=== PATIENT | female | born 1935 | race Caucasian/White ===

== ENCOUNTER 2020-05-07 11:01 | Inpatient (IN) | payer MEDICARE, OTHER ==
[~2020-05-07] VITALS: Ht 170.2 cm; Wt 112.4 kg
[~2020-05-07 11:01] MED LIST: ACET500C OR; ACET65TA OR; Amlodipine Besylate PO; BUDE0.5S6 INH; CATA0.2D3 TD; CEPACOL LOZENGES PO; CEPALOZ8 PO; FURO20TA2 PO; IBUP-1114 PO; IPRA0.00 NEB; MAALSUS OR; METO10TA2 OR; NYST-15 TOP; PERC5TAB8 OR; PRED-351 PO; PROT1TAB2 OR; SENN1TAB84 PO; SUCR1TAB56 OR; TRAZ1TAB6 PO
[2020-05-07 11:56] LABS: BASO # 0.1 10^3/uL (0.0-0.2); BASO % 0.7 % (0.0-1.0); EOS # 0.2 10^3/uL (0.0-0.5); EOS % 1.3 % (0.0-3.0); HEMATOCRIT 45.2 % (36.0-47.0); HEMOGLOBIN 14.2 g/dl (12.0-15.5); LYMPH # 1.3 10^3/uL (1.5-5.0); LYMPH % 7.1 % (24.0-44.0); MEAN CORPUSCULAR HEMOGLOBIN 29.2 pg (27.0-33.0); MEAN CORPUSCULAR HGB CONC 31.4 g/dl (32.0-36.5); MEAN CORPUSCULAR VOLUME 92.8 fl (80.0-96.0); MONO # 1.2 10^3/uL (0.0-0.8); MONO % 6.5 % (0.0-5.0); NEUTROPHILS # 15.1 10^3/uL (1.5-8.5); NEUTROPHILS % 83.6 % (36.0-66.0); PLATELET COUNT, AUTOMATED 468 10^3/uL (150-450); RED BLOOD COUNT 4.87 10^6/uL (4.00-5.40); WHITE BLOOD COUNT 18.1 10^3/uL (4.0-10.0)
--- NOTE | 2020-05-07 12:06 | REP ---
INDICATION: DYSPNEA/COUGH. COMPARISON: 09/22/2015 FINDINGS: The technique utilized in obtaining the radiograph has magnified the cardiac silhouette and accentuated the interstitial markings. There is cardiomegaly accentuated by technique. Bibasilar opacities have developed since the last exam. There is bilateral CP angle blunting. There is no change in the osseous structures. IMPRESSION: 1. Bibasilar opacities. Pneumonia/atelectasis/effusions. 2. Cardiomegaly <Electronically signed by Jose Antonio Vasquez > 05/07/20 1209
[2020-05-07 12:27] LABS: ALBUMIN 2.5 GM/DL (3.2-5.2); BILIRUBIN,DIRECT 0.1 MG/DL (0.0-0.2); BILIRUBIN,TOTAL 0.3 MG/DL (0.2-1.0); TOTAL PROTEIN 6.8 GM/DL (6.4-8.2)
[2020-05-07] MEDS ORDERED: cefTRIAXone SOD 1 GM in D5W MINI-BAG PLUS 50 ML IV ONE (12:30)
[2020-05-07] MEDS ORDERED: AZITHROMYCIN INJ 500 MG, VIAL MATE ADAPTER 1 EACH in D5W 250 ML IV ONE (12:30)
[2020-05-07] MEDS ORDERED: IBUP-1720 PO (13:54)
[2020-05-07] MEDS ORDERED: AMLO1TAB25 PO (13:54)
[2020-05-07] MEDS ORDERED: TRAZ-257 PO (13:54)
[2020-05-07] MEDS ORDERED: IPRA0.00 NEB (13:54)
[2020-05-07] MEDS: AZITHROMYCIN INJ 500 MG, VIAL MATE ADAPTER 1 EACH in D5W 250 ML IV SCH (13:58)
[2020-05-07 15:15] VITALS: BP 120/85
[2020-05-07] MEDS ORDERED: SLF 3 ML SYR IV PRN (15:45)
[2020-05-07 16:25] LABS: CK-MB VALUE MASS 1.1 NG/ML (<3.6); CPK CREATINE PHOSPHOKINASE 32 U/L (26-192); MB/CK RELATIVE INDEX 3.44 (< OR =4); TROPONIN I < 0.02 NG/ML (< 0.10)
[2020-05-07] MEDS ORDERED: IPRATROPIUM 0.5MG/ALBUTEROL 2.5MG INH SOL UD 3ML (DUONEB) NEB PRN (17:45)
--- NOTE | 2020-05-07 17:46 | HPEPDOC ---
[facility] Medical History & Physical Date of Admission May 07, 2020 Date of Service: May 07, 2020 History and Physical CHIEF COMPLAINT: SOB HISTORY OF PRESENT ILLNESS: 84F for one week history of gradually worsening shortness of breath, with cough occasionally productive of white sputum. Denies any sick contacts. No other medical complaints. Denies headaches, N/V/D, abdominal pain. PAST MEDICAL HISTORY: #HTN #GERD #COPD #obesity ALLERGIES: Please see below. REVIEW OF SYSTEMS: Negative except as per HPI. HOME MEDICATIONS: Please see below. PHYSICAL EXAMINATION: VITAL SIGNS: See below General: NAD, lying comfortably in bed HEENT: NC/AT, EOMI, hard of hearing, poor dentition Lungs: coarse breath sounds Heart: +S1S2, RRR Abd: soft, NT, +BS LABORATORY DATA: See below. MICROBIOLOGY: Please see below. A/P: 84F for one week history of gradually worsening SOB/cough, admitted for acute hypoxic respiratory failure secondary to possible pneumonia, possibly complicated with decompensated heart failure. #acute hypoxic respiratory failure - possibly multi-factorial as below - supplemental O2 - IS/acapella #PNA - ceftriaxone/azithromycin - sputum culture/gram stain - respiratory panel negative - COVID-19 negative #CHF? - xray not clear regarding evidence of fluid - echocardiogram ordered - I/O's, daily weight #HTN - continue home meds #obesity - complicates care #GERD #COPD - continue home respiratory regimen - DuoNeb #DVT prophylaxis - mechanical Vital Signs Vital Signs Date Time Temp Pulse Resp B/P (MAP) Pulse Ox O2 Delivery O2 Flow Rate FiO2 05/07/20 15:15 97.3 96 22 120/85 (97) 94 Nasal Cannula 2.0 Laboratory Data Labs 24H Laboratory Tests 2 05/07/20 11:36: POC Glucose (Misc Panel) 117H, POC Sodium (Misc Panel) 137, POC Potassium (Misc Panel) 4.3, POC Chloride (Misc Panel) 103, POC Total CO2 (Misc Panel) 25.0, POC Blood Urea Nitrogen (Misc Panel 11, POC Ionized Calcium (Misc Panel) 4.4L, POC Creatinine (Misc Panel) 0.8, POC Hematocrit (Misc Panel) 47.0, Lactic Acid Level 1.3 05/07/20 11:38: POC Troponin I (Misc) 0.02 05/07/20 11:41: Immature Granulocyte % (Auto) 0.8, Neutrophils (%) (Auto) 83.6H, Lymphocytes (%) (Auto) 7.1L, Monocytes (%) (Auto) 6.5H, Eosinophils (%) (Auto) 1.3, Basophils (%) (Auto) 0.7, Neutrophils # (Auto) 15.1H, Lymphocytes # (Auto) 1.3L, Monocytes # (Auto) 1.2H, Eosinophils # (Auto) 0.2, Basophils # (Auto) 0.1, Nucleated Red Blood Cells % (auto) 0.0, Total Bilirubin 0.3, Direct Bilirubin 0.1, Aspartate A kylie Transf (AST/SGOT) 14, Alanine Aminotransferase (ALT/SGPT) 14, Alkaline Phosphatase 107, UB-Tlq-T-Type Natriuretic Peptide 340, Total Protein 6.8, Albumin 2.5L, Albumin/Globulin Ratio 0.6L 05/07/20 15:44: Total Creatine Kinase 32, Creatine Kinase MB 1.1, Creatine Kinase MB Relative Index 3.44, Troponin I < 0.02 CBC/BMP Laboratory Tests 05/07/20 11:41 Microbiology Microbiology 05/07/20 Blood Culture, Received Pending 05/07/20 Blood Culture, Received Pending 05/07/20 Respiratory Virus Panel (PCR) ([facility]) - Final, Complete Home Medications Scheduled Amlodipine Besylate (Amlodipine Besylate) 10 Mg Tablet, 10 MG PO DAILY Trazodone HCl (Trazodone HCl) 100 Mg Tablet, 100 MG PO QHS Scheduled PRN Ibuprofen (Ibuprofen) 200 Mg Tablet, 800 MG PO Q8H PRN for PAIN Ipratropium/Albuterol Sulfate (Iprat-Albut 0.5-3(2.5) mg/3 ml) 3 Ml Ampul.neb, 1 VIAL NEB Q6H PRN for SOB/WHEEZING Allergies Coded Allergies: Sulfa (Sulfonamide Antibiotics) (Verified Adverse Reaction, Mild, STOMACH UPSET, 05/07/20) A-FIB/CHADSVASC A-FIB History Current/History of A-Fib/PAF?: No SUDEEP ZAPATA MD May 07, 2020 17:46
[2020-05-07] MEDS ORDERED: guaiFENesin SYRUP 200 MG/10 ML UDC PO PRN (18:00)
[2020-05-07] MEDS ORDERED: IBUPROFEN 200MG TAB PO PRN (19:00)
[2020-05-07 20:00] VITALS: BP 140/90
[2020-05-07] MEDS: SLF 3 ML SYR IV SCH (20:20)
[2020-05-07] MEDS: traZODone 100 MG TAB PO SCH (20:20)
[2020-05-07 22:32] LABS: CK-MB VALUE MASS 1.3 NG/ML (<3.6); CPK CREATINE PHOSPHOKINASE 34 U/L (26-192); MB/CK RELATIVE INDEX 3.82 (< OR =4); TROPONIN I < 0.02 NG/ML (< 0.10)
[2020-05-08] VITALS: BP 129/63
[2020-05-08] MEDS: SLF 3 ML SYR IV SCH ×3 (01:18→21:06)
[2020-05-08 04:00] VITALS: BP 134/78
[2020-05-08 05:56] LABS: BASO # 0.1 10^3/uL (0.0-0.2); BASO % 0.6 % (0.0-1.0); EOS # 0.2 10^3/uL (0.0-0.5); HEMATOCRIT 45.4 % (36.0-47.0); HEMOGLOBIN 13.9 g/dl (12.0-15.5); LYMPH # 1.2 10^3/uL (1.5-5.0); LYMPH % 8.2 % (24.0-44.0); MEAN CORPUSCULAR HEMOGLOBIN 28.8 pg (27.0-33.0); MEAN CORPUSCULAR HGB CONC 30.6 g/dl (32.0-36.5); MEAN CORPUSCULAR VOLUME 94.2 fl (80.0-96.0); MONO # 1.1 10^3/uL (0.0-0.8); MONO % 7.6 % (0.0-5.0); NEUTROPHILS % 81.8 % (36.0-66.0); PLATELET COUNT, AUTOMATED 437 10^3/uL (150-450); RED BLOOD COUNT 4.82 10^6/uL (4.00-5.40); WHITE BLOOD COUNT 14.7 10^3/uL (4.0-10.0)
[2020-05-08 06:16] LABS: BLOOD UREA NITROGEN 12 MG/DL (7-18); CALCIUM LEVEL 8.9 MG/DL (8.8-10.2); CARBON DIOXIDE LEVEL 27 MEQ/L (21-32); CHLORIDE LEVEL 102 MEQ/L (98-107); CREATININE FOR GFR 0.85 MG/DL (0.55-1.30); GLOMERULAR FILTRATION RATE > 60.0 (>32); GLUCOSE, FASTING 127 MG/DL (70-100); SODIUM LEVEL 136 MEQ/L (136-145)
[2020-05-08 07:42] LABS: BILIRUBIN, URINE MANUAL NEGATIVE (NEGATIVE); GLUCOSE, URINE (UA) MANUAL NEGATIVE (NEGATIVE); KETONE, URINE MANUAL NEGATIVE (NEGATIVE); UROBILINOGEN, URINE MANUAL NORMAL (NORMAL)
[2020-05-08 08:00] VITALS: BP 128/65
[2020-05-08 08:02] LABS: HYALINE CAST, URINE NONE SEEN /lpf (0-1); MUCUS, URINE LARGE AMOUNT (NEGATIVE); SQUAMOUS EPITHELIAL CELL URINE SMALL AMOUNT /hpf (SMALL AMT); TRIPLE PHOSPHATE CRYSTAL,URINE SMALL AMOUNT /hpf
[2020-05-08 08:03] LABS: AMORPHOUS SEDIMENT, URINE MOD AMOUNT (NEGATIVE); BACTERIA, URINE LARGE AMOUNT
--- NOTE | 2020-05-08 08:27 | IPNPDOC ---
Text Note Date of Service The patient was seen on 05/08/20. NOTE Subjective: Patient seen and examined at bedside. No acute overnight events reported. Patient states her breathing is feeling better this morning. Objective: PHYSICAL EXAMINATION: VITAL SIGNS: See below General: NAD, lying comfortably in bed HEENT: NC/AT, EOMI, hard of hearing, poor dentition Lungs: coarse breath sounds Heart: +S1S2, RRR Abd: soft, NT, +BS A/P: 84F for one week history of gradually worsening SOB/cough, admitted for acute hypoxic respiratory failure secondary to possible pneumonia, possibly complicated with decompensated heart failure. #acute hypoxic respiratory failure - possibly multi-factorial as below - supplemental O2 - IS/acapella #PNA - ceftriaxone/azithromycin - sputum culture/gram stain - respiratory panel negative - COVID-19 negative #CHF? - xray not clear regarding evidence of fluid - echocardiogram ordered - I/O's, daily weight #HTN - continue home meds #obesity - complicates care #GERD #COPD - continue home respiratory regimen - DuoNeb #DVT prophylaxis - mechanical Dispo: pending echocardiogram, continue IV Abx pending cultures, PT/OT VS,Fishbone, I+O VS, Fishbone, I+O Laboratory Tests 05/07/20 11:41 05/08/20 05:24 Vital Signs Date Time Temp Pulse Resp B/P (MAP) Pulse Ox O2 Delivery O2 Flow Rate FiO2 05/08/20 04:00 96.8 99 20 134/78 (96) 94 Nasal Cannula 2.0 I&O- Last 24 Hours up to 6 AM 05/08/20 06:00 Intake Total 425 ml Output Total 0 ml Balance 425 ml SUDEEP ZAPATA MD May 08, 2020 08:27
--- NOTE | 2020-05-08 10:14 | ECGEPIP ---
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
[2020-05-08] MEDS: amLODIPine 10 MG TAB PO SCH (10:27)
[2020-05-08 12:00] VITALS: BP 110/65
[2020-05-08] MEDS: cefTRIAXone SOD 1 GM in D5W MINI-BAG PLUS 50 ML IV SCH (12:53)
[2020-05-08] MEDS: AZITHROMYCIN INJ 500 MG, VIAL MATE ADAPTER 1 EACH in D5W 250 ML IV SCH (14:21)
[2020-05-08 16:00] VITALS: BP 125/72
[2020-05-08] MEDS ORDERED: CALCIUM CARBONATE 500 MG CHEW U/D PO PRN (17:30)
[2020-05-08 20:00] VITALS: BP 125/60
[2020-05-08] MEDS: traZODone 100 MG TAB PO SCH (21:05)
[2020-05-09] VITALS: BP 112/58
[2020-05-09 04:00] VITALS: BP 134/82
[2020-05-09 05:17] LABS: BASO # 0.1 10^3/uL (0.0-0.2); BASO % 0.6 % (0.0-1.0); EOS # 0.3 10^3/uL (0.0-0.5); HEMATOCRIT 48.2 % (36.0-47.0); HEMOGLOBIN 15.1 g/dl (12.0-15.5); LYMPH # 1.6 10^3/uL (1.5-5.0); LYMPH % 11.3 % (24.0-44.0); MEAN CORPUSCULAR HGB CONC 31.3 g/dl (32.0-36.5); MEAN CORPUSCULAR VOLUME 95.6 fl (80.0-96.0); MONO # 1.2 10^3/uL (0.0-0.8); MONO % 8.7 % (0.0-5.0); NEUTROPHILS # 10.5 10^3/uL (1.5-8.5); NEUTROPHILS % 76.4 % (36.0-66.0); PLATELET COUNT, AUTOMATED 463 10^3/uL (150-450); RED BLOOD COUNT 5.04 10^6/uL (4.00-5.40); WHITE BLOOD COUNT 13.8 10^3/uL (4.0-10.0)
[2020-05-09 05:38] LABS: BLOOD UREA NITROGEN 15 MG/DL (7-18); CALCIUM LEVEL 9.2 MG/DL (8.8-10.2); CARBON DIOXIDE LEVEL 31 MEQ/L (21-32); CHLORIDE LEVEL 103 MEQ/L (98-107); CREATININE FOR GFR 0.91 MG/DL (0.55-1.30); GLOMERULAR FILTRATION RATE > 60.0 (>32); GLUCOSE, FASTING 117 MG/DL (70-100); POTASSIUM SERUM 4.1 MEQ/L (3.5-5.1); SODIUM LEVEL 138 MEQ/L (136-145)
[2020-05-09] MEDS: SLF 3 ML SYR IV SCH ×2 (06:14→12:55)
[2020-05-09 08:00] VITALS: BP 122/67
[2020-05-09] MEDS: amLODIPine 10 MG TAB PO SCH (09:25)
[2020-05-09 11:39] VITALS: BP 131/63
[2020-05-09] MEDS: cefTRIAXone SOD 1 GM in D5W MINI-BAG PLUS 50 ML IV SCH (12:54)
[2020-05-09] MEDS: AZITHROMYCIN INJ 500 MG, VIAL MATE ADAPTER 1 EACH in D5W 250 ML IV SCH (12:55)
[2020-05-09] MEDS ORDERED: ACETAMINOPHEN TAB 650MG DOSE (2X325MG) PO PRN (13:15)
--- NOTE | 2020-05-09 13:21 | IPNPDOC ---
Text Note Date of Service The patient was seen on 05/09/20. NOTE Subjective: Patient seen and examined at bedside. No acute overnight events reported. Patient states her breathing is feeling better this morning, however states she feels weak. No other medical complaints. Objective: PHYSICAL EXAMINATION: VITAL SIGNS: See below General: NAD, lying comfortably in bed HEENT: NC/AT, EOMI, hard of hearing, poor dentition Lungs: scattered crackles Heart: +S1S2, RRR Abd: soft, NT, +BS A/P: 84F for one week history of gradually worsening SOB/cough, admitted for acute hypoxic respiratory failure secondary to possible pneumonia, possibly comp licated with decompensated heart failure. #acute hypoxic respiratory failure - possibly multi-factorial as below - supplemental O2 has been weaned off - IS/acapella #PNA - ceftriaxone/azithromycin - check ECG for qt interval - pt also takes trazodone - sputum culture/gram stain pending - respiratory panel negative - COVID-19 negative #CHF? - xray not clear regarding evidence of fluid - echocardiogram ordered - pending report - I/O's, daily weight #HTN - continue home meds - amlodipine #obesity - complicates care #GERD #COPD - continue home respiratory regimen - DuoNeb #DVT prophylaxis - mechanical Dispo: pending echocardiogram, continue IV Abx pending cultures, PT/OT; Extensive discussion with family - Tashi and Dayna - planning for transportation for tomorrow 05/10/20 VS,Fishbone, I+O VS, Fishbone, I+O Laboratory Tests 05/09/20 04:28 Vital Signs Date Time Temp Pulse Resp B/P (MAP) Pulse Ox O2 Delivery O2 Flow Rate FiO2 05/09/20 11:39 97.5 83 18 131/63 (85) 92 Room Air 05/08/20 08:00 2.0 I&O- Last 24 Hours up to 6 AM 05/09/20 06:00 Intake Total 1385 ml Output Total 0 ml Balance 1385 ml SUDEEP ZAPATA MD May 09, 2020 13:21
[2020-05-09] MEDS ORDERED: AZIT500T5 PO (14:16)
[2020-05-09] MEDS ORDERED: CEFD1CAP8 PO (14:16)
--- NOTE | 2020-05-09 14:22 | DS.PDOC ---
Discharge Summary General Date of Admission May 07, 2020 at 13:10 Date of Discharge anticipated for 05/10/20 Discharge Summary PROCEDURES PERFORMED DURING STAY: [None]. DISCHARGE DIAGNOSES: #CAP #HTN #GERD #COPD #obesity COMPLICATIONS/CHIEF COMPLAINT: Pneumonia. HPI/Hospital Course: 84F for one week history of gradually worsening shortness of breath, with cough occasionally productive of white sputum. Denies any sick contacts. No other medical complaints. Denies headaches, N/V/D, abdominal pain. Patient admitted for further evaluation and treatment. Treated with IV antibiotics for pneumonia, and supplemental oxygen. Patient responded well to therapy, weaned to room air. Was noted to be weak, which was addressed with physical therapy, with recs for home with services. DISCHARGE MEDICATIONS: Please see below. ALLERGIES: Please see below. PHYSICAL EXAMINATION ON DISCHARGE: VITAL SIGNS: See below General: NAD, lying comfortably in bed HEENT: NC/AT, EOMI, hard of hearing, poor dentition Lungs: coarse breath sounds Heart: +S1S2, RRR Abd: soft, NT, +BS LABORATORY DATA: Please see below. ACTIVITY: [As tolerated]. DISPOSITION: Home with services DISCHARGE INSTRUCTIONS: 1. Follow up PCP in 3-5 days DISCHARGE CONDITION: [Stable]. TIME SPENT ON DISCHARGE: 35 minutes. Vital Signs/I&Os Vital Signs Date Time Temp Pulse Resp B/P (MAP) Pulse Ox O2 Delivery O2 Flow Rate FiO2 05/09/20 11:39 97.5 83 18 131/63 (85) 92 Room Air 05/08/20 08:00 2.0 I&O- Last 24 Hours up to 6 AM 05/09/20 06:00 Intake Total 1385 ml Output Total 0 ml Balance 1385 ml Laboratory Data Labs 24H Laboratory Tests 2 05/09/20 04:28: Immature Granulocyte % (Auto) 1.0, Neutrophils (%) (Auto) 76.4H, Lymphocytes (%) (Auto) 11.3L, Monocytes (%) (Auto) 8.7H, Eosinophils (%) (Auto) 2.0, Basophils (%) (Auto) 0.6, Neutrophils # (Auto) 10.5H, Lymphocytes # (Auto) 1.6, Monocytes # (Auto) 1.2H, Eosinophils # (Auto) 0.3, Basophils # (Auto) 0.1, Nucleated Red Blood Cells % (auto) 0.0, Anion Gap 4L, Glomerular Filtration Rate > 60.0, Calcium Level 9.2 CBC/BMP Laboratory Tests 05/09/20 04:28 Microbiology Microbiology 05/08/20 Gram Stain - Final, Resulted 05/08/20 Sputum Culture, Resulted Pending 05/08/20 Urine Culture - Final, Complete 05/07/20 Blood Culture - Preliminary, Resulted No growth after 24 hours . All specim... 05/07/20 Blood Culture - Preliminary, Resulted No Growth after 48 hours. All Specime... 05/07/20 Respiratory Virus Panel (PCR) ([facility]) - Final, Complete Discharge Medications Scheduled Amlodipine Besylate (Amlodipine Besylate) 10 Mg Tablet, 10 MG PO DAILY, (Reported) Azithromycin (Azithromycin) 500 Mg Tablet, 1 TAB PO DAILY Cefdinir (Cefdinir) 300 Mg Capsule, 1 CAP PO BID Trazodone HCl (Trazodone HCl) 100 Mg Tablet, 100 MG PO QHS, (Reported) Scheduled PRN Ipratropium/Albuterol Sulfate (Iprat-Albut 0.5-3(2.5) mg/3 ml) 3 Ml Ampul.neb, 1 VIAL NEB Q6H PRN for SOB/WHEEZING, (Reported) Allergies Coded Allergies: Sulfa (Sulfonamide Antibiotics) (Verified Adverse Reaction, Mild, STOMACH UPSET, 05/07/20) SUDEEP ZAPATA MD May 09, 2020 14:22
[2020-05-09 16:00] VITALS: BP 119/59
[2020-05-09] MEDS: traZODone 100 MG TAB PO SCH (21:45)
[2020-05-09 22:00] VITALS: BP 123/60
[2020-05-10 06:00] VITALS: BP 121/63
[2020-05-10 07:26] LABS: BASO # 0.1 10^3/uL (0.0-0.2); BASO % 0.6 % (0.0-1.0); EOS # 0.4 10^3/uL (0.0-0.5); EOS % 2.9 % (0.0-3.0); HEMATOCRIT 48.3 % (36.0-47.0); HEMOGLOBIN 14.6 g/dl (12.0-15.5); LYMPH # 1.7 10^3/uL (1.5-5.0); LYMPH % 14.1 % (24.0-44.0); MEAN CORPUSCULAR HEMOGLOBIN 28.7 pg (27.0-33.0); MEAN CORPUSCULAR HGB CONC 30.2 g/dl (32.0-36.5); MEAN CORPUSCULAR VOLUME 95.1 fl (80.0-96.0); MONO # 0.9 10^3/uL (0.0-0.8); MONO % 7.6 % (0.0-5.0); NEUTROPHILS # 8.9 10^3/uL (1.5-8.5); NEUTROPHILS % 73.9 % (36.0-66.0); PLATELET COUNT, AUTOMATED 507 10^3/uL (150-450); RED BLOOD COUNT 5.08 10^6/uL (4.00-5.40)
[2020-05-10 07:45] LABS: CALCIUM LEVEL 9.2 MG/DL (8.8-10.2); CREATININE FOR GFR 1.04 MG/DL (0.55-1.30); GLOMERULAR FILTRATION RATE 53.7 (>32)
[2020-05-10 09:14] VITALS: BP 119/73
[2020-05-10] MEDS: amLODIPine 10 MG TAB PO SCH (09:14)
--- NOTE | 2020-05-11 11:47 | ECHO ---
DATE OF PROCEDURE: 05/09/2020 Age: 84 Gender: Female Height: 67 inches Weight: 242 pounds Body surface area: 2.19 m2 PATIENT LOCATION: Inpatient progressive care unit (PCU), Room 3212. REFERRING PHYSICIAN: Zaid Lopez M.D. INDICATION: Dyspnea. MEASUREMENTS: 2D Measurements: RV 3.4 cm LV 4.4 cm Septum 1.0 cm Posterior wall 1.0 cm Aortic Root 3.0 cm LA 3.6 cm LVEF 65% Doppler Measurements: AV 1.38 msec LVOT 1.18 msec MV-E 86, A 108, E/A ratio 0.8 Early mitral deceleration time 151 msec E prime medial 5, A prime medial 7, E prime lateral 4.7 Average E/E prime ratio 17.7 PCWP 23.9 mmHg PV 0.8 msec Pulmonary artery acceleration time 116 msec PASP 30 mmHg IVC Could not be visualized COMMENTS: Normal sinus rhythm without intraventricular conduction disturbance. Premature atrial contractions (PACs) and premature ventricular contractions (PVCs). Technically very challenging study, but some diagnostically useful information was still obtained. M-mode and two-dimensional echocardiography was performed with pulse, continuous wave, color flow, and tissue Doppler studies. Normal left ventricular size, wall thickness, and wall motion. Left atrial size upper limits of normal with grade 1 left ventricular (LV) diastolic dysfunction and elevated estimated mean left atrial pressure. Normal right heart chamber sizes and motion with Doppler evidence of borderline pulmonary hypertension. Inferior vena cava (IVC) size could not be determined for technical difficulties related to patients body habitus. Normal aortic dimensions. Normal appearing and functioning aortic valve. Difficult to visualize the mitral valve, but Doppler flow patterns were normal against mitral stenosis or significant insufficiency. Tricuspid valve could not be visualized well. No apparent pericardial effusion. Could not rule out an intracardiac mass because of the technical difficulties as mentioned. MTDD
--- NOTE | 2020-05-13 13:20 | ECGEPIP ---
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
== END 2020-05-10 10:08 | disposition home health service (06) | DRG 194 ==
LOC: M ED 11:01 → EDBD 11:01 → M ED INP 13:10 → ENRESERV 13:59 → M PCU 15:12 → M MSPAV 05-09 17:42
PROVIDERS: ADMIT Internal Medicine; ATTEND Internal Medicine
DX: J18.9 Pneumonia, unspecified organism (principal); J44.0 Chronic obstructive pulmonary disease with (acute) lower respiratory infection; I11.0 Hypertensive heart disease with heart failure; I50.9 Heart failure, unspecified; K21.9 Gastro-esophageal reflux disease without esophagitis; H91.93 Unspecified hearing loss, bilateral; E66.9 Obesity, unspecified; Z79.899 Other long term (current) drug therapy; Z88.2 Allergy status to sulfonamides; Z68.38 Body mass index [BMI] 38.0-38.9, adult; Z20.828 Contact with and (suspected) exposure to other viral communicable diseases

== ENCOUNTER 2020-08-01 10:11 | Inpatient (IN) | payer MEDICARE, MEDICAID ==
[~2020-08-01] VITALS: Ht 170.2 cm; Wt 114.5 kg
[~2020-08-01 10:11] MED LIST changes: +AMLO1TAB25 PO; +AZIT500T5 PO; +CEFD1CAP8 PO; +IBUP-1720 PO; +TRAZ-257 PO
[2020-08-01] MEDS ORDERED: TRAZ-189 PO (10:29)
[2020-08-01 11:12] LABS: BASO # 0.1 10^3/uL (0.0-0.2); BASO % 0.3 % (0.0-1.0); EOS % 0.1 % (0.0-3.0); LYMPH # 1.1 10^3/uL (1.5-5.0); LYMPH % 6.7 % (24.0-44.0); MEAN CORPUSCULAR HEMOGLOBIN 29.6 pg (27.0-33.0); MEAN CORPUSCULAR HGB CONC 32.1 g/dl (32.0-36.5); MEAN CORPUSCULAR VOLUME 92.2 fl (80.0-96.0); MONO # 1.1 10^3/uL (0.0-0.8); MONO % 6.7 % (0.0-5.0); NEUTROPHILS # 13.4 10^3/uL (1.5-8.5); NEUTROPHILS % 85.9 % (36.0-66.0); PLATELET COUNT, AUTOMATED 203 10^3/uL (150-450); RED BLOOD COUNT 5.75 10^6/uL (4.00-5.40)
[2020-08-01 11:29] LABS: BLOOD UREA NITROGEN 16 MG/DL (7-18); CALCIUM LEVEL 9.3 MG/DL (8.8-10.2); CARBON DIOXIDE LEVEL 23 MEQ/L (21-32); CHLORIDE LEVEL 102 MEQ/L (98-107); CK-MB VALUE MASS 15.7 NG/ML (<3.6); CPK CREATINE PHOSPHOKINASE 479 U/L (26-192); CREATININE FOR GFR 0.82 MG/DL (0.55-1.30); GLOMERULAR FILTRATION RATE > 60.0 (>32); GLUCOSE, FASTING 139 MG/DL (70-100); MB/CK RELATIVE INDEX 3.28 (< OR =4); POTASSIUM SERUM 4.2 MEQ/L (3.5-5.1); SODIUM LEVEL 137 MEQ/L (136-145); TROPONIN I < 0.02 NG/ML (< 0.10)
--- NOTE | 2020-08-01 11:31 | REP ---
INDICATION: AMS COMPARISON: 05/07/2020 TECHNIQUE: Portable AP view of the chest FINDINGS: The mediastinum and cardiac silhouette are stable and cardiomegaly is again appreciated. Lung lopes demonstrate chronic stable changes. Opacities in the left mid to lower lung zone are again identified and likely chronic although superimposed atelectasis cannot be excluded. Skeletal structures are intact. IMPRESSION: Stable cardiomegaly and chronic changes Acute on chronic left lower lobe opacities cannot be differentiated and correlation is recommended. <Electronically signed by Sammy Reynolds > 08/01/20 [id number]
[2020-08-01 11:44] LABS: WHITE BLOOD COUNT 15.6 10^3/uL (4.0-10.0)
[2020-08-01 12:54] LABS: ETHYL ALCOHOL (ETHANOL) 0.003 % (0.000-0.010)
--- NOTE | 2020-08-01 14:12 | REP ---
INDICATION: AMS. COMPARISON: Comparison CT study of the brain is from 23 Oct 2010.. TECHNIQUE: Helical scanning is acquired. 5 mm axial images were reformatted. Coronal MPR images were generated. 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 Bone window settings demonstrate intact bony calvarium. Vascular calcification is observed in the distal vertebral and distal internal carotid arteries bilaterally. No intraorbital abnormality is seen. The visualized paranasal sinuses are clear. On soft tissue window settings, there is mild generalized volume loss. 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 These are unchanged from the 2011 study. However, there is a small subcentimeter focus of low density in the anterior limb of the internal capsule on the left 5 mm in greatest diameter which is not visible previously. This is a little less well circumscribed and could be a more recent lacunar infarct. There are small vessel changes. No evidence of acute cortical infarction is seen on this noncontrast study. There is no evidence of intracranial hemorrhage. No mass, midline shift, or extra-axial fluid collection. 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 There is a 5 mm low-density area in the anterior limb of the internal capsule on the left which was not clearly evident previously. This may be a more recent lacunar infarct. No acute cortical infarction is seen. There is no evidence of hemorrhage or mass. Generalized volume loss and vascular calcification are seen.. <Electronically signed by Terell Malhotra > 08/01/20 [id number]
--- NOTE | 2020-08-01 14:21 | REP ---
INDICATION: AMS COMPARISON: None. TECHNIQUE: CT Scan of the abdomen and pelvis was performed without intravenous contrast. Sagittal and coronal reconstruction images performed. FINDINGS: Liver: A calcified granuloma is seen in the liver. Gallbladder: Unremarkable. Spleen: Grossly unremarkable.. Adrenals: Normal. Pancreas: Grossly unremarkable.. Kidneys: No hydronephrosis or nephrolithiasis. Ureters demonstrate no dilatation or calculus. There is a probable 1.2 cm cyst of the medial lower right kidney and a 1.2 cm cyst in the posterior mid left kidney. Small and large bowel: There is diffuse colonic diverticulosis. There is no evidence of acute diverticulitis. A left upper quadrant anterior abdominal hernia contains noninflamed fat but no bowel. Free fluid: None. Abdominal aorta: No aneurysm. Adenopathy: None. Appendix: Prior appendectomy. Osseous structures: There are degenerative changes of the spine without compression deformity. Pelvis: No mass. No bladder calculus seen. A Doll catheter seen in a collapsed urinary bladder. A pessary device is noted. IMPRESSION: Chronic changes as discussed in detail above. Probable cyst in each kidney. Colonic diverticulosis. No free air or free fluid. Small left anterior abdominal wall hernia contains noninflamed fat. No acute abnormalities. <Electronically signed by Antonio José > 08/01/20 [id number]
--- NOTE | 2020-08-01 14:31 | REP ---
INDICATION: AMS. COMPARISON: 02/20/2010. TECHNIQUE: CT chest performed without the use of intravenous contrast. Sagittal and coronal reconstruction images are performed. FINDINGS: Lungs: There are scattered bilateral fibro atelectatic changes. These are most significant in the right middle lobe region and lingula. There is some patchy parenchymal opacity in the inferior aspect of the left lower lobe which may represent atelectasis or infiltrate. Mediastinum: No gross adenopathy. Siobhan: No gross adenopathy. Axilla: No gross adenopathy. Pleura: No effusion. There is elevation left hemidiaphragm. Heart: Cardiomegaly is again noted. Thoracic aorta: No aneurysm. There is ectasia of the ascending thoracic aorta, AP diameter is approximately 4.2 cm. There are mild atherosclerotic calcifications of the aortic arch. Visualized osseous structures: There are degenerative changes of the spine without compression deformity. IMPRESSION: Diffuse fibro atelectatic changes bilaterally. Focal patchy atelectasis or infiltrate left lower lobe inferiorly. Cardiomegaly with elevation of left hemidiaphragm. <Electronically signed by Antonio José > 08/01/20 [id number]
[2020-08-01] MEDS ORDERED: MED REC COMMENT (15:15)
[2020-08-01] MEDS: NS 1,000 ML IV SCH (16:04)
[2020-08-01] MEDS ORDERED: hydrALAZINE 20MG/ML 1ML VIAL (J0360 PER 20MG) IV ONE (16:45)
[2020-08-01] MEDS: **hydrALAZINE HCL** 25 MG TAB PO SCH (18:47)
--- NOTE | 2020-08-01 19:11 | HPEPDOC ---
General Date of Admission Aug 01, 2020 at 15:07 Date of Service: Aug 01, 2020 Chief Complaint The patient is a 84-year-old female admitted with a reason for visit of Metabolic Encephalopathy. Source: RN/, EMS notes reviewed, Old records History of Present Illness 84 year old morbidly obese female lives alone was found down on the floor by EMS and brought to the hospital. Patient's family had been trying to reach her from yesterday and could not so called EMS. Patient reported to EMS that she fell sometime yesterday or last night and then could not get up. On arrival to the ED she was noted to be dirty and dishevelled smelling strongly of urine. SHe was confused and somnolent and poorly responsive. Only said she was tired. On my interview she was very somnolent told me she was in [place] but could not tell me where. She was able to follow simple commands. Could not give me any history. To any question she would answer "oh huh". All history was taken from ED pr ovider and chart review. Patient was admitted for metabolic encephalopathy. CT chest shows: Diffuse fibro atelectatic changes bilaterally. Focal patchy atelectasis or infiltrate left lower lobe inferiorly. Cardiomegaly with elevation of left hemidiaphragm CT head: There are old lacunar infarcts in the basal ganglia bilaterally, 1 on each side. There is a 5 mm low-density area in the anterior limb of the internal capsule on the left which was not clearly evident previously. This may be a m ore recent lacunar infarct. No acute cortical infarction is seen. There is no evidence of hemorrhage or mass. Generalized volume loss and vascular calcification are seen.. Home Medications Scheduled Amlodipine Besylate (Amlodipine Besylate) 10 Mg Tablet, 10 MG PO DAILY, (Reported) Trazodone HCl (Trazodone HCl) 100 Mg Tablet, 100 MG PO QHS, (Reported) Miscellaneous Medications [Med Rec Comment] , (Reported) MED LIST OBTAINED FROM PHARMACY Allergies Coded Allergies: Sulfa (Sulfonamide Antibiotics) (Verified Adverse Reaction, Mild, STOMACH UPSET, 05/07/20) Past Medical History Medical History HTN GERD/ Gastric ulcer/ erosive esophagitis COPD Morbid obesity H/O alcohol abuse Possible TERESE Hiatal Hernia Urinary incontinence Surgical History Hysterectomy. Appendectomy. Tubal ligation. Hiatal hernia repair. Cystourethroscopy with macroplastiq urethral injection. Family History could not get as patient confused and somnolent. Nothing found in chart review. Social History * Smoker: Denies Alcohol: other (h/o abuse) Drugs: denies A-FIB/CHADSVASC A-FIB History Current/History of A-Fib/PAF?: No Review of Systems Constitutional: Denies: Chills, Fever Pulmonary: Denies: Dyspnea, Cough Gastrointestinal: Denies: Nausea, Vomiting, Abdominal Pain Genitourinary: Reports: Incontinence Neurological: Reports: Confusion Physical Examination General Exam: Positive: No Acute Distress, Other (somnolent) Eye Exam: Positive: PERRLA, Conjunctiva & lids normal Neck Exam: Positive: Supple; Negative: JVD, thyromegaly Chest Exam: Positive: Clear to auscultation, Normal air movement Heart Exam: Positive: Rate Normal, Regular Rhythm, Normal S1, Normal S2; Negative: Murmurs, Rubs Telemetry: Positive: No significant arrhythmia Abdomen Exam: Positive: Normal bowel sounds, Soft; Negative: Tenderness Extremity Exam: Negative: Clubbing, Cyanosis, Edema Skin Exam: Positive: Other skin issue (bruising and abrasions on the left kelley. , Feet dirty with thick skin and corns.) Neuro Exam: Positive: Normal Tone, Other (able to move all 4 limbs equally. ) Vital Signs Vital Signs Date Time Temp Pulse Resp B/P (MAP) Pulse Ox O2 Delivery O2 Flow Rate FiO2 08/01/20 18:47 177/82 08/01/20 18:29 85 98 Room Air 08/01/20 16:14 97.3 18 Laboratory Data Labs 24H Laboratory Tests 2 08/01/20 10:52: Immature Granulocyte % (Auto) 0.3, Neutrophils (%) (Auto) 85.9H, Lymphocytes (%) (Auto) 6.7L, Monocytes (%) (Auto) 6.7H, Eosinophils (%) (Auto) 0.1, Basophils (%) (Auto) 0.3, Neutrophils # (Auto) 13.4H, Lymphocytes # (Auto) 1.1L, Monocytes # (Auto) 1.1H, Eosinophils # (Auto) 0.0, Basophils # (Auto) 0.1, Nucleated Red Blood Cells % (auto) 0.0, Lactic Acid Level 2.0 08/01/20 10:53: Anion Gap 12, Glomerular Filtration Rate > 60.0, Calcium Level 9.3, Total Creatine Kinase 479H, Creatine Kinase MB 15.7H, Creatine Kinase MB Relative Ind ex 3.28, Troponin I < 0.02, Ethyl Alcohol Level 0.003 08/01/20 10:59: SARS Antigen (LFIA) NEGATIVE 08/01/20 11:09: POC pH (Misc Panel) 7.448, POC Base Excess (Misc Panel) 5.0H, POC Saturated Percent O2 (Misc) 95, POC pO2 (Misc Panel) 75.0L, POC pCO2 (Misc Panel) 41.8, POC HCO3 (Misc Panel) 28.9H, POC Total CO2 (Misc Panel) 30.0H 08/01/20 11:50: Urine Color YELLOW, Urine Appearance CLEAR, Urine pH 6.0, Urine Specific [place] 1.016, Urine Protein 3+H, Urine Glucose (UA) NEGATIVE, Urine Ketones TRACEH, Urine Blood NEGATIVE, Urine Nitrite NEGATIVE, Urine Bilirubin NEGATIVE, Urine Urobilinogen 0.2, Urine Leukocyte Esterase NEGATIVE, Urine WBC (Auto) 0, Urine RBC (Auto) 4H, Urine Hyaline Casts (Auto) 0, Urine Bacteria (Auto) NEGATIVE, Ur ine Squamous Epithelial Cells 0, Urine Mucus (Auto) SMALL, Urine Sperm (Auto) CBC/BMP Laboratory Tests 08/01/20 10:52 08/01/20 10:53 Microbiology Microbiology 08/01/20 Respiratory Virus Panel (PCR) (HUGO) - Final, Complete 08/01/20 Blood Culture, Received Pending 08/01/20 Blood Culture, Received Pending Assessment/Plan 84 year old morbidly obese female lives alone was found down on the floor by EMS and brought to the hospital. Patient's family had been trying to reach her from yesterday and could not so called EMS. Patient reported to EMS that she fell sometime yesterday or last night and then could not get up. On arrival to the ED she was noted to be dirty and dishevelled smelling strongly of urine. SHe was confused and somnolent and poorly responsive. Only said she was tired. On my interview she was very somnolent told me she was in [place] but could not tell me where. She was able to follow simple commands. Could not give me any history. To any question she would answer "oh huh". All history was taken from ED provider and chart review. Patient was admitted for metabolic encephalopathy. Acute metabolic encephalopathy CT head with ? small lacunar infarct in the ant limb of left internal capsule which is newer. No acute infarction or hemorrhage. However this would not explain her confusion. will get MRI to see if there is any acute stroke, ? related to medication and alcohol. She is on trazodone UA clean Some infiltrates in the left base? pneumonia ceftriaxone. Hypertensive urgency amlodipine and hydralazine. Mild dehydration continue IVF. Plan / VTE VTE Prophylaxis Ordered?: Yes ZINA GUZMAN MD Aug 01, 2020 19:11
[2020-08-01] MEDS: cefTRIAXone SOD 1 GM in D5W MINI-BAG PLUS 50 ML IV SCH (19:45)
--- NOTE | 2020-08-01 20:12 | ECGEPIP ---
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
[2020-08-01 21:05] VITALS: BP 145/71
--- NOTE | 2020-08-01 22:08 | REPVR ---
PROCEDURE INFORMATION: Exam: MR Head Without Contrast Exam date and time: 08/01/2020 9:02 PM Age: 84 years old Clinical indication: Abnormal findings; Abnormal radiologic findings of head/skull; Ischemia; Additional info: Stroke TECHNIQUE: Imaging protocol: MR of the head without contrast. COMPARISON: CT Head without contrast 08/01/2020 1:48 PM FINDINGS: Brain: Acute infarct of the left basal ganglia measuring 1.6 cm. Moderate chronic microvascular ischemic changes. Chronic lacunar infarcts of bilateral basal ganglia. Cerebral ventricles: Normal. No ventriculomegaly. Bones/joints: Unremarkable. Paranasal sinuses: Normal as visualized. No acute sinusitis. Mastoid air cells: Mild effusion in bilateral mastoid air cells. Orbital cavity: Unremarkable. Soft tissues: Unremarkable. Other findings: No hemorrhage. IMPRESSION: Acute infarct of the left basal ganglia measuring 1.6 cm. No hemorrhage. Electronically signed by: Neal Ji On 08/01/2020 22:08:07 PM
[2020-08-01] MEDS: ATORVASTATIN 20 MG TAB PO SCH (22:38)
[2020-08-01] MEDS ORDERED: OLANZapine ORAL DISINTEGRATING TAB 5MG PO STA (23:45)
[2020-08-02] VITALS: BP 142/85
[2020-08-02] MEDS ORDERED: ISOVUE-370 76% 100ML VIAL As Ordered ONE (00:13)
[2020-08-02] MEDS: ASPIRIN 81 MG ENTERIC TAB PO SCH ×2 (00:34→08:28)
--- NOTE | 2020-08-02 00:35 | REPVR ---
PROCEDURE INFORMATION: Exam: CT Angiography Head With Contrast Exam date and time: 08/01/2020 10:20 PM Age: 84 years old Clinical indication: Other: Encephalopathy; Additional info: CVA TECHNIQUE: Imaging protocol: Computed tomography angiography of the head with intravenous contrast. 3D rendering (Not supervised by radiologist): MIP and/or 3D reconstructed images were created by the technologist. Radiation optimization: All CT scans at this facility use at least one of these dose optimization techniques: automated exposure control; mA and/or kV adjustment per patient size (includes targeted exams where dose is matched to clinical indication); or iterative reconstruction. Contrast material: ISO; Contrast volume: 75 ml; Contrast route: INTRAVENOUS (IV); COMPARISON: CT Head without contrast 08/01/2020 1:48 PM FINDINGS: ANTERIOR CIRCULATION: Right internal carotid artery: Unremarkable. Intracranial segment is patent with no significant stenosis. No aneurysm. Right middle cerebral artery: Unremarkable. No occlusion or significant stenosis. No aneurysm. Right anterior cerebral artery: Unremarkable. No occlusion or significant stenosis. No aneurysm. Left internal carotid artery: Unremarkable. Intracranial segment is patent with no significant stenosis. No aneurysm. Left middle cerebral artery: Unremarkable. No occlusion or significant stenosis. No aneurysm. Left anterior cerebral artery: Unremarkable. No occlusion or significant stenosis. No aneurysm. POSTERIOR CIRCULATION: Right vertebral artery: Right vertebral artery ends in PICA. Left vertebral artery: Unremarkable. No occlusion or significant stenosis. No aneurysm. Basilar artery: Unremarkable. No occlusion or significant stenosis. No aneurysm. Right posterior cerebral artery: origin of the right posterior cerebral artery. Left posterior cerebral artery: Unremarkable. No occlusion or significant stenosis. No aneurysm. IMPRESSION: No acute abnormality. Electronically signed by: Neal Ji On 08/02/2020 00:35:40 AM
--- NOTE | 2020-08-02 00:51 | REPVR ---
PROCEDURE INFORMATION: Exam: US Duplex Bilateral Extracranial Arteries Exam date and time: 08/01/2020 12:00 AM Age: 84 years old Clinical indication: Abnormal findings; Abnormal radiologic findings of head/skull; Ischemia; Additional info: CVA TECHNIQUE: Imaging protocol: Real-time Duplex ultrasound scan of the bilateral carotid and vertebral arteries combining beatty scale, color Doppler and spectral waveform analysis. Bilateral exam. COMPARISON: CT Head without contrast 08/01/2020 1:48 PM FINDINGS: Right common carotid artery: Unremarkable. No occlusion or significant stenosis. Waveforms are normal. Peak systolic velocity of 122.6 cm/s. Right internal carotid artery: Unremarkable. No occlusion or significant stenosis. Waveforms are normal. Peak systolic velocity of 62.7 cm/s. Right ICA/CCA ratio: 0.51. Within normal limits (<2). Right external carotid artery: No significant stenosis in the origin. Peak systolic velocity of 43.2 cm/s. Right vertebral artery: Not visualized. Left common carotid artery: Unremarkable. No occlusion or significant stenosis. Waveforms are normal. Peak systolic velocity of 48.9 cm/s. Left internal carotid artery: Unremarkable. No occlusion or significant stenosis. Waveforms are normal. Peak systolic velocity of 30.4 cm/s. Left ICA/CCA ratio: 0 0.62. Within normal limits (<2). Left external carotid artery: No significant stenosis in the origin. Peak systolic velocity of 39.7 cm/s. Left vertebral artery: Unremarkable. Antegrade flow. Peak systolic velocity of 52.2 cm/s. IMPRESSION: No definite carotid arterial stenosis identified. However, the patient has a short neck and the carotid arteries are tortuous, making it difficult for the polysomnography technologist to follow the vessels. REFERENCES: SRU CRITERIA. The degree of internal carotid artery stenosis is based on criteria defined by the Society of Radiologists in Ultrasound (SRU). Normal is no stenosis. Mild is less than 50% stenosis. Moderate is 50-69% stenosis. Severe is greater than 69% stenosis to near occlusion. Near occlusion is a markedly narrowed lumen. Total occlusion is no detectable patent lumen. Electronically signed by: Johny Hackett On 08/02/2020 00:51:37 AM
--- NOTE | 2020-08-02 01:19 | IPNPDOC ---
Subjective Date Seen The patient was seen on 08/02/20. Subjective Chief Complaint/HPI I was notified by radiologist on 08/01/2020 at 22:11 that patient has acute infarct of the left basal ganglia measuring 1.6. Unknown when last seen normal, but per H&P, patient had fallen on Jul 31 and was not able to get back up. Outside the window for TPA. Ordered for CT angio of head, US of carotids, and echocardiogram with bubble study. Spoke with Neurology, who recommended keeping BP between 140 to 180, aspirin, and statin. Patient went down for CT angio of head, but was initially agitated. Given 5mg of olanzapine, and they were able to get the CT. Patient was seen afterwards. She was pleasant, but had difficulty following some commands. Heel Builder strength was weak. She lifted her right arm, but did not want to lift left arm. She was able to lift legs against gravity. Face is asymmetrical, right facial droop noted. She knows she's in the hospital, but did not know year. Objective Physical Examination General Exam: Positive: No Acute Distress (pleasant) Eye Exam: Positive: EOMI ENT Exam: Positive: Tongue Midline Neck Exam: Positive: Supple Extremity Exam: Negative: Edema Skin Exam: Positive: Other skin issue (bruising and abrasions on the left kelley. , Feet dirty with thick skin and corns.) Neuro Exam: Positive: Other (Face asymetrical, right sided droop. Did not want to move left arm up) Assessment /Plan Plan/VTE VTE Prophylaxis Ordered?: Yes Plan Acute infarct of the left basal ganglia -Outside window for TPA -Spoke with neurology, recommended maintaining blood pressure between 140 to 180. Continue hydralazine with holding parameters. Moved amlodipine start date from 08/02 to 08/03 -Ordered CT angio of head, US carotids, and echocardiogram with bubble study. Continue with telemetry -Ordered Lipid panel and HbA1c for AM -Continue PT order. Added on OT order -NPO except for meds. ST order added VS, I&O, 24H, Fishbone Vital Signs/I&O Vital Signs Date Time Temp Pulse Resp B/P (MAP) Pulse Ox O2 Delivery O2 Flow Rate FiO2 08/01/20 21:05 98.1 82 18 145/71 (95) 96 Room Air I&O- Last 24 Hours up to 6 AM 08/02/20 06:00 Intake Total 550 ml Output Total 800 ml Balance -250 ml Laboratory Data 24H LABS Laboratory Tests 2 08/01/20 10:52: Immature Granulocyte % (Auto) 0.3, Neutrophils (%) (Auto) 85.9H, Lymphocytes (%) (Auto) 6.7L, Monocytes (%) (Auto) 6.7H, Eosinophils (%) (Auto) 0.1, Basophils (%) (Auto) 0.3, Neutrophils # (Auto) 13.4H, Lymphocytes # (Auto) 1.1L, Monocytes # (Auto) 1.1H, Eosinophils # (Auto) 0.0, Basophils # (Auto) 0.1, Nucleated Red Blood Cells % (auto) 0.0, Lactic Acid Level 2.0 08/01/20 10:53: Anion Gap 12, Glomerular Filtration Rate > 60.0, Calcium Level 9.3, Total Crea noy Kinase 479H, Creatine Kinase MB 15.7H, Creatine Kinase MB Relative Index 3.28, Troponin I < 0.02, Ethyl Alcohol Level 0.003 08/01/20 10:59: SARS Antigen (LFIA) NEGATIVE 08/01/20 11:09: POC pH (Misc Panel) 7.448, POC Base Excess (Misc Panel) 5.0H, POC Saturated Percent O2 (Misc) 95, POC pO2 (Misc Panel) 75.0L, POC pCO2 (Misc Panel) 41.8, POC HCO3 (Misc Panel) 28.9H, POC Total CO2 (Misc Panel) 30.0H 08/01/20 11:50: Urine Color YELLOW, Urine Appearance CLEAR, Urine pH 6.0, Urine Specific [place] 1.016, Urine Protein 3+H, Urine Glucose (UA) NEGATIVE, Urine Ketones TRACEH, Urine Blood NEGATIVE, Urine Nitrite NEGATIVE, Urine Bilirubin NEGATIVE, Urine Urobilinogen 0.2, Urine Leukocyte Esterase NEGATIVE, Urine WBC (Auto) 0, Urine RBC (Auto) 4H, Urine Hyaline Casts (Auto) 0, Urine Bacteria (Auto) NEGATIVE, Urine Squamous Epithelial Cells 0, Urine Mucus (Auto) SMALL, Urine Sperm (Auto) CBC/BMP Laboratory Tests 08/01/20 10:52 08/01/20 10:53 Microbiology Microbiology 08/01/20 Respiratory Virus Panel (PCR) (HUGO) - Final, Complete 08/01/20 Blood Culture, Received Pending 08/01/20 Blood Culture, Received Pending CLARIBEL MANZO DO Aug 02, 2020 01:19
[2020-08-02 04:00] VITALS: BP 145/88
[2020-08-02] MEDS: **hydrALAZINE HCL** 25 MG TAB PO SCH ×4 (05:09→17:10)
[2020-08-02] MEDS: NS 1,000 ML IV SCH (05:09)
[2020-08-02 05:28] LABS: BASO # 0.1 10^3/uL (0.0-0.2); BASO % 0.5 % (0.0-1.0); EOS # 0.1 10^3/uL (0.0-0.5); HEMATOCRIT 49.1 % (36.0-47.0); HEMOGLOBIN 15.7 g/dl (12.0-15.5); LYMPH # 1.4 10^3/uL (1.5-5.0); LYMPH % 12.9 % (24.0-44.0); MEAN CORPUSCULAR HEMOGLOBIN 29.8 pg (27.0-33.0); MEAN CORPUSCULAR VOLUME 93.2 fl (80.0-96.0); MONO # 1.2 10^3/uL (0.0-0.8); MONO % 11.3 % (0.0-5.0); NEUTROPHILS # 7.7 10^3/uL (1.5-8.5); NEUTROPHILS % 73.7 % (36.0-66.0); PLATELET COUNT, AUTOMATED 225 10^3/uL (150-450); RED BLOOD COUNT 5.27 10^6/uL (4.00-5.40)
[2020-08-02 05:30] LABS: WHITE BLOOD COUNT 10.5 10^3/uL (4.0-10.0)
[2020-08-02 05:46] LABS: HEMOGLOBIN A1c 5.7 %
[2020-08-02 05:51] LABS: BLOOD UREA NITROGEN 15 MG/DL (7-18); CALCIUM LEVEL 8.2 MG/DL (8.8-10.2); CARBON DIOXIDE LEVEL 24 MEQ/L (21-32); CHLORIDE LEVEL 106 MEQ/L (98-107); CREATININE FOR GFR 0.92 MG/DL (0.55-1.30); GLOMERULAR FILTRATION RATE > 60.0 (>32); GLUCOSE, FASTING 129 MG/DL (70-100); POTASSIUM SERUM 3.9 MEQ/L (3.5-5.1); SODIUM LEVEL 140 MEQ/L (136-145)
[2020-08-02 05:56] LABS: CHOLESTEROL RISK RATIO 5.416 (<5)
[2020-08-02 08:00] VITALS: BP 138/81
[2020-08-02] MEDS: ENOXAPARIN 40MG/0.4ML SYRINGE (J1650 PER 10MG) SC SCH (08:28)
[2020-08-02] MEDS ORDERED: VANCOMYCIN HCL 1,000 MG, VIAL MATE ADAPTER 1 EACH in D5W 250 ML IV ONE (09:00)
[2020-08-02] MEDS ORDERED: VANCOMYCIN HCL 750 MG, VIAL MATE ADAPTER 1 EACH in D5W 250 ML IV ONE (10:00)
--- NOTE | 2020-08-02 10:21 | IPNPDOC ---
Subjective Date Seen The patient was seen on 08/02/20. Subjective Chief Complaint/HPI Today patient more awake sitting up by the side of bed working with PT. However she remains confused, oriented only to name knows she is in hospital but not where. Initially she thought she was in a store in [place]. Objective Physical Examination General Exam: Positive: Alert, Cooperative, No Acute Distress, Other (oriented x 1) Eye Exam: Positive: PERRLA, Conjunctiva & lids normal, EOMI ENT Exam: Positive: Tongue Midline Neck Exam: Positive: Supple; Negative: JVD, thyromegaly Chest Exam: Positive: Clear to auscultation, Normal air movement Heart Exam: Positive: Rate Normal, Regular Rhythm, Normal S1, Normal S2; Negative: Murmurs, Rubs Abdomen Exam: Positive: Normal bowel sounds, Soft; Negative: Tenderness, Hepatospenomegaly Extremity Exam: Negative: Edema Skin Exam: Positive: Other skin issue (bruising and abrasions on the left kelley. , Feet dirty with thick skin and corns. Thick dry skin at the back of the upper thighs) Neuro Exam: Positive: Other (Face asymetrical, right sided droop. Did not want to move left arm up) Assessment /Plan Assessment 84 year old morbidly obese female lives alone was found down on the floor by EMS and brought to the hospital. Patient's family had been trying to reach her from yesterday and could not so called EMS. Patient reported to EMS that she fell sometime yesterday or last night and then could not get up. On arrival to the ED she was noted to be dirty and dishevelled smelling strongly of urine. SHe was confused and somnolent and poorly responsive. Only said she was tired. On my interview she was very somnolent told me she was in [place] but could not tell me where. She was able to follow simple commands. Could not give me any history. To any question she would answer "oh huh". All history was taken from ED provider and chart review. Patient was admitted for metabolic encephalopathy. Acute ischemic stroke MRI: Acute infarct of the left basal ganglia measuring 1.6 cm. No hemorrhage. ASA, statin. CTA head neg, Carotid US negative. ST eval, PT/OT Acute metabolic encephalopathy possibly due to acute stroke and dehydration +/-pneumonia+/- medication She is on trazodone UA clean MRSA positive , blood cultures 1/2 positive for gram positive cocci in clusters. ceftriaxone and vancomycin. Hypertensive urgency resolved amlodipine and hydralazine. Mild dehydration resolved. Plan/VTE VTE Prophylaxis Ordered?: Yes VS, I&O, 24H, Fishbone Vital Signs/I&O Vital Signs Date Time Temp Pulse Resp B/P (MAP) Pulse Ox O2 Delivery O2 Flow Rate FiO2 08/02/20 08:00 97.2 78 18 138/81 (100) 94 Room Air I&O- Last 24 Hours up to 6 AM 08/02/20 06:00 Intake Total 1350 ml Output Total 1200 ml Balance 150 ml Laboratory Data 24H LABS Laboratory Tests 2 08/01/20 10:52: Immature Granulocyte % (Auto) 0.3, Neutrophils (%) (Auto) 85.9H, Lymphocytes (%) (Auto) 6.7L, Monocytes (%) (Auto) 6.7H, Eosinophils (%) (Auto) 0.1, Basophils (%) (Auto) 0.3, Neutrophils # (Auto) 13.4H, Lymphocytes # (Auto) 1.1L, Monocytes # (Auto) 1.1H, Eosinophils # (Auto) 0.0, Basophils # (Auto) 0.1, Nucleated Red Blood Cells % (auto) 0.0, Lactic Acid Level 2.0 08/01/20 10:53: Anion Gap 12, Glomerular Filtration Rate > 60.0, Calcium Level 9.3, Total Creatine Kinase 479H, Creatine Kinase MB 15.7H, Creatine Kinase MB Relative Index 3.28, Troponin I < 0.02, Ethyl Alcohol Level 0.003 08/01/20 10:59: SARS Antigen (LFIA) NEGATIVE 08/01/20 11:09: POC pH (Misc Panel) 7.448, POC Base Excess (Misc Panel) 5.0H, POC Saturated Percent O2 (Misc) 95, POC pO2 (Misc Panel) 75.0L, POC pCO2 (Misc Panel) 41.8, POC HCO3 (Misc Panel) 28.9H, POC Total CO2 (Misc Panel) 30.0H 08/01/20 11:50: Urine Color YELLOW, Urine Appearance CLEAR, Urine pH 6.0, Urine Specific [place] 1.016, Urine Protein 3+H, Urine Glucose (UA) NEGATIVE, Urine Ketones TRACEH, Urine Blood NEGATIVE, Urine Nitrite NEGATIVE, Urine Bilirubin NEGATIVE, Urine Urobilinogen 0.2, Urine Leukocyte Esterase NEGATIVE, Urine WBC (Auto) 0, Urine RBC (Auto) 4H, Urine Hyaline Casts (Auto) 0, Urine Bacteria (Auto) NEGATIVE, Urine Squamous Epithelial Cells 0, Urine Mucus (Auto) SMALL, Urine Sperm (Auto) 08/02/20 05:14: Immature Granulocyte % (Auto) 0.6, Neutrophils (%) (Auto) 73.7H, Lymphocytes (%) (Auto) 12.9L, Monocytes (%) (Auto) 11.3H, Eosinophils (%) (Auto) 1.0, Basophils (%) (Auto) 0.5, Neutrophils # (Auto) 7.7, Lymphocytes # (Auto) 1.4L, Monocytes # (Auto) 1.2H, Eosinophils # (Auto) 0.1, Basophils # (Auto) 0.1, Nucleated Red Blood Cells % (auto) 0.0, Anion Gap 10, Glomerular Filtration Rate > 60.0, Estimated Mean Plasma Glucose 117H, Hemoglobin A1c 5.7, Calcium Level 8.2L, Triglycerides Level 180H, Total Cholesterol 195, LDL Cholesterol 123H, Non-HDL Cholesterol (LDL + VLDL) 159, Total HDL Cholesterol 36L, Cholesterol/HDL Ratio 5.416H 08/02/20 08:33: Methicillin-Resist S.aureus DNA PCR DETECTEDA CBC/BMP Laboratory Tests 08/01/20 10:52 08/01/20 10:53 08/02/20 05:14 Microbiology Microbiology 08/01/20 Respiratory Virus Panel (PCR) (HUGO) - Final, Complete 08/01/20 Blood Culture, Received Pending 08/01/20 Blood Culture - Preliminary, Resulted ZINA GUZMAN MD Aug 02, 2020 10:21
[2020-08-02] MEDS ORDERED: SLF 3 ML SYR IV PRN (10:30)
[2020-08-02 12:00] VITALS: BP 124/76
[2020-08-02] MEDS: SLF 3 ML SYR IV SCH ×2 (13:23→21:32)
[2020-08-02 17:00] VITALS: BP 143/83
[2020-08-02 20:00] VITALS: BP 140/78
[2020-08-02] MEDS: cefTRIAXone SOD 1 GM in D5W MINI-BAG PLUS 50 ML IV SCH (21:31)
[2020-08-02] MEDS: ATORVASTATIN 20 MG TAB PO SCH (21:32)
[2020-08-02] MEDS ORDERED: VANCOMYCIN HCL 750 MG, VIAL MATE ADAPTER 1 EACH in D5W 250 ML IV SCH (22:00)
[2020-08-03] VITALS: BP 135/86
[2020-08-03 04:00] VITALS: BP 146/80
[2020-08-03] MEDS: **hydrALAZINE HCL** 25 MG TAB PO SCH ×2 (06:00)
[2020-08-03] MEDS: SLF 3 ML SYR IV SCH ×3 (06:00→22:08)
[2020-08-03 07:08] LABS: BASO # 0.1 10^3/uL (0.0-0.2); BASO % 0.9 % (0.0-1.0); EOS # 0.2 10^3/uL (0.0-0.5); EOS % 2.2 % (0.0-3.0); HEMATOCRIT 49.9 % (36.0-47.0); HEMOGLOBIN 15.4 g/dl (12.0-15.5); LYMPH # 1.6 10^3/uL (1.5-5.0); LYMPH % 15.3 % (24.0-44.0); MEAN CORPUSCULAR HEMOGLOBIN 29.6 pg (27.0-33.0); MEAN CORPUSCULAR HGB CONC 30.9 g/dl (32.0-36.5); MEAN CORPUSCULAR VOLUME 95.8 fl (80.0-96.0); MONO # 1.1 10^3/uL (0.0-0.8); MONO % 10.9 % (0.0-5.0); NEUTROPHILS # 7.2 10^3/uL (1.5-8.5); NEUTROPHILS % 70.1 % (36.0-66.0); PLATELET COUNT, AUTOMATED 206 10^3/uL (150-450); RED BLOOD COUNT 5.21 10^6/uL (4.00-5.40)
[2020-08-03 07:13] LABS: WHITE BLOOD COUNT 10.3 10^3/uL (4.0-10.0)
[2020-08-03 07:27] VITALS: BP 136/79
[2020-08-03 07:58] LABS: CALCIUM LEVEL 8.3 MG/DL (8.8-10.2); CREATININE FOR GFR 1.01 MG/DL (0.55-1.30); GLOMERULAR FILTRATION RATE 55.6 (>32); POTASSIUM SERUM 5.5 MEQ/L (3.5-5.1)
[2020-08-03] MEDS: ASPIRIN 81 MG ENTERIC TAB PO SCH (08:04)
[2020-08-03] MEDS: ENOXAPARIN 40MG/0.4ML SYRINGE (J1650 PER 10MG) SC SCH (08:05)
[2020-08-03] MEDS: VANCOMYCIN HCL 750 MG, VIAL MATE ADAPTER 1 EACH in D5W 250 ML IV SCH (10:35)
[2020-08-03] MEDS ORDERED: VANCOMYCIN HCL 750 MG, VIAL MATE ADAPTER 1 EACH in D5W 250 ML IV SCH (11:00)
--- NOTE | 2020-08-03 11:15 | IPNPDOC ---
Subjective Date Seen The patient was seen on 08/03/20. Subjective Chief Complaint/HPI More oriented today, knows the name of the hospital, swallowing OK. 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 It does seem sometimes she cant understand the questions and answers something unrelated. Objective Physical Examination General Exam: Positive: Alert, Cooperative, No Acute Distress, Other (oriented x 1) Eye Exam: Positive: PERRLA, Conjunctiva & lids normal, EOMI ENT Exam: Positive: Tongue Midline Neck Exam: Positive: Supple; Negative: JVD, thyromegaly Chest Exam: Positive: Clear to auscultation, Normal air movement Heart Exam: Positive: Rate Normal, Regular Rhythm, Normal S1, Normal S2; Negative: Murmurs, Rubs Abdomen Exam: Positive: Normal bowel sounds, Soft; Negative: Tenderness, Hepatospenomegaly Extremity Exam: Negative: Edema Skin Exam: Positive: Other skin issue (bruising and abrasions on the left kelley. , Feet dirty with thick skin and corns. Thick dry skin at the back of the upper thighs) Neuro Exam: Positive: Other (Face asymetrical, right sided droop. Did not want to move left arm up) Assessment /Plan Assessment 84 year old morbidly obese female lives alone was found down on the floor by EMS and brought to the hospital. Patient's family had been trying to reach her from yesterday and could not so called EMS. Patient reported to EMS that she fell sometime yesterday or last night and then could not get up. On arrival to the ED she was noted to be dirty and dishevelled smelling strongly of urine. SHe was confused and somnolent and poorly responsive. Only said she was tired. On my interview she was very somnolent told me she was in [place] but could not tell me where. She was able to follow simple commands. Could not give me any history. To any question she would answer "oh huh". All history was taken from ED provid er and chart review. Patient was admitted for metabolic encephalopathy. Acute ischemic stroke MRI: Acute infarct of the left basal ganglia measuring 1.6 cm. No hemorrhage. ASA, statin. CTA head neg, Carotid US negative. ST eval, PT/OT Acute metabolic encephalopathy possibly due to acute stroke and dehydration +/-pneumonia +/- medication She is on trazodone UA clean MRSA positive , blood cultures 1/2 positive for gram positive cocci in clusters. Most likely contaminant but will cover with antibiotics. ceftriaxone and vancomycin. Hypertensive urgency resolved amlodipine Mild dehydration resolved. Very short episodes of Paroxysmal Afib seen in telemetry ,few seconds rate controlled on ASA. I am concerned about starting AC on this elderly pat with gait instability and her history of fall. Will discuss with patient and daughter Plan/VTE VTE Prophylaxis Ordered?: Yes VS, I&O, 24H, Fishbone Vital Signs/I&O Vital Signs Date Time Temp Pulse Resp B/P (MAP) Pulse Ox O2 Delivery O2 Flow Rate FiO2 08/03/20 08:05 87 136/79 08/03/20 07:27 97.4 18 93 Room Air I&O- Last 24 Hours up to 6 AM 08/03/20 06:00 Intake Total 1425 ml Output Total 1925 ml Balance -500 ml Laboratory Data 24H LABS Laboratory Tests 2 08/03/20 05:57: Immature Granulocyte % (Auto) 0.6, Neutrophils (%) (Auto) 70.1H, Lymphocytes (%) (Auto) 15.3L, Monocytes (%) (Auto) 10.9H, Eosinophils (%) (Auto) 2.2, Basophils (%) (Auto) 0.9, Neutrophils # (Auto) 7.2, Lymphocytes # (Auto) 1.6, Monocytes # (Auto) 1.1H, Eosinophils # (Auto) 0.2, Basophils # (Auto) 0.1, Nucleated Red Blood Cells % (auto) 0.0, Anion Gap 12, Glomerular Filtration Rate 55.6, Calcium Level 8.3L 08/03/20 08:46: Vancomycin Level Trough 16.3 CBC/BMP Laboratory Tests 08/03/20 05:57 Microbiology Microbiology 08/01/20 Respiratory Virus Panel (PCR) ([facility]) - Final, Complete 08/01/20 Blood Culture - Preliminary, Resulted No growth after 24 hours . All specim... 08/01/20 Blood Culture - Preliminary, Resulted ZINA GUZMAN MD Aug 03, 2020 11:15
[2020-08-03 11:39] VITALS: BP 140/80
[2020-08-03 14:37] VITALS: BP 131/82
[2020-08-03] MEDS: cefTRIAXone SOD 1 GM in D5W MINI-BAG PLUS 50 ML IV SCH (18:48)
[2020-08-03] MEDS: ATORVASTATIN 20 MG TAB PO SCH (20:35)
[2020-08-03 22:00] VITALS: BP 144/81
[2020-08-04 06:00] VITALS: BP 132/82
[2020-08-04] MEDS: SLF 3 ML SYR IV SCH ×3 (06:00→20:30)
--- NOTE | 2020-08-04 08:29 | ECGEPIP ---
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
[2020-08-04 09:04] LABS: BASO # 0.1 10^3/uL (0.0-0.2); BASO % 0.6 % (0.0-1.0); EOS # 0.3 10^3/uL (0.0-0.5); EOS % 2.2 % (0.0-3.0); HEMATOCRIT 48.9 % (36.0-47.0); HEMOGLOBIN 15.6 g/dl (12.0-15.5); LYMPH # 1.3 10^3/uL (1.5-5.0); LYMPH % 9.3 % (24.0-44.0); MEAN CORPUSCULAR HEMOGLOBIN 29.7 pg (27.0-33.0); MEAN CORPUSCULAR HGB CONC 31.9 g/dl (32.0-36.5); MONO % 7.1 % (0.0-5.0); NEUTROPHILS # 10.9 10^3/uL (1.5-8.5); NEUTROPHILS % 80.4 % (36.0-66.0); PLATELET COUNT, AUTOMATED 234 10^3/uL (150-450); RED BLOOD COUNT 5.26 10^6/uL (4.00-5.40); WHITE BLOOD COUNT 13.6 10^3/uL (4.0-10.0)
[2020-08-04] MEDS: ASPIRIN 81 MG ENTERIC TAB PO SCH (09:29)
[2020-08-04] MEDS: VANCOMYCIN HCL 750 MG, VIAL MATE ADAPTER 1 EACH in D5W 250 ML IV SCH (09:30)
[2020-08-04] MEDS: ENOXAPARIN 40MG/0.4ML SYRINGE (J1650 PER 10MG) SC SCH (09:30)
[2020-08-04 09:36] LABS: CALCIUM LEVEL 8.7 MG/DL (8.8-10.2); CREATININE FOR GFR 1.15 MG/DL (0.55-1.30); GLOMERULAR FILTRATION RATE 47.9 (>32); POTASSIUM SERUM 4.4 MEQ/L (3.5-5.1); VANCOMYCIN LEVEL TROUGH 12.2 UG/ML (10.0-20.0)
[2020-08-04] MEDS ORDERED: VANCOMYCIN HCL 1,000 MG, VIAL MATE ADAPTER 1 EACH in D5W 250 ML IV SCH (10:00)
[2020-08-04] MEDS ORDERED: VANCOMYCIN HCL 750 MG, VIAL MATE ADAPTER 1 EACH in D5W 250 ML IV SCH (11:00)
--- NOTE | 2020-08-04 11:23 | ECHO ---
DATE OF PROCEDURE: 08/02/2020 Age: 84 Gender: Female Height: 67 inches Weight: 244 pounds Body Surface Area: 2.2 m2 PATIENT LOCATION: Inpatient PCU Room 3230. REFERRING PHYSICIAN: Krzysztof Villalpando DO. INDICATION: CVA. MEASUREMENTS: 2D Measurements: RV - 3.1 cm. LV 4.8 cm Septum 0.8 cm Posterior wall 0.8 cm Aortic Root 3.0 cm LA 3.4 cm LVEF 75% Doppler Measurements: AV 1.69 m/s LVOT 1.13 m/s MV-E 82, A 97, EA ratio 0.8 Early mitral deceleration time 206 msec E prime medial 6, A prime medial 5, E prime lateral 6 Average E/E prime ratio 13.7/PCWP 18.8 mmHg PV - 0.8 m/s Pulmonary artery acceleration time 98 msec PASP 38 mmHg COMMENTS: Underlying sinus rhythm with occasional frequent isolated PVCs, some sinus arrhythmia. No intraventricular conduction disturbance. Technically challenging study in light of the patient's body habitus, but diagnostically useful information was still obtained. M-mode and 2-dimensional echocardiography was performed with pulse, continuous wave, color flow, and tissue Doppler studies. Normal left ventricular size, wall thickness, and hyperkinetic wall motion. Normal left atrial size with grade 1 LV diastolic dysfunction and current estimated mean left atrial pressure slightly increased. Normal right heart chamber sizes and motion with Doppler evidence of mild pulmonary hypertension. We could not visualize her inferior vena cava to further define her central venous pressure. Normal aortic dimensions. A subtle aortic valvular sclerosis without functional abnormality. Mild mitral annular calcification without inflow tract obstruction and only trace (physiologic) insufficiency. Normal appearing tricuspid valve with only trace insufficiency (physiologic). No intracardiac mass could be visualized, but as mentioned, the study was challenging. No pericardial effusion. Saline contrast study was performed using boluses of 10 mL of agitated saline injected into a large forearm vein. Adequate opacification of right heart chambers was obtained with no evidence of right to left intracardiac shunting with Valsalva to suggest intracardiac shunt. MTDD
--- NOTE | 2020-08-04 11:53 | IPNPDOC ---
Subjective Date Seen The patient was seen on 08/04/20. Subjective Chief Complaint/HPI Remains confused, ripping out IVs, pulling off telemetry. Does nto know where she is, Talking about irrelevant things. Does answer simple questions but answer is unreliable. Objective Physical Examination General Exam: Positive: Alert, Cooperative, No Acute Distress, Other (oriented x 1) Eye Exam: Positive: PERRLA, Conjunctiva & lids normal, EOMI ENT Exam: Positive: Tongue Midline Neck Exam: Positive: Supple; Negative: JVD, thyromegaly Chest Exam: Positive: Clear to auscultation, Normal air movement Heart Exam: Positive: Rate Normal, Regular Rhythm, Normal S1, Normal S2; Negative: Murmurs, Rubs Abdomen Exam: Positive: Normal bowel sounds, Soft; Negative: Tenderness, Hepatospenomegaly Extremity Exam: Negative: Edema Skin Exam: Positive: Other skin issue (bruising and abrasions on the left kelley. , Feet dirty with thick skin and corns. Thick dry skin at the back of the upper thighs) Neuro Exam: Positive: Other (Face asymetrical, right sided droop. Did not want to move left arm up) Assessment /Plan Assessment 84 year old morbidly obese female lives alone was found down on the floor by EMS and brought to the hospital. Patient's family had been trying to reach her from yesterday and could not so called EMS. Patient reported to EMS that she fell sometime yesterday or last night and then could not get up. On arrival to the ED she was noted to be dirty and dishevelled smelling strongly of urine. SHe was confused and somnolent and poorly responsive. Only said she was tired. On my interview she was very somnolent told me she was in [place] but could not tell me where. She was able to follow simple commands. Could not give me any history. To any question she would answer "oh huh". All history was taken from ED provider and chart review. Patient was admitted for metabolic encephalopathy. Acute ischemic stroke MRI: Acute infarct of the left basal ganglia measuring 1.6 cm. No hemorrhage. Moderate chronic microvascular ischemic changes. Chronic lacunar infarcts of bilateral basal ganglia. ASA, statin. CTA head neg, Carotid US negative. ST eval, PT/OT Continues to have cognitive issues will need continued rehab. Has dysphagia on level 2 mechanical soft. Acute metabolic encephalopathy Continues to be confused. possibly due to acute stroke and +/-pneumonia UA clean blood culture 1/2 staph hominis. Most likely contaminant Pneumonia ? aspiration when encephalopathic at home. CT chest on admission Diffuse fibro atelectatic changes bilaterally. Focal patchy atelectasis or infiltrate left lower lobe inferiorly. Ceftriaxone to Augmentin. Hypertensive urgency resolved amlodipine Mild dehydration resolved. Very short episodes of Paroxysmal Afib seen in telemetry ,few seconds Generally in sinus rhythm. I am concerned about starting AC on this elderly pat with gait instability and her history of fall. Plan/VTE VTE Prophylaxis Ordered?: Yes VS, I&O, 24H, Fishbone Vital Signs/I&O Vital Signs Date Time Temp Pulse Resp B/P (MAP) Pulse Ox O2 Delivery O2 Flow Rate FiO2 08/04/20 09:30 102 122/89 08/04/20 06:00 98.8 25 97 Room Air I&O- Last 24 Hours up to 6 AM 08/04/20 06:00 Intake Total 1850 ml Output Total 350 ml Balance 1500 ml Laboratory Data 24H LABS Laboratory Tests 2 08/04/20 08:53: Immature Granulocyte % (Auto) 0.4, Neutrophils (%) (Auto) 80.4H, Lymphocytes (%) (Auto) 9.3L, Monocytes (%) (Auto) 7.1H, Eosinophils (%) (Auto) 2.2, Basophils (%) (Auto) 0.6, Neutrophils # (Auto) 10.9H, Lymphocytes # (Auto) 1.3L, Monocytes # (Auto) 1.0H, Eosinophils # (Auto) 0.3, Basophils # (Auto) 0.1, Nucleated Red Blood Cells % (auto) 0.0, Anion Gap 11, Glomerular Filtration Rate 47.9, Calcium Level 8.7L, Vancomycin Level Trough 12.2 CBC/BMP Laboratory Tests 08/04/20 08:53 Microbiology Microbiology 08/01/20 Respiratory Virus Panel (PCR) ([facility]) - Final, Complete 08/01/20 Blood Culture - Preliminary, Resulted No Growth after 72 hours. All specime... 08/01/20 Blood Culture - Preliminary, Resulted Staphylococcus Hominis ZINA GUZMAN MD Aug 04, 2020 11:53
[2020-08-04] MEDS: AUGMENTIN 875 MG TAB PO SCH ×2 (11:59→19:42)
[2020-08-04 14:00] VITALS: BP 139/81
[2020-08-04 14:58] VITALS: BP 148/86
[2020-08-04] MEDS: ATORVASTATIN 20 MG TAB PO SCH (19:43)
[2020-08-04 22:00] VITALS: BP 133/82
[2020-08-05] MEDS: SLF 3 ML SYR IV SCH ×2 (02:19→14:00)
[2020-08-05 06:00] VITALS: BP 145/75
[2020-08-05 06:15] LABS: BASO # 0.1 10^3/uL (0.0-0.2); BASO % 0.6 % (0.0-1.0); EOS # 0.3 10^3/uL (0.0-0.5); EOS % 2.3 % (0.0-3.0); HEMATOCRIT 47.3 % (36.0-47.0); HEMOGLOBIN 15.1 g/dl (12.0-15.5); LYMPH # 1.4 10^3/uL (1.5-5.0); LYMPH % 10.4 % (24.0-44.0); MEAN CORPUSCULAR HEMOGLOBIN 30.1 pg (27.0-33.0); MEAN CORPUSCULAR HGB CONC 31.9 g/dl (32.0-36.5); MEAN CORPUSCULAR VOLUME 94.4 fl (80.0-96.0); MONO # 1.4 10^3/uL (0.0-0.8); MONO % 10.4 % (2.0-8.0); NEUTROPHILS # 9.9 10^3/uL (1.5-8.5); PLATELET COUNT, AUTOMATED 203 10^3/uL (150-450); RED BLOOD COUNT 5.01 10^6/uL (4.00-5.40)
[2020-08-05 06:34] LABS: BLOOD UREA NITROGEN 19 MG/DL (7-18); CALCIUM LEVEL 8.3 MG/DL (8.8-10.2); CARBON DIOXIDE LEVEL 24 MEQ/L (21-32); CHLORIDE LEVEL 109 MEQ/L (98-107); CREATININE FOR GFR 0.85 MG/DL (0.55-1.30); GLOMERULAR FILTRATION RATE > 60.0 (>32); GLUCOSE, FASTING 113 MG/DL (70-100); POTASSIUM SERUM 4.3 MEQ/L (3.5-5.1); SODIUM LEVEL 142 MEQ/L (136-145)
--- NOTE | 2020-08-05 10:21 | IPNPDOC ---
Subjective Date Seen The patient was seen on 08/05/20. Subjective Chief Complaint/HPI Patient is oriented to place and person today. Having breakfast sitting up in bed. No issues over night. Objective Physical Examination General Exam: Positive: Alert, Cooperative, No Acute Distress, Other (oriented x 1) Eye Exam: Positive: PERRLA, Conjunctiva & lids normal, EOMI ENT Exam: Positive: Tongue Midline Neck Exam: Positive: Supple; Negative: JVD, thyromegaly Chest Exam: Positive: Clear to auscultation, Normal air movement Heart Exam: Positive: Rate Normal, Regular Rhythm, Normal S1, Normal S2; Negative: Murmurs, Rubs Abdomen Exam: Positive: Normal bowel sounds, Soft; Negative: Tenderness, Hepatospenomegaly Extremity Exam: Negative: Edema Skin Exam: Positive: Other skin issue (bruising and abrasions on the left kelley. , Feet dirty with thick skin and corns. Thick dry skin at the back of the upper thighs) Neuro Exam: Positive: Other (Face asymetrical, right sided droop. Did not want to move left arm up) Assessment /Plan Assessment 84 year old morbidly obese female lives alone was found down on the floor by EMS and brought to the hospital. Patient's family had been trying to reach her from yesterday and could not so called EMS. Patient reported to EMS that she fell sometime yesterday or last night and then could not get up. On arrival to the ED she was noted to be dirty and dishevelled smelling strongly of urine. SHe was confused and somnolent and poorly responsive. Only said she was tired. On my interview she was very somnolent told me she was in [place] but could not tell me where. She was able to follow simple commands. Could not give me any history. To any question she would answer "oh huh". All history was taken from ED provider and chart review. Patient was admitted for metabolic encephalopathy. Acute ischemic stroke MRI: Acute infarct of the left basal ganglia measuring 1.6 cm. No hemorrhage. Moderate chronic microvascular ischemic changes. Chronic lacunar infarcts of bilateral basal ganglia. ASA, statin. CTA head neg, Carotid US negative. ST eval, PT/OT Continues to have cognitive issues will need continued rehab. Has dysphagia on level 2 mechanical soft. Below her baseline functional capacity. Acute metabolic encephalopathy Continues to be confused. possibly due to acute stroke and +/-pneumonia UA clean blood culture 1/ staph hominis. Most likely contaminant Pneumonia ? aspiration when encephalopathic at home. CT chest on admission Diffuse fibro atelectatic changes bilaterally. Focal patchy atelectasis or infiltrate left lower lobe inferiorly. Ceftriaxone to Augmentin. Hypertensive urgency resolved amlodipine Mild dehydration resolved. Very short episodes of Paroxysmal Afib seen in telemetry ,few seconds Generally in sinus rhythm. I am concerned about starting AC on this elderly pat with gait instability and her history of fall. Morbid obesity BMI 39.5 complicating care. Dispo continued rehab after discharge. Plan/VTE VTE Prophylaxis Ordered?: Yes VS, I&O, 24H, Fishbone Vital Signs/I&O Vital Signs Date Time Temp Pulse Resp B/P (MAP) Pulse Ox O2 Delivery O2 Flow Rate FiO2 08/05/20 06:00 97.8 95 21 145/75 (98) 97 Room Air I&O- Last 24 Hours up to 6 AM 08/05/20 06:00 Intake Total 1420 ml Balance 1420 ml Laboratory Data 24H LABS Laboratory Tests 2 08/05/20 05:56: Immature Granulocyte % (Auto) 0.3, Neutrophils (%) (Auto) 76.0H, Lymphocytes (%) (Auto) 10.4L, Monocytes (%) (Auto) 10.4H, Eosinophils (%) (Auto) 2.3, Basophils (%) (Auto) 0.6, Neutrophils # (Auto) 9.9H, Lymphocytes # (Auto) 1.4L, Monocytes # (Auto) 1.4H, Eosinophils # (Auto) 0.3, Basophils # (Auto) 0.1, Nucleated Red Blood Cells % (auto) 0.0, Anion Gap 9, Glomerular Filtration Rate > 60.0, Calci um Level 8.3L CBC/BMP Laboratory Tests 08/05/20 05:56 Microbiology Microbiology 08/01/20 Respiratory Virus Panel (PCR) ([facility]) - Final, Complete 08/01/20 Blood Culture - Preliminary, Resulted No Growth after 72 hours. All specime... 08/01/20 Blood Culture - Preliminary, Resulted Staphylococcus Hominis ZINA GUZMAN MD Aug 05, 2020 10:20
[2020-08-05] MEDS: AUGMENTIN 875 MG TAB PO SCH ×2 (10:40→19:55)
[2020-08-05] MEDS: ASPIRIN 81 MG ENTERIC TAB PO SCH (10:40)
[2020-08-05] MEDS: ENOXAPARIN 40MG/0.4ML SYRINGE (J1650 PER 10MG) SC SCH (10:40)
[2020-08-05 14:00] VITALS: BP 137/78
[2020-08-05] MEDS: ATORVASTATIN 20 MG TAB PO SCH (19:55)
[2020-08-05 20:01] VITALS: BP 144/95
[2020-08-06 06:00] VITALS: BP 131/76
[2020-08-06 06:42] LABS: BASO # 0.1 10^3/uL (0.0-0.2); BASO % 0.8 % (0.0-1.0); EOS # 0.3 10^3/uL (0.0-0.5); EOS % 2.7 % (0.0-3.0); HEMATOCRIT 46.1 % (36.0-47.0); HEMOGLOBIN 14.4 g/dl (12.0-15.5); LYMPH # 1.3 10^3/uL (1.5-5.0); LYMPH % 12.8 % (24.0-44.0); MEAN CORPUSCULAR HEMOGLOBIN 29.3 pg (27.0-33.0); MEAN CORPUSCULAR HGB CONC 31.2 g/dl (32.0-36.5); MEAN CORPUSCULAR VOLUME 93.9 fl (80.0-96.0); MONO # 1.1 10^3/uL (0.0-0.8); MONO % 11.3 % (2.0-8.0); NEUTROPHILS # 7.1 10^3/uL (1.5-8.5); NEUTROPHILS % 71.9 % (36.0-66.0); PLATELET COUNT, AUTOMATED 201 10^3/uL (150-450); RED BLOOD COUNT 4.91 10^6/uL (4.00-5.40); WHITE BLOOD COUNT 9.8 10^3/uL (4.0-10.0)
[2020-08-06 06:56] LABS: BLOOD UREA NITROGEN 19 MG/DL (7-18); CALCIUM LEVEL 8.3 MG/DL (8.8-10.2); CARBON DIOXIDE LEVEL 25 MEQ/L (21-32); CHLORIDE LEVEL 109 MEQ/L (98-107); CREATININE FOR GFR 0.79 MG/DL (0.55-1.30); GLOMERULAR FILTRATION RATE > 60.0 (>32); GLUCOSE, FASTING 110 MG/DL (70-100); POTASSIUM SERUM 4.1 MEQ/L (3.5-5.1); SODIUM LEVEL 142 MEQ/L (136-145)
--- NOTE | 2020-08-06 08:39 | IPNPDOC ---
Subjective Date Seen The patient was seen on 08/06/20. Subjective Chief Complaint/HPI Doing better cognitively. Alert and oriented to place and person. Objective Physical Examination General Exam: Positive: Alert, Cooperative, No Acute Distress, Other (obese) Eye Exam: Positive: PERRLA, Conjunctiva & lids normal, EOMI ENT Exam: Positive: Tongue Midline Neck Exam: Positive: Supple; Negative: JVD, thyromegaly Chest Exam: Positive: Clear to auscultation, Normal air movement Heart Exam: Positive: Rate Normal, Regular Rhythm, Normal S1, Normal S2; Negative: Murmurs, Rubs Abdomen Exam: Positive: Normal bowel sounds, Soft; Negative: Tenderness, Hepatospenomegaly Extremity Exam: Negative: Edema Skin Exam: Positive: Other skin issue (bruising and abrasions on the left kelley. , Feet dirty with thick skin and corns. Thick dry skin at the back of the upper thighs) Neuro Exam: Positive: Normal Speech, Normal Tone Psych Exam: Positive: Other (oriented to place and person) Assessment /Plan Assessment 84 year old morbidly obese female lives alone was found down on the floor by EMS and brought to the hospital. Patient's family had been trying to reach her from yesterday and could not so called EMS. Patient reported to EMS that she fell sometime yesterday or last night and then could not get up. On arrival to the ED she was noted to be dirty and dishevelled smelling strongly of urine. SHe was confused and somnolent and poorly responsive. Only said she was tired. On my interview she was very somnolent told me she was in [place] but could not tell me where. She was able to follow simple commands. Could not give me any history. To any question she would answer "oh huh". All history was taken from ED provider and chart review. Patient was admitted for metabolic encephalopathy. Acute ischemic stroke MRI: Acute infarct of the left basal ganglia measuring 1.6 cm. No hemorrhage. Moderate chronic microvascular ischemic changes. Chronic lacunar infarcts of bilateral basal ganglia. ASA, statin. CTA head neg, Carotid US negative. ST eval, PT/OT Has dysphagia on level 2 mechanical soft. Below her baseline functional capacity. Cognition is improving. Acute metabolic encephalopathy improving possibly due to acute stroke and +/-pneumonia UA clean blood culture 1/2 staph hominis--contaminant Pneumonia ? aspiration when encephalopathic at home. CT chest on admission Diffuse fibro atelectatic changes bilaterally. Focal patchy atelectasis or infiltrate left lower lobe inferiorly. Ceftriaxone to Augmentin. Hypertensive urgency resolved amlodipine Mild dehydration resolved. Very short episodes of Paroxysmal Afib seen in telemetry ,few seconds Generally in sinus rhythm. I am concerned about starting AC on this elderly pat with gait instability and her history of fall. Morbid obesity BMI 39.5 complicating care. Dispo continued rehab after discharge. Plan/VTE VTE Prophylaxis Ordered?: Yes VS, I&O, 24H, Fishbone Vital Signs/I&O Vital Signs Date Time Temp Pulse Resp B/P (MAP) Pulse Ox O2 Delivery O2 Flow Rate FiO2 08/06/20 06:00 97.9 84 17 131/76 (94) 95 Room Air I&O- Last 24 Hours up to 6 AM 08/06/20 06:00 Intake Total 1510 ml Output Total 0 ml Balance 1510 ml Laboratory Data 24H LABS Laboratory Tests 2 08/06/20 06:12: Immature Granulocyte % (Auto) 0.5, Neutrophils (%) (Auto) 71.9H, Lymphocytes (%) (Auto) 12.8L, Monocytes (%) (Auto) 11.3H, Eosinophils (%) (Auto) 2.7, Basophils (%) (Auto) 0.8, Neutrophils # (Auto) 7.1, Lymphocytes # (Auto) 1.3L, Monocytes # (Auto) 1.1H, Eosinophils # (Auto) 0.3, Basophils # (Auto) 0.1, Nucleated Red Blood Cells % (auto) 0.0, Anion Gap 8, Glomerular Filtration Rate > 60.0, Calcium Level 8.3L CBC/BMP Laboratory Tests 08/06/20 06:12 Microbiology Microbiology 08/01/20 Respiratory Virus Panel (PCR) ([facility]) - Final, Complete 08/01/20 Blood Culture - Preliminary, Resulted No Growth after 72 hours. All specime... 08/01/20 Blood Culture - Final, Complete Staphylococcus Hominis ZINA GUZMAN MD Aug 06, 2020 08:38
[2020-08-06] MEDS: AUGMENTIN 875 MG TAB PO SCH ×2 (09:31→20:46)
[2020-08-06] MEDS: ASPIRIN 81 MG ENTERIC TAB PO SCH (09:31)
[2020-08-06] MEDS: ENOXAPARIN 40MG/0.4ML SYRINGE (J1650 PER 10MG) SC SCH (09:32)
[2020-08-06 14:00] VITALS: BP 130/81
[2020-08-06] MEDS: ATORVASTATIN 20 MG TAB PO SCH (20:46)
[2020-08-06 22:00] VITALS: BP 142/91
[2020-08-07 06:00] VITALS: BP 147/80
[2020-08-07 06:04] LABS: BASO # 0.1 10^3/uL (0.0-0.2); EOS # 0.3 10^3/uL (0.0-0.5); EOS % 2.9 % (0.0-3.0); HEMATOCRIT 45.1 % (36.0-47.0); HEMOGLOBIN 14.3 g/dl (12.0-15.5); LYMPH # 1.5 10^3/uL (1.5-5.0); LYMPH % 15.9 % (24.0-44.0); MEAN CORPUSCULAR HEMOGLOBIN 29.9 pg (27.0-33.0); MEAN CORPUSCULAR HGB CONC 31.7 g/dl (32.0-36.5); MEAN CORPUSCULAR VOLUME 94.4 fl (80.0-96.0); MONO # 1.1 10^3/uL (0.0-0.8); MONO % 11.9 % (2.0-8.0); NEUTROPHILS # 6.3 10^3/uL (1.5-8.5); NEUTROPHILS % 67.9 % (36.0-66.0); PLATELET COUNT, AUTOMATED 216 10^3/uL (150-450); RED BLOOD COUNT 4.78 10^6/uL (4.00-5.40); WHITE BLOOD COUNT 9.3 10^3/uL (4.0-10.0)
[2020-08-07 06:27] LABS: BLOOD UREA NITROGEN 16 MG/DL (7-18); CALCIUM LEVEL 8.7 MG/DL (8.8-10.2); CARBON DIOXIDE LEVEL 28 MEQ/L (21-32); CHLORIDE LEVEL 108 MEQ/L (98-107); CREATININE FOR GFR 0.78 MG/DL (0.55-1.30); GLOMERULAR FILTRATION RATE > 60.0 (>32); GLUCOSE, FASTING 104 MG/DL (70-100); POTASSIUM SERUM 4.2 MEQ/L (3.5-5.1); SODIUM LEVEL 142 MEQ/L (136-145)
[2020-08-07] MEDS: AUGMENTIN 875 MG TAB PO SCH (08:18)
[2020-08-07] MEDS: ASPIRIN 81 MG ENTERIC TAB PO SCH (08:18)
[2020-08-07 08:23] VITALS: BP 131/82
[2020-08-07] MEDS: ENOXAPARIN 40MG/0.4ML SYRINGE (J1650 PER 10MG) SC SCH (08:24)
--- NOTE | 2020-08-07 11:52 | IPNPDOC ---
Subjective Date Seen The patient was seen on 08/07/20. Subjective Chief Complaint/HPI No new issues overnight. Doing better cognitively. No fever or chills. Objective Physical Examination General Exam: Positive: Alert, Cooperative, No Acute Distress, Other (obese) Eye Exam: Positive: PERRLA, Conjunctiva & lids normal, EOMI ENT Exam: Positive: Tongue Midline Neck Exam: Positive: Supple; Negative: JVD, thyromegaly Chest Exam: Positive: Clear to auscultation, Normal air movement Heart Exam: Positive: Rate Normal, Regular Rhythm, Normal S1, Normal S2; Negative: Murmurs, Rubs Abdomen Exam: Positive: Normal bowel sounds, Soft; Negative: Tenderness, Hepatospenomegaly Extremity Exam: Negative: Edema Skin Exam: Positive: Other skin issue (bruising and abrasions on the left kelley. , Feet dirty with thick skin and corns. Thick dry skin at the back of the upper thighs) Neuro Exam: Positive: Normal Speech, Normal Tone Psych Exam: Positive: Other (oriented to place and person) Assessment /Plan Assessment 84 year old morbidly obese female lives alone was found down on the floor by EMS and brought to the hospital. Patient's family had been trying to reach her from yesterday and could not so called EMS. Patient reported to EMS that she fell sometime yesterday or last night and then could not get up. On arrival to the E D she was noted to be dirty and dishevelled smelling strongly of urine. SHe was confused and somnolent and poorly responsive. Only said she was tired. On my interview she was very somnolent told me she was in [place] but could not tell me where. She was able to follow simple commands. Could not give me any history. To any question she would answer "oh huh". All history was taken from ED provider and chart review. Patient was admitted for metabolic encephalopathy. Acute ischemic stroke MRI: Acute infarct of the left basal ganglia measuring 1.6 cm. No hemorrhage. Moderate chronic microvascular ischemic changes. Chronic lacunar infarcts of bilateral basal ganglia. ASA, statin. CTA head neg, Carotid US negative. ST eval, PT/OT Has dysphagia on level 2 mechanical soft. Below her baseline functional capacity. Cognition is improving. Acute metabolic encephalopathy improving possibly due to acute stroke and +/-pneumonia UA clean blood culture 1/2 staph hominis--contaminant Pneumonia ? aspiration when encephalopathic at home. CT chest on admission Diffuse fibro atelectatic changes bilaterally. Focal patchy atelectasis or infiltrate left lower lobe inferiorly. Ceftriaxone to Augmentin. Hypertensive urgency resolved amlodipine Mild dehydration resolved. Very short episodes of Paroxysmal Afib seen in telemetry ,few seconds Generally in sinus rhythm. I am concerned about starting AC on this elderly pat with gait instability and her history of fall. Morbid obesity BMI 39.5 complicating care. Dispo continued rehab after discharge. Plan/VTE VTE Prophylaxis Ordered?: Yes VS, I&O, 24H, Fishbone Vital Signs/I&O Vital Signs Date Time Temp Pulse Resp B/P (MAP) Pulse Ox O2 Delivery O2 Flow Rate FiO2 08/07/20 11:37 89 18 96 Room Air 08/07/20 08:23 131/82 08/07/20 06:00 96.8 I&O- Last 24 Hours up to 6 AM 08/07/20 05:59 Intake Total 1530 ml Output Total 0 ml Balance 1530 ml Laboratory Data 24H LABS Laboratory Tests 2 08/07/20 05:51: Immature Granulocyte % (Auto) 0.4, Neutrophils (%) (Auto) 67.9H, Lymphocytes (%) (Auto) 15.9L, Monocytes (%) (Auto) 11.9H, Eosinophils (%) (Auto) 2.9, Basophils (%) (Auto) 1.0, Neutrophils # (Auto) 6.3, Lymphocytes # (Auto) 1.5, Monocytes # (Auto) 1.1H, Eosinophils # (Auto) 0.3, Basophils # (Auto) 0.1, Nucleated Red Blood Cells % (auto) 0.0, Anion Gap 6L, Glomerular Filtration Rate > 60.0, Calcium Level 8.7L CBC/BMP Laboratory Tests 08/07/20 05:51 Microbiology Microbiology 08/01/20 Respiratory Virus Panel (PCR) ([facility]) - Final, Complete 08/01/20 Blood Culture - Final, Complete NO GROWTH AFTER 5 DAYS 08/01/20 Blood Culture - Final, Complete Staphylococcus Hominis ZINA GUZMAN MD Aug 07, 2020 11:52
[2020-08-07 14:00] VITALS: BP 148/88
[2020-08-07 14:53] VITALS: BP 148/85
[2020-08-07] MEDS ORDERED: ASPI81TAEC PO (16:01)
[2020-08-07] MEDS ORDERED: ATOR1TAB21 PO (16:01)
[2020-08-07] MEDS ORDERED: TRAZ-189 PO (16:03)
--- NOTE | 2020-08-07 16:24 | DS.PDOC ---
Discharge Summary General Date of Admission Aug 01, 2020 at 15:07 Date of Discharge 08/07/20 Discharge Summary PROCEDURES PERFORMED DURING STAY: [None]. DISCHARGE DIAGNOSES: Acute Ischemic stroke ( Left Basal Ganglia) Acute metabolic encephalopathy Pneumonia hypertensive Urgency Morbid obesity COMPLICATIONS/CHIEF COMPLAINT: Metabolic Encephalopathy. HOSPITAL COURSE: 84 year old morbidly obese female lives alone was found down on the floor by EMS and brought to the hospital. Patient's family had been trying to reach her from yesterday and could not so called EMS. Patient reported to EMS that she fell sometime yesterday or last night and then could not get up. On arrival to the ED she was noted to be dirty and dishevelled smelling strongly of urine. SHe was confused and somnolent and poorly responsive. Only said she was tired. On my interview she was very somnolent told me she was in [place] but could not tell me where. She was able to follow simple commands. Could not give me any history. To any question she would answer "oh huh". All history was taken from ED provider and chart review. Patient was admitted for metabolic encephalopathy. Acute ischemic stroke MRI: Acute infarct of the left basal ganglia measuring 1.6 cm. No hemorrhage. Moderate chronic microvascular ischemic changes. Chronic lacunar infarcts of bilateral basal ganglia. ASA, statin. CTA head neg, Carotid US negative. ST eval, PT/OT Has dysphagia on level 2 mechanical soft. Below her baseline functional capacity. Cognition is improving. Acute metabolic encephalopathy improving possibly due to acute stroke and +/-pneumonia UA clean blood culture 1/2 staph hominis--contaminant Pneumonia ? aspiration when encephalopathic at home. CT chest on admission Diffuse fibro atelectatic changes bilaterally. Focal patchy atelectasis or infiltrate left lower lobe inferiorly. Ceftriaxone to Augmentin. Hypertensive urgency resolved amlodipine Mild dehydration resolved. Very short episodes of ? Paroxysmal Afib seen in telemetry ,few seconds in the am of 08/07/20 Generally in sinus rhythm. Telemetry was reviewed by Dr Dumont and he did not see any Afib till yesterday. He is going to review it again today. Morbid obesity BMI 39.5 complicating care. Dispo continued rehab after discharge. DISCHARGE MEDICATIONS: Please see below. ALLERGIES: Please see below. PHYSICAL EXAMINATION ON DISCHARGE: VITAL SIGNS: Please see below. General Exam: Positive: Alert, Cooperative, No Acute Distress, Other (obese) Eye Exam: Positive: PERRLA, Conjunctiva & lids normal, EOMI ENT Exam: Positive: Tongue Midline Neck Exam: Positive: Supple; Negative: JVD, thyromegaly Chest Exam: Positive: Clear to auscultation, Normal air movement Heart Exam: Positive: Rate Normal, Regular Rhythm, Normal S1, Normal S2; Negative: Murmurs, Rubs Abdomen Exam: Positive: Normal bowel sounds, Soft; Negative: Tenderness, Hepatosplenomegaly Extremity Exam: Negative: Edema Skin Exam: Positive: Other skin issue (bruising and abrasions on the left kelley. , Feet dirty with thick skin and corns. Thick dry skin at the back of the upper thighs) Neuro Exam: Positive: Normal Speech, Normal Tone Psych Exam: Positive: Other (oriented to place and person) LABORATORY DATA: Please see below. ACTIVITY: [As tolerated]. DIET: Mechanical soft level 2 DISPOSITION: ARU DISCHARGE CONDITION: [Stable]. TIME SPENT ON DISCHARGE: 35 minutes. Vital Signs/I&Os Vital Signs Date Time Temp Pulse Resp B/P (MAP) Pulse Ox O2 Delivery O2 Flow Rate FiO2 08/07/20 14:53 97.0 92 18 148/85 (106) 96 Room Air I&O- Last 24 Hours up to 6 AM 08/07/20 05:59 Intake Total 1530 ml Output Total 0 ml Balance 1530 ml Laboratory Data Labs 24H Laboratory Tests 2 08/07/20 05:51: Immature Granulocyte % (Auto) 0.4, Neutrophils (%) (Auto) 67.9H, Lymphocytes (%) (Auto) 15.9L, Monocytes (%) (Auto) 11.9H, Eosinophils (%) (Auto) 2.9, Basophils (%) (Auto) 1.0, Neutrophils # (Auto) 6.3, Lymphocytes # (Auto) 1.5, Monocytes # (Auto) 1.1H, Eosinophils # (Auto) 0.3, Basophils # (Auto) 0.1, Nucleated Red Blood Cells % (auto) 0.0, Anion Gap 6L, Glomerular Filtration Rate > 60.0, Calcium Level 8.7L CBC/BMP Laboratory Tests 08/07/20 05:51 Microbiology Microbiology 08/01/20 Respiratory Virus Panel (PCR) ([facility]) - Final, Complete 08/01/20 Blood Culture - Final, Complete NO GROWTH AFTER 5 DAYS 08/01/20 Blood Culture - Final, Complete Staphylococcus Hominis Discharge Medications Scheduled Amlodipine Besylate (Amlodipine Besylate) 10 Mg Tablet, 10 MG PO DAILY, (Reported) Aspirin (Aspirin EC) 81 Mg Tablet.dr, 81 MG PO DAILY Atorvastatin Calcium (Atorvastatin Calcium) 20 Mg Tablet, 40 MG PO QHS Trazodone HCl (Trazodone HCl) 100 Mg Tablet, 50 MG PO QHS Miscellaneous Medications [Med Rec Comment] , (Reported) MED LIST OBTAINED FROM PHARMACY Allergies Coded Allergies: Sulfa (Sulfonamide Antibiotics) (Verified Adverse Reaction, Mild, STOMACH UPSET, 05/07/20) ZINA GUZMAN MD Aug 07, 2020 16:24
== END 2020-08-07 17:58 | DRG 64 ==
LOC: M ED 10:11 → EDBD 10:11 → EEVIPCON 15:07 → M ED INP 15:07 → M PCU 21:20 → M MSPAV 08-03 14:36
PROVIDERS: ADMIT Internal Medicine Nephrology; ATTEND Internal Medicine Nephrology
DX: I63.59 Cerebral infarction due to unspecified occlusion or stenosis of other cerebral artery (principal); G93.41 Metabolic encephalopathy; J18.9 Pneumonia, unspecified organism; E66.01 Morbid (severe) obesity due to excess calories; I10 Essential (primary) hypertension; K21.00 Gastro-esophageal reflux disease with esophagitis, without bleeding; J44.9 Chronic obstructive pulmonary disease, unspecified; G47.33 Obstructive sleep apnea (adult) (pediatric); R32 Unspecified urinary incontinence; K44.9 Diaphragmatic hernia without obstruction or gangrene; I16.0 Hypertensive urgency; E86.0 Dehydration; R29.810 Facial weakness; R13.10 Dysphagia, unspecified; Z68.39 Body mass index [BMI] 39.0-39.9, adult; Z79.899 Other long term (current) drug therapy; Z88.2 Allergy status to sulfonamides

== ENCOUNTER 2020-08-07 15:04 | Inpatient (IN) | payer MEDICARE, MEDICAID ==
[~2020-08-07] VITALS: Ht 170.2 cm; Wt 111.1 kg
[~2020-08-07 15:04] MED LIST changes: +MED REC COMMENT; +TRAZ-189 PO
[2020-08-07] MEDS ORDERED: ASPI-569 PO (16:01)
[2020-08-07] MEDS ORDERED: ATOR1TAB21 PO (16:01)
[2020-08-07] MEDS ORDERED: TRAZ-189 PO (16:03)
[2020-08-07 18:00] VITALS: BP 153/66
--- OUTSIDE RECORDS SUMMARY | 2020-08-07 18:18 | CCD ---
Author Author [facility] Organization [facility] Address Unknown Phone Unavailable Care Team Providers Care Weblogic Developer Name Role Phone Marie BALTAZAR MD Unavailable Unavailable Marie BALTAZAR MD Unavailable Unavailable Marie BALTAZAR MD Unavailable Unavailable Marie BALTAZAR MD Unavailable Unavailable Marie BALTAZAR MD Unavailable Unavailable Marie BALTAZAR MD Unavailable Unavailable Marie BALTAZAR MD Unavailable Unavailable Marie BALTAZAR MD Unavailable Unavailable Marie BALTAZAR MD Unavailable Unavailable Marie BALTAZAR MD Unavailable Unavailable Marie BALTAZAR MD Unavailable Unavailable Marie BALTAZAR MD Unavailable Unavailable Marie BALTAZAR MD Unavailable Unavailable Marie BALTAZAR MD Unavailable Unavailable Marie BALTAZAR MD Unavailable Unavailable Marie BALTAZAR MD Unavailable Unavailable Marie BALTAZAR MD Unavailable Unavailable Marie BALTAZAR MD Unavailable Unavailable Marie BALTAZAR MD Unavailable Unavailable Marie BALTAZAR MD Unavailable Unavailable Marie BALTAZAR MD Unavailable Unavailable Marie BALTAZAR MD Unavailable Unavailable Marie BALTAZAR MD Unavailable Unavailable Marie BALTAZAR MD Unavailable Unavailable Marie BALTAZAR MD Unavailable Unavailable Marie BALTAZAR MD Unavailable Unavailable Marie BALTAZAR MD Unavailable Unavailable Marie BALTAZAR MD Unavailable Unavailable Marie BALTAZAR MD Unavailable Unavailable Marie BALTAZAR MD Unavailable Unavailable Marie BALTAZAR MD Unavailable Unavailable Marie BALTAZAR MD Unavailable Unavailable Marie BALTAZAR MD Unavailable Unavailable Marie BALTZAAR MD Unavailable Unavailable Marie BALTAZAR MD Unavailable Unavailable Marie BALTAZAR MD Unavailable Unavailable Marie BALTAZAR MD Unavailable Unavailable Marie BALTAZAR MD Unavailable Unavailable Marie BALTAZAR MD Unavailable Unavailable Marie BALTAZAR MD Unavailable Unavailable Marie BALTAZAR MD Unavailable Unavailable Marie BALTAZAR MD Unavailable Unavailable Marie BALTAZAR MD Unavailable Unavailable Marie BALTAZAR MD Unavailable Unavailable Marie BALTAZAR MD Unavailable Unavailable Marie BALTAZAR MD Unavailable Unavailable DELANEY, H DOMINGA MD Unavailable Unavailable DELANEY, H DOMINGA MD Unavailable Unavailable DELANEY, H DOMINGA MD Unavailable Unavailable DELANEY, H DOMINGA MD Unavailable Unavailable DELANEY, H DOMINGA MD Unavailable Unavailable DELANEY, H DOMINGA MD Unavailable Unavailable DELANEY, H DOMINGA MD Unavailable Unavailable DELANEY, H DOMINGA MD Unavailable Unavailable DELANEY, H DOMINGA MD Unavailable Unavailable DELANEY, H DOMINGA MD Unavailable Unavailable DELANEY, H DOMINGA MD Unavailable Unavailable DELANEY, H DOMINGA MD Unavailable Unavailable DELANEY, H DOMINGA MD Unavailable Unavailable DELANEY, H DOMINGA MD Unavailable Unavailable DELANEY, H DOMINGA MD Unavailable Unavailable DELANEY, H DOMINGA MD Unavailable Unavailable DELANEY, H DOMINGA MD Unavailable Unavailable DELANEY, H DOMINGA MD Unavailable Unavailable DELANEY, H DOMINGA MD Unavailable Unavailable DELANEY, H DOMINGA MD Unavailable Unavailable DELANEY, H DOMINGA MD Unavailable Unavailable DELANEY, H DOMINGA MD Unavailable Unavailable DELANEY, H DOMINGA MD Unavailable Unavailable DELANEY, H DOMINGA MD Unavailable Unavailable DELANEY, H DOMINGA MD Unavailable Unavailable DELANEY, H DOMINGA MD Unavailable Unavailable DELANEY, H DOMINGA MD Unavailable Unavailable DELANEY, H DOMINGA MD Unavailable Unavailable DELANEY, H DOMINGA MD Unavailable Unavailable DELANEY, H DOMINGA MD Unavailable Unavailable Re-disclosure Warning The records that you are about to access may contain information from federally-assisted alcohol or drug abuse programs. If such information is present, then the following federally mandated warning applies: This information has been disclosed to you from records protected by federal confidentiality rules (42 CFR part 2). The federal rules prohibit you from making any further disclosure of this information unless further disclosure is expressly permitted by the written consent of the person to whom it pertains or as otherwise permitted by 42 CFR part 2. A general authorization for the release of medical or other information is NOT sufficient for this purpose. The Federal rules restrict any use of the information to criminally investigate or prosecute any alcohol or drug abuse patient.The records that you are about to access may contain highly sensitive health information, the redisclosure of which is protected by Article 27-F of the [facility] Public Health law. If you continue you may have access to information: Regarding HIV / AIDS; Provided by facilities licensed or operated by the [facility] Office of Mental Health; or Provided by the [facility] Office for People With Developmental Disabilities. If such information is present, then the following [facility] mandated warning applies: This information has been disclosed to you from confidential records which are protected by state law. State law prohibits you from making any further disclosure of this information without the specific written consent of the person to whom it pertains, or as otherwise permitted by law. Any unauthorized further disclosure in violation of state law may result in a fine or halfway sentence or both. A general authorization for the release of medical or other information is NOT sufficient authorization for further disc losure. Family History Family Member Name Family Member Gender Family Member Status Date o f Status Description Data Source(s) Unknown Female Problem [facility] ([facility]) Encounters Encounter Providers Location Date Indications Data Source(s ) Outpatient Attender: DOMINGA [facility] 10:15:00 AM EST [facility] Outpatient Attender: DOMINGA [facility] 09:00:00 AM EDT [facility] ([facility] Immunizations Vaccine Date Status Description Data Source(s) INFLUENZA VIRUS VACCINE QUADRIVALENT 2019- (6 MOS AN D UP) 02/25/2020 12:00:00 AM EDT completed [facility] Medications Medication Brand Name Start Date Product Form Dose Route Admi nistrative Instructions Pharmacy Instructions Status Indications Reaction Description Data Source(s) 10 mg 07/26/2020 12:00:00 AM EST tablet 90 TAKE ONE TABLET BY MOUTH EVERY DAY TAKE ONE TABLET BY MOUTH EVERY DAY SOLD: 07/27/2020 [facility] 300 mg 05/09/2020 12:00:00 AM EST capsule 10 TAKE ONE CAPSULE BY MOUTH TWICE A DAY TAKE ONE CAPSULE BY MOUTH TWICE A DAY SOLD: 05/10/2020 [facility] 500 mg 05/09/2020 12:00:00 AM EST tablet 5 TAKE ONE TABLET BY MOUTH EVERY DAY TAKE ONE TABLET BY MOUTH EVERY DAY SOLD: 05/10/2020 [facility] Trazodone Hydrochloride 100 MG Oral Tablet Trazodone HCL 02/21/2020 12:00:00 AM EDT ORAL active [facility] ([facility] 100 mg 02/21/2020 12:00:00 AM EDT tablet 90 TAKE ONE TABLET BY MOUTH AT BEDTIME TAKE ONE TABLET BY MOUTH AT BEDTIME SOLD: 02/24/2020 [facility] Trazodone Hydrochloride 100 MG Oral Tablet TRAZODONE HCL 02/21/2020 12:00:00 AM EDT tablet 90 TAKE ONE TABLET BY MOUTH AT BEDTIME TAKE ONE TABLET BY MOUTH AT BEDTIME SOLD: 05/23/2020 [facility] 10 mg 01/26/2020 12:00:00 AM EDT tablet 90 TAKE ONE TABLET BY MOUTH EVERY DAY TAKE ONE TABLET BY MOUTH EVERY DAY SOLD: 04/11/2020 [facility] 10 mg 01/26/2020 12:00:00 AM EDT tablet 90 TAKE ONE TABLET BY MOUTH EVERY DAY TAKE ONE TABLET BY MOUTH EVERY DAY SOLD: 01/27/2020 [facility] 1,250 mcg (50,000 unit) 09/01/2019 12:00:00 AM EDT capsule 24 TAKE 1 CAPSULE BY MOUTH TWICE A WEEK TAKE 1 CAPSULE BY MOUTH TWICE A WEEK SOLD: 09/05/2019 [facility] Ergocalciferol 12513 UNT Oral Capsule [Drisdol] Drisdol 08/31/2019 12:00:00 AM EDT ORAL active [facility] ([facility] 50 mg 07/29/2019 12:00:00 AM EST tablet 30 TAKE ONE TABLET BY MOUTH AT BEDTIME TAKE ONE TABLET BY MOUTH AT BEDTIME SOLD: 01/27/2020 [facility] 50 mg 07/29/2019 12:00:00 AM EST tablet 30 TAKE ONE TABLET BY MOUTH AT BEDTIME TAKE ONE TABLET BY MOUTH AT BEDTIME SOLD: 11/09/2019 [facility] 50 mg 07/29/2019 12:00:00 AM EST tablet 30 TAKE ONE TABLET BY MOUTH AT BEDTIME TAKE ONE TABLET BY MOUTH AT BEDTIME SOLD: 12/21/2019 [facility] 50 mg 07/29/2019 12:00:00 AM EST tablet 30 TAKE ONE TABLET BY MOUTH AT BEDTIME TAKE ONE TABLET BY MOUTH AT BEDTIME SOLD: 08/03/2019 [facility] 50 mg 07/29/2019 12:00:00 AM EST tablet 30 TAKE ONE TABLET BY MOUTH AT BEDTIME TAKE ONE TABLET BY MOUTH AT BEDTIME SOLD: 09/05/2019 [facility] 50 mcg (2,000 unit) 07/29/2019 12:00:00 AM EST capsule 100 TAKE ONE CAPSULE BY MOUTH EVERY DAY TAKE ONE CAPSULE BY MOUTH EVERY DAY SOLD: 08/03/2019 [facility] 50 mg 07/29/2019 12:00:00 AM EST tablet 30 TAKE ONE TABLET BY MOUTH AT BEDTIME TAKE ONE TABLET BY MOUTH AT BEDTIME SOLD: 09/30/2019 [facility] 10 mg 07/28/2019 12:00:00 AM EST tablet 90 TAKE ONE TABLET BY MOUTH EVERY DAY TAKE ONE TABLET BY MOUTH EVERY DAY SOLD: 11/11/2019 [facility] 10 mg 07/28/2019 12:00:00 AM EST tablet 90 TAKE ONE TABLET BY MOUTH EVERY DAY TAKE ONE TABLET BY MOUTH EVERY DAY SOLD: 08/03/2019 [facility] Insurance Providers Payer name Policy type / Coverage type Policy ID Covered alliance party ID Covered alliance party's relationship to guevara Policy Guevara Plan Information EMEDNY [id number] SP [id number] [facility] [id number] SP [id number] MEDICARE [id number] SP [id number] [employer]MA[employer] PPO [id number] SP [id number] HUMANA GOLD [id number] SP [id number] MEDICARE [id number] SP [id number] HUMANA HMO [id number] SP [id number] HUMANA HMO [id number] SP [id number] Medicaid [facility] Part B Self Medicare [facility] Medicare Primary Self MEDICARE [id number] SP [id number] A MEDICAID [id number] SP [id number] MEDICAID -O/P EMERGENCY ROOM [id number] 18 [id number] [facility] MEDIC[facility] -O/P [id number] 18 [id number] MEDICARE [id number] SP [id number] A Results ID Date Data Source [id number] 08/01/2020 12:02:00 PM EST [facility] Name Value Range Interpretation Code Description Data Yumi rce(s) Supporting Document(s) SARS-CoV-2 (COVID 19) NEGATIVE - SARS-CoV-2 (COVID19) [facility] This lab was ordered by [facility] a nd reported by [facility]. ID Date Data Source [id number] 08/01/2020 10:59:00 AM EST [facility] Name Value Range Interpretation Code Description Data Yumi rce(s) Supporting Document(s) SARS COVID ANTIGEN NEGATIVE [facility] This lab was ordered by [facility] a nd reported by [facility]. ID Date Data Source [id number] 05/09/2020 05:38:00 AM EST [facility] ([facility] Name Value Range Interpretation Code Description Data Yumi rce(s) Supporting Document(s) Glucose [Mass/volume] in Serum or Plasma Laboratory test result 70-100 Above high normal [facility] ([facility] ) Creatinine For GFR Laboratory test result 0.55-1.30 [facility] ([facility] Blood Urea Nitrogen Laboratory test result 7-18 [facility] ([facility] Glomerular Filtration Rate Laboratory test result [facility] ([facility] <content>Units are mL/min/1.73 m2 </con tent>
<content> </content>
<content>Chronic Kidney Disease Staging per NKF: </content>
<content> </content>
<content>Stage I & II GFR >=60 Normal to Mildly Decreased </content>
<content>Stage III GFR 30-59 Moderately Decreased </content>
<content>Stage IV GFR 15-29 Severely Decreased </content>
<content>Stage V GFR <15 Very Little GFR Left </content>
<content>ESRD GFR <15 on STRIP ROLLER</content>
<content></content> Potassium Serum Laboratory test result 3.5-5.1 [facility] ([facility] Sodium Level Laboratory test result 136-145 [facility] ([facility] Anion Gap Laboratory test result 8-16 Below low normal [facility] ([facility] Chloride Level Laboratory test result 98-107 [facility] ([facility] Carbon Dioxide Level Laboratory test result 21-32 [facility] ([facility] Calcium Level Laboratory test result 8.8-10.2 [facility] ([facility] ID Date Data Source [id number] 05/08/2020 02:22:00 PM EST [facility] ([facility] Name Value Range Interpretation Code Description Data Yumi rce(s) Supporting Document(s) Laboratory test finding (navigational concept) 0.19 [facility] ([facility] <content>SEPSIS INTERPRETATION OF RESULT S </content>
<content> <0.5 ng/ml Low risk for progression to severe </content>
<content> sepsis and or septic shock. </content>
<content> 0.50- 2.00 ng/ml Sepsis should be considered. </content>
<content> >2.00 ng/ml High risk for progression to severe </content>
<content> sepsis and or septic shock. </content>
<content> </content>
<content>LOWER RESPIRATORY TRACT INFECTION REFERENCE INTERVAL </content>
<content> <0.1 ng/ml Antibiotics strongly discouraged. </content>
<content> 0.1-0.25 ng/ml Antibiotics are discouraged. </content>
<content> 0.26-0.5 ng/ml Antibiotics are encouraged. </content>
<content> >0.5 ng/ml Antibiotics are strongly encouraged.</content>
<content></content> ID Date Data Source [id number] 05/08/2020 08:03:00 AM EST [facility] ([facility] Name Value Range Interpretation Code Description Data Yumi rce(s) Supporting Document(s) Erythrocytes [#/area] in Urine sediment by Microscopy high power field Laboratory test result 0-3 Above high normal [facility] ([facility] Squamous Epithelial Cell Urine Laboratory test result [facility] ([facility] Laboratory test finding (navigational concept) Laboratory test r esult 0-3 Above high normal [facility] ([facility] ) Laboratory test finding (navigational concept) Laboratory test r esult Above high normal [facility] ([facility] ) Bacteria, Urine Laboratory test result Above high normal [facility] ([facility] Hyaline Cast, Urine Laboratory test result 0-1 [facility] ([facility] Amorphous Sediment, Urine Laboratory test result Above hig h normal [facility] ([facility] Microscopic Exam Laboratory test result [facility] ([facility] Mucus, Urine Laboratory test result Above high normal [facility] ([facility] ID Date Data Source [id number] 05/08/2020 07:42:00 AM EST [facility] ([facility] Name Value Range Interpretation Code Description Data Yumi rce(s) Supporting Document(s) Laboratory test finding (navigational concept) Laboratory test r esult Above high normal [facility] ([facility] ) Laboratory test finding (navigational concept) Laboratory test resu lt 5.0-7.0 [facility] ([facility] Laboratory test finding (navigational concept) Laboratory test r esult Above high normal [facility] ([facility] ) Laboratory test finding (navigational concept) Laboratory test result [facility] ([facility] Laboratory test finding (navigational concept) 1.005 1.002-1.035 [facility] ([facility] Ketone, Urine Manual Laboratory test result [facility] ([facility] Glucose, Urine (Ua) Manual Laboratory test result [facility] ([facility] Urobilinogen, Urine Manual Laboratory test result [facility] ([facility] Laboratory test finding (navigational concept) Laboratory test r esult Above high normal [facility] ([facility] ) Laboratory test finding (navigational concept) Laboratory test r esult Above high normal [facility] ([facility] ) Bilirubin, Urine Manual Laboratory test result [facility] ([facility] Laboratory test finding (navigational concept) Laboratory test r esult Above high normal [facility] ([facility] ) ID Date Data Source [id number] 05/08/2020 06:16:00 AM EST [facility] ([facility] Name Value Range Interpretation Code Description Data Yumi rce(s) Supporting Document(s) Glucose [Mass/volume] in Serum or Plasma Laboratory test result 70-100 Above high normal [facility] ([facility] ) Blood Urea Nitrogen Laboratory test result 7-18 [facility] ([facility] Creatinine For GFR Laboratory test result 0.55-1.30 [facility] ([facility] Sodium Level Laboratory test result 136-145 [facility] ([facility] Glomerular Filtration Rate Laboratory test result [facility] ([facility] <content>Units are mL/min/1.73 m2 </con tent>
<content> </content>
<content>Chronic Kidney Disease Staging per NKF: </content>
<content> </content>
<content>Stage I & II GFR >=60 Normal to Mildly Decreased </content>
<content>Stage III GFR 30-59 Moderately Decreased </content>
<content>Stage IV GFR 15-29 Severely Decreased </content>
<content>Stage V GFR <15 Very Little GFR Left </content>
<content>ESRD GFR <15 on STRIP ROLLER</content>
<content></content> Carbon Dioxide Level Laboratory test result 21-32 [facility] ([facility] Anion Gap Laboratory test result 8-16 Below low normal [facility] ([facility] Chloride Level Laboratory test result 98-107 [facility] ([facility] Potassium Serum Laboratory test result 3.5-5.1 [facility] ([facility] Calcium Level Laboratory test result 8.8-10.2 [facility] ([facility] ID Date Data Source [id number] 05/08/2020 05:57:00 AM EST [facility] ([facility] Name Value Range Interpretation Code Description Data Yumi rce(s) Supporting Document(s) Leukocytes [#/volume] in Blood by Automated count Laboratory test result 4.0-10.0 Above high normal [facility] ([facility] Erythrocytes [#/volume] in Blood by Automated count Laborato ry test result 4.00-5.40 [facility] ([facility] Hematocrit [Volume Fraction] of Blood by Automated count Lab oratory test result 36.0-47.0 [facility] ([facility] Mean Corpuscular Volume Laboratory test result 80.0-96.0 [facility] ([facility] Hemoglobin [Mass/volume] in Blood Laboratory test result 12.0-15.5 [facility] ([facility] Mean Corpuscular Hemoglobin Laboratory test result 27.0-33.0 [facility] ([facility] Mean Corpuscular HGB Conc Laboratory test result 32.0-36.5 Below low normal [facility] ([facility] Red Cell Distribution Width Laboratory test result 11.5-14.5 [facility] ([facility] Platelet Count, Automated Laboratory test result 150-450 [facility] ([facility] Neutrophils % Laboratory test result 36.0-66.0 Above high normal [facility] ([facility] Monocytes/100 leukocytes in Blood by Automated count Laborat ory test result 0.0-5.0 Above high normal [facility] ([facility] Lymph % Laboratory test result 24.0-44.0 Below low normal [facility] ([facility] Eos % Laboratory test result 0.0-3.0 [facility] ([facility] Nucleated Red Blood Cell % Laboratory test result 0-0 [facility] ([facility] Baso % Laboratory test result 0.0-1.0 [facility] ([facility] Immature Granulocyte % Laboratory test result 0-3.0 [facility] ([facility] Nowata # Laboratory test result 0.0-0.8 Above high normal [facility] ([facility] Neutrophils # Laboratory test result 1.5-8.5 Above high normal [facility] ([facility] Lymph # Laboratory test result 1.5-5.0 Below low normal [facility] ([facility] Baso # Laboratory test result 0.0-0.2 [facility] ([facility] Eos # Laboratory test result 0.0-0.5 [facility] ([facility] ID Date Data Source [id number] 05/07/2020 10:32:00 PM EST [facility] ([facility] Name Value Range Interpretation Code Description Data Yumi rce(s) Supporting Document(s) CPK Creatine Phosphokinase Laboratory test result 26-192 [facility] CK-MB Value Mass Laboratory test result [facility] MB/CK Relative Index 3.82 [facility] ([facility] <content>DIAGNOSIS CRITERIA </content>< br/><content> MMB ng/ml Relative Index (RI) </content>
<content>NON-AMI < or = 5 N/A </content>
<content>SANTACRUZ ZONE > 5 < or = 4 </content>
<content>AMI > 5 > 4</content>
<content></content> Troponin I.cardiac [Mass/volume] in Serum or Plasma Laboratory test result [facility] ([facility] <content>Troponin I Reference Interval f or [employer] [place] LOCI: </content>
<content> </content>
<content> 99th Percentile= 0.00-0.045 ng/ml </content>
<content> </content>
<content>Risk Stratification: </content>
<content> <= 0.10 ng/ml Decreased Risk for Adverse Clinical </content>
<content> Events. </content>
<content> 0.10-1.50 ng/ml Increased Risk for Adverse Clinical </content>
<content> Events. Evaluation of additional </content>
<content> criterion and/or repeat testing in 2-6 </content>
<content> hours is suggested to rule out myocardial </content>
<content> damage. </content>
<content> >= 1.50 ng/ml Indicative of Myocardial Injury.</content>
<content></content> ID Date Data Source [id number] 05/07/2020 04:25:00 PM EST [facility] Name Value Range Interpretation Code Description Data Yumi rce(s) Supporting Document(s) CK-MB Value Mass Laboratory test result [facility] ([facility] CPK Creatine Phosphokinase Laboratory test result 26-192 [facility] ([facility] MB/CK Relative Index 3.44 [facility] ([facility] <content>DIAGNOSIS CRITERIA </content>< br/><content> MMB ng/ml Relative Index (RI) </content>
<content>NON-AMI < or = 5 N/A </content>
<content>SANTACRUZ ZONE > 5 < or = 4 </content>
<content>AMI > 5 > 4</content>
<content></content> Troponin I.cardiac [Mass/volume] in Serum or Plasma [facility] <content>Troponin I Reference Interval or [employer] [place] LOCI: </content>
<content> </content>
<content> 99th Percentile= 0.00-0.045 ng/ml </content>
<content> </content>
<content>Risk Stratification: </content>
<content> <= 0.10 ng/ml Decreased Risk for Adverse Clinical </content>
<content> Events. </content>
<content> 0.10-1.50 ng/ml Increased Risk for Adverse Clinical </content>
<content> Events. Evaluation of additional </content>
<content> criterion and/or repeat testing in 2-6 </content>
<content> hours is suggested to rule out myocardial </content>
<content> damage. </content>
<content> >= 1.50 ng/ml Indicative of Myocardial Injury.</content>
<content></content> ID Date Data Source [id number] 05/07/2020 02:37:00 PM EST LAZARO ([facility] Name Value Range Interpretation Code Description Data Yumi rce(s) Supporting Document(s) NT-Pro BNP Laboratory test result ME BRISENO ([facility] ID Date Data Source [id number] 05/07/2020 02:14:00 PM EST [facility] ([facility] Name Value Range Interpretation Code Description Data Yumi rce(s) Supporting Document(s) Laboratory test finding (navigational concept) Laboratory test resu lt 0.4-2.0 MEDENT ([facility] ID Date Data Source [id number] 05/07/2020 12:27:00 PM EST MEDENT ([facility] Name Value Range Interpretation Code Description Data Yumi rce(s) Supporting Document(s) Alanine aminotransferase [Enzymatic activity/volume] i n Serum or Plasma Laboratory test result 12-78 [facility] ([facility] Aspartate aminotransferase [Enzymatic activity/volume] in Serum or Plasma Laboratory test result 7-37 MEDENT ([facility] Alkaline phosphatase [Enzymatic activity/volume] in Se rum or Plasma Laboratory test result 45-117 MEDENT ([facility] Bilirubin.conjugated [Mass/volume] in Serum or Plasma Labora tory test result 0.0-0.2 MEDENT ([facility] Bilirubin.total [Mass/volume] in Serum or Plasma Laboratory test result 0.2-1.0 MED[facility] ([facility] ) Albumin [Mass/volume] in Serum or Plasma Laboratory test result 3.2-5.2 Below low normal MEDENT ([facility] ) Total Protein Laboratory test result 6.4-8.2 MED[facility] ([facility] Albumin/Globulin Ratio 0.6 1.2-2.2 Below low normal MEDENT ([facility] ID Date Data Source [id number] 05/07/2020 11:56:00 AM EST [facility] ([facility] Name Value Range Interpretation Code Description Data Yumi rce(s) Supporting Document(s) Leukocytes [#/volume] in Blood by Automated count Laboratory test result 4.0-10.0 Above high normal [facility] ([facility] Erythrocytes [#/volume] in Blood by Automated count Laborato ry test result 4.00-5.40 [facility] ([facility] Mean Corpuscular Volume Laboratory test result 80.0-96.0 MEDENT ([facility] Hematocrit [Volume Fraction] of Blood by Automated count Lab oratory test result 36.0-47.0 [facility] Hemoglobin [Mass/volume] in Blood Laboratory test result 12.0-15.5 MEDENT ([facility] Platelet Count, Automated Laboratory test result 150-450 Above hig h normal MEDENT ([facility] Mean Corpuscular HGB Conc Laboratory test result 32.0-36.5 Below low normal MED[facility] ([facility] Red Cell Distribution Width Laboratory test result 11.5-14.5 MEDENT ([facility] Mean Corpuscular Hemoglobin Laboratory test result 27.0-33.0 MEDENT ([facility] Lymph % Laboratory test result 24.0-44.0 Below low normal MEDENT ([facility] Neutrophils % Laboratory test result 36.0-66.0 Above high normal [facility] ([facility] Monocytes/100 leukocytes in Blood by Automated count Laborat ory test result 0.0-5.0 Above high normal MEDENT ([facility] Immature Granulocyte % Laboratory test result 0-3.0 MEDENT ([facility] Eos % Laboratory test result 0.0-3.0 ME DENT ([facility] Baso % Laboratory test result 0.0-1.0 ME DENT ([facility] Nucleated Red Blood Cell % Laboratory test result 0-0 MEDENT ([facility] Lymph # Laboratory test result 1.5-5.0 Below low normal [facility] ([facility] [place] # Laboratory test result 0.0-0.8 Above high normal MEDENT ([facility] Neutrophils # Laboratory test result 1.5-8.5 Above high normal MEDENT ([facility] Eos # Laboratory test result 0.0-0.5 ME DENT ([facility] Baso # Laboratory test result 0.0-0.2 ME DENT ([facility] ID Date Data Source [id number] 05/07/2020 11:51:00 AM EST [facility] ([facility] Name Value Range Interpretation Code Description Data Yumi rce(s) Supporting Document(s) Laboratory test finding (navigational concept) Laboratory test r esult 38.0-51.0 MEDENT ([facility] ) Laboratory test finding (navigational concept) Laboratory test r esult 70-105 Above high normal MEDENT ([facility] ) Laboratory test finding (navigational concept) Laboratory test resu lt 3.5-5.1 MEDENT ([facility] Laboratory test finding (navigational concept) Laboratory test resu lt 136-145 MEDENT ([facility] Laboratory test finding (navigational concept) Laboratory test r esult 23.0-27.0 MED[facility] ([facility] ) Laboratory test finding (navigational concept) Laboratory test resu lt 98-109 MEDENT ([facility] Laboratory test finding (navigational concept) Laboratory test r esult 4.5-5.3 Below low normal [facility] ([facility] ) Creatinine [Mass/volume] in Serum or Plasma Laboratory test result 0. 6-1.3 MED[facility] ([facility] Laboratory test finding (navigational concept) Laboratory test result 8-26 [facility] ([facility] ID Date Data Source [id number] 05/07/2020 11:51:00 AM EST [facility] ([facility] Name Value Range Interpretation Code Description Data Yumi rce(s) Supporting Document(s) Laboratory test finding (navigational concept) Laboratory test r esult 0.00-0.08 [facility] ([facility] ) ID Date Data Source [id number] 05/07/2020 11:45:00 AM EST [facility] ([facility] Name Value Range Interpretation Code Description Data Yumi rce(s) Supporting Document(s) Laboratory test finding (navigational concept) Laboratory test result [facility] ([facility] This lab was ordered by [facility] a nd reported by [facility]. ID Date Data Source [id number] 02/21/2020 09:15:00 AM EDT MED[facility] ([facility] Name Value Range Interpretation Code Description Data Yumi rce(s) Supporting Document(s) Cholesterol [Mass/volume] in Serum or Plasma 243 mg/dL 100 -199 Above high normal MED[facility] ([facility] ) Laboratory test finding (navigational concept) 37 mg/dL 5-40 MED[facility] ([facility] Cholesterol in HDL [Mass/volume] in Serum or Plasma 43 mg/dL MED[facility] ([facility] Triglyceride [Mass/volume] in Serum or Plasma 200 mg/dL 0-149 Above high normal [facility] ([facility] Laboratory test finding (navigational concept) 163 mg/dL 0-99 Above high normal [facility] ([facility] Comment: Laboratory test result MEDENT ([facility] Test not performed ID Date Data Source [id number] 02/21/2020 09:15:00 AM EDT [facility] ([facility] Name Value Range Interpretation Code Description Data Yumi rce(s) Supporting Document(s) Glucose [Mass/volume] in Serum or Plasma 132 mg/dL 65-99 Above high normal [facility] ([facility] BUN 13 mg/dL 8-27 [facility] eGFR If Africn Am 76 mL/min/1.73 MED ENT ([facility] eGFR If NonAfricn Am 66 mL/min/1.73 [facility] ([facility] Creatinine [Mass/volume] in Serum or Plasma 0.82 mg/dL 0.57-1.00 [facility] ([facility] Chloride [Moles/volume] in Serum or Plasma 99 mmol/L 96-106 [facility] ([facility] Sodium [Moles/volume] in Serum or Plasma 138 mmol/L 134-144 MED[facility] ([facility] Potassium [Moles/volume] in Serum or Plasma 4.7 mmol/L 3.5-5.2 MEDENT ([facility] Urea nitrogen/Creatinine [Mass Ratio] in Serum or Plasma 16 1 2-28 MED[facility] ([facility] Carbon dioxide, total [Moles/volume] in Serum or Plasma 24 mmol/L 20 -29 MED[facility] ([facility] Calcium [Mass/volume] in Serum or Plasma 9.7 mg/dL 8.7-10.3 MED[facility] ([facility] Protein [Mass/volume] in Serum or Plasma 6.9 g/dL 6.0-8.5 MEDENT ([facility] Bilirubin.total [Mass/volume] in Serum or Plasma 0.3 mg/dL 0.0-1.2 MEDENT ([facility] Albumin/Globulin [Mass Ratio] in Serum or Plasma 1.6 1.2-2.2 MEDENT ([facility] Globulin [Mass/volume] in Serum by calculation 2.7 g/dL 1.5-4.5 MEDENT ([facility] Albumin [Mass/volume] in Serum or Plasma 4.2 g/dL 3.6-4.6 MEDENT ([facility] Aspartate aminotransferase [Enzymatic activity/volume] in Serum or Plasma 24 IU/L 0-40 MED[facility] ([facility] Alanine aminotransferase [Enzymatic activity/volume] in Seru m or Plasma 23 IU/L 0-32 MED[facility] ([facility] Alkaline phosphatase [Enzymatic activity/volume] in Serum or Plasma 96 IU/L 39-117 MED[facility] ([facility] ID Date Data Source [id number] 02/21/2020 09:15:00 AM EDT MEDENT ([facility] Name Value Range Interpretation Code Description Data Yumi rce(s) Supporting Document(s) Calcidiol [Mass/volume] in Serum or Plasma 30.6 ng/mL 30.0-100.0 MEDRACH ([facility] Vitamin D deficiency has been defined by the [place] of [employer] and an Endocrine Society practice guideline as a level of serum 25-OH vitamin D less than 20 ng/mL (1,2). The Endocrine Society went on to further define vitamin D insufficiency as a level between 21 and 29 ng/mL (2). 1. IOM ([place] of [employer]). 2010. Di etary reference intakes for calcium and D. [place]: The National Academies Press. 2. Willy MARTIN, Daryl RAZO, Serge GANN, et al. Evaluation, treatment, and prevention of vitamin D deficiency: an Endocrine Society clinical practice guideline. JCEM. 2010; 96(7):1911-30. Procedure Vital Signs ID Date Data Source UNK Name Value Range Interpretation Code Description Data Source(s) Oxygen saturation in Arterial blood by Pulse oximetry 93 % 93 % MEDRACH ([facility] Body mass index (BMI) [Ratio] 39.4 kg/m2 39.4 k g/m2 MEDENT ([facility] [place] body weight 130 [lb_av] 130 [lb_av] MEDEN T ([facility] Body weight 244.00 [lb_av] 244.00 [lb_av] MEDEN T ([facility] Body height 66 [in_i] 66 [in_i] MEDRACH ([facility] 5'6" Respiratory rate 18 /min 18 /min MEDRACH ( [facility] Heart rate 106 /min 106 /min MEDRACH ([facility] Body temperature 97.3 [degF] 97.3 [degF] MEDRACH ([facility] Diastolic blood pressure 88 mm[Hg] 88 mm[Hg] MEDRACH ([facility] Systolic blood pressure 156 mm[Hg] 156 mm[Hg] M EDENT ([facility] Oxygen saturation in Arterial blood by Pulse oximetry 95 % 95 % LAZARO ([facility] Body mass index (BMI) [Ratio] 41.0 kg/m2 41.0 k g/m2 MEDENT ([facility] [place] body weight 130 [lb_av] 130 [lb_av] MEDEN T ([facility] Body weight 254.00 [lb_av] 254.00 [lb_av] MEDEN T ([facility] Body height 66 [in_i] 66 [in_i] MEDENT ([facility] 5'6" Respiratory rate 18 /min 18 /min MEDENT ( [facility] Heart rate 96 /min 96 /min MEDRACH ([facility] Body temperature 98.2 [degF] 98.2 [degF] MEDRACH ([facility] Diastolic blood pressure 88 mm[Hg] 88 mm[Hg] LAZARO ([facility] Systolic blood pressure 138 mm[Hg] 138 mm[Hg] Chad ANSARI ([facility]
--- OUTSIDE RECORDS SUMMARY | 2020-08-07 18:18 | CCD | Continuity of Care Document ---
Author Author Raphael FRAZIER M.D. Organization Unknown Address [address] [place], [place] [address] Phone [phone] Problems Active Problems Provider Date Essential hypertension Claude Frazier M.D. Onset: 2017 Vitamin D deficiency Claude Frazier M.D. Onset: 02/17/20 18 Chronic obstructive lung disease Claude Frazier M.D. Ons et: 02/16/2018 Social History Type Date Description Comments Sex Unknown Tobacco Use Start: Unknown Patient has never smoked Allergies, Adverse Reactions, Alerts Active Allergies Reaction Severity Comments Date Sulfa Drugs Urticaria Severe 07/06/2014 Medications Active Medications SIG Qnty Indications Ordering Provide r Date Trazodone HCL 100mg Tablets take 1 by mouth at bedtime 90tabs Claude Frazier M.D. 020 Drisdol 1.25mg (82439 Ut) Capsules 1 by mouth 2x a week 24caps Claude Frazier M.D. 08/31/19 20 Proair HFA 108(90Base) mcg/Act Aer osol 1-2 puffs every 4-6 hours as needed for sob 8.500gm Claude Frazier M.D. 02/24/2019 Nebulizer Device medication compressor use as directed j 44.9 Claude Warner M.D. 02/16/2018 Nebulizer Kit/Tubing/Mouthpiece K it for use with nebulizer as directed j44.9 Claude Warner M.D. 02/16/2018 Amlodipine Besylate 10mg Tablets Take One Tablet By Mouth Every Day 90tabs Claude Frazier M.D . 02/12/2016 Vitamin D 2000Unit Tablets 1 by mouth every day 100tabs Claude Frazier M.D. 00 Tylenol 8 Hour 650mg Tablets ER 1 by mouth as needed Unknown Immunizations CPT Code Status Date Vaccine Lot # [id number] Given 06/26/2016 Influenza Virus Vaccine, Quadrivalent, Slit Virus, Im Use 3Y & Up [id number] Vital Signs Date Vital Result Comment 05/16/2020 10:53am BP Systolic 156 mmHg BP Diastolic 88 mmHg Body Temperature 97.3 F Heart Rate 106 /min Respiratory Rate 18 /min Height 66 inches 5'6" Weight 244.00 lb [place] Body Weight 130 lb BMI (Body Mass Index) 39.4 kg/m2 O2 % BldC Oximetry 93 % 08/16/2019 1:00pm BP Systolic 138 mmHg BP Diastolic 88 mmHg Body Temperature 98.2 F Heart Rate 96 /min Respiratory Rate 18 /min Height 66 inches 5'6" Weight 254.00 lb [place] Body Weight 130 lb BMI (Body Mass Index) 41.0 kg/m2 O2 % BldC Oximetry 95 % Results Test Acquired Date Facility Test Result H/L Range Note Basic Metabolic Profile 05/09/2020 N2N[facility] Imports Glucose, Fasting 117 MG/DL High 70-100 Blood Urea Nitrogen 15 MG/DL 7-18 Creatinine For GFR 0.91 MG/DL 0.55-1.30 Glomerular Filtration Rate > 60.0 >32 1 Sodium Level 138 Meq/L 136-145 Potassium Serum 4.1 Meq/L 3.5-5.1 Chloride Level 103 Meq/L 98-107 Carbon Dioxide Level 31 Meq/L 21-32 Anion Gap 4 Meq/L Low 8-16 Calcium Level 9.2 MG/DL 8.8-10.2 Procalcitonin 05/08/2020 N2N/CCD Imports Procalcitonin 0.19 2 Microscopic, Urine RFX 05/08/2020 N2N/CCD Imports WBC, Urine Man RFX 10-15 /hpf High 0-3 RBC, Urine 7-10 /hpf High 0-3 Squamous Epithelial Cell Urine Small Amount /hpf Smal l Amt Triple Phosphate Crystal,Urine Small Amount /hpf High None Bacteria, Urine Large Amount High None Hyaline Cast, Urine None Seen /lpf 0-1 Mucus, Urine Large Amount High Negative Amorphous Sediment, Urine Mod Amount High Negative Microscopic Exam Performed Urinalysis Manual RFX Ucult 05/08/2020 N2N/CCD Impo rts Appearance, Urine Manual RFX Turbid High Clear Color, Urine Manual Reflex Yellow Yellow PH,Urine Man Reflex 9.0 Units 5.0 - 7.0 SP [place],Urine Manual Reflex 1.005 1.002-1.03 5 Protein, Urine Manual Reflex 3+ mg/dL High Negative Glucose, Urine (Ua) Manual Negative mg/dL Negative Ketone, Urine Manual Negative mg/dL Negative Urobilinogen, Urine Manual Normal mg/dl Normal Bilirubin, Urine Manual Negative Negative Nitrite, Urine Manual RFX Positive High Negative Leukocyte Esterase, Ur Man RFX Positive High Negative Blood Urine Manual RFX Positive High Negative Basic Metabolic Profile 05/08/2020 N2N/CCD Imports Glucose, Fasting 127 MG/DL High 70-100 Blood Urea Nitrogen 12 MG/DL 7-18 Creatinine For GFR 0.85 MG/DL 0.55-1.30 Glomerular Filtration Rate > 60.0 >32 3 Sodium Level 136 Meq/L 136-145 Potassium Serum 4.0 Meq/L 3.5-5.1 Chloride Level 102 Meq/L 98-107 Carbon Dioxide Level 27 Meq/L 21-32 Anion Gap 7 Meq/L Low 8-16 Calcium Level 8.9 MG/DL 8.8-10.2 CBC With Differential 05/08/2020 N2N/CCD Imports White Blood Count 14.7 10 High 4.0-10.0 Red Blood Count 4.82 10 4.00-5.40 Hemoglobin 13.9 g/dl 12.0-15.5 Hematocrit 45.4 % 36.0-47.0 Mean Corpuscular Volume 94.2 fl 80.0-96.0 Mean Corpuscular Hemoglobin 28.8 pg 27.0-33.0 Mean Corpuscular HGB Conc 30.6 g/dl Low 32.0-36.5 Red Cell Distribution Width 12.9 % 11.5-14.5 Platelet Count, Automated 437 10 150-450 Neutrophils % 81.8 % High 36.0-66.0 Lymph % 8.2 % Low 24.0-44.0 [place] % 7.6 % High 0.0-5.0 Eos % 1.0 % 0.0-3.0 Baso % 0.6 % 0.0-1.0 Immature Granulocyte % 0.8 % 0-3.0 Nucleated Red Blood Cell % 0.0 % 0-0 Neutrophils # 12.0 10 High 1.5-8.5 Lymph # 1.2 10 Low 1.5-5.0 [place] # 1.1 10 High 0.0-0.8 Eos # 0.2 10 0.0-0.5 Baso # 0.1 10 0.0-0.2 Sars-CoV-2 (Covid 19) 05/07/2020 N2N/CCD Imports Sars-CoV-2 (Covid 19) Negative - Sars-CoV-2 (Covid19) 4 iSTAT Troponin 05/07/2020 N2N/CCD Imports iSTAT Troponin 0.02 NG/ML 0.00-0.08 iSTAT Chem8+ Panel 05/07/2020 N2N/CCD Imports iSTAT HCT 47.0 % 38.0-51.0 iSTAT Glucose 117 MG/DL High 70-105 iSTAT Sodium 137 Meq/L 136-145 iSTAT Potassium 4.3 Meq/L 3.5-5.1 iSTAT CA++ 4.4 MG/DL Low 4.5-5.3 iSTAT Chloride 103 Meq/L 98-109 iSTAT Co2 25.0 mm/L 23.0-27.0 iSTAT BUN 11 MG/DL 8-26 iSTAT Creatinine 0.8 MG/DL 0.6-1.3 CBC With Differential 05/07/2020 N2N/CCD Imports White Blood Count 18.1 10 High 4.0-10.0 Red Blood Count 4.87 10 4.00-5.40 Hemoglobin 14.2 g/dl 12.0-15.5 Hematocrit 45.2 % 36.0-47.0 Mean Corpuscular Volume 92.8 fl 80.0-96.0 Mean Corpuscular Hemoglobin 29.2 pg 27.0-33.0 Mean Corpuscular HGB Conc 31.4 g/dl Low 32.0-36.5 Red Cell Distribution Width 12.8 % 11.5-14.5 Platelet Count, Automated 468 10 High 150-450 Neutrophils % 83.6 % High 36.0-66.0 Lymph % 7.1 % Low 24.0-44.0 [place] % 6.5 % High 0.0-5.0 Eos % 1.3 % 0.0-3.0 Baso % 0.7 % 0.0-1.0 Immature Granulocyte % 0.8 % 0-3.0 Nucleated Red Blood Cell % 0.0 % 0-0 Neutrophils # 15.1 10 High 1.5-8.5 Lymph # 1.3 10 Low 1.5-5.0 [place] # 1.2 10 High 0.0-0.8 Eos # 0.2 10 0.0-0.5 Baso # 0.1 10 0.0-0.2 Liver Profile 05/07/2020 N2N/CCD Imports Ast/Sgot 14 U/L 7-37 Alt/SGPT 14 U/L 12-78 Alkaline Phosphatase 107 U/L 45-117 Bilirubin,Total 0.3 MG/DL 0.2-1.0 Bilirubin,Direct 0.1 MG/DL 0.0-0.2 Total Protein 6.8 GM/DL 6.4-8.2 Albumin 2.5 GM/DL Low 3.2-5.2 Albumin/Globulin Ratio 0.6 Low 1.2-2.2 Lactic Acid Sepsis Protocol 05/07/2020 N2N/CCD Impo rts Lactic Acid Sepsis Protocol 1.3 Mmol/L 0.4-2.0 NT-Pro BNP 05/07/2020 N2N/CCD Imports NT-Pro BNP 340 PG/ML <450 Cardiac Marker Panel 05/07/2020 N2N/CCD Imports CPK Creatine Phosphokinase 32 U/L 26-192 CK-MB Value Mass 1.1 NG/ML <3.6 MB/CK Relative Index 3.44 < Or =4 5 Troponin I < 0.02 NG/ML < 0.10 6 Cardiac Marker Panel 05/07/2020 N2N/CCD Imports CPK Creatine Phosphokinase 34 U/L 26-192 CK-MB Value Mass 1.3 NG/ML <3.6 MB/CK Relative Index 3.82 < Or =4 7 Troponin I < 0.02 NG/ML < 0.10 8 Laboratory test finding 02/21/2020 [facility] [place] Vitamin D, 25-Hydroxy 30.6 ng/mL 30.0-100.0 9 Metabolic Panel (14), Comprehensive 02/21/2020 [facility] Glucose 132 mg/dL High 65-99 BUN 13 mg/dL 8-27 Creatinine 0.82 mg/dL 0.57-1.00 eGFR If NonAfricn Am 66 mL/min/1.73 >59 eGFR If Africn Am 76 mL/min/1.73 >59 BUN/Creatinine Ratio 16 12-28 Sodium 138 mmol/L 134-144 Potassium 4.7 mmol/L 3.5-5.2 Chloride 99 mmol/L 96-106 Carbon Dioxide, Total 24 mmol/L 20-29 Calcium 9.7 mg/dL 8.7-10.3 Protein, Total 6.9 g/dL 6.0-8.5 Albumin 4.2 g/dL 3.6-4.6 Globulin, Total 2.7 g/dL 1.5-4.5 A/G Ratio 1.6 1.2-2.2 Bilirubin, Total 0.3 mg/dL 0.0-1.2 Alkaline Phosphatase 96 IU/L 39-117 Ast (Sgot) 24 IU/L 0-40 Alt (SGPT) 23 IU/L 0-32 Lipid Panel 02/21/2020 [facility] [place] Cholesterol, Total 243 mg/dL High 100-199 Triglycerides 200 mg/dL High 0-149 HDL Cholesterol 43 mg/dL >39 VLDL Cholesterol Te[place] 37 mg/dL 5-40 LDL Chol Calc (Nih) 163 mg/dL High 0-99 Comment: TNP 10 1 Units are mL/min/1.73 m2 Chronic Kidney Disease Staging per NKF: Stage I & II GFR >=60 Normal to Mildly Decreased Stage III GFR 30-59 Moderately Decreased Stage IV GFR 15-29 Severely Decreased Stage V GFR <15 Very Little GFR Left ESRD GFR <15 on FIELD MARKETING ASSOCIATE 2 SEPSIS INTERPRETATION OF RES ULTS <0.5 ng/ml Low risk for progression to severe sepsis and or septic shock. 0.50-2.00 ng/ml Sepsis should be considered. >2.00 ng/ml High risk for progression to severe sepsis and or septic shock. LOWER RESPIRATORY TRACT INFECTION REFERENCE INTERVAL <0.1 ng/ml Antibiotics strongly discouraged. 0.1-0.25 ng/ml Antibiotics are discouraged. 0.26-0.5 ng/ml Antibiotics are encouraged. >0.5 ng/ml Antibiotics are strongly encouraged. 3 Units are mL/min/1.73 m2 Chronic Kidney Disease Staging per NKF: Stage I & II GFR >=60 Normal to Mildly Decreased Stage III GFR 30-59 Moderately Decreased Stage IV GFR 15-29 Severely Decreased Stage V GFR <15 Very Little GFR Left ESRD GFR <15 on FIELD MARKETING ASSOCIATE 4 This lab was ordered by [facility] and reported by [facility]. 5 DIAGNOSIS CRITERIA MMB ng/ml Relative Index (RI) NON-AMI < or = 5 N/A S[place]UZ ZONE > 5 < or = 4 AMI > 5 > 4 6 Troponin I Reference Interva l for [place] LOCI: 99th Percentile= 0.00-0.045 ng/ml Risk Stratification: <= 0.10 ng/ml Decreased Risk for Adverse Clinical Events. 0.10-1.50 ng/ml Increased Risk for Adverse Clinical Events. Evaluation of additional criterion and/or repeat testing in 2-6 hours is suggested to rule out myocardial damage. >= 1.50 ng/ml Indicative of Myocardial Injury. 7 DIAGNOSIS CRITERIA MMB ng/ml Relative Index (RI) NON-AMI < or = 5 N/A SANTACRUZ ZONE > 5 < or = 4 AMI > 5 > 4 8 Troponin I Reference Interva l for [employer] [place] LOCI: 99th Percentile= 0.00-0.045 ng/ml Risk Stratification: <= 0.10 ng/ml Decreased Risk for Adverse Clinical Events. 0.10-1.50 ng/ml Increased Risk for Adverse Clinical Events. Evaluation of additional criterion and/or repeat testing in 2-6 hours is suggested to rule out myocardial damage. >= 1.50 ng/ml Indicative of Myocardial Injury. 9 Vitamin D deficiency has bee n defined by the [place] of Medicine and an Endocrine Society practice guideline as a level of serum 25-OH vitamin D less than 20 ng/mL (1,2). The Endocrine Society went on to further define vitamin D insufficiency as a level between 21 and 29 ng/mL (2). 1. IOM ([place] of Medicine). 2010. Di etary reference intakes for calcium and D. [place]: The National Academies Press. 2. Willy MF, Daryl NC, Nick-Mariaa yan GANN, et al. Evaluation, treatment, and prevention of vitamin D deficiency: an Endocrine Society clinical practice guideline. JCEM. 2010; 96(7):1911-30. 10 Test not performed Procedures Description No Information Available Medical Devices Description No Information Available Encounters Type Date Location Provider Dx Diagnosis Office Visit 05/16/2020 11:15a [facility] Claude Frazier M. D. J18.9 Pneumonia, unspecified organism Office Visit 02/21/2020 9:00a [facility] Claude Frazier M. D. Z00.01 Encounter for general adult medical exam w abnormal findings J44.9 Chronic obstructive pulmonar y disease, unspecified I10 Essential (primary) hyperten sherrie E55.9 Vitamin D deficiency, unspec ified G47.00 Insomnia, unspecified Assessments Date Code Description Provider 05/16/2020 J18.9 Pneumonia, unspecified organism Claude Frazier M.D. 02/21/2020 Z00.01 Encounter for genera l adult medical examination with abnormal findings Claude Frazier M.D. 02/21/2020 J44.9 Chronic obstructive pulmonary di sease, unspecified Claude Frazier M.D. 02/21/2020 I10 Essential (primary) hypertension Claude Frazier M.D. 02/21/2020 E55.9 Vitamin D deficiency, unspecifie d Claude Frazier M.D. 02/21/2020 G47.00 Insomnia, unspecified Claude Frazier M.D. Plan of Treatment Future Appointment(s):* 06/21/2020 3:00 pm - Claude Frazier M.D. at [facility] * 08/21/2020 9:30 am - Claude Frazier M.D. at [facility] Functional Status Description No Information Available Mental Status Description No Information Available Referrals Description No Information Available
--- OUTSIDE RECORDS SUMMARY | 2020-08-07 18:18 | CCD | Continuity of Care Document ---
Author Author Raphael FRAZIER M.D. Organization Unknown Address [address] [place], [place] [address] Phone [phone] Problems Active Problems Provider Date Essential hypertension [...] 90tabs Claude Frazier M.D. 020 Drisdol 1.25mg (80392 Ut) Capsules 1 by mouth 2x a [...] Warner M.D. 02/16/2018 Amlodipine Besylate 10mg Tablets take one tablet by mouth every day 90tabs Claude Frazier M.D . 02/12/2016 Vitamin D 2000Unit Tablets 1 by mouth every day 100tabs Claude Frazier M.D. 00 Tylenol 8 Hour 650mg Tablets ER 1 by mouth as needed Unknown Immunizations CPT Code Status Date Vaccine Lot # [id number] Given 06/26/2016 Influenza Virus Vaccine, Quadrivalent, Slit Virus, Im Use 3Y & Up [id number] Vital Signs Date Vital Result Comment 05/16/2020 10:53am BP Systolic 156 mmHg BP Diastolic 88 mmHg Body Temperature 97.3 F Heart Rate 106 /min Respiratory Rate 18 /min Height 66 inches 5'6" Weight 244.00 lb [place] Body Weight 130 lb BMI (Body Mass Index) 39.4 kg/m2 O2 % BldC Oximetry 93 % 08/16/2019 1:00pm BP Systolic 138 mmHg BP Diastolic 88 mmHg Body Temperature 98.2 F Heart Rate 96 /min Respiratory Rate 18 /min Height 66 inches 5'6" Weight 254.00 lb [place] Body Weight 130 lb BMI (Body Mass [...] Reflex 9.0 Units 5.0 - 7.0 SP [place],Urine Manual Reflex 1.005 1.002-1.03 5 Protein, Urine [...] 36.0-66.0 Lymph % 8.2 % Low 24.0-44.0 [place] % 7.6 % High 0.0-5.0 Eos % 1.0 % 0.0-3.0 Baso % 0.6 % 0.0-1.0 Immature Granulocyte % 0.8 % 0-3.0 Nucleated Red Blood Cell % 0.0 % 0-0 Neutrophils # 12.0 10 High 1.5-8.5 Lymph # 1.2 10 Low 1.5-5.0 [place] # 1.1 10 High 0.0-0.8 Eos # [...] 36.0-66.0 Lymph % 7.1 % Low 24.0-44.0 [place] % 6.5 % High 0.0-5.0 Eos % 1.3 % 0.0-3.0 Baso % 0.7 % 0.0-1.0 Immature Granulocyte % 0.8 % 0-3.0 Nucleated Red Blood Cell % 0.0 % 0-0 Neutrophils # 15.1 10 High 1.5-8.5 Lymph # 1.3 10 Low 1.5-5.0 [place] # 1.2 10 High 0.0-0.8 Eos # [...] Little GFR Left ESRD GFR <15 on FACULTY INSTRUCTOR 2 SEPSIS INTERPRETATION OF RES ULTS <0.5 [...] Little GFR Left ESRD GFR <15 on FACULTY INSTRUCTOR 4 This lab was ordered by [facility] and reported by [facility]. 5 DIAGNOSIS CRITERIA MMB ng/ml Relative Index (RI) NON-AMI < or = 5 N/A SANTACRUZ ZONE > 5 < or = 4 AMI > 5 > 4 6 Troponin I Reference Interva l for Siemens [place] LOCI: 99th Percentile= 0.00-0.045 ng/ml Risk Stratification: [...] Troponin I Reference Interva l for Siemens [place] LOCI: 99th Percentile= 0.00-0.045 ng/ml Risk Stratification: <= 0.10 ng/ml Decreased Risk for Adverse Clinical Events. 0.10-1.50 ng/ml Increased Risk for Adverse Clinical Events. Evaluation of additional criterion and/or repeat testing in 2-6 hours is suggested to rule out myocardial damage. >= 1.50 ng/ml Indicative of Myocardial Injury. 9 Vitamin D deficiency has bee n defined by the [place] of Medicine and an Endocrine Society practice guideline as a level of serum 25-OH vitamin D less than 20 ng/mL (1,2). The Endocrine Society went on to further define vitamin D insufficiency as a level between 21 and 29 ng/mL (2). 1. IOM ([place] of Medicine). 2010. Di etary reference intakes [...] Provider Dx Diagnosis Office Visit 05/16/2020 11:15a [facility] Claude Frazier M. D. J18.9 Pneumonia, unspecified organism Office Visit 02/21/2020 9:00a [facility] Claude Frazier M. D. Z00.01 Encounter for [...] Frazier M.D. Plan of Treatment Future Appointment(s):* 08/21/2020 9:30 am - Claude Frazier M.D. at [facility] Functional Status Description No Information Available Mental Status Description No Information Available Referrals Description No Information Available
[2020-08-07] MEDS ORDERED: ACETAMINOPHEN TAB 650MG DOSE (2X325MG) PO PRN (18:45)
[2020-08-07] MEDS: SENNA 8.6 MG TAB (SENOKOT) PO SCH (20:11)
[2020-08-07] MEDS: DOCUSATE SODIUM 100MG CAPSULE PO SCH (20:12)
[2020-08-07] MEDS: ATORVASTATIN 20 MG TAB PO SCH (20:12)
[2020-08-07] MEDS: traZODone 50 MG TAB PO SCH (20:12)
[2020-08-07] MEDS: REMEDY PHYTOPLEX Z-GUARD PASTE 113GM TUBE (FROM STOREROOM PRODUCT) TOP SCH (20:14)
[2020-08-07 20:20] VITALS: BP 140/82
[2020-08-07] MEDS: IPRATROPIUM 0.5MG/ALBUTEROL 2.5MG INH SOL UD 3ML (DUONEB) NEB SCH (21:57)
[2020-08-08 05:54] VITALS: BP 152/82
[2020-08-08 06:25] LABS: BASO # 0.1 10^3/uL (0.0-0.2); BASO % 0.5 % (0.0-1.0); EOS # 0.3 10^3/uL (0.0-0.5); EOS % 2.3 % (0.0-3.0); HEMATOCRIT 45.6 % (36.0-47.0); HEMOGLOBIN 14.6 g/dl (12.0-15.5); LYMPH # 1.5 10^3/uL (1.5-5.0); LYMPH % 11.4 % (24.0-44.0); MEAN CORPUSCULAR HEMOGLOBIN 29.9 pg (27.0-33.0); MEAN CORPUSCULAR VOLUME 93.4 fl (80.0-96.0); MONO # 1.2 10^3/uL (0.0-0.8); MONO % 9.4 % (0.0-8.0); NEUTROPHILS # 9.7 10^3/uL (1.5-8.5); NEUTROPHILS % 75.8 % (36.0-66.0); PLATELET COUNT, AUTOMATED 249 10^3/uL (150-450); RED BLOOD COUNT 4.88 10^6/uL (4.00-5.40); WHITE BLOOD COUNT 12.9 10^3/uL (4.0-10.0)
[2020-08-08 06:53] LABS: ALBUMIN 2.6 GM/DL (3.2-5.2); ALT/SGPT 25 U/L (12-78); BILIRUBIN,TOTAL 0.3 MG/DL (0.2-1.0); BLOOD UREA NITROGEN 19 MG/DL (7-18); CALCIUM LEVEL 8.9 MG/DL (8.8-10.2); CARBON DIOXIDE LEVEL 25 MEQ/L (21-32); CHLORIDE LEVEL 108 MEQ/L (98-107); CREATININE FOR GFR 0.83 MG/DL (0.55-1.30); GLOMERULAR FILTRATION RATE > 60.0 (>32); GLUCOSE, FASTING 115 MG/DL (70-100); SODIUM LEVEL 140 MEQ/L (136-145); TOTAL PROTEIN 6.8 GM/DL (6.4-8.2)
[2020-08-08] MEDS: IPRATROPIUM 0.5MG/ALBUTEROL 2.5MG INH SOL UD 3ML (DUONEB) NEB SCH ×5 (07:30→20:41)
[2020-08-08] MEDS: ENOXAPARIN 40MG/0.4ML SYRINGE (J1650 PER 10MG) SC SCH (08:53)
[2020-08-08] MEDS: DOCUSATE SODIUM 100MG CAPSULE PO SCH ×2 (08:53→21:26)
[2020-08-08] MEDS: ASPIRIN 81MG ENTERIC TABLET PO SCH (08:53)
[2020-08-08] MEDS: PANTOPRAZOLE 40MG TAB (PROTONIX) PO SCH (08:53)
[2020-08-08] MEDS: REMEDY PHYTOPLEX Z-GUARD PASTE 113GM TUBE (FROM STOREROOM PRODUCT) TOP SCH ×3 (08:54→21:27)
--- NOTE | 2020-08-08 11:14 | HPEPDOC ---
Environmental Intern Note DATE OF ADMISSION: 08-07-20 DATE OF SERVICE: 08-08-20 TIME OF ADMISSION: Please refer to physician's admission order. SOURCE OF ADMISSION INFORMATION: [facility] record and patient CHIEF COMPLAINT: stroke HISTORY OF PRESENT ILLNESS: 84F pmh HTN, COPD, Morbid obesity, ETOH abuse, GERD with erosive esophagitis who presented to [facility] ED on 08-01-20 with altered mental status and was diagnosed with metabolic encephalopathy. CTH showed, old lacunar infarcts in the basal ganglia bilaterally, 1 on each side. There is a 5 mm low-density area in the anterior limb of the internal capsule on the left which was not clearly evident previously. This may be a more recent lacunar infarct. No acute cortical infarction is seen. There is no evidence of hemorrhage or mass and follow-up MRI showed, Acute infarct of the left basal ganglia measuring 1.6 cm. She was maintained on ASA and statin for secondary stroke prevention, ECHO bubble study was negative for [id number] shunt, however did show grade 1 diastolic dysfunction. There was concern for possible pneumonia for which she was treated with IV antibiotics and transitioned to po antibiotics. She was evaluated by therapy, noted to have mobility and ADls impairments below her prior level of function and deemed medically appropriate for discharge to ARU on 08-07-20. REVIEW OF SYSTEMS: The following is a completed review of systems and has been reviewed. Review of systems otherwise unremarkable. PAIN: Patient self reports no pain EYES: No recent vision changes EARS, NOSE, & THROAT: + dysphagia CARDIOVASCULAR: Denies chest pain or palpitations PULMONARY: +shortness of breath GASTROINTESTINAL: Denies constipation/diarrhea GENITOURINARY: denies dysuria MUSCULOSKELETAL:generalized weakness NEUROLOGICAL:+ aphasia HEMATOLOGICAL: denies easy bruising SKIN: denies rash PSYCHIATRIC: Unremarkable All other review of systems found to be negative. PAST MEDICAL HISTORY: as per HPI PAST SURGICAL HISTORY: Hysterectomy, appendectomy, tubal ligation, hiatal hernia repair ALLERGIES: Please see below. MEDICATIONS: Please see below. SOCIAL HISTORY: No smoking/illicit drugs, hx of ETOH abuse DIET: level 2 PHYSICAL EXAMINATION: VITAL SIGNS: Please see below. GENERAL: Pleasant and cooperative. No acute distress. HEENT: PERRL. Extraocular movements intact. Clear conjunctiva CARDIOVASCULAR: Regular rate and rhythm. No murmurs, rubs, or gallops LUNGS: decreased breath sounds, scattered wheezes ABDOMEN: Soft, nontender, nondistended. Positive bowel sounds. Normal active bowel sounds NEUROLOGICAL: Alert and oriented times to person, place, not time, Cranial nerves II through XII grossly intact. Sensation grossly intact (-) clonus bilat EXTREMITIES: 5-\5 strength bilateral upper extremities. 5-\5 strength right lower extremity. 5-/5 strength in left lower extremity. SKIN: LABORATORY DATA: Please see below. IMAGING:Imaging documentation personally reviewed by record. FUNCTIONAL STATUS: Premorbid: Modified Independent with all activities of daily life as well as mobility On Admission: Min-Total assist for dressing, bed mobility, bathing, toileting, ambulation GOALS: Contact guard-Supervision for ambulation household distances, dressing, toileting, bathing ASSESSMENT:84-year-old F with past medical history of HTN and COPD who presents status post left basal ganglia stroke PLAN: 1. 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 Neuro- s/p left basal ganglia infarct, c/u ASA and statin for secondary stroke prevention -low dose Prozac for motor recovery -hx of ETOH abuse, will start thiamine IM for cognitive assistance 3. CArdiac- hx of HTN-c/u lisinopril, Amlodipine, and hydralazine with holding parameters -grade 1 diastolic CHF, fluid restrict, daily weights -hld- c/u statin -medicine consulted to assist in overall management 4. Resp- hx of COPD c/u supplemental 02 goal 88-92% recently treated for PNA, however still with cough and wheeze with leukocytosis, will restart Augmentin for PNA, c/u Duonebs and addition of ICS for wheeze, + guaifenesin- monitor for worsening infection -possible TERESE, nocturnal 02 5. DVT ppx- lovenox 6. GI ppx- protonix 7. Pain- Tylenol prn 8. Psych- insomnia- trazodone 9. Dispo- tbd POST ADMISSION PHYSICIAN EVALUATION: Medical and functional status: Description of medical status, medical assessment: As above. Rehabilitation diagnosis and current and prior cold morbid medical conditions as above. Risk of complications and plans to mitigate them as above. Description of functional status current status is as above. Prior status as above. Status compared to preadmission: There are no clinically significant differences between the patient's current status and the information described on the preadmission screening document. Treatment plan anticipated: Treatment plan is as described above. Required disciplines including physical therapy, occupational therapy, others as noted above. Intensity of services: 3 hours a day, 6 days a week. Special considerations: There are no specific special or safety considerations that would likely preclude immediate implementation of an intensive rehabilitation program or subsequently influence the plan of care. ATTESTATION: Considering all the information above, it is my best judgment that this patient requires intensive rehabilitation therapy as described above and an inpatient hospital environment due to the complexity of nursing, medical, and rehabilitation needs required by the patient. Furthermore, this patient can reasonably be expected to participate in an benefit from an inpatient rehabilitation stay with an interdisciplinary team approach to the delivery of rehabilitation care under the direction and supervision of rehabilitation physician. PROGNOSIS: good ESTIMATED LENGTH OF STAY:18-21 days. PROJECTED DISCHARGE DESTINATION: Home with family support and any durable medical equipment required to increase functional safety and mobility. TIME SPENT COUNSELING AND COORDINATING INITIAL CARE: Greater than 70 minutes. Vital Signs Vital Sign - Last 24 Hours 08/07/20 08/07/20 08/07/20 08/07/20 18:00 20:20 22:01 22:01 Temp 98.2 97.5 Pulse 93 90 79 Resp 20 18 19 18 B/P (MAP) 153/66 (95) 140/82 (101) Pulse Ox 94 95 O2 Delivery Room Air Room Air 08/07/20 08/08/20 08/08/20 22:06 05:54 08:53 Temp 97.4 Pulse 90 90 Resp 18 18 B/P (MAP) 152/82 (105) 152/82 Pulse Ox 95 O2 Delivery Room Air Laboratory Data CBC/BMP Laboratory Tests 08/08/20 05:51 Labs 24H Laboratory Tests 2 08/08/20 05:51: Immature Granulocyte % (Auto) 0.6, Neutrophils (%) (Auto) 75.8H, Lymphocytes (%) (Auto) 11.4L, Monocytes (%) (Auto) 9.4H, Eosinophils (%) (Auto) 2.3, Basophils (%) (Auto) 0.5, Neutrophils # (Auto) 9.7H, Lymphocytes # (Auto) 1.5, Monocytes # (Auto) 1.2H, Eosinophils # (Auto) 0.3, Basophils # (Auto) 0.1, Nucleated Red Blood Cells % (auto) 0.0, Anion Gap 7L, Glomerular Filtration Rate > 60.0, Calcium Level 8.9, Total Bilirubin 0.3, Aspartate Amino Transf (AST/SGOT) 15, Alanine Aminotransferase (ALT/SGPT) 25, Alkaline Phosphatase 97, Total Protein 6.8, Albumin 2.6L, Albumin/Globulin Ratio 0.6L 08/08/20 09:50: Home Medications Scheduled Amlodipine Besylate (Amlodipine Besylate) 10 Mg Tablet, 10 MG PO DAILY, (Reported) Aspirin (Aspirin EC) 81 Mg Tablet.dr, 81 MG PO DAILY Atorvastatin Calcium (Atorvastatin Calcium) 20 Mg Tablet, 40 MG PO QHS Trazodone HCl (Trazodone HCl) 100 Mg Tablet, 50 MG PO QHS Allergies Coded Allergies: Sulfa (Sulfonamide Antibiotics) (Verified Adverse Reaction, Mild, STOMACH UPSET, 05/07/20) A-FIB/CHADSVASC A-FIB History Current/History of A-Fib/PAF?: No Current PO Anticoag Therapy: No MARGIE CARRERA MD Aug 08, 2020 11:14
--- NOTE | 2020-08-08 12:31 | CR.PDOC ---
General Date of Consultation: Aug 08, 2020 Consultation REASON FOR CONSULT: MED MGT HISTORY OF PRESENT ILLNESS: 84 year old morbidly obese female lives alone was found down at home when family could not reach her, and was BIBA to the ER where she was admitted for acute metabolic encephalopathy but was found to have an Acute ischemic stroke ,MRI: Acute infarct of the left basal ganglia measuring 1.6 cm. No hemorrhage. Moderate chronic microvascular ischemic changes. Chronic lacunar infarcts of bilateral basal ganglia. She was kep ton ASA, statin. CTA head neg, Carotid US negative. Patient had dysphagia and was placed on level 2 mechanical soft. She was medically stable and transferred to ARU. She denies any new complaints-no fever, chills, changes in vision, headache, sore throat, changes in appetite/sleep habits/bowel habits, sob, cp,pressure, tightness, n/v/abd pain, dysria, urgency, polyuria, polydipsia. PAST MEDICAL HISTORY: HTN GERD/ Gastric ulcer/ erosive esophagitis COPD Morbid obesity H/O alcohol abuse Possible TERESE Hiatal Hernia Urinary incontinence PAST SURGICAL HISTORY: Hysterectomy. Appendectomy. Tubal ligation. Hiatal hernia repair. Cystourethroscopy with macroplastiq urethral injection. FAMILY HISTORY: NONCONTRIBUTORY DUE TO ADVANCED AGE. SOCIAL HISTORY: * Smoker: Denies Alcohol: other (h/o abuse) Drugs: denies HOME MEDICATIONS/HOSPITAL MEDICATIONS: SEE BELOW ALLERGY: SEE BELOW A-FIB/CHADSVASC A-FIB History Current/History of A-Fib/PAF?: No REVIEW OF SYSTEMS: 12POINT ROS NEGATIVE ASIDE FROM POSITIVE FINDINGS ON HPI PHYSICAL EXAMINATION: VITALS: SEE BELOW General Exam: AAOX 3 no use of acc resp mm,. No Acute Distress,eating her lunch Eye Exam: PERRLA, Conjunctiva & lids normal Neck Exam: Supple; JVD, thyromegaly Chest Exam: -AEBE Clear to auscultation, Normal air movement Heart Exam: Rate Normal, Regular Rhythm, Normal S1, Normal S2; Murmurs, Rubs Abdomen Exam: Normal bowel sounds, Soft; no hsm. Ext: no c/c Neuro: face symmetric tongue midline. EOMI. no dysmetria on finger to nose testing 5/5x 4 extremities.gait not tested LABORATORY DATA/IMAGING STUDIES: SEE BELOW ASSESSMENT AND PLAN: 84 y/o F with acute Left basal ganglia CVA-on ASA, atorvastatin, ARU HTN-controlled on norvasc Obesity BMI 38 GERD/ Gastric ulcer/ erosive esophagitis-asx. ppi COPD-prn nebs H/O alcohol abuse Possible TERESE Hiatal Hernia-ppi Urinary incontinence Vital Signs/I&O Vital Signs Date Time Temp Pulse Resp B/P (MAP) Pulse Ox O2 Delivery O2 Flow Rate FiO2 08/08/20 08:53 90 152/82 08/08/20 05:54 97.4 18 95 Room Air l I&O- Last 24 Hours up to 6 AM 08/08/20 06:00 Intake Total 150 ml Output Total 0 ml Balance 150 ml Laboratory Data Labs 24H Laboratory Tests 2 08/08/20 05:51: Immature Granulocyte % (Auto) 0.6, Neutrophils (%) (Auto) 75.8H, Lymphocytes (%) (Auto) 11.4L, Monocytes (%) (Auto) 9.4H, Eosinophils (%) (Auto) 2.3, Basophils (%) (Auto) 0.5, Neutrophils # (Auto) 9.7H, Lymphocytes # (Auto) 1.5, Monocytes # (Auto) 1.2H, Eosinophils # (Auto) 0.3, Basophils # (Auto) 0.1, Nucleated Red Blood Cells % (auto) 0.0, Anion Gap 7L, Glomerular Filtration Rate > 60.0, Calcium Level 8.9, Total Bilirubin 0.3, Aspartate Amino Transf (AST/SGOT) 15, Alanine Aminotransferase (ALT/SGPT) 25, Alkaline Phosphatase 97, Total Protein 6.8, Albumin 2.6L, Albumin/Globulin Ratio 0.6L 08/08/20 09:50: CBC/BMP Laboratory Tests 08/08/20 05:51 Allergies Coded Allergies: Sulfa (Sulfonamide Antibiotics) (Verified Adverse Reaction, Mild, STOMACH UPSET, 05/07/20) Home Medications Scheduled Amlodipine Besylate (Amlodipine Besylate) 10 Mg Tablet, 10 MG PO DAILY, (Reported) Aspirin (Aspirin EC) 81 Mg Tablet.dr, 81 MG PO DAILY, #30 Atorvastatin Calcium (Atorvastatin Calcium) 20 Mg Tablet, 40 MG PO QHS, #30 Trazodone HCl (Trazodone HCl) 100 Mg Tablet, 50 MG PO QHS, #15 Miscellaneous Medications [Med Rec Comment] , (Reported) MED LIST OBTAINED FROM PHARMACY BRAEDEN,ALIZA Telles MD Aug 08, 2020 11:39
[2020-08-08 14:00] VITALS: BP 182/76
[2020-08-08] MEDS: AUGMENTIN 875 MG TAB PO SCH (16:40)
[2020-08-08] MEDS: LACTOBACILLUS ACIDOPHILUS CAP (BACID) PO SCH ×2 (16:40→21:26)
[2020-08-08] MEDS: guaiFENesin 200 MG TAB PO SCH ×2 (16:40→21:25)
[2020-08-08] MEDS: BUDESONIDE 180MCG INHALER (PULMICORT FLEXHALER) INH SCH (20:00)
[2020-08-08 21:00] VITALS: BP 138/61
[2020-08-08] MEDS: **hydrALAZINE HCL** 25 MG TAB PO SCH (21:00)
[2020-08-08] MEDS: traZODone 50 MG TAB PO SCH (21:26)
[2020-08-08] MEDS: ATORVASTATIN 20 MG TAB PO SCH (21:26)
[2020-08-08] MEDS: SENNA 8.6 MG TAB (SENOKOT) PO SCH (21:27)
[2020-08-09 05:30] VITALS: BP 137/79
[2020-08-09 07:09] LABS: BASO # 0.1 10^3/uL (0.0-0.2); BASO % 0.6 % (0.0-1.0); EOS # 0.3 10^3/uL (0.0-0.5); EOS % 1.9 % (0.0-3.0); HEMOGLOBIN 14.3 g/dl (12.0-15.5); LYMPH # 1.5 10^3/uL (1.5-5.0); LYMPH % 9.4 % (24.0-44.0); MEAN CORPUSCULAR HEMOGLOBIN 30.3 pg (27.0-33.0); MEAN CORPUSCULAR HGB CONC 31.8 g/dl (32.0-36.5); MEAN CORPUSCULAR VOLUME 95.3 fl (80.0-96.0); MONO # 1.3 10^3/uL (0.0-0.8); MONO % 8.5 % (2.0-8.0); NEUTROPHILS # 12.4 10^3/uL (1.5-8.5); NEUTROPHILS % 79.1 % (36.0-66.0); PLATELET COUNT, AUTOMATED 247 10^3/uL (150-450); RED BLOOD COUNT 4.72 10^6/uL (4.00-5.40); WHITE BLOOD COUNT 15.7 10^3/uL (4.0-10.0)
[2020-08-09 07:26] LABS: BLOOD UREA NITROGEN 18 MG/DL (7-18); CALCIUM LEVEL 8.6 MG/DL (8.8-10.2); CARBON DIOXIDE LEVEL 24 MEQ/L (21-32); CHLORIDE LEVEL 110 MEQ/L (98-107); CREATININE FOR GFR 0.85 MG/DL (0.55-1.30); GLOMERULAR FILTRATION RATE > 60.0 (>32); GLUCOSE, FASTING 104 MG/DL (70-100); SODIUM LEVEL 141 MEQ/L (136-145)
[2020-08-09] MEDS: IPRATROPIUM 0.5MG/ALBUTEROL 2.5MG INH SOL UD 3ML (DUONEB) NEB SCH ×4 (07:42→20:46)
[2020-08-09] MEDS: BUDESONIDE 180MCG INHALER (PULMICORT FLEXHALER) INH SCH ×3 (07:42→20:46)
[2020-08-09] MEDS: DOCUSATE SODIUM 100MG CAPSULE PO SCH ×2 (09:00→21:00)
[2020-08-09] MEDS: AUGMENTIN 875 MG TAB PO SCH ×2 (09:16→21:33)
[2020-08-09] MEDS: REMEDY PHYTOPLEX Z-GUARD PASTE 113GM TUBE (FROM STOREROOM PRODUCT) TOP SCH ×3 (09:17→21:35)
[2020-08-09] MEDS: ENOXAPARIN 40MG/0.4ML SYRINGE (J1650 PER 10MG) SC SCH (09:17)
[2020-08-09] MEDS: **hydrALAZINE HCL** 25 MG TAB PO SCH ×3 (09:17→21:00)
[2020-08-09] MEDS: ASPIRIN 81MG ENTERIC TABLET PO SCH (09:17)
[2020-08-09] MEDS: PANTOPRAZOLE 40MG TAB (PROTONIX) PO SCH (09:17)
[2020-08-09] MEDS: guaiFENesin 200 MG TAB PO SCH ×3 (09:17→21:33)
[2020-08-09] MEDS: LACTOBACILLUS ACIDOPHILUS CAP (BACID) PO SCH ×4 (09:20→21:33)
--- NOTE | 2020-08-09 11:23 | IPNPDOC ---
PM&R Progress Note DATE OF SERVICE: Aug 09, 2020 Retail Sales Advisor Progress Note Subjective: Patient reporting she feels well and states her breathing is improved. REVIEW OF SYSTEMS: The following is a completed review of systems and has been reviewed. Review of systems otherwise unremarkable. PAIN: Patient self reports no pain EYES: No recent vision changes EARS, NOSE, & THROAT: + dysphagia CARDIOVASCULAR: Denies chest pain or palpitations PULMONARY: +shortness of breath (improving) GASTROINTESTINAL: Denies constipation/diarrhea GENITOURINARY: denies dysuria MUSCULOSKELETAL:generalized weakness NEUROLOGICAL:+ aphasia HEMATOLOGICAL: denies easy bruising SKIN: denies rash PSYCHIATRIC: Unremarkable All other review of systems found to be negative. PHYSICAL EXAMINATION: VITAL SIGNS: Please see below. GENERAL: Pleasant and cooperative. No acute distress. HEENT: PERRL. Extraocular movements intact. Clear conjunctiva CARDIOVASCULAR: Regular rate and rhythm. No murmurs, rubs, or gallops LUNGS: CTA ABDOMEN: Soft, nontender, nondistended. Positive bowel sounds. Normal active bowel sounds NEUROLOGICAL: Alert and oriented times to person, place, not time, Cranial nerves II through XII grossly intact. Sensation grossly intact (-) clonus bilat EXTREMITIES: 5-\5 strength bilateral upper extremities. 5-\5 strength right lower extremity. 5-/5 strength in left lower extremity. LABORATORY DATA: Please see below. ASSESSMENT:84-year-old F with past medical history of HTN and COPD who presents status post left basal ganglia stroke PLAN: 1. 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 Neuro- s/p left basal ganglia infarct, c/u ASA and statin for secondary stroke prevention -low dose Prozac for motor recovery -hx of ETOH abuse, will start thiamine IM for cognitive assistance 3. CArdiac- hx of HTN-c/u lisinopril, Amlodipine, and hydralazine with holding parameters -grade 1 diastolic CHF, fluid restrict, daily weights -hld- c/u statin -medicine consulted to assist in overall management 4. Resp- hx of COPD c/u supplemental 02 goal 88-92% recently treated for PNA, however still with cough and wheeze with leukocytosis, c/u Augmentin for PNA, c/u Duonebs and addition of ICS for wheeze, + guaifenesin- monitor for worsening infection -possible TERESE, nocturnal 02- outpatient pulmonology referral for sleep study 5. DVT ppx- lovenox 6. GI ppx- protonix 7. Pain- Tylenol prn 8. Psych- insomnia- trazodone 9. Dispo- tbd Allergies Coded Allergies: Sulfa (Sulfonamide Antibiotics) (Verified Adverse Reaction, Mild, STOMACH UPSET, 05/07/20) Vital Signs Vital Signs Date Time Temp Pulse Resp B/P (MAP) Pulse Ox O2 Delivery O2 Flow Rate FiO2 08/09/20 09:16 75 137/79 08/09/20 05:30 97.0 18 95 Room Air Laboratory Data CBC/BMP Laboratory Tests 08/09/20 06:10 Labs 24H Laboratory Tests 2 08/08/20 17:53: Urine Color STRAW, Urine Appearance CLEAR, Urine pH 6.0, Urine Specific [place] 1.005, Urine Protein NEGATIVE, Urine Glucose (UA) NEGATIVE, Urine Ketones NEG ATIVE, Urine Blood 1+H, Urine Nitrite NEGATIVE, Urine Bilirubin NEGATIVE, Urine Urobilinogen 0.2, Urine Leukocyte Esterase NEGATIVE, Urine WBC (Auto) 0, Urine RBC (Auto) 0, Urine Hyaline Casts (Auto) 0, Urine Bacteria (Auto) NEGATIVE, Urine Squamous Epithelial Cells 0, Urine Sperm (Auto) 08/09/20 06:10: Immature Granulocyte % (Auto) 0.5, Neutrophils (%) (Auto) 79.1H, Lymphocytes (%) (Auto) 9.4L, Monocytes (%) (Auto) 8.5H, Eosinophils (%) (Auto) 1.9, Basophils (%) (Auto) 0.6, Neutrophils # (Auto) 12.4H, Lymphocytes # (Auto) 1.5, Monocytes # (Auto) 1.3H, Eosinophils # (Auto) 0.3, Basophils # (Auto) 0.1, Nucleated Red Blood Cells % (auto) 0.0, Anion Gap 7L, Glomerular Filtration Rate > 60.0, Calcium Level 8.6L Current Medications Current Medications Current Medications Medications (Trade) Dose Ordered Sig/Parviz Route PRN Reason Start Time Stop Time Status Last Admin Dose Admin Acetaminophen (Tylenol Tab) 650 mg Q4HP PRN PO fever/MILD PAIN (PS 1-4) 08/07/20 18:45 Albuterol/ Ipratropium (Duoneb (Ipr 0.5mg/Alb 2.5mg)) 3 ml RQID NEB 08/08/20 16:00 08/09/20 07:42 Albuterol/ Ipratropium (Duoneb (Ipr 0.5mg/Alb 2.5mg)) 3 ml RTID NEB 08/07/20 20:00 08/08/20 14:54 DC 08/08/20 13:44 Amlodipine Besylate (Norvasc) 10 mg DAILY PO 08/08/20 09:00 08/09/20 09:16 Amoxicillin/ Clavulanate Potassium (Augmentin) 875 mg BID PO 08/08/20 17:00 08/13/20 09:01 08/09/20 09:16 Aspirin (Ecotrin) 81 mg DAILY PO 08/08/20 09:00 08/09/20 09:17 Atorvastatin Calcium (Lipitor) 40 mg QHS PO 08/07/20 21:00 08/08/20 21:26 Budesonide (Pulmicort Flexhaler) 2 puff RBID INH 08/08/20 20:00 08/09/20 07:42 Docusate Sodium (Colace) 100 mg BID PO 08/07/20 21:00 08/08/20 21:26 Enoxaparin Sodium (Lovenox) 40 mg DAILY SC 08/08/20 09:00 08/09/20 09:17 Guaifenesin (Robitussin Tab) 400 mg TID PO 08/08/20 16:00 08/09/20 09:17 Hydralazine HCl (Apresoline) 25 mg TID PO 08/08/20 21:00 08/09/20 09:17 Lactobacillus Acidophilus (Bacid) 1 ea WMHS PO 08/08/20 18:00 08/09/20 09:20 Lisinopril (Prinivil) 10 mg QHS PO 08/08/20 21:00 08/08/20 21:27 Pantoprazole Sodium (Protonix) 40 mg DAILY PO 08/08/20 09:00 08/09/20 09:17 Senna (Senokot) 1 tab QHS PO 08/07/20 21:00 08/08/20 21:27 Trazodone HCl (Desyrel) 50 mg QHS PO 08/07/20 21:00 08/08/20 21:26 MARGIE CARRERA MD Aug 09, 2020 11:23
[2020-08-09] MEDS: FLUoxetine 10 MG CAP PO SCH (12:28)
[2020-08-09 14:00] VITALS: BP 125/60
[2020-08-09] MEDS: THIAMINE 200MG/2ML VIAL (J3411 PER 100MG) IM SCH (14:09)
[2020-08-09 20:00] VITALS: BP 115/78
[2020-08-09] MEDS: SENNA 8.6 MG TAB (SENOKOT) PO SCH (21:00)
[2020-08-09] MEDS: ATORVASTATIN 20 MG TAB PO SCH (21:34)
[2020-08-09] MEDS: traZODone 50 MG TAB PO SCH (21:34)
[2020-08-10 05:20] VITALS: BP 107/57
--- NOTE | 2020-08-10 07:00 | IPNPDOC ---
PM&R Progress Note DATE OF SERVICE: Aug 10, 2020 Sustainable Communities Designer Progress Note Subjective: Patient seen in therapy working on bed mobility, denies any worsening cough, no fevers or chills. REVIEW OF SYSTEMS: The following is a completed review of systems and has been reviewed. Review of systems otherwise unremarkable. PAIN: Patient self reports no pain EYES: No recent vision changes EARS, NOSE, & THROAT: + dysphagia CARDIOVASCULAR: Denies chest pain or palpitations PULMONARY: +shortness of breath (improving) GASTROINTESTINAL: Denies constipation/diarrhea GENITOURINARY: denies dysuria MUSCULOSKELETAL:generalized weakness NEUROLOGICAL:+ aphasia HEMATOLOGICAL: denies easy bruising SKIN: denies rash PSYCHIATRIC: Unremarkable All other review of systems found to be negative. PHYSICAL EXAMINATION: VITAL SIGNS: Please see below. GENERAL: Pleasant and cooperative. No acute distress. HEENT: PERRL. Extraocular movements intact. Clear conjunctiva CARDIOVASCULAR: Regular rate and rhythm. No murmurs, rubs, or gallops LUNGS: CTA ABDOMEN: Soft, nontender, nondistended. Positive bowel sounds. Normal active bowel sounds NEUROLOGICAL: Alert and oriented times to person, place, not time, Cranial nerves II through XII grossly intact. Sensation grossly intact (-) clonus bilat EXTREMITIES: 5-\5 strength bilateral upper extremities. 5-\5 strength right lower extremity. 5-/5 strength in left lower extremity. LABORATORY DATA: Please see below. ASSESSMENT:84-year-old F with past medical history of HTN and COPD who presents status post left basal ganglia stroke PLAN: 1. 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 Neuro- s/p left basal ganglia infarct, c/u ASA and statin for secondary stroke prevention -low dose Prozac for motor recovery -hx of ETOH abuse, c/u thiamine IM for cognitive assistance 3. CArdiac- hx of HTN-c/u lisinopril, Amlodipine, and hydralazine with holding parameters -grade 1 diastolic CHF, fluid restrict, daily weights -hld- c/u statin -medicine consulted to assist in overall management 4. Resp- hx of COPD c/u supplemental 02 goal 88-92% recently treated for PNA, however still leukocytosis, c/u Augmentin for PNA, cough/wheeze improving, c/u Duonebs and addition of ICS, + guaifenesin- monitor for worsening infection -possible TERESE, nocturnal 02- outpatient pulmonology referral for sleep study 5. DVT ppx- lovenox 6. GI ppx- protonix 7. Pain- Tylenol prn 8. Psych- insomnia- trazodone 9. Dispo- tbd Allergies Coded Allergies: Sulfa (Sulfonamide Antibiotics) (Verified Adverse Reaction, Mild, STOMACH UPSET, 05/07/20) Vital Signs Vital Signs Date Time Temp Pulse Resp B/P (MAP) Pulse Ox O2 Delivery O2 Flow Rate FiO2 08/10/20 05:20 96.8 67 21 107/57 (74) 98 Nasal Cannula 2.0 Current Medications Current Medications Current Medications Medications (Trade) Dose Ordered Sig/Parviz Route PRN Reason Start Time Stop Time Status Last Admin Dose Admin Acetaminophen (Tylenol Tab) 650 mg Q4HP PRN PO fever/MILD PAIN (PS 1-4) 08/07/20 18:45 Albuterol/ Ipratropium (Duoneb (Ipr 0.5mg/Alb 2.5mg)) 3 ml RQID NEB 08/08/20 16:00 08/09/20 20:46 Albuterol/ Ipratropium (Duoneb (Ipr 0.5mg/Alb 2.5mg)) 3 ml RTID NEB 08/07/20 20:00 08/08/20 14:54 DC 08/08/20 13:44 Amlodipine Besylate (Norvasc) 10 mg DAILY PO 08/08/20 09:00 08/09/20 09:16 Amoxicillin/ Clavulanate Potassium (Augmentin) 875 mg BID PO 08/08/20 17:00 08/13/20 09:01 08/09/20 21:33 Aspirin (Ecotrin) 81 mg DAILY PO 08/08/20 09:00 08/09/20 09:17 Atorvastatin Calcium (Lipitor) 40 mg QHS PO 08/07/20 21:00 08/09/20 21:34 Budesonide (Pulmicort Flexhaler) 2 puff RBID INH 08/08/20 20:00 08/09/20 20:46 Docusate Sodium (Colace) 100 mg BID PO 08/07/20 21:00 08/08/20 21:26 Enoxaparin Sodium (Lovenox) 40 mg DAILY SC 08/08/20 09:00 08/09/20 09:17 Fluoxetine HCl (PROzac) 10 mg DAILY PO 08/09/20 09:00 08/09/20 12:28 Guaifenesin (Robitussin Tab) 400 mg TID PO 08/08/20 16:00 08/09/20 21:33 Hydralazine HCl (Apresoline) 25 mg TID PO 08/08/20 21:00 08/09/20 09:17 Lactobacillus Acidophilus (Bacid) 1 ea WMHS PO 08/08/20 18:00 08/09/20 21:33 Lisinopril (Prinivil) 10 mg QHS PO 08/08/20 21:00 08/09/20 21:33 Pantoprazole Sodium (Protonix) 40 mg DAILY PO 08/08/20 09:00 08/09/20 09:17 Senna (Senokot) 1 tab QHS PO 08/07/20 21:00 08/08/20 21:27 Thiamine HCl (VITAMIN B1 INJection) 100 mg DAILY IM 08/09/20 09:00 08/09/20 14:09 Trazodone HCl (Desyrel) 50 mg QHS PO 08/07/20 21:00 08/09/20 21:34 MARGIE CARRERA MD Aug 10, 2020 06:59
[2020-08-10] MEDS: BUDESONIDE 180MCG INHALER (PULMICORT FLEXHALER) INH SCH ×2 (07:28→20:24)
[2020-08-10] MEDS: IPRATROPIUM 0.5MG/ALBUTEROL 2.5MG INH SOL UD 3ML (DUONEB) NEB SCH ×3 (07:28→20:26)
[2020-08-10 07:51] LABS: BASO # 0.1 10^3/uL (0.0-0.2); BASO % 0.7 % (0.0-1.0); EOS # 0.3 10^3/uL (0.0-0.5); EOS % 2.3 % (0.0-3.0); HEMATOCRIT 44.3 % (36.0-47.0); HEMOGLOBIN 13.7 g/dl (12.0-15.5); LYMPH # 1.2 10^3/uL (1.5-5.0); LYMPH % 8.9 % (24.0-44.0); MEAN CORPUSCULAR HGB CONC 30.9 g/dl (32.0-36.5); MEAN CORPUSCULAR VOLUME 96.9 fl (80.0-96.0); MONO # 0.9 10^3/uL (0.0-0.8); MONO % 6.6 % (2.0-8.0); NEUTROPHILS # 11.2 10^3/uL (1.5-8.5); NEUTROPHILS % 81.1 % (36.0-66.0); PLATELET COUNT, AUTOMATED 272 10^3/uL (150-450); RED BLOOD COUNT 4.57 10^6/uL (4.00-5.40); WHITE BLOOD COUNT 13.8 10^3/uL (4.0-10.0)
[2020-08-10 08:38] VITALS: BP 133/70
[2020-08-10] MEDS: FLUoxetine 10 MG CAP PO SCH (08:40)
[2020-08-10] MEDS: guaiFENesin 200 MG TAB PO SCH ×3 (08:40→20:06)
[2020-08-10] MEDS: DOCUSATE SODIUM 100MG CAPSULE PO SCH ×2 (08:40→20:09)
[2020-08-10] MEDS: LACTOBACILLUS ACIDOPHILUS CAP (BACID) PO SCH ×4 (08:41→20:08)
[2020-08-10] MEDS: **hydrALAZINE HCL** 25 MG TAB PO SCH ×3 (08:41→20:08)
[2020-08-10] MEDS: ENOXAPARIN 40MG/0.4ML SYRINGE (J1650 PER 10MG) SC SCH (08:41)
[2020-08-10] MEDS: THIAMINE 200MG/2ML VIAL (J3411 PER 100MG) IM SCH (08:41)
[2020-08-10] MEDS: AUGMENTIN 875 MG TAB PO SCH ×2 (08:41→20:06)
[2020-08-10] MEDS: ASPIRIN 81MG ENTERIC TABLET PO SCH (08:41)
[2020-08-10] MEDS: PANTOPRAZOLE 40MG TAB (PROTONIX) PO SCH (08:41)
[2020-08-10] MEDS: REMEDY PHYTOPLEX Z-GUARD PASTE 113GM TUBE (FROM STOREROOM PRODUCT) TOP SCH ×3 (08:42→20:10)
[2020-08-10 14:00] VITALS: BP 128/71
[2020-08-10 17:07] VITALS: BP 162/82
[2020-08-10 20:00] VITALS: BP 129/61
[2020-08-10] MEDS: traZODone 50 MG TAB PO SCH (20:06)
[2020-08-10] MEDS: ATORVASTATIN 20 MG TAB PO SCH (20:07)
[2020-08-10] MEDS: SENNA 8.6 MG TAB (SENOKOT) PO SCH (20:09)
[2020-08-11 05:28] VITALS: BP 128/60
[2020-08-11 07:13] LABS: BASO # 0.1 10^3/uL (0.0-0.2); BASO % 0.5 % (0.0-1.0); EOS # 0.3 10^3/uL (0.0-0.5); EOS % 1.9 % (0.0-3.0); HEMATOCRIT 41.1 % (36.0-47.0); HEMOGLOBIN 12.8 g/dl (12.0-15.5); LYMPH # 1.2 10^3/uL (1.5-5.0); LYMPH % 7.7 % (24.0-44.0); MEAN CORPUSCULAR HEMOGLOBIN 29.8 pg (27.0-33.0); MEAN CORPUSCULAR HGB CONC 31.1 g/dl (32.0-36.5); MEAN CORPUSCULAR VOLUME 95.6 fl (80.0-96.0); MONO # 1.2 10^3/uL (0.0-0.8); MONO % 8.1 % (2.0-8.0); NEUTROPHILS # 12.2 10^3/uL (1.5-8.5); NEUTROPHILS % 81.3 % (36.0-66.0); PLATELET COUNT, AUTOMATED 255 10^3/uL (150-450)
[2020-08-11] MEDS: BUDESONIDE 180MCG INHALER (PULMICORT FLEXHALER) INH SCH ×3 (07:16→19:49)
[2020-08-11] MEDS: IPRATROPIUM 0.5MG/ALBUTEROL 2.5MG INH SOL UD 3ML (DUONEB) NEB SCH ×4 (07:17→19:49)
[2020-08-11 07:33] LABS: CALCIUM LEVEL 8.1 MG/DL (8.8-10.2); CREATININE FOR GFR 0.98 MG/DL (0.55-1.30); GLOMERULAR FILTRATION RATE 57.6 (>32); POTASSIUM SERUM 4.2 MEQ/L (3.5-5.1)
[2020-08-11] MEDS: **hydrALAZINE HCL** 25 MG TAB PO SCH ×3 (09:00→21:00)
[2020-08-11] MEDS: DOCUSATE SODIUM 100MG CAPSULE PO SCH ×2 (09:00→21:03)
[2020-08-11] MEDS: guaiFENesin 200 MG TAB PO SCH ×3 (09:06→21:03)
[2020-08-11] MEDS: AUGMENTIN 875 MG TAB PO SCH ×2 (09:06→21:03)
[2020-08-11] MEDS: ASPIRIN 81MG ENTERIC TABLET PO SCH (09:06)
[2020-08-11] MEDS: PANTOPRAZOLE 40MG TAB (PROTONIX) PO SCH (09:06)
[2020-08-11] MEDS: ENOXAPARIN 40MG/0.4ML SYRINGE (J1650 PER 10MG) SC SCH (09:06)
[2020-08-11] MEDS: THIAMINE 200MG/2ML VIAL (J3411 PER 100MG) IM SCH (09:06)
[2020-08-11] MEDS: FLUoxetine 10 MG CAP PO SCH (09:07)
[2020-08-11] MEDS: REMEDY PHYTOPLEX Z-GUARD PASTE 113GM TUBE (FROM STOREROOM PRODUCT) TOP SCH ×3 (09:08→21:04)
[2020-08-11] MEDS: LACTOBACILLUS ACIDOPHILUS CAP (BACID) PO SCH ×4 (09:09→21:03)
--- NOTE | 2020-08-11 12:21 | IPNPDOC ---
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 REVIEW OF SYSTEMS: The following is a completed review of systems and has been reviewed. Review of systems otherwise unremarkable. PAIN: Patient self reports no pain EYES: No recent vision changes EARS, NOSE, & THROAT: + dysphagia CARDIOVASCULAR: Denies chest pain or palpitations PULMONARY: +shortness of breath (improving) GASTROINTESTINAL: Denies constipation/diarrhea GENITOURINARY: denies dysuria MUSCULOSKELETAL:generalized weakness NEUROLOGICAL:+ aphasia HEMATOLOGICAL: denies easy bruising SKIN: denies rash PSYCHIATRIC: Unremarkable All other review of systems found to be negative. PHYSICAL EXAMINATION: VITAL SIGNS: Please see below. GENERAL: Pleasant and cooperative. No acute distress. HEENT: PERRL. Extraocular movements intact. Clear conjunctiva CARDIOVASCULAR: Regular rate and rhythm. No murmurs, rubs, or gallops LUNGS: CTA ABDOMEN: Soft, nontender, nondistended. Positive bowel sounds. Normal active bowel sounds NEUROLOGICAL: Alert and oriented times to person, place, not time, Cranial nerves II through XII grossly intact. Sensation grossly intact (-) clonus bilat EXTREMITIES: 5-\5 strength bilateral upper extremities. 5-\5 strength right lower extremity. 5-/5 strength in left lower extremity. LABORATORY DATA: Please see below. ASSESSMENT:84-year-old F with past medical history of HTN and COPD who presents status post left basal ganglia stroke PLAN: 1. 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 Neuro- s/p left basal ganglia infarct, c/u ASA and statin for secondary stroke prevention -low dose Prozac for motor recovery -hx of ETOH abuse, c/u thiamine IM for cognitive assistance 3. CArdiac- hx of HTN-c/u lisinopril, Amlodipine, and hydralazine with holding parameters -grade 1 diastolic CHF, fluid restrict, daily weights -hld- c/u statin -medicine consulted to assist in overall management 4. Resp- hx of COPD c/u supplemental 02 goal 88-92% recently treated for PNA, however still leukocytosis, c/u Augmentin for PNA, cough/wheeze improving, c/u Duonebs and addition of ICS, + guaifenesin- monitor for worsening infection -possible TERESE, nocturnal 02- outpatient pulmonology referral for sleep study 5. DVT ppx- lovenox 6. GI ppx- protonix 7. Pain- Tylenol prn 8. Psych- insomnia- trazodone 9. Dispo- tbd Allergies Coded Allergies: Sulfa (Sulfonamide Antibiotics) (Verified Adverse Reaction, Mild, STOMACH UPSET, 05/07/20) Vital Signs Vital Signs Date Time Temp Pulse Resp B/P (MAP) Pulse Ox O2 Delivery O2 Flow Rate FiO2 08/11/20 09:06 83 128/60 08/11/20 05:28 98.0 22 95 Nasal Cannula 2.0 Laboratory Data CBC/BMP Laboratory Tests 08/11/20 06:54 Labs 24H Laboratory Tests 2 08/11/20 06:54: Immature Granulocyte % (Auto) 0.5, Neutrophils (%) (Auto) 81.3H, Lymphocytes (%) (Auto) 7.7L, Monocytes (%) (Auto) 8.1H, Eosinophils (%) (Auto) 1.9, Basophils (%) (Auto) 0.5, Neutrophils # (Auto) 12.2H, Lymphocytes # (Auto) 1.2L, Monocytes # (Auto) 1.2H, Eosinophils # (Auto) 0.3, Basophils # (Auto) 0.1, Nucleated Red Blood Cells % (auto) 0.0, Anion Gap 7L, Glomerular Filtration Rate 57.6, Calcium Level 8.1L Current Medications Current Medications Current Medications Medications (Trade) Dose Ordered Sig/Parviz Route PRN Reason Start Time Stop Time Status Last Admin Dose Admin Acetaminophen (Tylenol Tab) 650 mg Q4HP PRN PO fever/MILD PAIN (PS 1-4) 08/07/20 18:45 Albuterol/ Ipratropium (Duoneb (Ipr 0.5mg/Alb 2.5mg)) 3 ml RQID NEB 08/08/20 16:00 08/11/20 07:17 Albuterol/ Ipratropium (Duoneb (Ipr 0.5mg/Alb 2.5mg)) 3 ml RTID NEB 08/07/20 20:00 08/08/20 14:54 DC 08/08/20 13:44 Amlodipine Besylate (Norvasc) 10 mg DAILY PO 08/08/20 09:00 08/11/20 09:06 Amoxicillin/ Clavulanate Potassium (Augmentin) 875 mg BID PO 08/08/20 17:00 08/13/20 09:01 08/11/20 09:06 Aspirin (Ecotrin) 81 mg DAILY PO 08/08/20 09:00 08/11/20 09:06 Atorvastatin Calcium (Lipitor) 40 mg QHS PO 08/07/20 21:00 08/10/20 20:07 Budesonide (Pulmicort Flexhaler) 2 puff RBID INH 08/08/20 20:00 08/11/20 07:16 Docusate Sodium (Colace) 100 mg BID PO 08/07/20 21:00 08/08/20 21:26 Enoxaparin Sodium (Lovenox) 40 mg DAILY SC 08/08/20 09:00 08/11/20 09:06 Fluoxetine HCl (PROzac) 10 mg DAILY PO 08/09/20 09:00 08/11/20 09:07 Guaifenesin (Robitussin Tab) 400 mg TID PO 08/08/20 16:00 08/11/20 09:06 Hydralazine HCl (Apresoline) 25 mg TID PO 08/08/20 21:00 08/10/20 17:10 Lactobacillus Acidophilus (Bacid) 1 ea WMHS PO 08/08/20 18:00 08/11/20 11:54 Lisinopril (Prinivil) 10 mg QHS PO 08/08/20 21:00 08/10/20 20:06 Pantoprazole Sodium (Protonix) 40 mg DAILY PO 08/08/20 09:00 08/11/20 09:06 Senna (Senokot) 1 tab QHS PO 08/07/20 21:00 08/08/20 21:27 Thiamine HCl (VITAMIN B1 INJection) 100 mg DAILY IM 08/09/20 09:00 08/11/20 09:06 Trazodone HCl (Desyrel) 50 mg QHS PO 08/07/20 21:00 08/10/20 20:06 MARGIE CARRERA MD Aug 11, 2020 12:20
[2020-08-11 14:00] VITALS: BP 146/70
[2020-08-11 20:00] VITALS: BP 130/60
[2020-08-11] MEDS: SENNA 8.6 MG TAB (SENOKOT) PO SCH (21:03)
[2020-08-11] MEDS: ATORVASTATIN 20 MG TAB PO SCH (21:03)
[2020-08-11] MEDS: traZODone 50 MG TAB PO SCH (21:04)
[2020-08-12 05:14] VITALS: BP 138/66
[2020-08-12 06:27] LABS: BASO # 0.1 10^3/uL (0.0-0.2); BASO % 0.5 % (0.0-1.0); EOS # 0.2 10^3/uL (0.0-0.5); EOS % 1.3 % (0.0-3.0); HEMOGLOBIN 12.6 g/dl (12.0-15.5); LYMPH # 1.1 10^3/uL (1.5-5.0); LYMPH % 7.8 % (24.0-44.0); MEAN CORPUSCULAR HEMOGLOBIN 29.7 pg (27.0-33.0); MEAN CORPUSCULAR HGB CONC 31.5 g/dl (32.0-36.5); MEAN CORPUSCULAR VOLUME 94.3 fl (80.0-96.0); MONO # 1.2 10^3/uL (0.0-0.8); MONO % 8.2 % (2.0-8.0); NEUTROPHILS # 11.9 10^3/uL (1.5-8.5); NEUTROPHILS % 81.7 % (36.0-66.0); PLATELET COUNT, AUTOMATED 260 10^3/uL (150-450); RED BLOOD COUNT 4.24 10^6/uL (4.00-5.40); WHITE BLOOD COUNT 14.6 10^3/uL (4.0-10.0)
[2020-08-12] MEDS: DOCUSATE SODIUM 100MG CAPSULE PO SCH ×2 (07:13→21:00)
[2020-08-12] MEDS: IPRATROPIUM 0.5MG/ALBUTEROL 2.5MG INH SOL UD 3ML (DUONEB) NEB SCH ×4 (07:27→19:24)
[2020-08-12] MEDS: BUDESONIDE 180MCG INHALER (PULMICORT FLEXHALER) INH SCH ×2 (07:27→19:24)
[2020-08-12] MEDS: LACTOBACILLUS ACIDOPHILUS CAP (BACID) PO SCH ×4 (08:00→21:00)
[2020-08-12] MEDS: **hydrALAZINE HCL** 25 MG TAB PO SCH ×3 (09:28→20:35)
[2020-08-12] MEDS: ENOXAPARIN 40MG/0.4ML SYRINGE (J1650 PER 10MG) SC SCH (09:29)
[2020-08-12] MEDS: PANTOPRAZOLE 40MG TAB (PROTONIX) PO SCH (09:29)
[2020-08-12] MEDS: THIAMINE 200MG/2ML VIAL (J3411 PER 100MG) IM SCH (09:29)
[2020-08-12] MEDS: FLUoxetine 10 MG CAP PO SCH (09:29)
[2020-08-12] MEDS: AUGMENTIN 875 MG TAB PO SCH ×2 (09:29→21:03)
[2020-08-12] MEDS: guaiFENesin 200 MG TAB PO SCH ×3 (09:29→20:59)
[2020-08-12] MEDS: ASPIRIN 81MG ENTERIC TABLET PO SCH (09:29)
[2020-08-12] MEDS: REMEDY PHYTOPLEX Z-GUARD PASTE 113GM TUBE (FROM STOREROOM PRODUCT) TOP SCH ×3 (09:30→21:06)
[2020-08-12 14:00] VITALS: BP 149/92
[2020-08-12] MEDS: SENNA 8.6 MG TAB (SENOKOT) PO SCH (21:00)
[2020-08-12] MEDS: traZODone 50 MG TAB PO SCH (21:00)
[2020-08-12] MEDS: ATORVASTATIN 20 MG TAB PO SCH (21:00)
[2020-08-12 22:07] VITALS: BP 135/67
[2020-08-13 05:37] VITALS: BP 151/67
[2020-08-13] MEDS: IPRATROPIUM 0.5MG/ALBUTEROL 2.5MG INH SOL UD 3ML (DUONEB) NEB SCH ×3 (07:10→14:16)
[2020-08-13] MEDS: BUDESONIDE 180MCG INHALER (PULMICORT FLEXHALER) INH SCH (07:10)
[2020-08-13] MEDS: DOCUSATE SODIUM 100MG CAPSULE PO SCH ×2 (09:00→20:55)
[2020-08-13] MEDS: THIAMINE 200MG/2ML VIAL (J3411 PER 100MG) IM SCH (09:11)
[2020-08-13] MEDS: ASPIRIN 81MG ENTERIC TABLET PO SCH (09:12)
[2020-08-13] MEDS: **hydrALAZINE HCL** 25 MG TAB PO SCH ×3 (09:12→20:49)
[2020-08-13] MEDS: AUGMENTIN 875 MG TAB PO SCH (09:12)
[2020-08-13] MEDS: PANTOPRAZOLE 40MG TAB (PROTONIX) PO SCH (09:12)
[2020-08-13] MEDS: ENOXAPARIN 40MG/0.4ML SYRINGE (J1650 PER 10MG) SC SCH (09:12)
[2020-08-13] MEDS: FLUoxetine 10 MG CAP PO SCH (09:12)
[2020-08-13] MEDS: guaiFENesin 200 MG TAB PO SCH ×3 (09:12→21:00)
[2020-08-13] MEDS: REMEDY PHYTOPLEX Z-GUARD PASTE 113GM TUBE (FROM STOREROOM PRODUCT) TOP SCH ×3 (09:13→20:57)
[2020-08-13] MEDS: LACTOBACILLUS ACIDOPHILUS CAP (BACID) PO SCH ×4 (09:15→21:00)
[2020-08-13 11:35] LABS: CK-MB VALUE MASS 1.5 NG/ML (<3.6); CPK CREATINE PHOSPHOKINASE 36 U/L (26-192); FREE THYROXINE INDEX 2.8 % (1.3-4.8); MB/CK RELATIVE INDEX 4.17 (< OR =4); T UPTAKE 30 % (30-39); THYROXINE (T4) 9.2 UG/DL (4.5-12.0); TROPONIN I < 0.02 NG/ML (< 0.10)
[2020-08-13 14:00] VITALS: BP 141/78
[2020-08-13] MEDS ORDERED: LEVALBUTEROL 1.25 MG/0.5 ML CONCENTRATE NEB INH PRN (14:45)
--- NOTE | 2020-08-13 14:56 | ECGEPIP ---
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
[2020-08-13] MEDS ORDERED: LEVALBUTEROL 1.25 MG/0.5 ML CONCENTRATE NEB NEB ONE (15:15)
[2020-08-13 15:19] LABS: ABG BASE EXCESS -1.2 (-2.0-2.0); ABG HCO3 23.1 MEQ/L (22.0-26.0); ABG O2 SATURATION 96.9 % (95.0-99.0); ABG PARTIAL PRESSURE CO2 37.2 mmHg (35.0-45.0); ABG PARTIAL PRESSURE O2 86.5 mmHg (75.0-100.0); ABG STANDARD HCO3 23.5 MEQ/L (22.0-26.0); ABG TOTAL CO2 24.2 MEQ/L (23.0-31.0)
[2020-08-13] MEDS ORDERED: methylPREDNISolone 125MG 2ML VIAL IV ONE (15:30)
[2020-08-13] MEDS ORDERED: ISOVUE-370 76% 100ML VIAL As Ordered ONE (15:41)
--- NOTE | 2020-08-13 15:43 | REP ---
INDICATION: sob. COMPARISON: CT and portable chest 08/01/2020, portable 05/07/2020 TECHNIQUE: AP portable erect chest FINDINGS: Lungs marginally adequate the degree of inflation with crowding of markings at left base and retrocardiac patchy atelectasis or infiltrate. Small effusion suspected versus underinflation and blunting of CP angles. There is cardiomegaly with left atrial enlargement and some left ventricular enlargement no anabell edema the aorta is calcified at the arch somewhat tortuous but unchanged airway intact bones show degenerative changes spine and shoulders with no interval change. IMPRESSION: Retrocardiac left lower lobe chronic fibro atelectatic change, superimposed patchy atelectasis or infiltrate and effusions difficult to exclude with hypoinflated portable chest. Cardiomegaly with left atrial and ventricular enlargement but no anabell edema or other significant interval change. <Electronically signed by Won Kuo > 08/13/20 [id number]
[2020-08-13 16:26] LABS: BLOOD UREA NITROGEN 13 MG/DL (7-18); CALCIUM LEVEL 8.2 MG/DL (8.8-10.2); CARBON DIOXIDE LEVEL 24 MEQ/L (21-32); CHLORIDE LEVEL 108 MEQ/L (98-107); CK-MB VALUE MASS 1.8 NG/ML (<3.6); CPK CREATINE PHOSPHOKINASE 42 U/L (26-192); CREATININE FOR GFR 0.85 MG/DL (0.55-1.30); GLOMERULAR FILTRATION RATE > 60.0 (>32); GLUCOSE, FASTING 116 MG/DL (70-100); MB/CK RELATIVE INDEX 4.29 (< OR =4); NT-PRO BNP 3222 PG/ML (<450); POTASSIUM SERUM 3.9 MEQ/L (3.5-5.1); SODIUM LEVEL 141 MEQ/L (136-145); TROPONIN I < 0.02 NG/ML (< 0.10)
--- NOTE | 2020-08-13 16:37 | REP ---
INDICATION: tachypeic respiratory distress r/o pe low grade fever. COMPARISON: AP chest 08/13/2020, CT and AP chest 08/01/2020 TECHNIQUE: CT angiogram chest performed following the intravenous administration of 75 cc of Isovue 370. Sagittal and coronal reconstruction images are performed. Technologist notes indicate that there was an IV infiltration towards the end of the injection somewhat limiting the examination. FINDINGS: Lungs: Chronic fibro atelectatic change deep sulcus left lower lobe less in the right lower lobe with underlying curvilinear fibrotic changes elsewhere in the lower lung zones. Some patchy left base atelectasis or infiltrates superimposed. This appearance is essentially unchanged. Trace pleural fluid at the left base. Scattered ground-glass opacities suggesting some fibrosis or subsegmental atelectasis noted. There is curvilinear fibro atelectatic change in the anterior segment of the right upper lobe. Mediastinum: No pathologic sized adenopathy. Some stable elevation of the left diaphragm. No definite hiatal hernia. Pulmonary arteries: Limited evaluation. The main, right and left pulmonary arteries are without filling defects there prominent centrally suggesting pulmonary artery hypertension. Over the lobar, segmental and other vessels are poorly opacified a due to limits of contrast density in the low volume injection. Siobhan: No definite pathologic sized adenopathy Axilla: No definite pathologic sized adenopathy Pleura: Trace left effusion. Heart: Shows some mild cardiomegaly with left atrial and ventricular enlargement trace pericardial fluid or thickening posteriorly as before Thoracic aorta: Atherosclerotic calcifications but no aneurysm or dissection. Upper abdominal structures: Unchanged.. Visualized osseous structures: Degenerative changes in the spine and shoulders. Findings stable. IMPRESSION: Very limited exam, no central thrombus in the mediastinum. There is pulmonary artery hypertension with prominent central pulmonary arteries. IV infiltration during the exam limited the dose of contrast and the lobar to subsegmental pulmonary arteries are poorly depicted with contrast. Basilar fibro atelectatic changes bilaterally with superimposed patchy atelectasis or infiltrates with some air bronchograms but unchanged from the previous study. There are other areas of scattered fibrosis and ground-glass opacities. Small left effusion.. Cardiomegaly with left atrial and ventricular enlargement no aortic aneurysm or dissection. No adenopathy. No new finding. <Electronically signed by Won Kuo > 08/13/20 [id number]
[2020-08-13] MEDS ORDERED: FUROSEMIDE 40MG/4ML VIAL (J1940) IV ONE (17:00)
[2020-08-13] MEDS ORDERED: DOXYCYCLINE HYCLATE 100 MG in D5W MINI-BAG PLUS 100 ML IV SCH (18:00)
[2020-08-13 19:30] VITALS: BP 126/61
[2020-08-13 20:00] VITALS: BP 155/66
[2020-08-13] MEDS ORDERED: BUDESONIDE 0.25 MG/2 ML INHALATION SUSPENSION INH SCH (20:00)
[2020-08-13] MEDS ORDERED: LEVALBUTEROL 1.25 MG/0.5 ML CONCENTRATE NEB INH SCH (20:00)
[2020-08-13] MEDS ORDERED: methylPREDNISolone 125MG 2ML VIAL IV SCH (20:00)
[2020-08-13 20:45] VITALS: BP 123/58
[2020-08-13 20:49] VITALS: BP 123/58
[2020-08-13] MEDS: SENNA 8.6 MG TAB (SENOKOT) PO SCH (20:55)
[2020-08-13] MEDS: ATORVASTATIN 20 MG TAB PO SCH (21:00)
--- NOTE | 2020-08-13 21:58 | IPNPDOC ---
Date Seen The patient was seen on 08/13/20. Progress Note I was called by RN to see patient after she was found not to responding to verbal or physical stimuli. Patient has a history of hypertension, GERD, COPD, alcohol abuse, possible TERESE, hiatal hernia, urinary incontinence. Admitted to [facility] on 08/01/19 for acute ischemic CVA of the left basal ganglia measuring up to 6 cm. She had also been treated for a possible aspiration pneumonia? perhaps sustained during aspiration while encephalopathic. Patient had developed metabolic encephalopathy that had been improving until today. She was medical stable and transfered to ARU on 08/07/19. CT angiogram of the chest performed today was limited but showed no central thrombus in the mediastinum. There is e vidence of pulmonary artery hypertension. There are some bilateral patchy infiltrates but these are unchanged from the previous study. With a small left- sided pleural effusion. His vital signs at the time of examination were blood pressure 126/61, pulse ox 94% on 2 L, respiratory 20, pulse 78. Patient responding only to painful stimuli at this point in the form of sternal rub. Pupils were equal and reactive to light and symmetrical. Lungs showed mild rales without wheeze. Normal inspiratory effort. Rate was regular, 78 bpm. The patient is altered and arousable only to painful stimuli in the setting of a likely nosocomial pneumonia will be transferred to ICU for further workup and closer monitoring. Will obtain stat CT head prior to transfer to inpatient. VS, I&O, 24H, Fishbone Vital Signs/I&O Vital Signs Date Time Temp Pulse Resp B/P (MAP) Pulse Ox O2 Delivery O2 Flow Rate FiO2 08/13/20 20:49 123/58 08/13/20 20:45 87 Nasal Cannula 2.0 08/13/20 20:00 96.1 23 96 I&O- Last 24 Hours up to 6 AM 08/13/20 06:00 Intake Total 990 ml Balance 990 ml Laboratory Data 24H LABS Laboratory Tests 2 08/13/20 10:37: Total Creatine Kinase 36, Creatine Kinase MB 1.5, Creatine Kinase MB Relative Index 4.17H, Troponin I < 0.02, Thyroid Stimulating Hormone (TSH) 3.300, Free Thyroxine Index 2.8, Thyroxine (T4) 9.2, Triiodothyronine (T3) Uptake 30 08/13/20 15:09: Blood Gas Bicarbonate Standard 23.5, Arterial Blood pH 7.410, Arterial Blood Partial Pressure CO2 37.2, Arterial Blood Partial Pressure O2 86.5, Arterial Blood Total CO2 24.2, Arterial Blood HCO3 23.1, Arterial Blood Base Excess -1.2, Arterial Blood Oxygen Saturation 96.9 08/13/20 15:17: Total Creatine Kinase 42, Creatine Kinase MB 1.8, Creatine Kinase MB Relative Index 4.29H, Troponin I < 0.02, Erythrocyte Sedimentation Rate 61H, Anion Gap 9, Glomerular Filtration Rate > 60.0, Calcium Level 8.2L, C-Reactive Protein, Quantitative 16.60H, UT-Xvp-A-Type Natriuretic Peptide 3222H CBC/BMP Laboratory Tests 08/13/20 15:17 Microbiology Microbiology 08/13/20 Blood Culture, Received Pending PETER DOYLE MD Aug 13, 2020 21:58
[2020-08-13] MEDS ORDERED: PANT40TA29 PO (22:20)
[2020-08-13] MEDS ORDERED: HYDR25TA PO (22:20)
[2020-08-13] MEDS ORDERED: FLUO10CA16 PO (22:20)
[2020-08-13] MEDS ORDERED: LEVA12INH INH (22:20)
[2020-08-13] MEDS ORDERED: TIOT18INH INH (22:20)
[2020-08-13] MEDS ORDERED: LISI10TA22 PO (22:20)
--- NOTE | 2020-08-13 22:45 | REPVR ---
PROCEDURE INFORMATION: Exam: CT Head Without Contrast Exam date and time: 08/13/2020 10:01 PM Age: 84 years old Clinical indication: Altered mental status/memory loss; Additional info: AMS, recent CVA TECHNIQUE: Imaging protocol: Computed tomography of the head without contrast. Radiation optimization: All CT scans at this facility use at least one of these dose optimization techniques: automated exposure control; mA and/or kV adjustment per patient size (includes targeted exams where dose is matched to clinical indication); or iterative reconstruction. COMPARISON: CT Head without contrast 08/01/2020 1:48 PM FINDINGS: Brain: Decreased attenuation of the supratentorial white matter is likely secondary to chronic microvascular ischemia. No acute intracranial hemorrhage. Small chronic infarct at the right basal ganglia. Chronic lacunar infarct versus prominent perivascular space at the left basal ganglia. Cerebral ventricles: Ventricular and subarachnoid spaces are age appropriate. Bones/joints: Unremarkable. No acute fracture. Paranasal sinuses: Visualized sinuses are unremarkable. No fluid levels. Mastoid air cells: Visualized mastoid air cells are well aerated. Vasculature: Intracranial vascular calcification. Soft tissues: Unremarkable. IMPRESSION: No acute intracranial abnormality. Electronically signed by: Jarvis Lucas On 08/13/2020 22:45:21 PM
[2020-08-13] MEDS ORDERED: TRAZ-189 PO (23:34)
[2020-08-14] MEDS ORDERED: TIOTROPIUM INHALER/CAPSULE (SPIRIVA) INH SCH (08:00)
--- NOTE | 2020-08-14 11:46 | IPN ---
PROGRESS NOTE DATE: 08/13/2020 SUBJECTIVE: Patient complains of cough productive of white-yellow sputum, low-grade fever of 100.6, increasing shortness of breath as well as diarrhea 3 or 4 times, bowel regimen discontinued yesterday, watery, non-mucousy, foul smelling. OBJECTIVE/PHYSICAL EXAMINATION: VITAL SIGNS: Temperature 100.6, pulse 83, respiratory rate 26, blood pressure 141/78, 95% on 2 liters nasal cannula. GENERAL: Patient is awake, alert, oriented to person only. Says yes to all questioning. Pleasantly confused. Positive use of respiratory accessory muscles, abdominal retractions. HEENT: No cyanosis or pallor. NECK: Thick neck, unable to assess for jugular venous distention, dry mucous membranes. LUNGS: Diminished with faint wheezing. No rales or crackles. HEART: S1, S2, sinus rhythm. ABDOMEN: Obese, soft, nontender, non-distended. EXTREMITIES: No cyanosis or clubbing. LABORATORY DATA: 08/12/2020 lab data reviewed. 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 IMPRESSION: 1. COPD, acute exacerbation: Patient was given I.V. Solu-Medrol, kept on Xopenex, and prednisone once stabilized with slow tapering. 2. Respiratory distress: Differential includes pneumonia for which she was recently treated with Ceftriaxone and Augmentin, which she had completed a full course as well as pulmonary embolism since she has been hospitalized. Therefore, we will obtain a CT angio of the chest and check CRP, sed rate and Procalcitonin.
[2020-08-15] MEDS ORDERED: GLUCOSE 4GM CHEW TABLET PO PRN (11:30)
[2020-08-15] MEDS ORDERED: GLUCAGON INJ 1MG VIAL SC PRN (11:30)
[2020-08-15] MEDS ORDERED: DEXTROSE 50% 50 ML SYRINGE IV PRN (11:30)
[2020-08-15] MEDS ORDERED: HumaLOG INSULIN (NovoLOG) PER UNIT SC SCH ×2 (12:00→21:00)
[2020-08-15] MEDS ORDERED: CEFEPIME HCL 2 GM in D5W MINI-BAG PLUS 50 ML IV SCH (12:00)
[2020-08-15] MEDS ORDERED: VANCOMYCIN HCL 1,000 MG, VIAL MATE ADAPTER 1 EACH in D5W 250 ML IV ONE (12:00)
[2020-08-15] MEDS ORDERED: LACTOBACILLUS ACIDOPHILUS CAP (BACID) PO SCH (12:30)
[2020-08-15] MEDS: IPRATROPIUM 0.5MG/ALBUTEROL 2.5MG INH SOL UD 3ML (DUONEB) NEB SCH ×2 (13:16→22:00)
[2020-08-15] MEDS ORDERED: **hydrALAZINE** 10 MG TAB PO SCH (16:00)
[2020-08-15] MEDS ORDERED: REMEDY PHYTOPLEX Z-GUARD PASTE 113GM TUBE (FROM STOREROOM PRODUCT) TOP SCH (16:00)
[2020-08-15] MEDS ORDERED: SYMBICORT 80/4.5MCG INHALER 6GM INH SCH (20:00)
[2020-08-15] MEDS ORDERED: ATORVASTATIN 20 MG TAB PO SCH (21:00)
[2020-08-16] MEDS ORDERED: TIOTROPIUM INHALER/CAPSULE (SPIRIVA) INH SCH (08:00)
[2020-08-16] MEDS ORDERED: ENOXAPARIN 40MG/0.4ML SYRINGE (J1650 PER 10MG) SC SCH (09:00)
[2020-08-16] MEDS ORDERED: VANCOMYCIN HCL 1,000 MG, VIAL MATE ADAPTER 1 EACH in D5W 250 ML IV SCH (10:00)
[2020-08-16] MEDS ORDERED: VANCOMYCIN HCL 750 MG, VIAL MATE ADAPTER 1 EACH in D5W 250 ML IV SCH (11:00)
--- NOTE | 2020-09-12 13:18 | PMRDS ---
NAME: JOSHUA ALMARAZ [facility] WT ID#: [id number] : [id number] JOB: [id number] SABRINA: 08/13/2020 ACCT: [id number] DOCTOR: MARGIE CARRERA MD PMR DISCHARGE SUMMARY DATE OF ADMISSION: 08/07/2020 DATE OF DISCHARGE: 08/13/2020 CHIEF COMPLAINT/DISCHARGE DIAGNOSIS: Stroke. HISTORY OF PRESENT ILLNESS: An 84-year-old female with a past medical history of hypertension, COPD, morbid obesity, alcohol abuse, GERD with erosive esophagitis, who presented to [facility] ED on 08/01/2020 with altered mental status and was diagnosed with metabolic encephalopathy. CTA showed "old lacunar infarcts in the basal ganglia bilaterally; one on each side. There is a 5 mm low density area in the anterior limb of the internal capsule on the left, which was not clearly evident previously. This maybe a more recent lacunar infarct. No acute cortical infarction is seen. There is no evidence of hemorrhage or mass," and follow-up MRI showed "acute infarct of the left basal ganglia measuring 1.6 cm." She was maintained on aspirin and statin for secondary stroke prevention, echo bubble study was negative for [id number] shunt, however, did show grade 1 diastolic dysfunction. There is concern for possible pneumonia, for which she was treated with I.V. antibiotics and transitioned to p.o. antibiotics. She was evaluated by therapy and noted to have mobility and ADLs impairments below her prior level of function and deemed medically appropriate for discharge to ARU on 08/07/2020. PAST MEDICAL HISTORY: As per HPI. HOSPITAL COURSE: Patient was admitted, enrolled in comprehensive PT/OT, speech language pathology program. She received 24-hour nursing supervision and weekly team meetings were held to discuss her progress. For history of ETOH abuse, she was maintained on Thiamine I.M. for cognitive assistance. She was on a fluid restriction and daily weights for diastolic CHF. She was treated with Lisinopril, Amlodipine and Hydralazine for a high blood pressure. Patient was noted to have persistent leukocytosis with cough and wheeze, for which she was continued on Augmentin, Guaifenesin and breathing treatments. She also was started on an inhaled corticosteroid. She had persistent leukocytosis and was discharged on 08/13/2020 for altered mental status and concern for worsening infection. DISCHARGE MEDICATIONS: As per instructions. FUNCTIONAL HISTORY ON DISCHARGE: Patient was mod assist for functional transfers and min assist for ambulation. Thank you for this referral.
== END 2020-08-13 22:40 | disposition short-term general hospital (02) | DRG 56 ==
LOC: M PM&R 18:05 → UNDODISIN 08-13 22:40
PROVIDERS: ADMIT Physical Medicine & Rehabilitation; ATTEND Physical Medicine & Rehabilitation
DX: I69.391 Dysphagia following cerebral infarction (principal); J18.9 Pneumonia, unspecified organism; I50.32 Chronic diastolic (congestive) heart failure; I48.20 Chronic atrial fibrillation, unspecified; J44.1 Chronic obstructive pulmonary disease with (acute) exacerbation; R13.10 Dysphagia, unspecified; I69.320 Aphasia following cerebral infarction; I11.0 Hypertensive heart disease with heart failure; E66.01 Morbid (severe) obesity due to excess calories; F10.10 Alcohol abuse, uncomplicated; K21.00 Gastro-esophageal reflux disease with esophagitis, without bleeding; Z74.09 Other reduced mobility; Z74.1 Need for assistance with personal care; R53.1 Weakness; Z90.49 Acquired absence of other specified parts of digestive tract; G47.00 Insomnia, unspecified; Z79.82 Long term (current) use of aspirin; Z79.899 Other long term (current) drug therapy; Z88.2 Allergy status to sulfonamides; K21.9 Gastro-esophageal reflux disease without esophagitis; Z68.38 Body mass index [BMI] 38.0-38.9, adult

== ENCOUNTER 2020-08-13 21:49 | Inpatient (IN) | payer MEDICARE, MEDICAID ==
[~2020-08-13] VITALS: Ht 170.2 cm; Wt 114.9 kg
[~2020-08-13 21:49] MED LIST changes: +ASPI81TAEC PO; +ATOR1TAB21 PO
[2020-08-13] MEDS ORDERED: MOM 30ML SUSPENSION UDC PO PRN (22:00)
[2020-08-13] MEDS ORDERED: MAALOX 30 ML SUSP *UDC PO PRN (22:00)
--- NOTE | 2020-08-13 22:01 | HPEPDOC ---
[facility] Medical History & Physical Date of Admission Aug 13, 2020 Date of Service: Aug 13, 2020 History and Physical CHIEF COMPLAINT: AMS HISTORY OF PRESENT ILLNESS: 84 yo F with a PMHx admitted to [facility] with an acute infarct of L basal ganglia (1.6 cm), and treated for suspected aspiration pneumonia, was transfered to ARU on 08/07/20. On 08/13/20 became more lethargic and altered. Suspected worsening of pneumonia (possibly aspiration), was started on IV doxycycline. Blood cultures were sent, along with atypical antigen lab tests. Patient became unresponsive to verbal or tactile stimuli on the evening on 08/13/20 and responded only to painful stimuli. Vital signs were stable. Patient was subsequently transfered to PCU at [facility] under hospitalist service for management of suspected sepsis secondary to pneumonia. On arrival to PCU, vitals were, T 95.0, HR 78, RR 20, BP 128/79, SpO2 97% on RA. Septic workup initiated. Patient started on IV vancomycin and cefepime. Blood cultures, LA, trop were sent. ABG showed pH 7.329, pCO2 46.6, pO2 103.3, HCO3 24.0. Stat non contrast CT head showed no acute CVA or hemorrhage. CXR indicated a L lower lobe infiltrate. Prior hx obtained from chart review. PAST MEDICAL HISTORY: L basal ganglia CVA HTN GERD/ Gastric ulcer/ erosive esophagitis COPD Morbid obesity H/O alcohol abuse Possible TERESE Hiatal Hernia Urinary incontinence PAST SURGICAL HISTORY: Hysterectomy. Appendectomy. Tubal ligation. Hiatal hernia repair. Cystourethroscopy with macroplastiq urethral injection. SOCIAL HISTORY: no hx of smoking hx of etoh abuse no hx of illicits FAMILY HISTORY: unable to obtain ALLERGIES: Please see below. REVIEW OF SYSTEMS: review of systems could not be completed due to AMS HOME MEDICATIONS: Please see below. PHYSICAL EXAMINATION: VITAL SIGNS: please see below GENERAL APPEARANCE: rousable only to painful stimuli. 2L nasal canula O2 HEENT: PERRLA CARDIOVASCULAR: RRR, normal S1, S2. LUNGS: reduced air entry bilateraly L > R, no crackles. Mild rales at L lung base ABDOMEN: soft, non tender, no organomegaly. Obese. EXTREMITIES: no edema. NEUROLOGICAL: Pupils equal and reactive. Not following commands. Not moving extremities voluntarily. On chest rub, moved hands and roused. LABORATORY DATA: See below. IMAGING: CXR (08/14/20) - L lower lobe infiltrate CT head wo contrast (08/14/20) - no acute changes MICROBIOLOGY: Please see below. ASSESSMENT: 84 yo F admitted to [facility] on07/28/20 and diagnosed with acute infarct L basal ganglia (1.6 cm), and concern for aspiration pneumonia. Was transfered to ARU on {}. Developed AMS with concern for sepsis 2/2 worsening pneumonia, was transfered to PCU at [facility] for higher level of care and sepsis workup. . PLAN: SIRS/near sepsis possibly 2/2 pneumonia - transfer to PCU - Worsening leukocytosis, WBC 16.0. LA 1.2. Hypothermic. BP wnl. - COVID negative by PCR on 08/14/20 - give 1L NS bolus - blood culture, legionella, strep ag sent - f/u sputum culture - f/u procal - CXR showing L lower lobe infiltrate - Vanc, cefepime Acute hypercapneic respiratory failure - respiratory acidosis on ABG - likely related to sepsis 2/2 pneumonia - titrate O2 > 90% - abx L lower lobe underwood - c/w abx - follow up septic workup labs - MRSA screen + - c/w vanc/cefepime (Day 1) AMS 2/2 metabolic encephalopathy - treat underlying sepsis - high dose thiamine recent acute Left basal ganglia CVA - c/w ASA, atorvastatin HTN - controlled with norvasc, lisinopril, hydralazine - hold while septic - parameters placed Obesity - BMI 38, complicating care GERD/ Gastric ulcer/ erosive esophagitis - c/w PPI COPD - albuterol - symbicort H/O alcohol abuse - start high dose thiamine 500 mg IV x 3 days Possible TERESE - O2 supplementation - outpatient sleep study Urinary incontinence - depends Depression - fluoxetine 10 mg - hold Home Medications Scheduled Amlodipine Besylate (Amlodipine Besylate) 10 Mg Tablet, 10 MG PO DAILY Trazodone HCl (Trazodone HCl) 100 Mg Tablet, 100 MG PO QHS Allergies Coded Allergies: Sulfa (Sulfonamide Antibiotics) (Verified Adverse Reaction, Mild, STOMACH UPSET, 05/07/20) PETER DOYLE MD Aug 13, 2020 22:01
--- OUTSIDE RECORDS SUMMARY | 2020-08-13 22:05 | CCD ---
Author Author [facility] Organization [facility] Address Unknown Phone Unavailable Care Team Providers Care Chocolate Coater Name Role Phone Marie BALTAZAR MD Unavailable [...] is protected by Article 27-F of the [facility] Public Health law. If you continue you may have access to information: Regarding HIV / AIDS; Provided by facilities licensed or operated by the [facility] Office of Mental Health; or Provided by the [facility] Office for People With Developmental Disabilities. If such information is present, then the following [facility] mandated warning applies: This information has been [...] law may result in a fine or alf sentence or both. A general authorization for [...] DOM[facility]A [facility] 10:15:00 AM EST [facility] ([facility] Outpatient Attender: DOMINGA [facility] 09:00:00 AM EDT [facility] ([facility] Immunizations Vaccine Date [...] 02/21/2020 12:00:00 AM EDT ORAL active [facility] ([facility] 100 mg 02/21/2020 12:00:00 [...] BY MOUTH TWICE A WEEK SOLD: 09/05/2019 [facility] Ergocalciferol [id number] UNT Oral Capsule [Drisdol] Drisdol 08/31/2019 12:00:00 AM EDT ORAL active [facility] ([facility] 50 mg 07/29/2019 12:00:00 [...] type / Coverage type Policy ID Covered republican ID Covered republican's relationship to guevara Policy Guevara Plan Information EMEDNY [id number] SP [id number] [facility] [id number] SP [id number] MEDICARE [id number] SP [id number] [id number] HUMA[employer] PPO [id number] SP [id number] HUMANA GOLD [id number] SP [id number] MEDICARE [id number] SP [id number] [id number] HUMANA HMO [id number] SP [id number] HUMANA HMO [id number] SP [id number] Medicaid [facility] Part B Self Medicare [facility] Medicare Primary Self MEDICARE [id number] SP [id number] A MEDICAID [id number] SP [id number] MEDICAID -O/P EMERGENCY ROOM [id number] [facility] MEDICARE -O/P [id number] 18 [id number] MEDICARE [id number] SP [id number] A Results ID Date Data Source [id number] 08/01/2020 12:02:00 PM EST [facility] Name Value Range Interpretation Code Description Data Yumi rce(s) Supporting Document(s) SARS-CoV-2 (COVID 19) NEGATIVE - SARS-CoV-2 (COVID19) [facility] This lab was ordered by [facility] a nd reported by . ID Date Data Source [id number] 08/01/2020 10:59:00 AM EST [facility] Name Value Range Interpretation Code Description Data Yumi rce(s) Supporting Document(s) SARS COVID ANTIGEN NEGATIVE [facility] This lab was ordered by [facility] a nd reported by . ID Date Data Source [id number] 05/09/2020 05:38:00 AM EST [facility] ([facility] Name Value Range Interpretation Code Description Data Yumi rce(s) Supporting Document(s) Glucose [Mass/volume] in Serum or Plasma Laboratory test result 70-100 Above high normal [facility] ([facility] ) Creatinine For GFR Laboratory test result 0.55-1.30 [facility] ([facility] Blood Urea Nitrogen Laboratory test result 7-18 [facility] ([facility] Glomerular Filtration Rate Laboratory test result [facility] ([facility] <content>Units are mL/min/1.73 m2 </con tent>
<content> </content>
<content>Chronic Kidney Disease Staging per NKF: </content>
<content> </content>
<content>Stage I & II GFR >=60 Normal to Mildly Decreased </content>
<content>Stage III GFR 30-59 Moderately Decreased </content>
<content>Stage IV GFR 15-29 Severely Decreased </content>
<content>Stage V GFR <15 Very Little GFR Left </content>
<content>ESRD GFR <15 on FORESTRY FOREMAN</content>
<content></content> Potassium Serum Laboratory test result 3.5-5.1 [facility] ([facility] Sodium Level Laboratory test result 136-145 [facility] ([facility] Anion Gap Laboratory test result 8-16 Below low normal [facility] ([facility] Chloride Level Laboratory test result 98-107 [facility] ([facility] Carbon Dioxide Level Laboratory test result 21-32 [facility] ([facility] Calcium Level Laboratory test result 8.8-10.2 [facility] ([facility] ID Date Data Source [id number] 05/08/2020 02:22:00 PM EST [facility] ([facility] Name Value Range Interpretation Code Description Data Yumi rce(s) Supporting Document(s) Laboratory test finding (navigational concept) 0.19 [facility] ([facility] <content>SEPSIS INTERPRETATION OF RESULT [...] strongly encouraged.</content>
<content></content> ID Date Data Source [id number] 05/08/2020 08:03:00 AM EST [facility] ([facility] Name Value Range [...] [facility] ID Date Data Source [id number] 05/08/2020 07:42:00 AM EST [facility] ([facility] Name Value Range Interpretation Code Description Data Yumi rce(s) Supporting Document(s) Laboratory test finding (navigational concept) Laboratory test r esult Above high normal [facility] ([facility] ) Laboratory test finding (navigational concept) Laboratory test resu lt 5.0-7.0 [facility] ([facility] Laboratory test finding (navigational concept) Laboratory test r esult Above high normal [facility] ([facility] ) Laboratory test finding (navigational concept) Laboratory test result [facility] ([facility] Laboratory test finding (navigational concept) 1.005 1.002-1.035 [facility] ([facility] Ketone, Urine Manual Laboratory test result [facility] ([facility] Glucose, Urine (Ua) Manual Laboratory test result [facility] ([facility] Urobilinogen, Urine Manual Laboratory test result [facility] ([facility] Laboratory test finding (navigational concept) Laboratory test r esult Above high normal [facility] ([facility] ) Laboratory test finding (navigational concept) Laboratory test r esult Above high normal [facility] ([facility] ) Bilirubin, Urine Manual Laboratory test result [facility] ([facility] Laboratory test finding (navigational concept) Laboratory test r esult Above high normal [facility] ([facility] ) ID Date Data Source [id number] 05/08/2020 06:16:00 AM EST [facility] ([facility] Name Value Range Interpretation Code Description Data Yumi rce(s) Supporting Document(s) Glucose [Mass/volume] in Serum or Plasma Laboratory test result 70-100 Above high normal [facility] ([facility] ) Blood Urea Nitrogen Laboratory test result 7-18 [facility] ([facility] Creatinine For GFR Laboratory test result 0.55-1.30 [facility] ([facility] Sodium Level Laboratory test result 136-145 [facility] ([facility] Glomerular Filtration Rate Laboratory test result [facility] ([facility] <content>Units are mL/min/1.73 m2 </con tent>
<content> </content>
<content>Chronic Kidney Disease Staging per NKF: </content>
<content> </content>
<content>Stage I & II GFR >=60 Normal to Mildly Decreased </content>
<content>Stage III GFR 30-59 Moderately Decreased </content>
<content>Stage IV GFR 15-29 Severely Decreased </content>
<content>Stage V GFR <15 Very Little GFR Left </content>
<content>ESRD GFR <15 on FORESTRY FOREMAN</content>
<content></content> Carbon Dioxide Level Laboratory test result 21-32 [facility] ([facility] Anion Gap Laboratory test result 8-16 Below low normal [facility] ([facility] Chloride Level Laboratory test result 98-107 [facility] ([facility] Potassium Serum Laboratory test result 3.5-5.1 [facility] ([facility] Calcium Level Laboratory test result 8.8-10.2 [facility] ([facility] ID Date Data Source [id number] 05/08/2020 05:57:00 AM EST [facility] ([facility] Name Value Range [...] in Blood Laboratory test result 12.0-15.5 [facility] ([facility] Mean Corpuscular Hemoglobin Laboratory test result 27.0-33.0 [facility] ([facility] Mean Corpuscular HGB Conc Laboratory test result 32.0-36.5 Below low normal [facility] ([facility] Red Cell Distribution Width Laboratory test result 11.5-14.5 [facility] ([facility] Platelet Count, Automated Laboratory test result 150-450 [facility] ([facility] Neutrophils % Laboratory test result 36.0-66.0 Above high normal [facility] ([facility] Monocytes/100 leukocytes in Blood by Automated count Laborat ory test result 0.0-5.0 Above high normal [facility] ([facility] Lymph % Laboratory test result 24.0-44.0 Below low normal [facility] ([facility] Eos % Laboratory test result 0.0-3.0 ME [facility] ([facility] Nucleated Red Blood Cell % Laboratory test result 0-0 [facility] ([facility] Baso % Laboratory test result 0.0-1.0 [facility] ([facility] Immature Granulocyte % Laboratory test result 0-3.0 [facility] ([facility] Berks # Laboratory test result 0.0-0.8 Above high normal [facility] ([facility] Neutrophils # Laboratory test result 1.5-8.5 Above high normal [facility] ([facility] Lymph # Laboratory test result 1.5-5.0 Below low normal [facility] ([facility] Baso # Laboratory test result 0.0-0.2 [facility] ([facility] Eos # Laboratory test result 0.0-0.5 [facility] ([facility] ID Date Data Source [id number] 05/07/2020 10:32:00 PM EST [facility] ([facility] Name Value Range Interpretation Code Description Data Yumi rce(s) Supporting Document(s) CPK Creatine Phosphokinase Laboratory test result 26-192 [facility] CK-MB Value Mass Laboratory test result [facility] ([facility] MB/CK Relative Index 3.82 [facility] ([facility] <content>DIAGNOSIS CRITERIA </content>< br/><content> MMB ng/ml Relative Index (RI) </content>
<content>NON-AMI < or = 5 N/A </content>
<content>SANTACRUZ ZONE > 5 < or = 4 </content>
<content>AMI > 5 > 4</content>
<content></content> Troponin I.cardiac [Mass/volume] in Serum or Plasma Laboratory test result [facility] ([facility] <content>Troponin I Reference Interval f or Siemens [place] LOCI: </content>
<content> </content>
<content> 99th Percentile= [...] Myocardial Injury.</content>
<content></content> ID Date Data Source [id number] 05/07/2020 04:25:00 PM EST [facility] Name Value Range Interpretation Code Description Data Yumi rce(s) Supporting Document(s) CK-MB Value Mass Laboratory test result [facility] ([facility] CPK Creatine Phosphokinase Laboratory test result 26-192 [facility] ([facility] MB/CK Relative Index 3.44 [facility] ([facility] <content>DIAGNOSIS CRITERIA </content>< br/><content> MMB ng/ml Relative Index (RI) </content>
<content>NON-AMI < or = 5 N/A </content>
<content>SANTACRUZ ZONE > 5 < or = 4 </content>
<content>AMI > 5 > 4</content>
<content></content> Troponin I.cardiac [Mass/volume] in Serum or Plasma [facility] <content>Troponin I Reference Interval or [employer] [place] LOCI: </content>
<content> </content>
<content> 99th Percentile= [...] Myocardial Injury.</content>
<content></content> ID Date Data Source [id number] 05/07/2020 02:37:00 PM EST [facility] ([facility] Name Value Range Interpretation Code Description Data Yumi rce(s) Supporting Document(s) NT-Pro BNP Laboratory test result [facility] ([facility] ID Date Data Source [id number] 05/07/2020 02:14:00 PM EST [facility] ([facility] Name Value Range Interpretation Code Description Data Yumi rce(s) Supporting Document(s) Laboratory test finding (navigational concept) Laboratory test resu lt 0.4-2.0 [facility] ([facility] ID Date Data Source [id number] 05/07/2020 12:27:00 PM EST [facility] ([facility] Name Value Range Interpretation Code Description Data Yumi rce(s) Supporting Document(s) Alanine aminotransferase [Enzymatic activity/volume] i n Serum or Plasma Laboratory test result 12-78 [facility] ([facility] Aspartate aminotransferase [Enzymatic activity/volume] in Serum or Plasma Laboratory test result 7-37 [facility] ([facility] Alkaline phosphatase [Enzymatic activity/volume] in Se rum or Plasma Laboratory test result 45-117 [facility] ([facility] Bilirubin.conjugated [Mass/volume] in Serum or Plasma Labora tory test result 0.0-0.2 [facility] ([facility] Bilirubin.total [Mass/volume] in [...] [facility] ID Date Data Source [id number] 05/07/2020 11:56:00 AM EST [facility] ([facility] [...] Corpuscular Volume Laboratory test result 80.0-96.0 [facility] ([facility] Hematocrit [Volume Fraction] of Blood by Automated count Lab oratory test result 36.0-47.0 [facility] Hemoglobin [Mass/volume] in Blood Laboratory test result 12.0-15.5 [facility] ([facility] Platelet Count, Automated Laboratory test result 150-450 Above hig h normal [facility] ([facility] Mean Corpuscular HGB Conc Laboratory test result 32.0-36.5 Below low normal [facility] ([facility] Red Cell Distribution Width Laboratory test result 11.5-14.5 [facility] ([facility] Mean Corpuscular Hemoglobin Laboratory test result 27.0-33.0 [facility] ([facility] Lymph % Laboratory test result 24.0-44.0 Below low normal [facility] ([facility] Neutrophils % Laboratory test result 36.0-66.0 Above high normal [facility] ([facility] Monocytes/100 leukocytes in Blood by Automated count Laborat ory test result 0.0-5.0 Above high normal [facility] ([facility] Immature Granulocyte % Laboratory test result 0-3.0 [facility] ([facility] Eos % Laboratory test result 0.0-3.0 [facility] ([facility] Baso % Laboratory test result 0.0-1.0 [facility] ([facility] Nucleated Red Blood Cell % Laboratory test result 0-0 [facility] ([facility] Lymph # Laboratory test result 1.5-5.0 Below low normal [facility] ([facility] Berks # Laboratory test result 0.0-0.8 Above high normal [facility] ([facility] Neutrophils # Laboratory test result 1.5-8.5 Above high normal [facility] ([facility] Eos # Laboratory test result 0.0-0.5 [facility] ([facility] Baso # Laboratory test result 0.0-0.2 [facility] ([facility] ID Date Data Source [id number] 05/07/2020 11:51:00 AM EST [facility] ([facility] Name Value Range Interpretation Code Description Data Yumi rce(s) Supporting Document(s) Laboratory test finding (navigational concept) Laboratory test r esult 38.0-51.0 [facility] ([facility] ) Laboratory test finding (navigational concept) Laboratory test r esult 70-105 Above high normal [facility] ([facility] ) Laboratory test finding (navigational concept) Laboratory test resu lt 3.5-5.1 [facility] ([facility] Laboratory test finding (navigational concept) Laboratory test resu lt 136-145 [facility] ([facility] Laboratory test finding (navigational concept) Laboratory test r esult 23.0-27.0 [facility] ([facility] ) Laboratory test finding (navigational concept) Laboratory test resu lt 98-109 [facility] ([facility] Laboratory test finding (navigational concept) Laboratory test r esult 4.5-5.3 Below low normal [facility] ([facility] ) Creatinine [Mass/volume] in Serum or Plasma Laboratory test result 0. 6-1.3 [facility] ([facility] Laboratory test finding (navigational concept) Laboratory test result 8-26 [facility] ([facility] ID Date Data Source [id number] 05/07/2020 11:51:00 AM EST [facility] ([facility] Name Value Range Interpretation Code Description Data Yumi rce(s) Supporting Document(s) Laboratory test finding (navigational concept) Laboratory test r esult 0.00-0.08 [facility] ([facility] ) ID Date Data Source [id number] 05/07/2020 11:45:00 AM EST [facility] ([facility] Name Value Range Interpretation Code Description Data Yumi rce(s) Supporting Document(s) Laboratory test finding (navigational concept) Laboratory test result [facility] ([facility] This lab was ordered by [facility] a nd reported by . ID Date Data Source [id number] 02/21/2020 09:15:00 AM EDT [facility] ([facility] [...] Test not performed ID Date Data Source [id number] 02/21/2020 09:15:00 AM EDT [facility] ([facility] Name Value Range Interpretation Code Description Data Yumi rce(s) Supporting Document(s) Glucose [Mass/volume] in Serum or Plasma 132 mg/dL 65-99 Above high normal [facility] ([facility] BUN 13 mg/dL 8-27 [facility] eGFR If Africn [...] Serum or Plasma 138 mmol/L 134-144 [facility] ([facility] Potassium [Moles/volume] in Serum or Plasma 4.7 mmol/L 3.5-5.2 [facility] ([facility] Urea nitrogen/Creatinine [Mass Ratio] in Serum or Plasma 16 1 2-28 [facility] ([facility] Carbon dioxide, total [Moles/volume] in Serum or Plasma 24 mmol/L 20 -29 [facility] ([facility] Calcium [Mass/volume] in Serum or Plasma 9.7 mg/dL 8.7-10.3 [facility] ([facility] Protein [Mass/volume] in Serum or Plasma 6.9 g/dL 6.0-8.5 [facility] ([facility] Bilirubin.total [Mass/volume] in Serum or Plasma 0.3 mg/dL 0.0-1.2 [facility] ([facility] Albumin/Globulin [Mass Ratio] in Serum or Plasma 1.6 1.2-2.2 [facility] ([facility] Globulin [Mass/volume] in Serum by calculation 2.7 g/dL 1.5-4.5 [facility] ([facility] Albumin [Mass/volume] in Serum or Plasma 4.2 g/dL 3.6-4.6 [facility] ([facility] Aspartate aminotransferase [Enzymatic activity/volume] in Serum or Plasma 24 IU/L 0-40 [facility] ([facility] Alanine aminotransferase [Enzymatic activity/volume] in Seru m or Plasma 23 IU/L 0-32 [facility] ([facility] Alkaline phosphatase [Enzymatic activity/volume] in Serum or Plasma 96 IU/L 39-117 [facility] ([facility] ID Date Data Source [id number] 02/21/2020 09:15:00 AM EDT [facility] ([facility] Name Value Range Interpretation Code Description Data Yumi rce(s) Supporting Document(s) Calcidiol [Mass/volume] in Serum or Plasma 30.6 ng/mL 30.0-100.0 [facility] ([facility] Vitamin D deficiency has been defined by the [place] of [employer] and an Endocrine Society practice guideline as a level of serum 25-OH vitamin D less than 20 ng/mL (1,2). The Endocrine Society went on to further define vitamin D insufficiency as a level between 21 and 29 ng/mL (2). 1. IOM ([place] of [employer]). 2010. Di etary reference intakes [...] Pulse oximetry 93 % 93 % [facility] ([facility] Body mass index (BMI) [Ratio] 39.4 kg/m2 39.4 k g/m2 [facility] ([facility] Hubbell body weight 130 [lb_av] 130 [lb_av] MED[facility] T ([facility] Body weight 244.00 [lb_av] 244.00 [lb_av] [facility] T ([facility] Body height 66 [in_i] 66 [in_i] [facility] ([facility] 5'6" Respiratory rate 18 /min 18 /min [facility] ( [facility] Heart rate 106 /min 106 /min [facility] ([facility] Body temperature 97.3 [degF] 97.3 [degF] [facility] ([facility] Diastolic blood pressure 88 mm[Hg] 88 mm[Hg] [facility] ([facility] Systolic blood pressure 156 mm[Hg] 156 mm[Hg] M EDENT ([facility] Oxygen saturation in Arterial blood by Pulse oximetry 95 % 95 % [facility] ([facility] Body mass index (BMI) [Ratio] 41.0 kg/m2 41.0 k g/m2 [facility] ([facility] Hubbell body weight 130 [lb_av] 130 [lb_av] MED[facility] T ([facility] Body weight 254.00 [lb_av] 254.00 [lb_av] MEDEN T ([facility] Body height 66 [in_i] 66 [in_i] [facility] ([facility] 5'6" Respiratory rate 18 /min 18 /min [facility] ( [facility] Heart rate 96 /min 96 /min [facility] ([facility] Body temperature 98.2 [degF] 98.2 [degF] [facility] ([facility] Diastolic blood pressure 88 mm[Hg] 88 mm[Hg] [facility] ([facility] Systolic blood pressure 138 mm[Hg] 138 mm[Hg] Chad ANSARI ([facility]
[2020-08-13] MEDS ORDERED: FLUO10CA16 PO (22:20)
[2020-08-13] MEDS ORDERED: PANT40TA29 PO (22:20)
[2020-08-13] MEDS ORDERED: HYDR25TA PO (22:20)
[2020-08-13] MEDS ORDERED: LISI10TA22 PO (22:20)
[2020-08-13] MEDS ORDERED: TIOT18INH INH (22:20)
[2020-08-13] MEDS ORDERED: LEVA12INH INH (22:20)
[2020-08-13 22:55] VITALS: BP 128/79
[2020-08-13] MEDS ORDERED: VANCOMYCIN HCL 1,000 MG, VIAL MATE ADAPTER 1 EACH in D5W 250 ML IV SCH (23:15)
[2020-08-13] MEDS ORDERED: TRAZ-189 PO (23:34)
[2020-08-13 23:50] LABS: ABG BASE EXCESS -2.2 (-2.0-2.0); ABG O2 SATURATION 97.8 % (95.0-99.0); ABG PARTIAL PRESSURE CO2 46.6 mmHg (35.0-45.0); ABG PARTIAL PRESSURE O2 103.3 mmHg (75.0-100.0); ABG STANDARD HCO3 22.6 MEQ/L (22.0-26.0); ABG TOTAL CO2 25.4 MEQ/L (23.0-31.0); ABG pH (ARTERIAL) 7.329 UNITS (7.350-7.450)
--- NOTE | 2020-08-13 23:56 | REPVR ---
PROCEDURE INFORMATION: Exam: XR Chest, 1 View Exam date and time: 08/13/2020 11:40 PM Age: 84 years old Clinical indication: Other: Unresponsive; Additional info: Pna TECHNIQUE: Imaging protocol: XR of the chest Views: 1 view. COMPARISON: [facility] PORTABLE CHEST X-RAY 08/13/2020 2:53 PM FINDINGS: Lungs: Low lung volumes. Left basilar atelectasis aided and/or infiltrate is stable. Pleural spaces: Unremarkable. No pleural effusion. No pneumothorax. Heart/Mediastinum: Stable cardiac silhouette. Bones/joints: Osteopenia. IMPRESSION: Stable left basilar atelectasis and/or infiltrate. Electronically signed by: Jarvis Lucas On 08/13/2020 23:56:58 PM
[2020-08-14] VITALS: BP 118/63
[2020-08-14 00:19] LABS: BASO # 0.1 10^3/uL (0.0-0.2); BASO % 0.3 % (0.0-1.0); HEMATOCRIT 43.2 % (36.0-47.0); HEMOGLOBIN 13.5 g/dl (12.0-15.5); LYMPH # 0.6 10^3/uL (1.5-5.0); LYMPH % 3.5 % (24.0-44.0); MEAN CORPUSCULAR HEMOGLOBIN 29.4 pg (27.0-33.0); MEAN CORPUSCULAR HGB CONC 31.3 g/dl (32.0-36.5); MEAN CORPUSCULAR VOLUME 94.1 fl (80.0-96.0); MONO # 0.1 10^3/uL (0.0-0.8); MONO % 0.5 % (2.0-8.0); NEUTROPHILS # 15.2 10^3/uL (1.5-8.5); PLATELET COUNT, AUTOMATED 298 10^3/uL (150-450); RED BLOOD COUNT 4.59 10^6/uL (4.00-5.40)
[2020-08-14] MEDS: CEFEPIME HCL 2 GM in D5W MINI-BAG PLUS 50 ML IV SCH ×2 (00:51→12:21)
[2020-08-14 00:59] LABS: ALBUMIN 2.3 GM/DL (3.2-5.2); ALT/SGPT 18 U/L (12-78); BILIRUBIN,TOTAL 0.1 MG/DL (0.2-1.0); BLOOD UREA NITROGEN 17 MG/DL (7-18); CALCIUM LEVEL 8.6 MG/DL (8.8-10.2); CARBON DIOXIDE LEVEL 24 MEQ/L (21-32); CHLORIDE LEVEL 106 MEQ/L (98-107); CREATININE FOR GFR 1.09 MG/DL (0.55-1.30); GLOMERULAR FILTRATION RATE 50.9 (>32); GLUCOSE, FASTING 215 MG/DL (70-100); MAGNESIUM LEVEL 1.8 MG/DL (1.8-2.4); NT-PRO BNP 2617 PG/ML (<450); POTASSIUM SERUM 4.1 MEQ/L (3.5-5.1); SODIUM LEVEL 140 MEQ/L (136-145); TOTAL PROTEIN 6.4 GM/DL (6.4-8.2); TROPONIN I < 0.02 NG/ML (< 0.10)
[2020-08-14] MEDS ORDERED: VANCOMYCIN HCL 750 MG, VIAL MATE ADAPTER 1 EACH in D5W 250 ML IV ONE ×2 (01:00→02:00)
[2020-08-14] MEDS ORDERED: GLUCAGON INJ 1MG VIAL SC PRN ×2 (01:15→11:00)
[2020-08-14] MEDS ORDERED: GLUCOSE 4GM CHEW TABLET PO PRN ×2 (01:15→11:00)
[2020-08-14] MEDS ORDERED: DEXTROSE 50% 50 ML SYRINGE IV PRN ×2 (01:15→11:00)
[2020-08-14] MEDS: HumaLOG INSULIN (NovoLOG) PER UNIT SC SCH ×5 (01:54→21:00)
[2020-08-14 04:00] VITALS: BP 123/61
[2020-08-14] MEDS: SYMBICORT 80/4.5MCG INHALER 6GM INH SCH ×2 (07:15→19:49)
[2020-08-14] MEDS: TIOTROPIUM INHALER/CAPSULE (SPIRIVA) INH SCH (07:19)
[2020-08-14 08:00] VITALS: BP 129/69
[2020-08-14 08:26] LABS: ABG BASE EXCESS -3.2 (-2.0-2.0); ABG HCO3 21.6 MEQ/L (22.0-26.0); ABG O2 SATURATION 96.9 % (95.0-99.0); ABG PARTIAL PRESSURE CO2 37.9 mmHg (35.0-45.0); ABG PARTIAL PRESSURE O2 86.2 mmHg (75.0-100.0); ABG STANDARD HCO3 21.8 MEQ/L (22.0-26.0); ABG TOTAL CO2 22.7 MEQ/L (23.0-31.0); ABG pH (ARTERIAL) 7.373 UNITS (7.350-7.450)
[2020-08-14 08:57] LABS: BASO % 0.2 % (0.0-1.0); HEMATOCRIT 42.3 % (36.0-47.0); HEMOGLOBIN 13.4 g/dl (12.0-15.5); LYMPH # 0.8 10^3/uL (1.5-5.0); LYMPH % 5.1 % (24.0-44.0); MEAN CORPUSCULAR HEMOGLOBIN 29.7 pg (27.0-33.0); MEAN CORPUSCULAR HGB CONC 31.7 g/dl (32.0-36.5); MEAN CORPUSCULAR VOLUME 93.8 fl (80.0-96.0); MONO # 0.2 10^3/uL (0.0-0.8); MONO % 1.3 % (2.0-8.0); NEUTROPHILS # 14.7 10^3/uL (1.5-8.5); NEUTROPHILS % 92.7 % (36.0-66.0); PLATELET COUNT, AUTOMATED 315 10^3/uL (150-450); RED BLOOD COUNT 4.51 10^6/uL (4.00-5.40); WHITE BLOOD COUNT 15.9 10^3/uL (4.0-10.0)
[2020-08-14 09:06] LABS: ALBUMIN 2.3 GM/DL (3.2-5.2); ALT/SGPT 17 U/L (12-78); BILIRUBIN,TOTAL 0.2 MG/DL (0.2-1.0); BLOOD UREA NITROGEN 21 MG/DL (7-18); CALCIUM LEVEL 8.9 MG/DL (8.8-10.2); CARBON DIOXIDE LEVEL 25 MEQ/L (21-32); CHLORIDE LEVEL 106 MEQ/L (98-107); CREATININE FOR GFR 1.04 MG/DL (0.55-1.30); GLOMERULAR FILTRATION RATE 53.7 (>32); GLUCOSE, FASTING 190 MG/DL (70-100); POTASSIUM SERUM 3.5 MEQ/L (3.5-5.1); SODIUM LEVEL 140 MEQ/L (136-145); TROPONIN I < 0.02 NG/ML (< 0.10)
[2020-08-14] MEDS: ENOXAPARIN 40MG/0.4ML SYRINGE (J1650 PER 10MG) SC SCH (09:24)
[2020-08-14] MEDS: **hydrALAZINE** 10 MG TAB PO SCH ×3 (09:24→20:23)
[2020-08-14] MEDS: DOCUSATE SODIUM 100MG CAPSULE PO SCH ×3 (09:25→20:33)
--- NOTE | 2020-08-14 11:46 | IPN ---
PROGRESS NOTE DATE: 08/14/2020 SUBJECTIVE: Raphael was in ARU when she became unresponsive, transferred over to PCU presumed sepsis from aspiration pneumonia, left-sided infiltrate on chest x-ray. Today she is fully alert, she answers questions. I do not know her baseline mental status but certainly improved from yesterday. Denies shortness of breath. OBJECTIVE: VITAL SIGNS: 129/69, afebrile, vital signs stable. O2 saturation 97% on room air. GENERAL: Lying in bed, morbidly obese, interacting with the nurse. HEENT: No nystagmus, extraocular movements intact. LUNGS: Decreased breath sounds but clear. HEART: Rhythm regular, no murmur. ABDOMEN: Soft, nontender, obese, no masses. EXTREMITIES: Trace peripheral edema. LAB WORK TODAY: All pending at almost 9 a.m. IMPRESSION: 1. Metabolic encephalopathy from sepsis, this has resolved. I do not know her baseline mental status but she is back to being fully alert and answering questions. She does know where she is although she does think the month is May. 2. Left-sided infiltrate. Continue Vancomycin and Cefepime, probably could transition to oral antibiotic tomorrow. 3. Hypertension, well controlled on current regimen. 4. Hyperlipidemia, continue Atorvastatin. Her dose is high for someone who is 84 years old, going to cut this down to 40 mg which is the recommended dose for age over 75. 5. Recent stroke. Hopefully she will be able to get back to ARU soon. 6. Diabetes. She is on sliding scale insulin every 6 hours. Once we are able to feed her we can go back to before meals and bedtime. 7. Question aspiration, swallowing study ordered.
[2020-08-14 12:00] VITALS: BP 106/54
[2020-08-14] MEDS ORDERED: VARIBAR NECTAR 40% w/v 240ML SUSP BTL As Ordered ONE (14:12)
[2020-08-14] MEDS ORDERED: E-Z-PAQUE 96% w/w SUSP 176GM BTL As Ordered ONE (14:12)
[2020-08-14] MEDS ORDERED: VARIBAR PUDDING 40% w/v 230ML TUBE As Ordered ONE (14:12)
[2020-08-14] MEDS: VANCOMYCIN HCL 750 MG, VIAL MATE ADAPTER 1 EACH in D5W 250 ML IV SCH (15:36)
[2020-08-14 16:00] VITALS: BP_SYST 10; BP_SYST 120; BP_DIAS 70
[2020-08-14] MEDS ORDERED: VANCOMYCIN HCL 750 MG, VIAL MATE ADAPTER 1 EACH in D5W 250 ML IV SCH (16:00)
--- NOTE | 2020-08-14 16:48 | REP ---
INDICATION: Per speech therapy recommendations/R/O aspiration. COMPARISON: None. TECHNIQUE: The procedure was performed by RAISSA Barth, under the direct supervision of Dr. Malhotra. The procedure was performed with Zaina Clark from speech pathology present. 5 ml aliquots of thin, pudding, mixed fruit, soft food, and hard food consistency barium was administered. FINDINGS: No aspiration or penetration was visualized during this exam. The detailed report of this examination will be provided by speech pathology. IMPRESSION: Unremarkable modified barium swallow, a detailed report will be provided by speech pathology. 2.4 minutes of fluoroscopy time was utilized for this procedure. Some fluoroscopic images are performed with last image hold technology. These images require no additional radiation <Electronically signed by Yolande Dickinson > 08/14/20 1620 <Electronically signed by Terell Malhotra > 08/14/20 [id number]
[2020-08-14 20:00] VITALS: BP 114/61
[2020-08-14] MEDS: ATORVASTATIN 20 MG TAB PO SCH (20:23)
[2020-08-14] MEDS ORDERED: ATORVASTATIN 20 MG TAB PO SCH (21:00)
[2020-08-15] VITALS: BP 104/50
[2020-08-15] MEDS: CEFEPIME HCL 2 GM in D5W MINI-BAG PLUS 50 ML IV SCH ×2 (00:22→13:16)
[2020-08-15 04:00] VITALS: BP 120/67
[2020-08-15] MEDS: SYMBICORT 80/4.5MCG INHALER 6GM INH SCH ×2 (07:46→20:02)
[2020-08-15] MEDS: TIOTROPIUM INHALER/CAPSULE (SPIRIVA) INH SCH (07:46)
[2020-08-15 08:00] VITALS: BP 123/66
[2020-08-15] MEDS: ENOXAPARIN 40MG/0.4ML SYRINGE (J1650 PER 10MG) SC SCH (08:10)
[2020-08-15 08:11] LABS: HEMATOCRIT 40.9 % (36.0-47.0); HEMOGLOBIN 13.1 g/dl (12.0-15.5); MEAN CORPUSCULAR VOLUME 93.6 fl (80.0-96.0); PLATELET COUNT, AUTOMATED 337 10^3/uL (150-450); RED BLOOD COUNT 4.37 10^6/uL (4.00-5.40)
[2020-08-15] MEDS: DOCUSATE SODIUM 100MG CAPSULE PO SCH ×2 (08:11→20:30)
[2020-08-15] MEDS: **hydrALAZINE** 10 MG TAB PO SCH ×3 (08:11→20:30)
[2020-08-15] MEDS: HumaLOG INSULIN (NovoLOG) PER UNIT SC SCH ×4 (08:11→21:00)
[2020-08-15 08:45] LABS: CALCIUM LEVEL 8.7 MG/DL (8.8-10.2); GLOMERULAR FILTRATION RATE 56.2 (>32); POTASSIUM SERUM 4.3 MEQ/L (3.5-5.1); VANCOMYCIN LEVEL TROUGH 18.7 UG/ML (10.0-20.0)
[2020-08-15] MEDS: VANCOMYCIN HCL 750 MG, VIAL MATE ADAPTER 1 EACH in D5W 250 ML IV SCH (09:43)
[2020-08-15] MEDS ORDERED: VANCOMYCIN HCL 1,000 MG, VIAL MATE ADAPTER 1 EACH in D5W 250 ML IV ONE (10:15)
[2020-08-15 12:00] VITALS: BP 126/67
[2020-08-15 16:00] VITALS: BP 121/61
--- NOTE | 2020-08-15 17:36 | IPNPDOC ---
Date Seen The patient was seen on 08/15/20. Progress Note SUBJECTIVE: WBC incr to 20K despite being on Vancomycin, cefepime. Sputum culture, UA, repeat blood cultures ordered. Per PT/nursing she is close to how she was in ARU, cooperating and following commands. She is AAOx3 but at times can be confused for me.MRSA +. She denies chest pain, shortness of breath. OBJECTIVE: PHYSICAL EXAM: VITAL SIGNS: Please see below GENERAL: Lying in bed, in NAD, AAOx3 but at times pleasantly confused HEENT: AT/NC, moist mucus membranes. PERRLA, EOM intact NECK: symmetrical, no JVD LUNGS: CTAB, no w/r/r HEART: S1S2 + no M/R/g ABDOMEN: Soft, nontender, obese, no masses. EXTREMITIES: Trace peripheral edema. NEURO: No focal deficits, CN 2-12 intact LABORATORY: Please see below MICROBIOLOGY: MRSA + Blood cultures 08/13/20: NG x 2 sets F/u repeat BCx, UA, sputum cx A/P: HCAP, resolved sepsis -WBC worsened to 20K despite Vancomycin, cefepime -Micro above -F/u repeat BCx, sputum culture if able to produce it -UTI as source of infection so UA pending to be obtained. -Daily CBC, c/w abx Metabolic encephalopathy likely 2/2 to HCAP, sepsis- improving -Currently AAOx3; however, slow to respond at times, not overtly confused;however. -Per PT who is familiar with patient in ARU, this is how she was over there as well -Treatment of HCAP above -Goal is to get back to ARU when medically improved. Dysphagia -Swallowing evaluation recommended Level two, nectar thickened liquids Hypertension, well controlled on current regimen. -Barium swallow neg for aspiration HLD -C/w statin Recent CVA -C/w statin, Not on ASA or plavix -PT/OT DM type II -ISS, FS AC/HS, hypoglycemic protocol HTN -Stable DVT px -Enoxaparin DISPOSITION: When medically improved, goal is ARU again. PT/OT following. VS, I&O, 24H, Fishbone Vital Signs/I&O Vital Signs Date Time Temp Pulse Resp B/P (MAP) Pulse Ox O2 Delivery O2 Flow Rate FiO2 08/15/20 16:00 96.2 70 18 121/61 (81) 96 Nasal Cannula 2.0 I&O- Last 24 Hours up to 6 AM 08/15/20 06:00 Intake Total 890 ml Output Total 300 ml Balance 590 ml Laboratory Data 24H LABS Laboratory Tests 2 08/14/20 21:18: Bedside Glucose (Misc Panel) 165H 08/15/20 06:56: Bedside Glucose (Misc Panel) 131H 08/15/20 07:46: Nucleated Red Blood Cells % (auto) 0.0, Anion Gap 9, Glomerular Filtration Rate 56.2, Calcium Level 8.7L, Vancomycin Level Trough 18.7 08/15/20 08:13: Methicillin-Resist S.aureus DNA PCR DETECTEDA 08/15/20 12:05: Bedside Glucose (Misc Panel) 130H 08/15/20 16:22: Bedside Glucose (Misc Panel) 126H CBC/BMP Laboratory Tests 08/15/20 07:46 Microbiology Microbiology 08/13/20 Blood Culture - Preliminary, Resulted No growth after 24 hours . All specim... 08/13/20 Blood Culture - Preliminary, Resulted No growth after 24 hours . All specim... 08/13/20 Respiratory Virus Panel (PCR) (HUGO) - Final, Complete Current Medications Current Medications Medications (Trade) Dose Ordered Sig/Parviz Route PRN Reason Start Time Stop Time Status Last Admin Dose Admin Al Hydrox/Mg Hydrox/Simethicone (Mylanta) 30 ml DAILY PRN PO DYSPEPSIA 08/13/20 22:00 Amlodipine Besylate (Norvasc) 10 mg DAILY PO 08/14/20 09:00 08/15/20 08:11 Atorvastatin Calcium (Lipitor) 40 mg QHS PO 08/14/20 21:00 08/14/20 20:23 Atorvastatin Calcium (Lipitor) 80 mg QHS PO 08/14/20 21:00 08/14/20 08:58 DC Budesonide/ Formoterol Fumarate (Symbicort 80/ 4.5mcg) 2 puff RBID INH 08/14/20 08:00 08/15/20 07:46 Cefepime HCl 2 gm/ Dextrose 50 ml @ 100 mls/hr Q12H IV 08/14/20 00:00 08/15/20 13:16 Dextrose (Dextrose 50%) 25 ml ASDIRECTED PRN IV SEE LABEL COMMENTS 08/14/20 01:15 08/14/20 10:59 DC Dextrose (Dextrose 50%) 25 ml ASDIRECTED PRN IV SEE LABEL COMMENTS 08/14/20 11:00 Docusate Sodium (Colace) 100 mg BID PO 08/14/20 09:00 08/15/20 08:11 Enoxaparin Sodium (Lovenox) 40 mg DAILY SC 08/14/20 09:00 08/15/20 08:10 Glucagon (Glucagon) 1 mg ASDIRECTED PRN SC SEE LABEL COMMENTS 08/14/20 01:15 08/14/20 10:59 DC Glucagon (Glucagon) 1 mg ASDIRECTED PRN SC SEE LABEL COMMENTS 08/14/20 11:00 Glucose (Glucose) 16 GM ASDIRECTED PRN PO SEE LABEL COMMENTS 08/14/20 01:15 08/14/20 10:59 DC Glucose (Glucose) 16 GM ASDIRECTED PRN PO SEE LABEL COMMENTS 08/14/20 11:00 Home Med (Med Rec Complete!) ASDIRECTED XX 08/13/20 23:45 08/13/20 23:37 DC Hydralazine HCl (Apresoline) 20 mg TID PO 08/14/20 09:00 08/15/20 16:59 Insulin Human Lispro (HumaLOG INSULIN) SEE PROTOCOL TABLE AC AR 08/14/20 12:00 08/15/20 16:59 Insulin Human Lispro (HumaLOG INSULIN) SEE PROTOCOL TABLE Q6H AR 08/14/20 00:00 08/14/20 10:59 DC 08/14/20 05:51 Insulin Human Lispro (HumaLOG INSULIN) SEE PROTOCOL TABLE QHS AR 08/14/20 21:00 Lisinopril (Prinivil) 10 mg DAILY PO 08/14/20 09:00 08/15/20 08:10 Magnesium Hydroxide (Milk Of Magnesia) 30 ml DAILY PRN PO CONSTIPATION 08/13/20 22:00 Tiotropium [place] (Spiriva Handihaler) 1 inhalation DAILY@08 INH 08/14/20 08:00 08/15/20 07:46 Vancomycin HCl 750 mg/IV Miscellaneous Supplies 1 each/ Dextrose 275 ml @ 275 mls/hr Q18H IV 08/14/20 15:00 08/15/20 11:00 DC 08/15/20 09:43 Vancomycin HCl 750 mg/IV Miscellaneous Supplies 1 each/ Dextrose 275 ml @ 275 mls/hr Q18H IV 08/14/20 16:00 08/15/20 09:59 DC 08/14/20 16:56 Vancomycin HCl 750 mg/IV Miscellaneous Supplies 1 each/ Dextrose 275 ml @ 275 mls/hr Q24H IV 08/16/20 11:00 Vancomycin HCl 1000 mg/IV Miscellaneous Supplies 1 each/ Dextrose 270 ml @ 270 mls/hr Q12H IV 08/13/20 23:15 08/13/20 23:43 DC Vancomycin HCl 1000 mg/IV Miscellaneous Supplies 1 each/ Dextrose 270 ml @ 270 mls/hr Q24H IV 08/16/20 10:00 Allergies Coded Allergies: Sulfa (Sulfonamide Antibiotics) (Verified Adverse Reaction, Mild, STOMACH UPSET, 05/07/20) Pat Patel MD Aug 15, 2020 17:36
[2020-08-15 20:00] VITALS: BP 113/58
[2020-08-15] MEDS: ATORVASTATIN 20 MG TAB PO SCH (20:29)
[2020-08-15] MEDS ORDERED: traZODone 100 MG TAB PO SCH (21:00)
[2020-08-16] VITALS: BP 118/63
[2020-08-16] MEDS: CEFEPIME HCL 2 GM in D5W MINI-BAG PLUS 50 ML IV SCH ×2 (00:21→12:49)
[2020-08-16 04:00] VITALS: BP 125/72
[2020-08-16 06:06] LABS: HEMATOCRIT 43.5 % (36.0-47.0); HEMOGLOBIN 13.6 g/dl (12.0-15.5); MEAN CORPUSCULAR HEMOGLOBIN 29.6 pg (27.0-33.0); MEAN CORPUSCULAR HGB CONC 31.3 g/dl (32.0-36.5); MEAN CORPUSCULAR VOLUME 94.8 fl (80.0-96.0); PLATELET COUNT, AUTOMATED 379 10^3/uL (150-450); RED BLOOD COUNT 4.59 10^6/uL (4.00-5.40); WHITE BLOOD COUNT 12.9 10^3/uL (4.0-10.0)
[2020-08-16 06:31] LABS: CALCIUM LEVEL 8.9 MG/DL (8.8-10.2); CREATININE FOR GFR 1.04 MG/DL (0.55-1.30); GLOMERULAR FILTRATION RATE 53.7 (>32); POTASSIUM SERUM 4.2 MEQ/L (3.5-5.1)
[2020-08-16 07:18] VITALS: BP 130/60
[2020-08-16] MEDS: TIOTROPIUM INHALER/CAPSULE (SPIRIVA) INH SCH (07:50)
[2020-08-16] MEDS: SYMBICORT 80/4.5MCG INHALER 6GM INH SCH (07:50)
[2020-08-16] MEDS: HumaLOG INSULIN (NovoLOG) PER UNIT SC SCH ×2 (08:12→12:49)
[2020-08-16] MEDS: ENOXAPARIN 40MG/0.4ML SYRINGE (J1650 PER 10MG) SC SCH (08:12)
[2020-08-16 08:13] VITALS: BP 130/60
[2020-08-16] MEDS: **hydrALAZINE** 10 MG TAB PO SCH (08:13)
[2020-08-16] MEDS: DOCUSATE SODIUM 100MG CAPSULE PO SCH (08:13)
[2020-08-16] MEDS ORDERED: TIOT18INH INH (09:56)
[2020-08-16] MEDS ORDERED: CEFE2INJ2 IV (09:56)
[2020-08-16] MEDS ORDERED: VANC1INJ39 IV (09:56)
[2020-08-16] MEDS ORDERED: HYDR10TAB PO (09:56)
[2020-08-16] MEDS ORDERED: MYLASSUD PO (09:56)
[2020-08-16] MEDS ORDERED: LISI10TA22 PO (09:56)
[2020-08-16] MEDS ORDERED: DOK1CAP7 PO (09:56)
[2020-08-16] MEDS ORDERED: ATOR1TAB21 PO (09:56)
[2020-08-16] MEDS ORDERED: SYMB80INH INH (09:56)
[2020-08-16] MEDS ORDERED: VANCOMYCIN HCL 1,000 MG, VIAL MATE ADAPTER 1 EACH in D5W 250 ML IV SCH (10:00)
[2020-08-16] MEDS ORDERED: VANC750P8 IV (10:00)
[2020-08-16] MEDS ORDERED: VANCOMYCIN HCL 750 MG, VIAL MATE ADAPTER 1 EACH in D5W 250 ML IV SCH (11:00)
[2020-08-16 11:40] VITALS: BP 129/77
--- NOTE | 2020-08-16 18:56 | DS.PDOC ---
Discharge Summary General Date of Admission Aug 13, 2020 at 21:58 Date of Discharge 08/16/20 Attending Physician: Pat Patel MD Discharge Summary HISTORY OF PRESENT ILLNESS: 84 yo F with a PMHx admitted to [facility] with an acute infarct of L basal ganglia (1.6 cm), and treated for suspected aspiration pneumonia, was transfered to ARU on 08/07/20. On 08/13/20 became more lethargic and altered. Suspected worsening of pneumonia (possibly aspiration), was started on IV doxycycline. Blood cultures were sent, along with atypical antigen lab tests. Patient became unresponsive to verbal or tactile stimuli on the evening on 08/13/20 and responded only to painful stimuli. Vital signs were stable. Patient was subsequently transfered to PCU at [facility] under hospitalist service for management of suspected sepsis secondary to pneumonia. HOSPITAL COURSE: On arrival to PCU, vitals were, T 95.0, HR 78, RR 20, BP 128/79, SpO2 97% on RA. Septic workup initiated. Patient started on IV vancomycin and cefepime. Blood cultures, LA, trop were sent. ABG showed pH 7.329, pCO2 46.6, pO2 103.3, HCO3 24.0. Stat non contrast CT head showed no acute CVA or hemorrhage. CXR indicated a L lower lobe infiltrate. She was evaluated by speech therapy who recommended barium swallow which was neg for aspiration. WBC incr to 20K despite being on Vancomycin, cefepime. Sputum culture, repeat blood cultures ordered- all neg. UA +, uCX pending. Per PT/nursing she is close to how she was in ARU, cooperating a nd following commands. She is AAOx3 but at times can be confused for me. MRSA +. She denies chest pain, shortness of breath. On 08/16/20, WBC much improved to 12K, case discussed with attending in ARU who is agreeable to take patient back with IV abx to cover HCAP, UTI. At time of discharge, patient had no acute complaints. PAST MEDICAL HISTORY: HCAP, recent diagnosis L basal ganglia CVA HTN GERD/ Gastric ulcer/ erosive esophagitis COPD Morbid obesity H/O alcohol abuse Possible TERESE Hiatal Hernia Urinary incontinence PAST SURGICAL HISTORY: Hysterectomy. Appendectomy. Tubal ligation. Hiatal hernia repair. Cystourethroscopy with macroplastiq urethral injection. SOCIAL HISTORY: no hx of smoking hx of etoh abuse no hx of illicits PHYSICAL EXAM: VITAL SIGNS: Please see below GENERAL: Lying in bed, in NAD, AAOx3 but at times pleasantly confused HEENT: AT/NC, moist mucus membranes. PERRLA, EOM intact NECK: symmetrical, no JVD LUNGS: CTAB, no w/r/r HEART: S1S2 + no M/R/g ABDOMEN: Soft, nontender, obese, no masses. EXTREMITIES: Trace peripheral edema. NEURO: No focal deficits, CN 2-12 intact LABORATORY: Please see below MICROBIOLOGY: MRSA + Blood cultures 08/13/20: NG x 2 sets Repeat BCx NG at 24 H Sputum cx unable to be obtained UA +, UCx pending A/P: HCAP, resolved sepsis -WBC improved to 12K on Vancomycin, cefepime -Micro above -Unable to obtain sputum cx -C/w abx for total of 7-10 days UTI -UA +, UCx pending -Recommend closely following up sensitivities to help tailor abx Metabolic encephalopathy likely /2 to HCAP, sepsis- improving -Currently AAOx3; however, slow to respond at times, not overtly confused;however. -Per PT/ARU provider who are familiar with patient in ARU, this is how she was over there as well -Treatment of HCAP, UTI above Dysphagia -Swallowing evaluation done -Barium swallow neg for aspiration HLD -C/w statin Recent CVA -C/w statin, Not on ASA or plavix -PT/OT DM type II -ISS, FS AC/HS, hypoglycemic protocol HTN -Stable DISPOSITION: Discharged today to ARU with IV Abx for HCAP, UTI. TIME SPENT ON DISCHARGE: 35 minutes. Vital Signs/I&Os Vital Signs Date Time Temp Pulse Resp B/P (MAP) Pulse Ox O2 Delivery O2 Flow Rate FiO2 08/16/20 12:00 2.0 08/16/20 11:40 97.0 84 18 129/77 (94) 97 Nasal Cannula I&O- Last 24 Hours up to 6 AM 08/16/20 06:00 Intake Total 770 ml Output Total 600 ml Balance 170 ml Laboratory Data Labs 24H Laboratory Tests 2 08/15/20 21:12: Bedside Glucose (Misc Panel) 101 08/16/20 05:34: Nucleated Red Blood Cells % (auto) 0.0, Anion Gap 7L, Glomerular Filtration Rate 53.7, Calcium Level 8.9 08/16/20 09:04: Vancomycin Level Trough 19.1 08/16/20 11:44: Bedside Glucose (Misc Panel) 127H CBC/BMP Laboratory Tests 08/16/20 05:34 FSBS Laboratory Tests Test 08/15/20 21:12 08/16/20 11:44 Range/Units Bedside Glucose (Misc Panel) 101 127 83-110 MG/DL Microbiology Microbiology 08/15/20 Blood Culture - Preliminary, Resulted No growth after 24 hours . All specim... 08/15/20 Blood Culture - Preliminary, Resulted No growth after 24 hours . All specim... 08/15/20 Urine Culture, Received Pending 08/13/20 Blood Culture - Preliminary, Resulted No Growth after 48 hours. All Specime... 08/13/20 Blood Culture - Preliminary, Resulted No Growth after 48 hours. All Specime... 08/13/20 Respiratory Virus Panel (PCR) ([facility]GO) - Final, Complete Discharge Medications Scheduled Amlodipine Besylate (Amlodipine Besylate) 10 Mg Tablet, 10 MG PO DAILY, (Reported) Atorvastatin Calcium (Atorvastatin Calcium) 20 Mg Tablet, 40 MG PO QHS Budesonide/Formoterol (Symbicort 80-4.5 Mcg Inhaler) 6.9 Gm Hfa.aer.ad, 2 PUFF INH RBID Cefepime in Iso-Osm Dextrose (Cefepime 2 gm Injection) 2 Gm/100 Ml Froz.piggy, 2 GM IV Q12H Docusate Sodium (Dok) 100 Mg Capsule, 100 MG PO BID Hydralazine HCl (Hydralazine HCl) 10 Mg Tablet, 20 MG PO TID Lisinopril (Lisinopril) 10 Mg Tablet, 10 MG PO DAILY Tiotropium [place] Monohydrate (Spiriva) 18 Mcg Cap.w.dev, 1 INHALATION INH DAILY@08 Trazodone HCl (Trazodone HCl) 100 Mg Tablet, 100 MG PO QHS, (Reported) Vancomycin/0.9 % Sod Chloride (Vancomycin 1 G/200Ml-0.9% NaCl) 1 Gm/200 Ml F torrie.piggy, 1 INJ IV Q24H Vancomycin/Water For Inj (Peg) (Vancomycin 750 mg/150 ml Bag) 750 Mg/150 Ml Piggyback, 750 MG IV Q24H Scheduled PRN Aluminum/Magnesium/Simeth (Mag-Al Plus Suspension) 30 Ml Oral.susp, 30 ML PO DAILY PRN for DYSPEPSIA Allergies Coded Allergies: Sulfa (Sulfonamide Antibiotics) (Verified Adverse Reaction, Mild, STOMACH UPSET, 05/07/20) Pat Patel MD Aug 16, 2020 18:56
== END 2020-08-16 14:59 | DRG 871 ==
LOC: M PCU 21:58
PROVIDERS: ADMIT Family Medicine; ATTEND Internal Medicine
DX: A41.9 Sepsis, unspecified organism (principal); G93.41 Metabolic encephalopathy; J18.9 Pneumonia, unspecified organism; J96.02 Acute respiratory failure with hypercapnia; J44.0 Chronic obstructive pulmonary disease with (acute) lower respiratory infection; N39.0 Urinary tract infection, site not specified; I10 Essential (primary) hypertension; K21.9 Gastro-esophageal reflux disease without esophagitis; G47.33 Obstructive sleep apnea (adult) (pediatric); E66.01 Morbid (severe) obesity due to excess calories; I69.321 Dysphasia following cerebral infarction; E11.9 Type 2 diabetes mellitus without complications; Z79.899 Other long term (current) drug therapy; Z88.2 Allergy status to sulfonamides; Z68.38 Body mass index [BMI] 38.0-38.9, adult; F32.9 Major depressive disorder, single episode, unspecified

== ENCOUNTER 2020-08-16 12:36 | Inpatient (IN) | payer MEDICARE, MEDICAID ==
[~2020-08-16] VITALS: Ht 170.2 cm; Wt 109.7 kg
[~2020-08-16 12:36] MED LIST changes: +ASPI-569 PO; -ASPI81TAEC PO; +CEFE2INJ2 IV; +DOK1CAP7 PO; +FLUO10CA16 PO; +HYDR10TAB PO; +HYDR25TA PO; +LEVA12INH INH; +LISI10TA22 PO; +MYLASSUD PO; +PANT40TA29 PO; +SYMB80INH INH; +TIOT18INH INH; +VANC1INJ39 IV; +VANC750P8 IV
[2020-08-16] MEDS ORDERED: VANCOMYCIN HCL 1,750 MG in IV FLUID PLACE HOLDER 1 EA IV SCH (14:15)
[2020-08-16] MEDS ORDERED: ceFAZolin SOD 2 GM in D5W MINI-BAG PLUS 50 ML IV SCH (14:15)
--- NOTE | 2020-08-16 14:45 | HPEPDOC ---
Admin Secretary Note DATE OF ADMISSION: 08-16-20 DATE OF SERVICE: 08-16-20 TIME OF ADMISSION: Please refer to physician's admission order. SOURCE OF ADMISSION INFORMATION: [facility] record and patient CHIEF COMPLAINT: stroke HISTORY OF PRESENT ILLNESS: 84F pmh HTN, COPD, Morbid obesity, ETOH abuse, GERD with erosive esophagitis who presented to [facility] ED on 08-01-20 with altered mental status and was diagnosed with metabolic encephalopathy. CTH showed, old lacunar infarcts in the basal ganglia bilaterally, 1 on each side. There is a 5 mm low-density area in the anterior limb of the internal capsule on the left which was not clearly evident previously. This may be a more recent lacunar infarct. No acute cortical infarction is seen. There is no evidence of hemorrhage or mass and follow-up MRI showed, Acute infarct of the left basal ganglia measuring 1.6 cm. She was maintained on ASA and statin for secondary stroke prevention, ECHO bubble study was negative for [id number] shunt, however did show grade 1 diastolic dysfunction. There was concern for possible pneumonia for which she was treated with IV antibiotics and transitioned to po antibiotics then discharged to ARU on 08-08-20 where she was restarted on oral antibiotics for concern for persistent pnemuonia, then discharged back to acute care on 08-13-20 for altered mental status where she was worked up for new stroke. CTH did not show new infarct, her leukocytosis worsened and she was started on Vancomycin in addition to Cefepime with improvement in her leukocytosis with source thought to be lungs and urine. She was evaluated by therapy, noted to have mobility and ADls impairments below her prior level of function and deemed medically appropriate for discharged back to ARU on 08-16-20. REVIEW OF SYSTEMS: The following is a completed review of systems and has been reviewed. Review of systems otherwise unremarkable. PAIN: Patient self reports no pain EYES: No recent vision changes EARS, NOSE, & THROAT: + dysphagia CARDIOVASCULAR: Denies chest pain or palpitations PULMONARY: denies shortness of breath GASTROINTESTINAL: Denies constipation/diarrhea GENITOURINARY: denies dysuria MUSCULOSKELETAL:generalized weakness NEUROLOGICAL:+ aphasia HEMATOLOGICAL: denies easy bruising SKIN: denies rash PSYCHIATRIC: +confused All other review of systems found to be negative. PAST MEDICAL HISTORY: as per HPI PAST SURGICAL HISTORY: Hysterectomy, appendectomy, tubal ligation, hiatal hernia repair ALLERGIES: Please see below. MEDICATIONS: Please see below. SOCIAL HISTORY: No smoking/illicit drugs, hx of ETOH abuse DIET: level 2 PHYSICAL EXAMINATION: VITAL SIGNS: Please see below. GENERAL: Pleasant and cooperative. No acute distress. HEENT: PERRL. Extraocular movements intact. Clear conjunctiva CARDIOVASCULAR: Regular rate and rhythm. No murmurs, rubs, or gallops LUNGS: CTA ABDOMEN: Soft, nontender, nondistended. Positive bowel sounds. Normal active bowel sounds NEUROLOGICAL: Alert and oriented times to person, place, not time, Cranial nerves II through XII grossly intact. Sensation grossly intact (-) clonus bilat EXTREMITIES: 5-\5 strength bilateral upper extremities. 5-\5 strength right lower extremity. 5-/5 strength in left lower extremity. LABORATORY DATA: Please see below. IMAGING:Imaging documentation personally reviewed by record. FUNCTIONAL STATUS: Premorbid: Modified Independent with all activities of daily life as well as mobility On Admission: Min-Total assist for dressing, bed mobility, bathing, toileting, ambulation GOALS: Contact guard-Supervision for ambulation household distances, dressing, toileting, bathing ASSESSMENT:84-year-old F with past medical history of HTN and COPD who presents status post left basal ganglia stroke PLAN: 1. Rehab- PT/OT advance mobility and ADLs, conservation techniques, stretch/strengthen/maintain ROM all 4 limbs -PARQUETRY LAYER- c/u treatment for dysphagia and cognition 2. Neuro- s/p left basal ganglia infarct, c/u ASA and statin for secondary stroke prevention -low dose Prozac for motor recovery -hx of ETOH abuse, thiamine for cognitive assistance 3. CArdiac- hx of HTN-c/u lisinopril, Amlodipine, and hydralazine with holding parameters -grade 1 diastolic CHF, fluid restrict, daily weights -hld- c/u statin -medicine consulted to assist in overall management 4. Resp- hx of COPD c/u supplemental 02 goal 88-92% c/u Cefepime and Vanco for PNA, leukocytosis improved since initaiton of MRSA coverage, c/u Duonebs, symbicort, and spiriva, -possible TERESE, nocturnal 02 5. DVT ppx- heparin, teds 6. GI ppx- protonix 7. Pain- Tylenol prn 8. Psych- insomnia- trazodone 9. Dispo- tbd POST ADMISSION PHYSICIAN EVALUATION: Medical and functional status: Description of medical status, medical assessment: As above. Rehabilitation diagnosis and current and prior cold morbid medical conditions as above. Risk of complications and plans to mitigate them as above. Description of functional status current status is as above. Prior status as above. Status compared to preadmission: There are no clinically significant differences between the patient's current status and the information described on the preadmission screening document. Treatment plan anticipated: Treatment plan is as described above. Required disciplines including physical therapy, occupational therapy, others as noted above. Intensity of services: 3 hours a day, 6 days a week. Special considerations: There are no specific special or safety considerations that would likely preclude immediate implementation of an intensive rehabilitation program or subsequently influence the plan of care. ATTESTATION: Considering all the information above, it is my best judgment that this patient requires intensive rehabilitation therapy as described above and an inpatient hospital environment due to the complexity of nursing, medical, and rehabilitation needs required by the patient. Furthermore, this patient can reasonably be expected to participate in an benefit from an inpatient rehabilitation stay with an interdisciplinary team approach to the delivery of rehabilitation care under the direction and supervision of rehabilitation physician. PROGNOSIS: good ESTIMATED LENGTH OF STAY:18-21 days. PROJECTED DISCHARGE DESTINATION: Home with family support and any durable medical equipment required to increase functional safety and mobility. TIME SPENT COUNSELING AND COORDINATING INITIAL CARE: Greater than 70 minutes. Vital Signs Vital Signs Date Time Temp Pulse Resp B/P (MAP) Pulse Ox O2 Delivery O2 Flow Rate FiO2 08/16/20 15:05 98.4 73 18 133/78 (96) 73 Nasal Cannula 2.0 Home Medications Scheduled Amlodipine Besylate (Amlodipine Besylate) 10 Mg Tablet, 10 MG PO DAILY, (Reported) Atorvastatin Calcium (Atorvastatin Calcium) 20 Mg Tablet, 40 MG PO QHS Budesonide/Formoterol (Symbicort 80-4.5 Mcg Inhaler) 6.9 Gm Hfa.aer.ad, 2 PUFF INH RBID Cefepime in Iso-Osm Dextrose (Cefepime 2 gm Injection) 2 Gm/100 Ml Froz.piggy, 2 GM IV Q12H Docusate Sodium (Dok) 100 Mg Capsule, 100 MG PO BID Hydralazine HCl (Hydralazine HCl) 10 Mg Tablet, 20 MG PO TID Lisinopril (Lisinopril) 10 Mg Tablet, 10 MG PO DAILY Tiotropium [place] Monohydrate (Spiriva) 18 Mcg Cap.w.dev, 1 INHALATION INH DAILY@08 Trazodone HCl (Trazodone HCl) 100 Mg Tablet, 100 MG PO QHS, (Reported) Vancomycin/0.9 % Sod Chloride (Vancomycin 1 G/200Ml-0.9% NaCl) 1 Gm/200 Ml Froz.piggy, 1 INJ IV Q24H Vancomycin/Water For Inj (Peg) (Vancomycin 750 mg/150 ml Bag) 750 Mg/150 Ml Piggyback, 750 MG IV Q24H Scheduled PRN Aluminum/Magnesium/Simeth (Mag-Al Plus Suspension) 30 Ml Oral.susp, 30 ML PO DAILY PRN for DYSPEPSIA Allergies Coded Allergies: Sulfa (Sulfonamide Antibiotics) (Verified Adverse Reaction, Mild, STOMACH UPSET, 05/07/20) A-FIB/CHADSVASC A-FIB History Current/History of A-Fib/PAF?: No Current PO Anticoag Therapy: No MARGIE CARRERA MD Aug 16, 2020 14:45
[2020-08-16 15:05] VITALS: BP 133/78
--- OUTSIDE RECORDS SUMMARY | 2020-08-16 15:14 | CCD ---
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 If you continue you may have access to information: Regarding HIV / AIDS; Provided by facilities licensed or operated by the [facility] Office of Mental Health; or Provided by the [facility] Office for People With Developmental Disabilities. If such information is present, then the following [facility] mandated warning applies: This information has [...] DOMINGA [facility] 10:15:00 AM EST [facility] ([facility] Outpatient Attender: DOMINGA [facility] 09:00:00 AM EDT [facility] ([facility] Immunizations Vaccine Date Status [...] 02/21/2020 12:00:00 AM EDT ORAL active [facility] ([facility] 100 mg 02/21/2020 12:00:00 [...] A WEEK SOLD: 09/05/2019 [facility] Ergocalciferol [id number] UNT Oral Capsule [Drisdol] Drisdol 08/31/2019 12:00:00 AM EDT ORAL active [facility] ([facility] 50 mg 07/29/2019 12:00:00 [...] to guevara Policy Guevara Plan Information EMEDNY [id number] SP [id number] [facility] [id number] SP [id number] MEDICARE [id number] SP [id number] [employer] PPO [id number] SP [id number] HU[employer] GOLD [id number] SP [id number] MEDICARE [id number] SP [id number] HUMANA HMO [id number] SP [id number] HUMANA HMO [id number] SP [id number] Medicaid [facility] Part B Self Medicare Rust Medicare Primary Self MEDICARE [id number] SP [id number] A MEDICAID [id number] SP [id number] MEDICAID -O/P EMERGENCY ROOM [id number] [facility] [place] MEDICARE -O/P [id number] 18 [id number] MEDICARE [id number] SP [id number] A Results ID Date Data Source [id number] 08/13/2020 11:27:00 PM EST [facility] Name Value Range Interpretation Code Description Data Yumi rce(s) Supporting Document(s) SARS-CoV-2 (COVID 19) NEGATIVE - SARS-CoV-2 (COVID19) [facility] This lab was ordered by [facility] a nd reported by [facility]. ID Date Data Source [id number] 08/01/2020 12:02:00 PM EST [facility] Name Value Range Interpretation Code Description Data Yumi rce(s) Supporting Document(s) SARS-CoV-2 (COVID 19) NEGATIVE - SARS-CoV-2 (COVID19) [facility] This lab was ordered by [facility] a nd reported by [facility]. ID Date Data Source [id number] 08/01/2020 10:59:00 AM EST [facility] Name Value Range Interpretation Code Description Data Yumi rce(s) Supporting Document(s) SARS COVID ANTIGEN NEGATIVE [facility] This lab was ordered by [facility] nd reported by [facility]. ID Date Data Source [id number] 05/09/2020 05:38:00 AM EST [facility] Name Value Range Interpretation Code Description Data Yumi rce(s) Supporting Document(s) Glucose [Mass/volume] in Serum or Plasma Laboratory test result 70-100 Above high normal [facility] ([facility] Creatinine For GFR Laboratory test result 0.55-1.30 [facility] ([facility] Blood Urea Nitrogen Laboratory test result 7-18 [facility] ([facility] Glomerular Filtration Rate Laboratory test result [facility] ([facility] <content>Units are mL/min/1.73 m2 </con tent>
<content> </content>
<content>Chronic Kidney Disease Staging per NKF: </content>
<content> </content>
<content>Stage I & II GFR >=60 Normal to Mildly Decreased </content>
<content>Stage III GFR 30-59 Moderately Decreased </content>
<content>Stage IV GFR 15-29 Severely Decreased </content>
<content>Stage V GFR <15 Very Little GFR Left </content>
<content>ESRD GFR <15 on EPOXY FABRICATION SUPERVISOR</content>
<content></content> Potassium Serum Laboratory test result 3.5-5.1 [facility] ([facility] Sodium Level Laboratory test result 136-145 [facility] ([facility] Anion Gap Laboratory test result 8-16 Below low normal [facility] ([facility] Chloride Level Laboratory test result 98-107 [facility] ([facility] Carbon Dioxide Level Laboratory test result 21-32 [facility] ([facility] Calcium Level Laboratory test result 8.8-10.2 [facility] ([facility] ID Date Data Source [id number] 05/08/2020 02:22:00 PM EST [facility] ([facility] Name Value Range Interpretation Code Description Data Yumi rce(s) Supporting Document(s) Laboratory test finding (navigational concept) 0.19 [facility] ([facility] <content>SEPSIS INTERPRETATION OF [...] strongly encouraged.</content>
<content></content> ID Date Data Source [id number] 05/08/2020 08:03:00 AM EST [facility] ([facility] Name Value Range Interpretation Code Description Data Yumi rce(s) Supporting Document(s) Erythrocytes [#/area] in Urine sediment by Microscopy high power field Laboratory test result 0-3 Above high normal [facility] ([facility] Squamous Epithelial Cell Urine Laboratory test result [facility] ([facility] Laboratory test finding (navigational concept) Laboratory test r esult 0-3 Above high normal [facility] ([facility] ) Laboratory test finding (navigational concept) Laboratory test r esult Above high normal [facility] ([facility] ) Bacteria, Urine Laboratory test result Above high normal [facility] ([facility] Hyaline Cast, Urine Laboratory test result 0-1 [facility] ([facility] Amorphous Sediment, Urine Laboratory test result Above hig h normal [facility] ([facility] Microscopic Exam Laboratory test result [facility] ([facility] Mucus, Urine Laboratory test result Above high normal [facility] ([facility] ID Date Data Source [id number] 05/08/2020 07:42:00 AM EST [facility] ([facility] Name Value Range Interpretation Code Description Data Yumi rce(s) Supporting Document(s) Laboratory test finding (navigational concept) Laboratory test r esult Above high normal [facility] ([facility] ) Laboratory test finding (navigational concept) Laboratory test resu lt 5.0-7.0 [facility] ([facility] Laboratory test finding (navigational concept) Laboratory test r esult Above high normal [facility] ([facility] ) Laboratory test finding (navigational concept) Laboratory test result [facility] ([facility] Laboratory test finding (navigational concept) 1.005 1.002-1.035 [facility] ([facility] Ketone, Urine Manual Laboratory test result [facility] ([facility] Glucose, Urine (Ua) Manual Laboratory test result [facility] ([facility] Urobilinogen, Urine Manual Laboratory test result [facility] ([facility] Laboratory test finding (navigational concept) Laboratory test r esult Above high normal [facility] ([facility] ) Laboratory test finding (navigational concept) Laboratory test r esult Above high normal [facility] ([facility] ) Bilirubin, Urine Manual Laboratory test result [facility] ([facility] Laboratory test finding (navigational concept) Laboratory test r esult Above high normal [facility] ([facility] ) ID Date Data Source [id number] 05/08/2020 06:16:00 AM EST [facility] ([facility] Name Value Range Interpretation Code Description Data Yumi rce(s) Supporting Document(s) Glucose [Mass/volume] in Serum or Plasma Laboratory test result 70-100 Above high normal [facility] ([facility] ) Blood Urea Nitrogen Laboratory test result 7-18 [facility] ([facility] Creatinine For GFR Laboratory test result 0.55-1.30 [facility] ([facility] Sodium Level Laboratory test result 136-145 [facility] ([facility] Glomerular Filtration Rate Laboratory test result [facility] ([facility] <content>Units are mL/min/1.73 m2 </con tent>
<content> </content>
<content>Chronic Kidney Disease Staging per NKF: </content>
<content> </content>
<content>Stage I & II GFR >=60 Normal to Mildly Decreased </content>
<content>Stage III GFR 30-59 Moderately Decreased </content>
<content>Stage IV GFR 15-29 Severely Decreased </content>
<content>Stage V GFR <15 Very Little GFR Left </content>
<content>ESRD GFR <15 on EPOXY FABRICATION SUPERVISOR</content>
<content></content> Carbon Dioxide Level Laboratory test result 21-32 [facility] ([facility] Anion Gap Laboratory test result 8-16 Below low normal [facility] ([facility] Chloride Level Laboratory test result 98-107 [facility] ([facility] Potassium Serum Laboratory test result 3.5-5.1 [facility] ([facility] Calcium Level Laboratory test result 8.8-10.2 [facility] ([facility] ID Date Data Source [id number] 05/08/2020 05:57:00 AM EST [facility] ([facility] Name Value Range [...] count Lab oratory test result 36.0-47.0 [facility] ([facility] Mean Corpuscular Volume Laboratory test result 80.0-96.0 [facility] ([facility] Hemoglobin [Mass/volume] in Blood Laboratory test result 12.0-15.5 [facility] ([facility] Mean Corpuscular Hemoglobin Laboratory test result 27.0-33.0 [facility] ([facility] Mean Corpuscular HGB Conc Laboratory test result 32.0-36.5 Below low normal [facility] ([facility] Red Cell Distribution Width Laboratory test result 11.5-14.5 [facility] ([facility] Platelet Count, Automated Laboratory test result 150-450 [facility] ([facility] Neutrophils % Laboratory test result 36.0-66.0 Above high normal [facility] ([facility] Monocytes/100 leukocytes in Blood by Automated count Laborat ory test result 0.0-5.0 Above high normal [facility] ([facility] Lymph % Laboratory test result 24.0-44.0 Below low normal [facility] ([facility] Eos % Laboratory test result 0.0-3.0 [facility] ([facility] Nucleated Red Blood Cell % Laboratory test result 0-0 [facility] ([facility] Baso % Laboratory test result 0.0-1.0 [facility] ([facility] Immature Granulocyte % Laboratory test result 0-3.0 [facility] ([facility] Andrew # Laboratory test result 0.0-0.8 Above high normal [facility] ([facility] Neutrophils # Laboratory test result 1.5-8.5 Above high normal [facility] ([facility] Lymph # Laboratory test result 1.5-5.0 Below low normal [facility] ([facility] Baso # Laboratory test result 0.0-0.2 [facility] ([facility] Eos # Laboratory test result 0.0-0.5 [facility] ([facility] ID Date Data Source [id number] 05/07/2020 10:32:00 PM EST [facility] ([facility] Name Value Range Interpretation Code Description Data Yumi rce(s) Supporting Document(s) CPK Creatine Phosphokinase Laboratory test result 26-192 [facility] ([facility] CK-MB Value Mass Laboratory test result [facility] MB/CK Relative Index 3.82 [facility] ([facility] <content>DIAGNOSIS CRITERIA </content>< br/><content> MMB ng/ml Relative Index (RI) </content>
<content>NON-AMI < or = 5 N/A </content>
<content>SANTACRUZ ZONE > 5 < or = 4 </content>
<content>AMI > 5 > 4</content>
<content></content> Troponin I.cardiac [Mass/volume] in Serum or Plasma Laboratory test result [facility] ([facility] <content>Troponin I Reference Interval f or Siemens [place] LOCI: </content>
<content> </content>
<content> 99th Percentile= [...] Myocardial Injury.</content>
<content></content> ID Date Data Source [id number] 05/07/2020 04:25:00 PM EST [facility] ([facility] Name Value Range Interpretation Code Description Data Yumi rce(s) Supporting Document(s) CK-MB Value Mass Laboratory test result [facility] ([facility] CPK Creatine Phosphokinase Laboratory test result 26-192 [facility] ([facility] MB/CK Relative Index 3.44 [facility] ([facility] <content>DIAGNOSIS CRITERIA </content>< br/><content> MMB ng/ml Relative Index (RI) </content>
<content>NON-AMI < or = 5 N/A </content>
<content>SANTACRUZ ZONE > 5 < or = 4 </content>
<content>AMI > 5 > 4</content>
<content></content> Troponin I.cardiac [Mass/volume] in Serum or Plasma Laboratory test result [facility] ([facility] <content>Troponin I Reference Interval f or Siemens [place] LOCI: </content>
<content> </content>
<content> 99th Percentile= [...] Myocardial Injury.</content>
<content></content> ID Date Data Source [id number] 05/07/2020 02:37:00 PM EST [facility] ([facility] Name Value Range Interpretation Code Description Data Yumi rce(s) Supporting Document(s) NT-Pro BNP Laboratory test result [facility] ([facility] ID Date Data Source [id number] 05/07/2020 02:14:00 PM EST [facility] ([facility] Name Value Range Interpretation Code Description Data Yumi rce(s) Supporting Document(s) Laboratory test finding (navigational concept) Laboratory test resu lt 0.4-2.0 [facility] ([facility] ID Date Data Source [id number] 05/07/2020 12:27:00 PM EST [facility] ([facility] Name Value Range Interpretation Code Description Data Yumi rce(s) Supporting Document(s) Alanine aminotransferase [Enzymatic activity/volume] i n Serum or Plasma Laboratory test result 12-78 [facility] Aspartate aminotransferase [Enzymatic activity/volume] in Serum or Plasma Laboratory test result 7-37 [facility] ([facility] Alkaline phosphatase [Enzymatic activity/volume] in Se rum or Plasma Laboratory test result 45-117 [facility] Bilirubin.conjugated [Mass/volume] in Serum or Plasma Labora tory test result 0.0-0.2 [facility] ([facility] Bilirubin.total [Mass/volume] in Serum or Plasma Laboratory test result 0.2-1.0 [facility] ([facility] ) Albumin [Mass/volume] in Serum or Plasma Laboratory test result 3.2-5.2 Below low normal [facility] ([facility] ) Total Protein Laboratory test result 6.4-8.2 [facility] ([facility] Albumin/Globulin Ratio 0.6 1.2-2.2 Below low normal [facility] ([facility] ID Date Data Source [id number] 05/07/2020 11:56:00 AM EST [facility] ([facility] Name Value Range Interpretation Code Description Data Yumi rce(s) Supporting Document(s) Leukocytes [#/volume] in Blood by Automated count Laboratory test result 4.0-10.0 Above high normal [facility] Erythrocytes [#/volume] in Blood by Automated count Laborato ry test result 4.00-5.40 [facility] ([facility] Mean Corpuscular Volume Laboratory test result 80.0-96.0 [facility] ([facility] Hematocrit [Volume Fraction] of Blood by Automated count Lab oratory test result 36.0-47.0 [facility] ([facility] Hemoglobin [Mass/volume] in Blood Laboratory test result 12.0-15.5 [facility] ([facility] Platelet Count, Automated Laboratory test result 150-450 Above hig h normal [facility] ([facility] Mean Corpuscular HGB Conc Laboratory test result 32.0-36.5 Below low normal [facility] ([facility] Red Cell Distribution Width Laboratory test result 11.5-14.5 [facility] ([facility] Mean Corpuscular Hemoglobin Laboratory test result 27.0-33.0 [facility] ([facility] Lymph % Laboratory test result 24.0-44.0 Below low normal [facility] ([facility] Neutrophils % Laboratory test result 36.0-66.0 Above high normal [facility] ([facility] Monocytes/100 leukocytes in Blood by Automated count Laborat ory test result 0.0-5.0 Above high normal [facility] ([facility] Immature Granulocyte % Laboratory test result 0-3.0 [facility] ([facility] Eos % Laboratory test result 0.0-3.0 [facility] ([facility] Baso % Laboratory test result 0.0-1.0 [facility] ([facility] Nucleated Red Blood Cell % Laboratory test result 0-0 [facility] ([facility] Lymph # Laboratory test result 1.5-5.0 Below low normal [facility] ([facility] Andrew # Laboratory test result 0.0-0.8 Above high normal [facility] ([facility] Neutrophils # Laboratory test result 1.5-8.5 Above high normal [facility] ([facility] Eos # Laboratory test result 0.0-0.5 [facility] ([facility] Baso # Laboratory test result 0.0-0.2 [facility] ([facility] ID Date Data Source [id number] 05/07/2020 11:51:00 AM EST [facility] ([facility] Name Value Range Interpretation Code Description Data Yumi rce(s) Supporting Document(s) Laboratory test finding (navigational concept) Laboratory test r esult 38.0-51.0 [facility] ([facility] Laboratory test finding (navigational concept) Laboratory test r esult 70-105 Above high normal [facility] ([facility] Laboratory test finding (navigational concept) Laboratory test resu lt 3.5-5.1 [facility] ([facility] Laboratory test finding (navigational concept) Laboratory test resu lt 136-145 [facility] ([facility] Laboratory test finding (navigational concept) Laboratory test r esult 23.0-27.0 [facility] ([facility] ) Laboratory test finding (navigational concept) Laboratory test resu lt 98-109 [facility] ([facility] Laboratory test finding (navigational concept) Laboratory test r esult 4.5-5.3 Below low normal [facility] ([facility] ) Creatinine [Mass/volume] in Serum or Plasma Laboratory test result 0. 6-1.3 [facility] ([facility] Laboratory test finding (navigational concept) Laboratory test result 8-26 [facility] ([facility] ID Date Data Source [id number] 05/07/2020 11:51:00 AM EST [facility] ([facility] Name Value Range Interpretation Code Description Data Yumi rce(s) Supporting Document(s) Laboratory test finding (navigational concept) Laboratory test r esult 0.00-0.08 [facility] ([facility] ID Date Data Source [id number] 05/07/2020 11:45:00 AM EST [facility] ([facility] Name Value Range Interpretation Code Description Data Yumi rce(s) Supporting Document(s) Laboratory test finding (navigational concept) Laboratory test result [facility] ([facility] This lab was ordered by [facility] a nd reported by [facility]. ID Date Data Source [id number] 02/21/2020 09:15:00 AM EDT [facility] ([facility] [...] Test not performed ID Date Data Source [id number] 02/21/2020 09:15:00 AM EDT [facility] ([facility] Name Value Range Interpretation Code Description Data Yumi rce(s) Supporting Document(s) Glucose [Mass/volume] in Serum or Plasma 132 mg/dL 65-99 Above high normal [facility] ([facility] BUN 13 mg/dL 8-27 [facility] eGFR If Africn [...] Serum or Plasma 138 mmol/L 134-144 [facility] ([facility] Potassium [Moles/volume] in Serum or Plasma 4.7 mmol/L 3.5-5.2 [facility] ([facility] Urea nitrogen/Creatinine [Mass Ratio] in Serum or Plasma 16 1 2-28 [facility] ([facility] Carbon dioxide, total [Moles/volume] in Serum or Plasma 24 mmol/L 20 -29 [facility] ([facility] Calcium [Mass/volume] in Serum or Plasma 9.7 mg/dL 8.7-10.3 [facility] ([facility] Protein [Mass/volume] in Serum or Plasma 6.9 g/dL 6.0-8.5 [facility] ([facility] Bilirubin.total [Mass/volume] in Serum or Plasma 0.3 mg/dL 0.0-1.2 [facility] ([facility] Albumin/Globulin [Mass Ratio] in Serum or Plasma 1.6 1.2-2.2 [facility] ([facility] Globulin [Mass/volume] in Serum by calculation 2.7 g/dL 1.5-4.5 [facility] ([facility] Albumin [Mass/volume] in Serum or Plasma 4.2 g/dL 3.6-4.6 [facility] ([facility] Aspartate aminotransferase [Enzymatic activity/volume] in Serum or Plasma 24 IU/L 0-40 [facility] Alanine aminotransferase [Enzymatic activity/volume] in Seru m or Plasma 23 IU/L 0-32 [facility] Alkaline phosphatase [Enzymatic activity/volume] in Serum or Plasma 96 IU/L 39-117 [facility] ID Date Data Source [id number] 02/21/2020 09:15:00 AM EDT [facility] ([facility] Name Value Range Interpretation Code Description Data Yumi rce(s) Supporting Document(s) Calcidiol [Mass/volume] in Serum or Plasma 30.6 ng/mL 30.0-100.0 [facility] ([facility] Vitamin D deficiency has been defined by the [employer] of [employer] and an Endocrine Society practice guideline as a level of serum 25-OH vitamin D less than 20 ng/mL (1,2). The Endocrine Society went on to further define vitamin D insufficiency as a level between 21 and 29 ng/mL (2). 1. IOM ([employer] of Medicine). 2010. Di etary reference intakes for calcium and D. [place]: The National Academies Press. 2. Willy MF, Daryl RAZO, Serge yan GANN, et al. Evaluation, treatment, and prevention of vitamin D deficiency: an Endocrine Society clinical practice guideline. JCEM. 2010; 96(7):1911-30. Procedure Vital Signs ID Date Data Source [id number] Name Value Range Interpretation Code Description Data Source(s) Oxygen saturation in Arterial blood by Pulse oximetry 93 % 93 % [facility] ([facility] Body mass index (BMI) [Ratio] 39.4 kg/m2 39.4 k g/m2 [facility] ([facility] [place] body weight 130 [lb_av] 130 [lb_av] [facility] ([facility] Body weight 244.00 [lb_av] 244.00 [lb_av] MEDEN T ([facility] Body height 66 [in_i] 66 [in_i] MEDRACH ([facility] 5'6" Respiratory rate 18 /min 18 /min MEDRACH ( [facility] Heart rate 106 /min 106 /min MEDRACH ([facility] Body temperature 97.3 [degF] 97.3 [degF] MEDRACH ([facility] Diastolic blood pressure 88 mm[Hg] 88 mm[Hg] MEDENT ([facility] Systolic blood pressure 156 mm[Hg] 156 mm[Hg] Chad ANSARI ([facility] Oxygen saturation in Arterial blood by Pulse oximetry 95 % 95 % LAZARO ([facility] Body mass index (BMI) [Ratio] 41.0 kg/m2 41.0 k g/m2 LAZARO ([facility] [place] body weight 130 [lb_av] 130 [lb_av] MEDEN T ([facility] Body weight 254.00 [lb_av] 254.00 [lb_av] MEDEN T ([facility] Body height 66 [in_i] 66 [in_i] LAZARO ([facility] 5'6" Respiratory rate 18 /min 18 /min LAZARO ( [facility] Heart rate 96 /min 96 /min LAZARO ([facility] Body temperature 98.2 [degF] 98.2 [degF] LAZARO ([facility] Diastolic blood pressure 88 mm[Hg] 88 mm[Hg] LAZARO ([facility] Systolic blood pressure 138 mm[Hg] 138 mm[Hg] Chad ANSARI ([facility]
[2020-08-16] MEDS: **hydrALAZINE** 10 MG TAB PO SCH ×2 (17:22→21:30)
[2020-08-16] MEDS: REMEDY PHYTOPLEX Z-GUARD PASTE 113GM TUBE (FROM STOREROOM PRODUCT) TOP SCH ×2 (17:23→21:32)
[2020-08-16 20:00] VITALS: BP 143/79
[2020-08-16] MEDS: SYMBICORT 80/4.5MCG INHALER 6GM INH SCH (20:00)
[2020-08-16] MEDS: DOCUSATE SODIUM 100MG CAPSULE PO SCH (21:00)
[2020-08-16] MEDS ORDERED: SENNA 8.6 MG TAB (SENOKOT) PO SCH (21:00)
[2020-08-16] MEDS: ATORVASTATIN 20 MG TAB PO SCH (21:30)
[2020-08-16] MEDS: traZODone 50 MG TAB PO SCH (21:30)
[2020-08-16] MEDS: HEPARIN SOD (PORCINE) 5000UNITS/ML 1ML VIAL/SYRINGE SC SCH (21:31)
[2020-08-17] MEDS: CEFEPIME HCL 2 GM in D5W MINI-BAG PLUS 50 ML IV SCH ×3 (01:49→23:55)
[2020-08-17] MEDS ORDERED: IPRATROPIUM 0.5MG/ALBUTEROL 2.5MG INH SOL UD 3ML (DUONEB) NEB PRN (05:45)
[2020-08-17] MEDS ORDERED: traZODone 50 MG TAB PO PRN (05:45)
[2020-08-17 06:35] VITALS: BP 157/81
[2020-08-17 06:35] LABS: BASO # 0.1 10^3/uL (0.0-0.2); BASO % 0.9 % (0.0-1.0); EOS # 0.2 10^3/uL (0.0-0.5); EOS % 1.9 % (0.0-3.0); HEMOGLOBIN 13.1 g/dl (12.0-15.5); LYMPH # 2.1 10^3/uL (1.5-5.0); LYMPH % 17.5 % (24.0-44.0); MEAN CORPUSCULAR HEMOGLOBIN 29.6 pg (27.0-33.0); MEAN CORPUSCULAR HGB CONC 31.2 g/dl (32.0-36.5); MEAN CORPUSCULAR VOLUME 94.8 fl (80.0-96.0); MONO % 8.4 % (2.0-8.0); NEUTROPHILS # 8.3 10^3/uL (1.5-8.5); NEUTROPHILS % 69.2 % (36.0-66.0); PLATELET COUNT, AUTOMATED 363 10^3/uL (150-450); RED BLOOD COUNT 4.43 10^6/uL (4.00-5.40); WHITE BLOOD COUNT 11.9 10^3/uL (4.0-10.0)
[2020-08-17 06:59] LABS: ALBUMIN 2.2 GM/DL (3.2-5.2); ALT/SGPT 17 U/L (12-78); BILIRUBIN,TOTAL 0.1 MG/DL (0.2-1.0); BLOOD UREA NITROGEN 26 MG/DL (7-18); CALCIUM LEVEL 8.8 MG/DL (8.8-10.2); CARBON DIOXIDE LEVEL 30 MEQ/L (21-32); CHLORIDE LEVEL 110 MEQ/L (98-107); CREATININE FOR GFR 0.94 MG/DL (0.55-1.30); GLOMERULAR FILTRATION RATE > 60.0 (>32); GLUCOSE, FASTING 108 MG/DL (70-100); POTASSIUM SERUM 3.9 MEQ/L (3.5-5.1); SODIUM LEVEL 143 MEQ/L (136-145); TOTAL PROTEIN 6.1 GM/DL (6.4-8.2)
[2020-08-17] MEDS: SYMBICORT 80/4.5MCG INHALER 6GM INH SCH ×2 (08:00→20:09)
[2020-08-17] MEDS: TIOTROPIUM INHALER/CAPSULE (SPIRIVA) INH SCH (08:00)
[2020-08-17] MEDS: DOCUSATE SODIUM 100MG CAPSULE PO SCH (09:00)
[2020-08-17] MEDS: PANTOPRAZOLE 40MG TAB (PROTONIX) PO SCH ×2 (09:00→09:18)
[2020-08-17] MEDS: **hydrALAZINE** 10 MG TAB PO SCH ×3 (09:18→21:01)
[2020-08-17] MEDS: FLUoxetine 10 MG CAP PO SCH (09:18)
[2020-08-17] MEDS: REMEDY PHYTOPLEX Z-GUARD PASTE 113GM TUBE (FROM STOREROOM PRODUCT) TOP SCH ×3 (09:19→21:01)
[2020-08-17] MEDS: THIAMINE 100 MG TAB PO SCH (09:19)
[2020-08-17] MEDS: HEPARIN SOD (PORCINE) 5000UNITS/ML 1ML VIAL/SYRINGE SC SCH ×2 (09:19→21:00)
[2020-08-17] MEDS ORDERED: VANCOMYCIN HCL 1,000 MG, VIAL MATE ADAPTER 1 EACH in D5W 250 ML IV SCH (10:00)
[2020-08-17] MEDS ORDERED: VANCOMYCIN HCL 750 MG, VIAL MATE ADAPTER 1 EACH in D5W 250 ML IV SCH (11:00)
--- NOTE | 2020-08-17 14:29 | HPEPDOC ---
[facility] Medical History & Physical Date of Admission Aug 16, 2020 Date of Service: Aug 17, 2020 Attending Physician: Pat Patel MD History and Physical HISTORY OF PRESENT ILLNESS: 84 yo F with a PMHx of L basal ganglia CVA, HTN, GERD, TERESE who was readmitted to ARU on 08/16/20 after treatment for healthcare associated PNA as acute inpatient. She has had a complicated medical course with originally being admitted to [facility] with an acute infarct of L basal ganglia (1.6 cm), and treated for suspected aspiration pneumonia from 08/01-. She was later originally transfered to ARU on 08/07/20 but became altered, lethargic and was believing to be aspirating silently. On 08/13/20 she was readmitted to inpatient status and evaluated for aspiration, which was negative. She was started on healthcare associated PNA (+ CXR for PNA), UTI treatment. On 08/16/20 she was then transferred BACK to ARU to continue rehabilitation and to continue IV abx for HCAP. Medicine team was reconsulted to continue to follow her during her ARU stay. I am very familiar with the patient, as I cared for her as inpatient as well. UCx from recent admission was found to be contaminated upon looking further. She did not appear worsened today on exam, was at times pleasantly confused- her baseline. She denied chest pain, shortness of breath, n/v/d, fevers or chills. PAST MEDICAL HISTORY: HCAP, recent diagnosis L basal ganglia CVA HTN GERD/ Gastric ulcer/ erosive esophagitis COPD Morbid obesity H/O alcohol abuse Possible TERESE Hiatal Hernia Urinary incontinence PAST SURGICAL HISTORY: Hysterectomy. Appendectomy. Tubal ligation. Hiatal hernia repair. Cystourethroscopy with macroplastiq urethral injection. SOCIAL HISTORY: no hx of smoking hx of etoh abuse no hx of illicits PHYSICAL EXAM: VITAL SIGNS: Please see below GENERAL: Lying in bed, in NAD, AAOx3 but at times pleasantly confused HEENT: AT/NC, moist mucus membranes. PERRLA, EOM intact NECK: symmetrical, no JVD LUNGS: CTAB, no w/r/r HEART: S1S2 + no M/R/g ABDOMEN: Soft, nontender, obese, no masses. EXTREMITIES: Trace peripheral edema. NEURO: No focal deficits, CN 2-12 intact LABORATORY: Please see below MICROBIOLOGY from most recent admission: MRSA + Blood cultures 08/13/20: NG x 2 sets Repeat BCx NG thus far Sputum cx unable to be obtained UA +, UCx contamined A/P: HCAP -WBC further improved, afebrile -Micro above -Unable to obtain sputum cx -Would recommend c/w Vancomycin, cefepime until last dose on 08/23/20 (total of 10 days) Dysphagia -Swallowing evaluation done -Barium swallow neg for aspiration HLD -C/w statin Recent CVA -C/w statin, Not on ASA or plavix -PT/OT DM type II -Not currently on ISS, FS AC/HS. -If BS increase would recommend starting HTN -Stable -C/w current medications DVT px -Heparin DISPOSITION: Thank you kindly for this consult. Will continue to follow while admitted to ARU. Vital Signs Vital Signs Date Time Temp Pulse Resp B/P (MAP) Pulse Ox O2 Delivery O2 Flow Rate FiO2 08/17/20 09:20 2.0 08/17/20 09:18 83 125/76 08/17/20 06:35 98.0 18 96 Nasal Cannula Laboratory Data Labs 24H Laboratory Tests 2 08/17/20 06:03: Immature Granulocyte % (Auto) 2.1, Neutrophils (%) (Auto) 69.2H, Lymphocytes (%) (Auto) 17.5L, Monocytes (%) (Auto) 8.4H, Eosinophils (%) (Auto) 1.9, Basophils (%) (Auto) 0.9, Neutrophils # (Auto) 8.3, Lymphocytes # (Auto) 2.1, Monocytes # (Auto) 1.0H, Eosinophils # (Auto) 0.2, Basophils # (Auto) 0.1, Nucleated Red Blood Cells % (auto) 0.0, Anion Gap 3L, Glomerular Filtration Rate > 60.0, Calcium Level 8.8, Total Bilirubin 0.1L, Aspartate Amino Transf (AST/SGOT) 12, Alanine Aminotransferase (ALT/SGPT) 17, Alkaline Phosphatase 74, Total Protein 6.1L, Albumin 2.2L, Albumin/Globulin Ratio 0.6L 08/17/20 08:54: Vancomycin Level Trough 17.6 CBC/BMP Laboratory Tests 08/17/20 06:03 Home Medications Scheduled Amlodipine Besylate (Amlodipine Besylate) 10 Mg Tablet, 10 MG PO DAILY Atorvastatin Calcium (Atorvastatin Calcium) 20 Mg Tablet, 40 MG PO QHS Budesonide/Formoterol (Symbicort 80-4.5 Mcg Inhaler) 6.9 Gm Hfa.aer.ad, 2 PUFF INH RBID Cefepime in Iso-Osm Dextrose (Cefepime 2 gm Injection) 2 Gm/100 Ml Froz.piggy, 2 GM IV Q12H Docusate Sodium (Dok) 100 Mg Capsule, 100 MG PO BID Hydralazine HCl (Hydralazine HCl) 10 Mg Tablet, 20 MG PO TID Lisinopril (Lisinopril) 10 Mg Tablet, 10 MG PO DAILY Tiotropium [place] Monohydrate (Spiriva) 18 Mcg Cap.w.dev, 1 INHALATION INH DAILY@08 Trazodone HCl (Trazodone HCl) 100 Mg Tablet, 100 MG PO QHS Vancomycin/0.9 % Sod Chloride (Vancomycin 1 G/200Ml-0.9% NaCl) 1 Gm/200 Ml Froz.piggy, 1 INJ IV Q24H Vancomycin/Water For Inj (Peg) (Vancomycin 750 mg/150 ml Bag) 750 Mg/150 Ml Piggyback, 750 MG IV Q24H Scheduled PRN Aluminum/Magnesium/Simeth (Mag-Al Plus Suspension) 30 Ml Oral.susp, 30 ML PO DAILY PRN for DYSPEPSIA Allergies Coded Allergies: Sulfa (Sulfonamide Antibiotics) (Verified Adverse Reaction, Mild, STOMACH UPSET, 05/07/20) A-FIB/CHADSVASC A-FIB History Current/History of A-Fib/PAF?: No Current PO Anticoag Therapy: No Age/Risk Factor Scoring CHADSVASC: CHADSVASC Response (Comments) Value Age Risk Factor Age >/= 75 years old 2 Gender Risk Factor Female 1 Hx of CHF No 0 Hx of HTN Yes 1 Hx of Stroke/TIA/or VTE Yes 2 Hx of Diabetes Yes 1 Hx of Vascular Disease No 0 Total 7 Treatment Treatment ordered: Other Other anticoagulant ordered: heparin Pat Patel MD Aug 17, 2020 14:29
[2020-08-17 20:10] VITALS: BP 120/71
[2020-08-17] MEDS: traZODone 50 MG TAB PO SCH (21:00)
[2020-08-17] MEDS: ATORVASTATIN 20 MG TAB PO SCH (21:00)
[2020-08-17 21:03] LABS: CLOSTRIDIUM DIFFICILE PCR POSITIVE (NEGATIVE)
[2020-08-18 05:29] VITALS: BP 130/81
[2020-08-18] MEDS: SYMBICORT 80/4.5MCG INHALER 6GM INH SCH ×2 (07:25→19:18)
[2020-08-18] MEDS: TIOTROPIUM INHALER/CAPSULE (SPIRIVA) INH SCH (07:25)
[2020-08-18] MEDS ORDERED: metroNIDAZOLE 500 MG in IV 1 EA IV SCH (09:00)
[2020-08-18] MEDS: FLUoxetine 10 MG CAP PO SCH (10:39)
[2020-08-18] MEDS: VANCOMYCIN ORAL SOL 250MG/5ML ORAL SYRINGE PO SCH ×4 (10:39→21:10)
[2020-08-18] MEDS: THIAMINE 100 MG TAB PO SCH (10:39)
[2020-08-18] MEDS: **hydrALAZINE** 10 MG TAB PO SCH ×3 (10:40→21:09)
[2020-08-18] MEDS: REMEDY PHYTOPLEX Z-GUARD PASTE 113GM TUBE (FROM STOREROOM PRODUCT) TOP SCH ×3 (10:40→21:11)
[2020-08-18] MEDS: HEPARIN SOD (PORCINE) 5000UNITS/ML 1ML VIAL/SYRINGE SC SCH ×2 (10:40→21:10)
--- NOTE | 2020-08-18 12:29 | CR ---
INFECTIOUS DISEASE CONSULTATION DATE: 08/18/2020 REASON FOR CONSULTATION: Asked to consult by Dr. Tejas Souza for evaluation of Clostridium (C) difficile colitis. HISTORY OF PRESENT ILLNESS: Mrs. Adair is an 84-year-old female who was admitted on August 01, 2020 with acute mental status changes and was found to have a left basal ganglia acute infarction. She was transferred to acute rehabilitation on August 07, 2020 after she had a short course of intravenous (IV) ceftriaxone and vancomycin for four days, from August 01, 2020 to August 04, 2020. Patient was having some problem with dysphagia and was given mechanically soft diet. She had a chest CT which showed a left lower lobe atelectasis versus infiltrate. From August 07, 2020 to August 13, 2020, she was in acute rehabilitation, was treated with Augmentin from August 08, 2020 to August 13, 2020, transferred back to the acute floor for increased shortness of breath and wheezing. She was given methylprednisolone on August 13, 2020, doxycycline and then switched back to vancomycin and cefepime. The patient improved and was transferred back to rehabilitation for further physical therapy. She had a followup chest x-ray on August 13, 2020, which showed stable left basal atelectasis, possibly infiltrate. CT angiogram showed no new infiltrate and stable findings. On August 13, 2020, she was noted to have diarrhea and her laxatives were discontinued, including Senokot and Colace. She had persistent foul-smelling stool and on August 17, 2020, her stool for Clostridium (C) difficile was positive. She denies any abdominal pain, nausea or vomiting. She was going to physical therapy when I was visiting with her today. According to the staff, she is more confused than prior, but otherwise doing fairly well. She did not have any oxygen on and did not look dyspneic. She did not have any cough when I examined her during the 20 minute interview. PAST MEDICAL HISTORY: Significant for: 1. Morbid obesity. 2. Hypertension. 3. Chronic obstructive pulmonary disease (COPD). 4. HX Alcohol abuse. 5. Gastroesophageal reflux disease with erosive esophagitis. 6. Acute lacunar infarction left basal ganglia, 1.6 cm 07/2020. 7. Old lacunar infarctions in the basal ganglia. PAST SURGICAL HISTORY: 1. Hysterectomy. 2. Appendectomy. 3. Tubal ligation. 4. Hiatal hernia repair. SOCIAL HISTORY: She does not smoke or use drugs, but has a history of alcohol abuse. ALLERGIES: SULFA. MEDICATIONS: - vancomycin 1.75 mg IV every 24 hours - Protonix 40 mg by mouth daily - lisinopril 10 mg by mouth daily - amlodipine 10 mg daily - thiamine 100 mg daily - Prozac 10 mg by mouth daily - Spiriva one inhalation daily - trazodone 50 mg by mouth at bedtime as needed - albuterol/Atrovent nebulizers every 2 hours as needed - cefepime 2 grams every 12 hours - Colace and Senokot were discontinued on August 17, 2020 - atorvastatin 40 mg by mouth at bedtime - Symbicort two puffs inhaled twice a day - hydralazine 20 mg by mouth three times a day - Tylenol 650 mg by mouth every 4 hours LABORATORY DATA: White count 11.9, hemoglobin 13.1, hematocrit 42, platelets 360, 69% neutrophils, 17% lymphocytes, 8% monocytes. Sodium 143, potassium 3.9, chloride 110, bicarbonate 30, BUN 26, creatinine 0.94, glucose 108, calcium 8.8. AST 12, ALT 17, total protein 6.1, albumin 2.2. Vancomycin trough yesterday was 17.6. Stool for Clostridium (C) difficile was positive with NAP1 negative strain. Blood cultures from August 13, 2020, four sets, were negative. Urine culture on August 14, 2020, was negative. Respiratory panel was negative. IMAGING DATA: Esophageal x-ray done on August 14, 2020, was unremarkable. Modified barium swallow done with no aspiration or penetration visualized. Chest x-ray showed stable left basilar atelectasis and/or infiltrate, which is similar to x-rays done on admission. REVIEW OF SYSTEMS: It is difficult to obtain, as the patient answers yes or no, sometimes inappropriately, to the question but she does not seem to have any major complaints. PHYSICAL EXAMINATION: Temperature 97.1, pulse 80, respiratory rate 18, blood pressure 130/81, oxygen saturation 95%, currently not using oxygen. HEART: Normal S1, S2. Distant. No murmurs, rubs or gallops heard. LUNGS: Clear. Diminished at the bases, but no wheezes or rhonchi. ABDOMEN: Morbidly obese. Soft, nontender. BACK: No costovertebral angle (CVA) or lumbosacral tenderness. EXTREMITIES: Trace pitting edema bilaterally. Both feet are erythematous from dependent erythema. She has a decubitus ulcer on the right foot with the ball of the foot with slight erythema around it. The left foot also has mild erythema at the ball of the foot. She has severe onychomycosis, scaling and thickened calluses. IMPRESSION: This is a 84-year-old female who was admitted with acute basal ganglia lacunar infarction on August 01, 2020, has had multiple courses of antibiotics, including ceftriaxone and vancomycin, initially followed by Augmentin, then cefepime and vancomycin. She had respiratory distress with episodes of wheezing and shortness of breath, treated also with steroids. Currently her respiratory status is markedly improved. She is off oxygen. She does not seem to have any cough or wheezing. She has Clostridium (C) difficile colitis, foul-smelling stools and, at this point, I do not see any need for continued antibiotics for pulmonary infection. Her chest x-rays and CTs showed stable findings with a questionable left basilar infiltrate versus atelectasis. PLAN: Discontinue IV vancomycin and cefepime. Start oral vancomycin 125 mg by mouth four times a day. Encourage use of probiotics/ justin and yogurt. Patient would definitely benefit from Bezlotoxumab as an outpatient as she is elderly with high risk of recurrence and readmission for Clostridium (C) difficile. I would suggest a dose of 1000 mg IV within the next two weeks if the patient is discharged. MTDD
[2020-08-18 14:00] VITALS: BP 131/66
[2020-08-18 20:00] VITALS: BP 136/83
[2020-08-18] MEDS: ATORVASTATIN 20 MG TAB PO SCH (21:08)
[2020-08-18] MEDS: traZODone 50 MG TAB PO SCH (21:08)
[2020-08-19 05:11] VITALS: BP 154/80
[2020-08-19] MEDS: TIOTROPIUM INHALER/CAPSULE (SPIRIVA) INH SCH (07:13)
[2020-08-19] MEDS: SYMBICORT 80/4.5MCG INHALER 6GM INH SCH ×2 (07:13→19:57)
[2020-08-19] MEDS: VANCOMYCIN ORAL SOL 250MG/5ML ORAL SYRINGE PO SCH ×4 (09:45→20:43)
[2020-08-19] MEDS: FLUoxetine 10 MG CAP PO SCH (09:45)
[2020-08-19] MEDS: THIAMINE 100 MG TAB PO SCH (09:45)
[2020-08-19] MEDS: HEPARIN SOD (PORCINE) 5000UNITS/ML 1ML VIAL/SYRINGE SC SCH ×2 (09:45→20:43)
[2020-08-19] MEDS: **hydrALAZINE** 10 MG TAB PO SCH ×3 (09:48→20:42)
[2020-08-19] MEDS: REMEDY PHYTOPLEX Z-GUARD PASTE 113GM TUBE (FROM STOREROOM PRODUCT) TOP SCH ×3 (09:50→20:43)
[2020-08-19 14:00] VITALS: BP 154/77
[2020-08-19 20:00] VITALS: BP 140/77
[2020-08-19] MEDS: ATORVASTATIN 20 MG TAB PO SCH (20:42)
[2020-08-19] MEDS: traZODone 50 MG TAB PO SCH (20:42)
[2020-08-20 05:07] VITALS: BP 129/69
[2020-08-20] MEDS: SYMBICORT 80/4.5MCG INHALER 6GM INH SCH ×2 (07:16→20:02)
[2020-08-20] MEDS: TIOTROPIUM INHALER/CAPSULE (SPIRIVA) INH SCH (07:17)
[2020-08-20] MEDS: HEPARIN SOD (PORCINE) 5000UNITS/ML 1ML VIAL/SYRINGE SC SCH ×2 (10:00→20:16)
[2020-08-20] MEDS: FLUoxetine 10 MG CAP PO SCH (10:01)
[2020-08-20] MEDS: **hydrALAZINE** 10 MG TAB PO SCH ×3 (10:01→20:16)
[2020-08-20] MEDS: VANCOMYCIN ORAL SOL 250MG/5ML ORAL SYRINGE PO SCH ×4 (10:03→20:16)
[2020-08-20] MEDS: THIAMINE 100 MG TAB PO SCH (10:03)
[2020-08-20] MEDS: REMEDY PHYTOPLEX Z-GUARD PASTE 113GM TUBE (FROM STOREROOM PRODUCT) TOP SCH ×3 (10:04→20:17)
[2020-08-20 14:00] VITALS: BP 124/67
--- NOTE | 2020-08-20 14:19 | IPNPDOC ---
Date Seen The patient was seen on 08/20/20. Progress Note SUBJECTIVE: 2 BM on 08/19/20, on PO vancomycin for new diagnosis of c. difficile. ID following. HD stable. Patient denies abdominal pain, n/v, fevers, chills. OBJECTIVE: PHYSICAL EXAM: VITAL SIGNS: Please see below GENERAL: Lying in bed, in NAD, AAOx3 at times- baseline HEENT: AT/NC, moist mucus membranes. PERRLA, EOM intact NECK: symmetrical, no JVD LUNGS: CTAB, no w/r/r HEART: S1S2 + no M/R/g ABDOMEN: Soft, nontender, obese, no masses. EXTREMITIES: Trace peripheral edema. NEURO: No focal deficits, CN 2-12 intact LABORATORY: New labs pending for today MICROBIOLOGY: C diff pos A/P: C. difficile infection likely 2/2 to multiple courses of antibiotics -2 BM's/24hours -All abx stopped -F/u new labs, monitoring Cr closely, electrolytes -On Vancomycin 125 mg PO QID, f/u other recommendations per infectious disease -Special contact precautions HCAP ? -Afebrile, on 2 L NC -Micro above -Unable to obtain sputum cx -D/kati Vancomycin, cefepime -Please refer to ID note Physical deconditioning -PT: Pt remains below her PLOF, however is making slow steady progress towards established goals. Will cont to assess and progress as tolerated by patient. -C/w rehab, PT/OT Dysphagia -Swallowing evaluation done -Barium swallow neg for aspiration HLD -C/w statin Recent CVA -C/w statin, Not on ASA or plavix -PT/OT DM type II -Not currently on ISS, FS AC/HS. -If BS increase would recommend starting HTN -Stable -C/w current medications DVT px -Heparin VS, I&O, 24H, Fishbone Vital Signs/I&O Vital Signs Date Time Temp Pulse Resp B/P (MAP) Pulse Ox O2 Delivery O2 Flow Rate FiO2 08/20/20 10:03 68 08/20/20 10:01 126/72 08/20/20 05:07 97.1 20 96 Nasal Cannula 2.0 I&O- Last 24 Hours up to 6 AM 08/20/20 06:00 Intake Total 600 ml Balance 600 ml Current Medications Current Medications Medications (Trade) Dose Ordered Sig/Parviz Route PRN Reason Start Time Stop Time Status Last Admin Dose Admin Acetaminophen (Tylenol Tab) 650 mg Q4HP PRN PO fever/MILD PAIN (PS 1-4) 08/16/20 14:15 Albuterol/ Ipratropium (Duoneb (Ipr 0.5mg/Alb 2.5mg)) 3 ml Q2HP PRN NEB SOB/WHEEZING 08/17/20 05:45 Amlodipine Besylate (Norvasc) 10 mg DAILY PO 08/17/20 09:00 08/20/20 10:03 Atorvastatin Calcium (Lipitor) 40 mg QHS PO 08/16/20 21:00 08/19/20 20:42 Budesonide/ Formoterol Fumarate (Symbicort 80/ 4.5mcg) 2 puff RBID INH 08/16/20 20:00 08/20/20 07:16 Cefazolin Sodium 2 gm/Dextrose 50 ml @ 100 mls/hr Q12H IV 08/16/20 14:15 08/16/20 15:21 DC Cefepime HCl 2 gm/ Dextrose 50 ml @ 100 mls/hr Q12H IV 08/17/20 00:00 08/18/20 09:52 DC 08/17/20 23:55 Docusate Sodium (Colace) 100 mg BID PO 08/16/20 21:00 08/17/20 18:34 DC Fluoxetine HCl (PROzac) 10 mg DAILY PO 08/17/20 09:00 08/20/20 10:01 Heparin Sodium (Porcine) (Heparin) 5,000 units Q12H SC 08/16/20 21:00 08/20/20 10:00 Hydralazine HCl (Apresoline) 20 mg TID PO 08/16/20 16:00 08/20/20 10:01 Lisinopril (Prinivil) 10 mg DAILY PO 08/17/20 09:00 08/20/20 10:01 Metronidazole 500 mg/IV Miscellaneous Supplies 100 ml @ 100 mls/hr Q8H IV 08/18/20 09:00 08/18/20 09:52 DC Pantoprazole Sodium (Protonix) 40 mg DAILY PO 08/17/20 09:00 08/18/20 08:55 DC Senna (Senokot) 1 tab QHS PO 08/16/20 21:00 08/17/20 18:34 DC Thiamine HCl (Thiamine HCl) 100 mg DAILY PO 08/17/20 09:00 08/20/20 10:03 Tiotropium [place] (Spiriva Handihaler) 1 inhalation DAILY@08 INH 08/17/20 08:00 08/20/20 07:17 Trazodone HCl (Desyrel) 50 mg QHS PRN PO insomnia 08/17/20 05:45 08/18/20 03:25 Trazodone HCl (Desyrel) 50 mg QPM PO 08/16/20 21:00 08/19/20 20:42 Vancomycin HCl (First-Vancomycin 50(Firvanq)- 250mg/5ml) 125 mg QID PO 08/18/20 09:00 08/20/20 12:14 Vancomycin HCl 750 mg/IV Miscellaneous Supplies 1 each/ Dextrose 275 ml @ 275 mls/hr Q24H IV 08/17/20 11:00 08/18/20 09:52 DC 08/17/20 12:15 Vancomycin HCl 1000 mg/IV Miscellaneous Supplies 1 each/ Dextrose 270 ml @ 270 mls/hr Q24H IV 08/17/20 10:00 08/18/20 09:52 DC 08/17/20 09:58 Vancomycin HCl 1750 mg/IV Miscellaneous Supplies 35 ml @ 35 mls/hr Q24H IV 08/16/20 14:15 08/16/20 15:22 DC Allergies Coded Allergies: Sulfa (Sulfonamide Antibiotics) (Verified Adverse Reaction, Mild, STOMACH UPSET, 05/07/20) Pat Patel MD Aug 20, 2020 14:19
[2020-08-20 14:34] LABS: HEMATOCRIT 42.1 % (36.0-47.0); HEMOGLOBIN 12.8 g/dl (12.0-15.5); MEAN CORPUSCULAR HEMOGLOBIN 29.2 pg (27.0-33.0); MEAN CORPUSCULAR HGB CONC 30.4 g/dl (32.0-36.5); MEAN CORPUSCULAR VOLUME 96.1 fl (80.0-96.0); PLATELET COUNT, AUTOMATED 313 10^3/uL (150-450); RED BLOOD COUNT 4.38 10^6/uL (4.00-5.40); WHITE BLOOD COUNT 11.1 10^3/uL (4.0-10.0)
[2020-08-20 15:02] LABS: ALBUMIN 2.4 GM/DL (3.2-5.2); ALT/SGPT 28 U/L (12-78); BILIRUBIN,TOTAL 0.2 MG/DL (0.2-1.0); BLOOD UREA NITROGEN 17 MG/DL (7-18); CALCIUM LEVEL 8.4 MG/DL (8.8-10.2); CARBON DIOXIDE LEVEL 32 MEQ/L (21-32); CHLORIDE LEVEL 108 MEQ/L (98-107); CREATININE FOR GFR 0.85 MG/DL (0.55-1.30); GLOMERULAR FILTRATION RATE > 60.0 (>32); GLUCOSE, FASTING 110 MG/DL (70-100); POTASSIUM SERUM 4.2 MEQ/L (3.5-5.1); SODIUM LEVEL 145 MEQ/L (136-145); TOTAL PROTEIN 5.6 GM/DL (6.4-8.2)
[2020-08-20 20:00] VITALS: BP 135/65
[2020-08-20] MEDS: ATORVASTATIN 20 MG TAB PO SCH (20:15)
[2020-08-20] MEDS: traZODone 50 MG TAB PO SCH (20:16)
[2020-08-21 06:00] VITALS: BP 138/74
[2020-08-21] MEDS: TIOTROPIUM INHALER/CAPSULE (SPIRIVA) INH SCH (07:35)
[2020-08-21] MEDS: SYMBICORT 80/4.5MCG INHALER 6GM INH SCH ×2 (07:36→19:30)
[2020-08-21] MEDS: HEPARIN SOD (PORCINE) 5000UNITS/ML 1ML VIAL/SYRINGE SC SCH ×2 (10:17→20:24)
[2020-08-21] MEDS: THIAMINE 100 MG TAB PO SCH (10:18)
[2020-08-21] MEDS: FLUoxetine 10 MG CAP PO SCH (10:18)
[2020-08-21] MEDS: VANCOMYCIN ORAL SOL 250MG/5ML ORAL SYRINGE PO SCH ×2 (10:18→12:22)
[2020-08-21] MEDS: **hydrALAZINE** 10 MG TAB PO SCH ×3 (10:36→20:26)
[2020-08-21] MEDS: REMEDY PHYTOPLEX Z-GUARD PASTE 113GM TUBE (FROM STOREROOM PRODUCT) TOP SCH ×3 (10:36→20:26)
[2020-08-21 14:00] VITALS: BP 139/71
--- NOTE | 2020-08-21 15:21 | IPNPDOC ---
PM&R Progress Note DATE OF SERVICE: Aug 21, 2020 Account Classification Clerk Progress Note Subjective: PAtient states she is not hving anymore diarrhea, however per nursing and charting she still is. She denies having any worsening cough, fevers, or chills. REVIEW OF SYSTEMS: The following is a completed review of systems and has been reviewed. Review of systems otherwise unremarkable. PAIN: Patient self reports no pain EYES: No recent vision changes EARS, NOSE, & THROAT: + dysphagia CARDIOVASCULAR: Denies chest pain or palpitations PULMONARY: denies shortness of breath GASTROINTESTINAL:: +loose stools GENITOURINARY: denies dysuria MUSCULOSKELETAL:generalized weakness NEUROLOGICAL:+ aphasia HEMATOLOGICAL: denies easy bruising SKIN: denies rash PSYCHIATRIC: +confused All other review of systems found to be negative. PHYSICAL EXAMINATION: VITAL SIGNS: Please see below. GENERAL: Pleasant and cooperative. No acute distress. HEENT: PERRL. Extraocular movements intact. Clear conjunctiva CARDIOVASCULAR: Regular rate and rhythm. No murmurs, rubs, or gallops LUNGS: CTA ABDOMEN: Soft, nontender, nondistended. Positive bowel sounds. Normal active bowel sounds NEUROLOGICAL: Alert and oriented times to person, place, not time, Cranial nerves II through XII grossly intact. Sensation grossly intact (-) clonus bilat EXTREMITIES: 5-\5 strength bilateral upper extremities. 5-\5 strength right lower extremity. 5-/5 strength in left lower extremity. LABORATORY DATA: Please see below. ASSESSMENT:84-year-old F with past medical history of HTN and COPD who presents status post left basal ganglia stroke PLAN: 1. 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 Neuro- s/p left basal ganglia infarct, c/u ASA and statin for secondary stroke prevention -low dose Prozac for motor recovery -hx of ETOH abuse, thiamine for cognitive assistance 3. CArdiac- hx of HTN-c/u lisinopril, Amlodipine, and hydralazine with holding parameters -grade 1 diastolic CHF, fluid restrict, daily weights -hld- c/u statin -medicine consulted to assist in overall management 4. Resp- hx of COPD c/u supplemental 02 goal 88-92% s/p course of CEfepime and Vanco for PNA,, c/u Duonebs, symbicort, and spiriva, -possible TERESE, nocturnal 02 5. DVT ppx- heparin, teds 6. GI ppx- holding all bowel meds in setting of C diff 7. ID- patient diagnosed with C diff, ID consulted, recs greatly appreciated, switched from oral Vancomycin to Dificid, c/u to monitor 7. Pain- Tylenol prn 8. Psych- insomnia- trazodone 9. Dispo- tbd Allergies Coded Allergies: Sulfa (Sulfonamide Antibiotics) (Verified Adverse Reaction, Mild, STOMACH UPSET, 05/07/20) Vital Signs Vital Signs Date Time Temp Pulse Resp B/P (MAP) Pulse Ox O2 Delivery O2 Flow Rate FiO2 08/21/20 14:00 97.5 81 18 139/71 (93) 95 08/21/20 06:00 Room Air 08/20/20 21:13 2.0 Current Medications Current Medications Current Medications Medications (Trade) Dose Ordered Sig/Parviz Route PRN Reason Start Time Stop Time Status Last Admin Dose Admin Acetaminophen (Tylenol Tab) 650 mg Q4HP PRN PO fever/MILD PAIN (PS 1-4) 08/16/20 14:15 Albuterol/ Ipratropium (Duoneb (Ipr 0.5mg/Alb 2.5mg)) 3 ml Q2HP PRN NEB SOB/WHEEZING 08/17/20 05:45 Amlodipine Besylate (Norvasc) 10 mg DAILY PO 08/17/20 09:00 08/21/20 10:35 Atorvastatin Calcium (Lipitor) 40 mg QHS PO 08/16/20 21:00 08/20/20 20:15 Budesonide/ Formoterol Fumarate (Symbicort 80/ 4.5mcg) 2 puff RBID INH 08/16/20 20:00 08/20/20 20:02 Cefazolin Sodium 2 gm/Dextrose 50 ml @ 100 mls/hr Q12H IV 08/16/20 14:15 08/16/20 15:21 DC Cefepime HCl 2 gm/ Dextrose 50 ml @ 100 mls/hr Q12H IV 08/17/20 00:00 08/18/20 09:52 DC 08/17/20 23:55 Docusate Sodium (Colace) 100 mg BID PO 08/16/20 21:00 08/17/20 18:34 DC Fluoxetine HCl (PROzac) 10 mg DAILY PO 08/17/20 09:00 08/21/20 10:18 Heparin Sodium (Porcine) (Heparin) 5,000 units Q12H SC 08/16/20 21:00 08/21/20 10:17 Hydralazine HCl (Apresoline) 20 mg TID PO 08/16/20 16:00 08/21/20 10:36 Lisinopril (Prinivil) 10 mg DAILY PO 08/17/20 09:00 08/21/20 10:35 Metronidazole 500 mg/IV Miscellaneous Supplies 100 ml @ 100 mls/hr Q8H IV 08/18/20 09:00 08/18/20 09:52 DC Pantoprazole Sodium (Protonix) 40 mg DAILY PO 08/17/20 09:00 08/18/20 08:55 DC Senna (Senokot) 1 tab QHS PO 08/16/20 21:00 08/17/20 18:34 DC Thiamine HCl (Thiamine HCl) 100 mg DAILY PO 08/17/20 09:00 08/21/20 10:18 Tiotropium [place] (Spiriva Handihaler) 1 inhalation DAILY@08 INH 08/17/20 08:00 08/20/20 07:17 Trazodone HCl (Desyrel) 50 mg QHS PRN PO insomnia 08/17/20 05:45 08/18/20 03:25 Trazodone HCl (Desyrel) 50 mg QPM PO 08/16/20 21:00 08/20/20 20:16 Vancomycin HCl (First-Vancomycin 50(Firvanq)- 250mg/5ml) 125 mg QID PO 08/18/20 09:00 08/21/20 12:22 Vancomycin HCl 750 mg/IV Miscellaneous Supplies 1 each/ Dextrose 275 ml @ 275 mls/hr Q24H IV 08/17/20 11:00 08/18/20 09:52 DC 08/17/20 12:15 Vancomycin HCl 1000 mg/IV Miscellaneous Supplies 1 each/ Dextrose 270 ml @ 270 mls/hr Q24H IV 08/17/20 10:00 08/18/20 09:52 DC 08/17/20 09:58 Vancomycin HCl 1750 mg/IV Miscellaneous Supplies 35 ml @ 35 mls/hr Q24H IV 08/16/20 14:15 08/16/20 15:22 MARGIE BESS MD Aug 21, 2020 15:21
--- NOTE | 2020-08-21 16:44 | IPN ---
PROGRESS NOTE DATE: 08/21/2020 SUBJECTIVE: Raphael is doing fairly well except for persistent diarrhea. Yesterday, she had seven bowel movements and today she already had four. She denies any fevers or chills. No abdominal pain. No nausea or vomiting. She is doing well with Physical Therapy. Her anticipated discharge is on August 29. PHYSICAL EXAMINATION: HEART: Normal S1 and S2. No murmurs, distant. LUNGS: Clear. No wheezes, rales or rhonchi. ABDOMEN: Soft, nontender. No hepatosplenomegaly. EXTREMITIES: Trace edema. NEUROLOGIC: She is alert and oriented x2. She responds appropriately to questions. LABORATORY DATA: White count 11.l, hemoglobin 12.8, hematocrit 32.1, platelets 313,000, sodium 145, potassium 4.2, chloride 108, bicarbonate 32, BUN 17, creatinine is 0.85, glucose is 110, calcium is 8.4, AST 19, ALT 28, alkaline phosphatase 76. IMPRESSION: 1. C. Difficile colitis with slow response to Vancomycin. Patient will be switched to Dificid 200 mg p.o. b.i.d. which had been proven to have much lower risk of rates of recurrence especially in the elderly. Start probiotics one tablet p.o. t.i.d. 2. Lacunar infarct, slowly improving with Physical Therapy. Would anticipate discharge on August 29. PLAN: Start Dificid 200 mg p.o. b.i.d. with probiotics. The case has been discussed with Dr. Cortes.
[2020-08-21] MEDS: LACTOBACILLUS ACIDOPHILUS CAP (BACID) PO SCH ×2 (17:01→20:25)
[2020-08-21 20:00] VITALS: BP 149/78
[2020-08-21] MEDS: FIDAXOMICIN 200 MG TAB (DIFICID) PO SCH (20:25)
[2020-08-21] MEDS: ATORVASTATIN 20 MG TAB PO SCH (20:25)
[2020-08-21] MEDS: traZODone 50 MG TAB PO SCH (20:25)
[2020-08-21] MEDS: NYSTATIN 100,000 UNITS/GM TOPICAL PWD 15 GM TOP SCH (20:25)
[2020-08-22 05:40] VITALS: BP 150/84
[2020-08-22] MEDS: SYMBICORT 80/4.5MCG INHALER 6GM INH SCH ×2 (07:10→20:21)
[2020-08-22] MEDS: TIOTROPIUM INHALER/CAPSULE (SPIRIVA) INH SCH (07:10)
[2020-08-22] MEDS: FLUoxetine 10 MG CAP PO SCH (09:00)
[2020-08-22] MEDS: FIDAXOMICIN 200 MG TAB (DIFICID) PO SCH ×2 (09:03→21:09)
[2020-08-22] MEDS: **hydrALAZINE** 10 MG TAB PO SCH ×3 (09:04→21:10)
[2020-08-22] MEDS: LACTOBACILLUS ACIDOPHILUS CAP (BACID) PO SCH ×4 (09:04→21:09)
[2020-08-22] MEDS: THIAMINE 100 MG TAB PO SCH (09:05)
[2020-08-22] MEDS: NYSTATIN 100,000 UNITS/GM TOPICAL PWD 15 GM TOP SCH ×2 (09:06→21:11)
[2020-08-22] MEDS: HEPARIN SOD (PORCINE) 5000UNITS/ML 1ML VIAL/SYRINGE SC SCH ×2 (09:06→21:11)
[2020-08-22] MEDS: REMEDY PHYTOPLEX Z-GUARD PASTE 113GM TUBE (FROM STOREROOM PRODUCT) TOP SCH ×3 (09:06→21:11)
[2020-08-22 14:00] VITALS: BP 131/78
--- NOTE | 2020-08-22 17:38 | IPN ---
INFECTIOUS DISEASE PROGRESS NOTE DATE: 08/16/2020 SUBJECTIVE: Raphael seems to be doing better. She only had two bowel movements today, five yesterday. They are getting a little more consistent but still quite mucousy. She has no abdominal pain, nausea, vomiting. She is on probiotics three times a day and Dificid 200 mg p.o. twice daily, day number two. LABORATORY STUDIES: No recent labs were done, last done on 08/20. White count was 11.1, creatinine 0.85. OBJECTIVE: PHYSICAL EXAMINATION: VITAL SIGNS: Temperature is 97.8, pulse 75, respirations 18, blood pressure 131/78, O2 sat 94% on room air. HEART: Normal S1, S2, no murmurs. LUNGS: Clear. No rales, rhonchi or wheezes. ABDOMEN: Morbidly obese, soft, nontender. GENITOURINARY: Diffuse erythema in the groin on the left side to the mons pubic. She is receiving Nystatin powder and Zinc Oxide to the groin bilaterally. EXTREMITIES: No edema. IMPRESSION: 1. C-difficile colitis slow response to Vancomycin for 4 days, currently on Dificid D#2 at 200 mg twice daily and probiotics. 2. Vaginal candidiasis on Nystatin powder and Zinc Oxide. If the rash does not improve, consider one dose of Fluconazole. 3. Lacunar infarct continue with physical therapy. PLAN: Continue with Dificid a total of 10 days consult PFS for IV Bezlotoxumab infusion upon discharge to prevent of recurrent C-difficile in this elderly female who is at very high risk of 25% or more of recurrence. MTDD
[2020-08-22 19:37] VITALS: BP 136/70
[2020-08-22] MEDS: ATORVASTATIN 20 MG TAB PO SCH (21:10)
[2020-08-22] MEDS: traZODone 50 MG TAB PO SCH (21:10)
[2020-08-23 05:17] LABS: BASO # 0.1 10^3/uL (0.0-0.2); EOS # 0.3 10^3/uL (0.0-0.5); EOS % 3.1 % (0.0-3.0); HEMATOCRIT 41.6 % (36.0-47.0); HEMOGLOBIN 13.1 g/dl (12.0-15.5); LYMPH # 1.8 10^3/uL (1.5-5.0); LYMPH % 17.7 % (24.0-44.0); MEAN CORPUSCULAR HEMOGLOBIN 29.9 pg (27.0-33.0); MEAN CORPUSCULAR HGB CONC 31.5 g/dl (32.0-36.5); MONO # 0.9 10^3/uL (0.0-0.8); MONO % 9.1 % (2.0-8.0); NEUTROPHILS # 7.1 10^3/uL (1.5-8.5); NEUTROPHILS % 68.3 % (36.0-66.0); PLATELET COUNT, AUTOMATED 262 10^3/uL (150-450); RED BLOOD COUNT 4.38 10^6/uL (4.00-5.40); WHITE BLOOD COUNT 10.4 10^3/uL (4.0-10.0)
[2020-08-23 05:27] VITALS: BP 152/78
[2020-08-23 05:44] LABS: BLOOD UREA NITROGEN 9 MG/DL (7-18); CALCIUM LEVEL 8.3 MG/DL (8.8-10.2); CARBON DIOXIDE LEVEL 31 MEQ/L (21-32); CHLORIDE LEVEL 107 MEQ/L (98-107); GLOMERULAR FILTRATION RATE > 60.0 (>32); GLUCOSE, FASTING 117 MG/DL (70-100); POTASSIUM SERUM 3.9 MEQ/L (3.5-5.1); SODIUM LEVEL 144 MEQ/L (136-145)
[2020-08-23] MEDS: SYMBICORT 80/4.5MCG INHALER 6GM INH SCH ×2 (07:58→20:00)
[2020-08-23] MEDS: TIOTROPIUM INHALER/CAPSULE (SPIRIVA) INH SCH (07:58)
--- NOTE | 2020-08-23 08:29 | IPNPDOC ---
PM&R Progress Note DATE OF SERVICE: Aug 22, 2020 Patent Counsel Progress Note Subjective: PAtient reporting her abdomen feels a little sore and cramping, but not worse than a few days prior. REVIEW OF SYSTEMS: The following is a completed review of systems and has been reviewed. Review of systems otherwise unremarkable. PAIN: Patient self reports no pain EYES: No recent vision changes EARS, NOSE, & THROAT: + dysphagia CARDIOVASCULAR: Denies chest pain or palpitations PULMONARY: denies shortness of breath GASTROINTESTINAL:: +loose stools GENITOURINARY: denies dysuria MUSCULOSKELETAL:generalized weakness NEUROLOGICAL:+ aphasia HEMATOLOGICAL: denies easy bruising SKIN: denies rash PSYCHIATRIC: +confused All other review of systems found to be negative. PHYSICAL EXAMINATION: VITAL SIGNS: Please see below. GENERAL: Pleasant and cooperative. No acute distress. HEENT: PERRL. Extraocular movements intact. Clear conjunctiva CARDIOVASCULAR: Regular rate and rhythm. No murmurs, rubs, or gallops LUNGS: CTA ABDOMEN: Soft, +mild TTP RLQ, nondistended. Positive bowel sounds. NEUROLOGICAL: Alert and oriented times to person, place, not time, Cranial nerves II through XII grossly intact. Sensation grossly intact (-) clonus bilat EXTREMITIES: 5-\5 strength bilateral upper extremities. 5-\5 strength right lower extremity. 5-/5 strength in left lower extremity. LABORATORY DATA: Please see below. ASSESSMENT:84-year-old F with past medical history of HTN and COPD who presents status post left basal ganglia stroke PLAN: 1. 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 Neuro- s/p left basal ganglia infarct, c/u ASA and statin for secondary stroke prevention -low dose Prozac for motor recovery -hx of ETOH abuse, thiamine for cognitive assistance 3. CArdiac- hx of HTN-c/u lisinopril, Amlodipine, and hydralazine with holding parameters -grade 1 diastolic CHF, fluid restrict, daily weights -hld- c/u statin -medicine consulted to assist in overall management 4. Resp- hx of COPD c/u supplemental 02 goal 88-92% s/p course of CEfepime and Vanco for PNA,, c/u Duonebs, symbicort, and spiriva, -possible TERESE, nocturnal 02 5. DVT ppx- heparin, teds 6. GI ppx- holding all bowel meds in setting of C diff 7. ID- patient diagnosed with C diff, ID consulted, recs greatly appreciated, switched from oral Vancomycin to Dificid, c/u to monitor 7. Pain- Tylenol prn 8. Psych- insomnia- trazodone 9. Dispo- 08-30-20 goal to home Allergies Coded Allergies: Sulfa (Sulfonamide Antibiotics) (Verified Adverse Reaction, Mild, STOMACH UPSET, 05/07/20) Vital Signs Vital Signs Date Time Temp Pulse Resp B/P (MAP) Pulse Ox O2 Delivery O2 Flow Rate FiO2 08/23/20 05:27 96.3 65 20 152/78 (102) 94 Nasal Cannula 2.0 Laboratory Data CBC/BMP Laboratory Tests 08/23/20 04:52 Labs 24H Laboratory Tests 2 08/23/20 04:52: Immature Granulocyte % (Auto) 0.8, Neutrophils (%) (Auto) 68.3H, Lymphocytes (%) (Auto) 17.7L, Monocytes (%) (Auto) 9.1H, Eosinophils (%) (Auto) 3.1H, Basophils (%) (Auto) 1.0, Neutrophils # (Auto) 7.1, Lymphocytes # (Auto) 1.8, Monocytes # (Auto) 0.9H, Eosinophils # (Auto) 0.3, Basophils # (Auto) 0.1, Nucleated Red Blood Cells % (auto) 0.0, Anion Gap 6L, Glomerular Filtration Rate > 60.0, Calcium Level 8.3L Current Medications Current Medications Current Medications Medications (Trade) Dose Ordered Sig/Parviz Route PRN Reason Start Time Stop Time Status Last Admin Dose Admin Acetaminophen (Tylenol Tab) 650 mg Q4HP PRN PO fever/MILD PAIN (PS 1-4) 08/16/20 14:15 Albuterol/ Ipratropium (Duoneb (Ipr 0.5mg/Alb 2.5mg)) 3 ml Q2HP PRN NEB SOB/WHEEZING 08/17/20 05:45 Amlodipine Besylate (Norvasc) 10 mg DAILY PO 08/17/20 09:00 08/22/20 09:03 Atorvastatin Calcium (Lipitor) 40 mg QHS PO 08/16/20 21:00 08/22/20 21:10 Budesonide/ Formoterol Fumarate (Symbicort 80/ 4.5mcg) 2 puff RBID INH 08/16/20 20:00 08/23/20 07:58 Cefazolin Sodium 2 gm/Dextrose 50 ml @ 100 mls/hr Q12H IV 08/16/20 14:15 08/16/20 15:21 DC Cefepime HCl 2 gm/ Dextrose 50 ml @ 100 mls/hr Q12H IV 08/17/20 00:00 08/18/20 09:52 DC 08/17/20 23:55 Docusate Sodium (Colace) 100 mg BID PO 08/16/20 21:00 08/17/20 18:34 DC Fidaxomicin (Dificid) 200 mg BID PO 08/21/20 21:00 08/22/20 21:09 Fluoxetine HCl (PROzac) 10 mg DAILY PO 08/17/20 09:00 08/21/20 10:18 Heparin Sodium (Porcine) (Heparin) 5,000 units Q12H SC 08/16/20 21:00 08/22/20 21:11 Hydralazine HCl (Apresoline) 20 mg TID PO 08/16/20 16:00 08/22/20 21:10 Lactobacillus Acidophilus (Bacid) 1 ea WMHS PO 08/21/20 18:00 08/22/20 21:09 Lisinopril (Prinivil) 10 mg DAILY PO 08/17/20 09:00 08/22/20 09:04 Metronidazole 500 mg/IV Miscellaneous Supplies 100 ml @ 100 mls/hr Q8H IV 08/18/20 09:00 08/18/20 09:52 DC Nystatin (Mycostatin Powder, Nystop) bilat groin and cate area BID TOP 08/21/20 21:00 08/22/20 21:11 Pantoprazole Sodium (Protonix) 40 mg DAILY PO 08/17/20 09:00 08/18/20 08:55 DC Senna (Senokot) 1 tab QHS PO 08/16/20 21:00 08/17/20 18:34 DC Thiamine HCl (Thiamine HCl) 100 mg DAILY PO 08/17/20 09:00 08/22/20 09:05 Tiotropium [place] (Spiriva Handihaler) 1 inhalation DAILY@08 INH 08/17/20 08:00 08/23/20 07:58 Trazodone HCl (Desyrel) 50 mg QHS PRN PO insomnia 08/17/20 05:45 08/18/20 03:25 Trazodone HCl (Desyrel) 50 mg QPM PO 08/16/20 21:00 08/22/20 21:10 Vancomycin HCl (First-Vancomycin 50(Firvanq)- 250mg/5ml) 125 mg QID PO 08/18/20 09:00 08/21/20 16:10 DC 08/21/20 12:22 Vancomycin HCl 750 mg/IV Miscellaneous Supplies 1 each/ Dextrose 275 ml @ 275 mls/hr Q24H IV 08/17/20 11:00 08/18/20 09:52 DC 08/17/20 12:15 Vancomycin HCl 1000 mg/IV Miscellaneous Supplies 1 each/ Dextrose 270 ml @ 270 mls/hr Q24H IV 08/17/20 10:00 08/18/20 09:52 DC 08/17/20 09:58 Vancomycin HCl 1750 mg/IV Miscellaneous Supplies 35 ml @ 35 mls/hr Q24H IV 08/16/20 14:15 08/16/20 15:22 MARGIE BESS MD Aug 23, 2020 08:29
--- NOTE | 2020-08-23 08:29 | IPNPDOC ---
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 REVIEW OF SYSTEMS: The following is a completed review of systems and has been reviewed. Review of systems otherwise unremarkable. PAIN: Patient self reports no pain EYES: No recent vision changes EARS, NOSE, & THROAT: + dysphagia CARDIOVASCULAR: Denies chest pain or palpitations PULMONARY: denies shortness of breath GASTROINTESTINAL:: +loose stools GENITOURINARY: denies dysuria MUSCULOSKELETAL:generalized weakness NEUROLOGICAL:+ aphasia HEMATOLOGICAL: denies easy bruising SKIN: denies rash PSYCHIATRIC: +confused All other review of systems found to be negative. PHYSICAL EXAMINATION: VITAL SIGNS: Please see below. GENERAL: Pleasant and cooperative. No acute distress. HEENT: PERRL. Extraocular movements intact. Clear conjunctiva CARDIOVASCULAR: Regular rate and rhythm. No murmurs, rubs, or gallops LUNGS: CTA ABDOMEN: Soft, +mild TTP RLQ, nondistended. Positive bowel sounds. NEUROLOGICAL: Alert and oriented times to person, place, not time, Cranial nerves II through XII grossly intact. Sensation grossly intact (-) clonus bilat EXTREMITIES: 5-\5 strength bilateral upper extremities. 5-\5 strength right lower extremity. 5-/5 strength in left lower extremity. LABORATORY DATA: Please see below. ASSESSMENT:84-year-old F with past medical history of HTN and COPD who presents status post left basal ganglia stroke PLAN: 1. 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 Neuro- s/p left basal ganglia infarct, c/u ASA and statin for secondary stroke prevention -low dose Prozac for motor recovery -hx of ETOH abuse, thiamine for cognitive assistance 3. CArdiac- hx of HTN-c/u lisinopril, Amlodipine, and hydralazine with holding parameters -grade 1 diastolic CHF, fluid restrict, daily weights -hld- c/u statin -medicine consulted to assist in overall management 4. Resp- hx of COPD c/u supplemental 02 goal 88-92% s/p course of CEfepime and Vanco for PNA,, c/u Duonebs, symbicort, and spiriva, -possible TERESE, nocturnal 02 5. DVT ppx- heparin, teds 6. GI ppx- holding all bowel meds in setting of C diff 7. ID- patient diagnosed with C diff, ID consulted, recs greatly appreciated, switched from oral Vancomycin to Dificid, c/u to monitor 7. Pain- Tylenol prn 8. Psych- insomnia- trazodone 9. Dispo- TBD Allergies Coded Allergies: Sulfa (Sulfonamide Antibiotics) (Verified Adverse Reaction, Mild, STOMACH UPSET, 05/07/20) Vital Signs Vital Signs Date Time Temp Pulse Resp B/P (MAP) Pulse Ox O2 Delivery O2 Flow Rate FiO2 08/23/20 05:27 96.3 65 20 152/78 (102) 94 Nasal Cannula 2.0 Laboratory Data CBC/BMP Laboratory Tests 08/23/20 04:52 Labs 24H Laboratory Tests 2 08/23/20 04:52: Immature Granulocyte % (Auto) 0.8, Neutrophils (%) (Auto) 68.3H, Lymphocytes (%) (Auto) 17.7L, Monocytes (%) (Auto) 9.1H, Eosinophils (%) (Auto) 3.1H, Basophils (%) (Auto) 1.0, Neutrophils # (Auto) 7.1, Lymphocytes # (Auto) 1.8, Monocytes # (Auto) 0.9H, Eosinophils # (Auto) 0.3, Basophils # (Auto) 0.1, Nucleated Red Blood Cells % (auto) 0.0, Anion Gap 6L, Glomerular Filtration Rate > 60.0, Calcium Level 8.3L Current Medications Current Medications Current Medications Medications (Trade) Dose Ordered Sig/Parviz Route PRN Reason Start Time Stop Time Status Last Admin Dose Admin Acetaminophen (Tylenol Tab) 650 mg Q4HP PRN PO fever/MILD PAIN (PS 1-4) 08/16/20 14:15 Albuterol/ Ipratropium (Duoneb (Ipr 0.5mg/Alb 2.5mg)) 3 ml Q2HP PRN NEB SOB/WHEEZING 08/17/20 05:45 Amlodipine Besylate (Norvasc) 10 mg DAILY PO 08/17/20 09:00 08/22/20 09:03 Atorvastatin Calcium (Lipitor) 40 mg QHS PO 08/16/20 21:00 08/22/20 21:10 Budesonide/ Formoterol Fumarate (Symbicort 80/ 4.5mcg) 2 puff RBID INH 08/16/20 20:00 08/23/20 07:58 Cefazolin Sodium 2 gm/Dextrose 50 ml @ 100 mls/hr Q12H IV 08/16/20 14:15 08/16/20 15:21 DC Cefepime HCl 2 gm/ Dextrose 50 ml @ 100 mls/hr Q12H IV 08/17/20 00:00 08/18/20 09:52 DC 08/17/20 23:55 Docusate Sodium (Colace) 100 mg BID PO 08/16/20 21:00 08/17/20 18:34 DC Fidaxomicin (Dificid) 200 mg BID PO 08/21/20 21:00 08/22/20 21:09 Fluoxetine HCl (PROzac) 10 mg DAILY PO 08/17/20 09:00 08/21/20 10:18 Heparin Sodium (Porcine) (Heparin) 5,000 units Q12H SC 08/16/20 21:00 08/22/20 21:11 Hydralazine HCl (Apresoline) 20 mg TID PO 08/16/20 16:00 08/22/20 21:10 Lactobacillus Acidophilus (Bacid) 1 ea WMHS PO 08/21/20 18:00 08/22/20 21:09 Lisinopril (Prinivil) 10 mg DAILY PO 08/17/20 09:00 08/22/20 09:04 Metronidazole 500 mg/IV Miscellaneous Supplies 100 ml @ 100 mls/hr Q8H IV 08/18/20 09:00 08/18/20 09:52 DC Nystatin (Mycostatin Powder, Nystop) bilat groin and cate area BID TOP 08/21/20 21:00 08/22/20 21:11 Pantoprazole Sodium (Protonix) 40 mg DAILY PO 08/17/20 09:00 08/18/20 08:55 DC Senna (Senokot) 1 tab QHS PO 08/16/20 21:00 08/17/20 18:34 DC Thiamine HCl (Thiamine HCl) 100 mg DAILY PO 08/17/20 09:00 08/22/20 09:05 Tiotropium [place] (Spiriva Handihaler) 1 inhalation DAILY@08 INH 08/17/20 08:00 08/23/20 07:58 Trazodone HCl (Desyrel) 50 mg QHS PRN PO insomnia 08/17/20 05:45 08/18/20 03:25 Trazodone HCl (Desyrel) 50 mg QPM PO 08/16/20 21:00 08/22/20 21:10 Vancomycin HCl (First-Vancomycin 50(Firvanq)- 250mg/5ml) 125 mg QID PO 08/18/20 09:00 08/21/20 16:10 DC 08/21/20 12:22 Vancomycin HCl 750 mg/IV Miscellaneous Supplies 1 each/ Dextrose 275 ml @ 275 mls/hr Q24H IV 08/17/20 11:00 08/18/20 09:52 DC 08/17/20 12:15 Vancomycin HCl 1000 mg/IV Miscellaneous Supplies 1 each/ Dextrose 270 ml @ 270 mls/hr Q24H IV 08/17/20 10:00 08/18/20 09:52 DC 08/17/20 09:58 Vancomycin HCl 1750 mg/IV Miscellaneous Supplies 35 ml @ 35 mls/hr Q24H IV 08/16/20 14:15 08/16/20 15:22 MARGIE BESS MD Aug 23, 2020 08:29
[2020-08-23] MEDS: LACTOBACILLUS ACIDOPHILUS CAP (BACID) PO SCH ×4 (08:37→20:55)
[2020-08-23] MEDS: **hydrALAZINE** 10 MG TAB PO SCH ×3 (08:38→20:56)
[2020-08-23] MEDS: FIDAXOMICIN 200 MG TAB (DIFICID) PO SCH ×2 (08:38→20:55)
[2020-08-23] MEDS: HEPARIN SOD (PORCINE) 5000UNITS/ML 1ML VIAL/SYRINGE SC SCH ×2 (08:38→20:57)
[2020-08-23] MEDS: NYSTATIN 100,000 UNITS/GM TOPICAL PWD 15 GM TOP SCH ×2 (08:39→20:56)
[2020-08-23] MEDS: THIAMINE 100 MG TAB PO SCH (08:39)
[2020-08-23] MEDS: FLUoxetine 10 MG CAP PO SCH (08:39)
[2020-08-23] MEDS: REMEDY PHYTOPLEX Z-GUARD PASTE 113GM TUBE (FROM STOREROOM PRODUCT) TOP SCH ×3 (08:40→20:57)
[2020-08-23 14:00] VITALS: BP 107/56
[2020-08-23 20:00] VITALS: BP 114/59
[2020-08-23] MEDS: traZODone 50 MG TAB PO SCH (20:55)
[2020-08-23] MEDS: ATORVASTATIN 20 MG TAB PO SCH (20:55)
[2020-08-23] MEDS: ACETAMINOPHEN TAB 650MG DOSE (2X325MG) PO PRN (21:08)
[2020-08-24 05:16] VITALS: BP 143/72
[2020-08-24] MEDS: SYMBICORT 80/4.5MCG INHALER 6GM INH SCH ×2 (07:06→20:06)
[2020-08-24] MEDS: TIOTROPIUM INHALER/CAPSULE (SPIRIVA) INH SCH (07:06)
[2020-08-24] MEDS: **hydrALAZINE** 10 MG TAB PO SCH ×3 (09:00→20:56)
[2020-08-24] MEDS: REMEDY PHYTOPLEX Z-GUARD PASTE 113GM TUBE (FROM STOREROOM PRODUCT) TOP SCH ×3 (09:16→20:57)
[2020-08-24] MEDS: HEPARIN SOD (PORCINE) 5000UNITS/ML 1ML VIAL/SYRINGE SC SCH ×2 (09:17→20:55)
[2020-08-24] MEDS: FLUoxetine 10 MG CAP PO SCH (09:17)
[2020-08-24] MEDS: FIDAXOMICIN 200 MG TAB (DIFICID) PO SCH ×2 (09:17→20:56)
[2020-08-24] MEDS: THIAMINE 100 MG TAB PO SCH (09:17)
[2020-08-24] MEDS: NYSTATIN 100,000 UNITS/GM TOPICAL PWD 15 GM TOP SCH ×2 (09:17→20:57)
[2020-08-24] MEDS: LACTOBACILLUS ACIDOPHILUS CAP (BACID) PO SCH ×4 (09:23→20:56)
[2020-08-24 14:00] VITALS: BP 148/82
--- NOTE | 2020-08-24 14:44 | IPNPDOC ---
PM&R Progress Note DATE OF SERVICE: Aug 24, 2020 [employer] Progress Note Subjective: PAtient reporting she feels tired from therapy but thinks she is getting stronger. REVIEW OF SYSTEMS: The following is a completed review of systems and has been reviewed. Review of systems otherwise unremarkable. PAIN: Patient self reports no pain EYES: No recent vision changes EARS, NOSE, & THROAT: + dysphagia CARDIOVASCULAR: Denies chest pain or palpitations PULMONARY: denies shortness of breath GASTROINTESTINAL:: +loose stools GENITOURINARY: denies dysuria MUSCULOSKELETAL:generalized weakness NEUROLOGICAL:+ aphasia HEMATOLOGICAL: denies easy bruising SKIN: denies rash PSYCHIATRIC: +confused All other review of systems found to be negative. PHYSICAL EXAMINATION: VITAL SIGNS: Please see below. GENERAL: Pleasant and cooperative. No acute distress. HEENT: PERRL. Extraocular movements intact. Clear conjunctiva CARDIOVASCULAR: Regular rate and rhythm. No murmurs, rubs, or gallops LUNGS: CTA ABDOMEN: Soft, non-tender, nondistended. Positive bowel sounds. NEUROLOGICAL: Alert and oriented times to person, place, not time, Cranial nerves II through XII grossly intact. Sensation grossly intact (-) clonus bilat EXTREMITIES: 5-\5 strength bilateral upper extremities. 5-\5 strength right lower extremity. 5-/5 strength in left lower extremity. LABORATORY DATA: Please see below. ASSESSMENT:84-year-old F with past medical history of HTN and COPD who presents status post left basal ganglia stroke PLAN: 1. 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 Neuro- s/p left basal ganglia infarct, c/u ASA and statin for secondary stroke prevention -low dose Prozac for motor recovery -hx of ETOH abuse, thiamine for cognitive assistance 3. CArdiac- hx of HTN-c/u lisinopril, Amlodipine, and hydralazine with holding parameters -grade 1 diastolic CHF, fluid restrict, daily weights -hld- c/u statin -medicine consulted to assist in overall management 4. Resp- hx of COPD c/u supplemental 02 goal 88-92% s/p course of CEfepime and Vanco for PNA,, c/u Duonebs, symbicort, and spiriva, -possible TERESE, nocturnal 02 5. DVT ppx- heparin, teds 6. GI ppx- holding all bowel meds in setting of C diff 7. ID- patient diagnosed with C diff, ID consulted, recs greatly appreciated, switched from oral Vancomycin to Dificid, c/u to monitor 7. Pain- Tylenol prn 8. Psych- insomnia- trazodone 9. Dispo- TBD Allergies Coded Allergies: Sulfa (Sulfonamide Antibiotics) (Verified Adverse Reaction, Mild, STOMACH UPSET, 05/07/20) Vital Signs Vital Signs Date Time Temp Pulse Resp B/P (MAP) Pulse Ox O2 Delivery O2 Flow Rate FiO2 08/24/20 14:00 97.4 88 18 148/82 (104) 92 Room Air 08/24/20 05:16 2.0 Current Medications Current Medications Current Medications Medications (Trade) Dose Ordered Sig/Parviz Route PRN Reason Start Time Stop Time Status Last Admin Dose Admin Acetaminophen (Tylenol Tab) 650 mg Q4HP PRN PO fever/MILD PAIN (PS 1-4) 08/16/20 14:15 08/23/20 21:08 Albuterol/ Ipratropium (Duoneb (Ipr 0.5mg/Alb 2.5mg)) 3 ml Q2HP PRN NEB SOB/WHEEZING 08/17/20 05:45 Amlodipine Besylate (Norvasc) 10 mg DAILY PO 08/17/20 09:00 08/23/20 08:38 Atorvastatin Calcium (Lipitor) 40 mg QHS PO 08/16/20 21:00 08/23/20 20:55 Budesonide/ Formoterol Fumarate (Symbicort 80/ 4.5mcg) 2 puff RBID INH 08/16/20 20:00 08/24/20 07:06 Cefazolin Sodium 2 gm/Dextrose 50 ml @ 100 mls/hr Q12H IV 08/16/20 14:15 08/16/20 15:21 DC Cefepime HCl 2 gm/ Dextrose 50 ml @ 100 mls/hr Q12H IV 08/17/20 00:00 08/18/20 09:52 DC 08/17/20 23:55 Docusate Sodium (Colace) 100 mg BID PO 08/16/20 21:00 08/17/20 18:34 DC Fidaxomicin (Dificid) 200 mg BID PO 08/21/20 21:00 08/24/20 09:17 Fluoxetine HCl (PROzac) 10 mg DAILY PO 08/17/20 09:00 08/24/20 09:17 Heparin Sodium (Porcine) (Heparin) 5,000 units Q12H SC 08/16/20 21:00 08/24/20 09:17 Hydralazine HCl (Apresoline) 20 mg TID PO 08/16/20 16:00 08/23/20 20:56 Lactobacillus Acidophilus (Bacid) 1 ea WMHS PO 08/21/20 18:00 08/24/20 13:00 Lisinopril (Prinivil) 10 mg DAILY PO 08/17/20 09:00 08/23/20 08:39 Metronidazole 500 mg/IV Miscellaneous Supplies 100 ml @ 100 mls/hr Q8H IV 08/18/20 09:00 08/18/20 09:52 DC Nystatin (Mycostatin Powder, Nystop) bilat groin and cate area BID TOP 08/21/20 21:00 08/24/20 09:17 Pantoprazole Sodium (Protonix) 40 mg DAILY PO 08/17/20 09:00 08/18/20 08:55 DC Senna (Senokot) 1 tab QHS PO 08/16/20 21:00 08/17/20 18:34 DC Thiamine HCl (Thiamine HCl) 100 mg DAILY PO 08/17/20 09:00 08/24/20 09:17 Tiotropium [place] (Spiriva Handihaler) 1 inhalation DAILY@08 INH 08/17/20 08:00 08/24/20 07:06 Trazodone HCl (Desyrel) 50 mg QHS PRN PO insomnia 08/17/20 05:45 08/18/20 03:25 Trazodone HCl (Desyrel) 50 mg QPM PO 08/16/20 21:00 08/23/20 20:55 Vancomycin HCl (First-Vancomycin 50(Firvanq)- 250mg/5ml) 125 mg QID PO 08/18/20 09:00 08/21/20 16:10 DC 08/21/20 12:22 Vancomycin HCl 750 mg/IV Miscellaneous Supplies 1 each/ Dextrose 275 ml @ 275 mls/hr Q24H IV 08/17/20 11:00 08/18/20 09:52 DC 08/17/20 12:15 Vancomycin HCl 1000 mg/IV Miscellaneous Supplies 1 each/ Dextrose 270 ml @ 270 mls/hr Q24H IV 08/17/20 10:00 08/18/20 09:52 DC 08/17/20 09:58 Vancomycin HCl 1750 mg/IV Miscellaneous Supplies 35 ml @ 35 mls/hr Q24H IV 08/16/20 14:15 08/16/20 15:22 MARGIE BESS MD Aug 24, 2020 14:44
[2020-08-24 20:00] VITALS: BP 131/63
[2020-08-24] MEDS: ATORVASTATIN 20 MG TAB PO SCH (20:55)
[2020-08-24] MEDS: traZODone 50 MG TAB PO SCH (20:56)
[2020-08-25 05:17] LABS: BASO # 0.1 10^3/uL (0.0-0.2); BASO % 0.7 % (0.0-1.0); EOS # 0.3 10^3/uL (0.0-0.5); EOS % 2.7 % (0.0-3.0); HEMATOCRIT 41.6 % (36.0-47.0); HEMOGLOBIN 12.8 g/dl (12.0-15.5); LYMPH # 1.8 10^3/uL (1.5-5.0); LYMPH % 19.5 % (24.0-44.0); MEAN CORPUSCULAR HEMOGLOBIN 29.2 pg (27.0-33.0); MEAN CORPUSCULAR HGB CONC 30.8 g/dl (32.0-36.5); MEAN CORPUSCULAR VOLUME 94.8 fl (80.0-96.0); MONO # 0.9 10^3/uL (0.0-0.8); MONO % 9.1 % (2.0-8.0); NEUTROPHILS # 6.3 10^3/uL (1.5-8.5); NEUTROPHILS % 67.1 % (36.0-66.0); PLATELET COUNT, AUTOMATED 225 10^3/uL (150-450); RED BLOOD COUNT 4.39 10^6/uL (4.00-5.40); WHITE BLOOD COUNT 9.4 10^3/uL (4.0-10.0)
[2020-08-25 05:22] VITALS: BP 127/65
[2020-08-25 05:39] LABS: BLOOD UREA NITROGEN 12 MG/DL (7-18); CALCIUM LEVEL 8.6 MG/DL (8.8-10.2); CARBON DIOXIDE LEVEL 33 MEQ/L (21-32); CHLORIDE LEVEL 106 MEQ/L (98-107); CREATININE FOR GFR 0.89 MG/DL (0.55-1.30); GLOMERULAR FILTRATION RATE > 60.0 (>32); GLUCOSE, FASTING 103 MG/DL (70-100); POTASSIUM SERUM 4.2 MEQ/L (3.5-5.1); SODIUM LEVEL 144 MEQ/L (136-145)
[2020-08-25] MEDS: SYMBICORT 80/4.5MCG INHALER 6GM INH SCH ×2 (07:18→19:35)
[2020-08-25] MEDS: TIOTROPIUM INHALER/CAPSULE (SPIRIVA) INH SCH (07:18)
[2020-08-25] MEDS: HEPARIN SOD (PORCINE) 5000UNITS/ML 1ML VIAL/SYRINGE SC SCH ×2 (08:01→22:36)
[2020-08-25] MEDS: NYSTATIN 100,000 UNITS/GM TOPICAL PWD 15 GM TOP SCH ×2 (08:02→22:35)
[2020-08-25] MEDS: REMEDY PHYTOPLEX Z-GUARD PASTE 113GM TUBE (FROM STOREROOM PRODUCT) TOP SCH ×3 (08:02→22:35)
[2020-08-25] MEDS: **hydrALAZINE** 10 MG TAB PO SCH ×3 (08:03→22:34)
[2020-08-25] MEDS: THIAMINE 100 MG TAB PO SCH (08:03)
[2020-08-25] MEDS: FIDAXOMICIN 200 MG TAB (DIFICID) PO SCH ×2 (08:03→22:33)
[2020-08-25] MEDS: FLUoxetine 10 MG CAP PO SCH (08:03)
[2020-08-25] MEDS: LACTOBACILLUS ACIDOPHILUS CAP (BACID) PO SCH ×4 (08:03→22:33)
--- NOTE | 2020-08-25 12:03 | IPNPDOC ---
Text Note Date of Service The patient was seen on 08/25/20. NOTE SUBJECTIVE: -No acute events. Was taking a nap when I arrived. Denies abdominal pain, n/v, fevers, chills. -Reports that rehab efforts are going well without any complaints at this time OBJECTIVE: VITAL SIGNS: Please see below GENERAL: Lying in bed, in NAD, AAOx3 at times- baseline HEENT: AT/NC, moist mucus membranes. PERRLA, EOM intact NECK: symmetrical, no JVD LUNGS: CTAB, no w/r/r HEART: S1S2 + no M/R/g ABDOMEN: Soft, nontender, obese, no masses. EXTREMITIES: No peripheral edema. WWP. NEURO: No focal deficits, CN 2-12 intact LABORATORY: reviewed MICROBIOLOGY: 08/19 C diff pos Plan: C. difficile infection likely 2/2 to multiple courses of antibiotics -Continue fidaxomicin, day 5 of 10 day course -ID rec consult to PFS to set up for IV Bezlotoxumab infusion upon discharge to prevent of recurrent C-difficile in this elderly female who is at very high risk of 25% or more of recurrence. -C.diff precautions Chronic hypoxemic respiratory failure: -stably on 2L NC Physical deconditioning -PT: Pt remains below her PLOF, however is making slow steady progress towards established goals. -C/w rehab per ARU direction HLD -C/w statin Recent CVA -C/w statin, Not on ASA or plavix -PT/OT DM type II -Not currently on ISS, FS AC/HS. -If BS increase would recommend starting HTN -Stable -C/w current medications DVT px -Heparin VS,Fishbone, I+O VS, Fishbone, I+O Laboratory Tests 08/25/20 04:43 Vital Signs Date Time Temp Pulse Resp B/P (MAP) Pulse Ox O2 Delivery O2 Flow Rate FiO2 08/25/20 08:05 62 08/25/20 08:03 136/78 08/25/20 08:00 2.0 08/25/20 05:22 98.3 19 94 Nasal Cannula I&O- Last 24 Hours up to 6 AM 08/25/20 06:00 Intake Total 1441 ml Balance 1441 ml KARENA CHÁVEZ MD Aug 25, 2020 12:03
--- NOTE | 2020-08-25 12:17 | IPN ---
PROGRESS NOTE DATE: 08/25/2020 Raphael seems to be doing well. She had no complaints herself. According to the charge nurse, she is still confused and not back to baseline, and there is concern about her going back home, and she may need to be placed in a retirement eventually. She has had no fever or chills. No nausea, vomiting, or diarrhea. Bowel movements are more formed. She had three incontinent bowel movements and zero documented from the day before. LABORATORY DATA: White count is 9.4, hemoglobin 12.8, hematocrit 41.6, platelets 225, 67% neutrophils, 19% lymphocytes, 9% monocytes. Sodium 144, potassium 4.2, chloride 106, bicarbonate 33, BUN 12, creatinine 0.89, glucose 103, calcium 8.6. AST 19 PHYSICAL EXAMINATION: Temperature is 98.3, pulse 67, respirations 19, blood pressure 127/65, oxygen saturation 94% on 2 liters nasal cannula. HEART: Normal S1, S2. No murmurs. Distant. LUNGS: Clear. No wheezes, rales, or rhonchi. ABDOMEN: Soft, nontender. No hepatosplenomegaly. GENITOURINARY: Normal for age. She had erythema along the mucosal folds that has markedly decreased with nystatin powder and barrier cream. EXTREMITIES: No edema. NEUROLOGIC: Upper motor strength is 5/5 bilaterally. Patient does not respond to questions appropriately all the time. IMPRESSION: 1. Clostridium (C) difficile colitis, improving. She is currently day #5 oral fidaxomicin, which has been renewed for 10 days. Patient's anticipated discharge is September 07. I would suggest after she finishes the 10-day course to use every other day one tablet dosing for tapering to decrease her risk of relapse. 2. Mucocutaneous candidiasis of the perineum, on nystatin powder. PLAN: Continue fidaxomicin 200 mg by mouth twice a day for 10 days followed by 200 mg daily every other day until discharge. Continue probiotics one tablet by mouth daily. Consider using Zinplava upon discharge to decrease risk of recurrence. MTDD
[2020-08-25 14:00] VITALS: BP 139/90
[2020-08-25 20:20] VITALS: BP 126/74
[2020-08-25] MEDS: traZODone 50 MG TAB PO SCH (22:33)
[2020-08-25] MEDS: ATORVASTATIN 20 MG TAB PO SCH (22:34)
[2020-08-26 06:11] VITALS: BP 155/78
[2020-08-26] MEDS: TIOTROPIUM INHALER/CAPSULE (SPIRIVA) INH SCH (07:12)
[2020-08-26] MEDS: SYMBICORT 80/4.5MCG INHALER 6GM INH SCH ×2 (07:13→19:55)
[2020-08-26] MEDS: NYSTATIN 100,000 UNITS/GM TOPICAL PWD 15 GM TOP SCH ×2 (09:43→21:10)
[2020-08-26] MEDS: HEPARIN SOD (PORCINE) 5000UNITS/ML 1ML VIAL/SYRINGE SC SCH ×2 (09:44→21:09)
[2020-08-26] MEDS: FLUoxetine 10 MG CAP PO SCH (09:45)
[2020-08-26] MEDS: THIAMINE 100 MG TAB PO SCH (09:45)
[2020-08-26] MEDS: **hydrALAZINE** 10 MG TAB PO SCH ×3 (09:45→21:11)
[2020-08-26] MEDS: FIDAXOMICIN 200 MG TAB (DIFICID) PO SCH ×2 (09:45→21:11)
[2020-08-26] MEDS: REMEDY PHYTOPLEX Z-GUARD PASTE 113GM TUBE (FROM STOREROOM PRODUCT) TOP SCH ×3 (09:46→21:12)
[2020-08-26] MEDS: LACTOBACILLUS ACIDOPHILUS CAP (BACID) PO SCH ×4 (09:55→21:11)
[2020-08-26 14:00] VITALS: BP 134/70
[2020-08-26 20:00] VITALS: BP 153/76
[2020-08-26] MEDS: traZODone 50 MG TAB PO SCH (21:12)
[2020-08-26] MEDS: ATORVASTATIN 20 MG TAB PO SCH (21:12)
[2020-08-27 05:28] VITALS: BP 142/70
[2020-08-27] MEDS: TIOTROPIUM INHALER/CAPSULE (SPIRIVA) INH SCH (07:11)
[2020-08-27] MEDS: SYMBICORT 80/4.5MCG INHALER 6GM INH SCH ×2 (07:12→19:59)
[2020-08-27] MEDS: FLUoxetine 10 MG CAP PO SCH (08:41)
[2020-08-27] MEDS: THIAMINE 100 MG TAB PO SCH (08:41)
[2020-08-27] MEDS: LACTOBACILLUS ACIDOPHILUS CAP (BACID) PO SCH ×4 (08:41→20:27)
[2020-08-27] MEDS: ACETAMINOPHEN TAB 650MG DOSE (2X325MG) PO PRN (08:42)
[2020-08-27] MEDS: FIDAXOMICIN 200 MG TAB (DIFICID) PO SCH ×2 (08:42→20:28)
[2020-08-27] MEDS: **hydrALAZINE** 10 MG TAB PO SCH ×3 (08:45→20:28)
[2020-08-27] MEDS: NYSTATIN 100,000 UNITS/GM TOPICAL PWD 15 GM TOP SCH ×2 (08:46→20:29)
[2020-08-27] MEDS: HEPARIN SOD (PORCINE) 5000UNITS/ML 1ML VIAL/SYRINGE SC SCH ×2 (08:46→20:28)
[2020-08-27] MEDS: REMEDY PHYTOPLEX Z-GUARD PASTE 113GM TUBE (FROM STOREROOM PRODUCT) TOP SCH ×3 (08:46→20:29)
[2020-08-27 08:51] VITALS: BP 108/80
[2020-08-27 14:05] VITALS: BP 101/67
--- NOTE | 2020-08-27 19:38 | IPNPDOC ---
PM&R Progress Note DATE OF SERVICE: Aug 25, 2020 [employer] Progress Note Subjective: PAtient seen in her room stating she has no complaints, mostly answering questions with a yes or no. REVIEW OF SYSTEMS: The following is a completed review of systems and has been reviewed. Review of systems otherwise unremarkable. PAIN: Patient self reports no pain EYES: No recent vision changes EARS, NOSE, & THROAT: + dysphagia CARDIOVASCULAR: Denies chest pain or palpitations PULMONARY: denies shortness of breath GASTROINTESTINAL:: denies diarrhea/constipation GENITOURINARY: denies dysuria MUSCULOSKELETAL:generalized weakness NEUROLOGICAL:+ aphasia HEMATOLOGICAL: denies easy bruising SKIN: denies rash PSYCHIATRIC: +confused All other review of systems found to be negative. PHYSICAL EXAMINATION: VITAL SIGNS: Please see below. GENERAL: Pleasant and cooperative. No acute distress. HEENT: PERRL. Extraocular movements intact. Clear conjunctiva CARDIOVASCULAR: Regular rate and rhythm. No murmurs, rubs, or gallops LUNGS: CTA ABDOMEN: Soft, non-tender, nondistended. Positive bowel sounds. NEUROLOGICAL: Alert and oriented times to person, place, not time, Cranial nerves II through XII grossly intact. Sensation grossly intact (-) clonus bilat EXTREMITIES: 5-\5 strength bilateral upper extremities. 5-\5 strength right lower extremity. 5-/5 strength in left lower extremity. LABORATORY DATA: Please see below. ASSESSMENT:84-year-old F with past medical history of HTN and COPD who presents status post left basal ganglia stroke PLAN: 1. 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 Neuro- s/p left basal ganglia infarct, c/u ASA and statin for secondary stroke prevention -low dose Prozac for motor recovery -hx of ETOH abuse, thiamine for cognitive assistance 3. CArdiac- hx of HTN-c/u lisinopril, Amlodipine, and hydralazine with holding parameters -grade 1 diastolic CHF, fluid restrict, daily weights -hld- c/u statin -medicine consulted to assist in overall management 4. Resp- hx of COPD c/u supplemental 02 goal 88-92% s/p course of CEfepime and Vanco for PNA,, c/u Duonebs, symbicort, and spiriva, -possible TERESE, nocturnal 02 5. DVT ppx- heparin, teds 6. GI ppx- holding all bowel meds in setting of C diff 7. ID- patient diagnosed with C diff, ID consulted, recs greatly appreciated, switched from oral Vancomycin to Dificid, c/u to monitor 7. Pain- Tylenol prn 8. Psych- insomnia- trazodone 9. Dispo- TBD Allergies Coded Allergies: Sulfa (Sulfonamide Antibiotics) (Verified Adverse Reaction, Mild, STOMACH UPSET, 05/07/20) Vital Signs Vital Signs Date Time Temp Pulse Resp B/P (MAP) Pulse Ox O2 Delivery O2 Flow Rate FiO2 08/27/20 16:00 101/67 08/27/20 14:05 96.7 72 95 Room Air 08/27/20 09:45 2.0 08/27/20 08:51 18 Current Medications Current Medications Current Medications Medications (Trade) Dose Ordered Sig/Parviz Route PRN Reason Start Time Stop Time Status Last Admin Dose Admin Acetaminophen (Tylenol Tab) 650 mg Q4HP PRN PO fever/MILD PAIN (PS 1-4) 08/16/20 14:15 08/27/20 08:42 Albuterol/ Ipratropium (Duoneb (Ipr 0.5mg/Alb 2.5mg)) 3 ml Q2HP PRN NEB SOB/WHEEZING 08/17/20 05:45 Amlodipine Besylate (Norvasc) 10 mg DAILY PO 08/17/20 09:00 08/26/20 09:45 Atorvastatin Calcium (Lipitor) 40 mg QHS PO 08/16/20 21:00 08/26/20 21:12 Budesonide/ Formoterol Fumarate (Symbicort 80/ 4.5mcg) 2 puff RBID INH 08/16/20 20:00 08/27/20 07:12 Cefazolin Sodium 2 gm/Dextrose 50 ml @ 100 mls/hr Q12H IV 08/16/20 14:15 08/16/20 15:21 DC Cefepime HCl 2 gm/ Dextrose 50 ml @ 100 mls/hr Q12H IV 08/17/20 00:00 08/18/20 09:52 DC 08/17/20 23:55 Docusate Sodium (Colace) 100 mg BID PO 08/16/20 21:00 08/17/20 18:34 DC Fidaxomicin (Dificid) 200 mg BID PO 08/21/20 21:00 08/27/20 08:42 Fluoxetine HCl (PROzac) 10 mg DAILY PO 08/17/20 09:00 08/27/20 08:41 Heparin Sodium (Porcine) (Heparin) 5,000 units Q12H SC 08/16/20 21:00 08/27/20 08:46 Hydralazine HCl (Apresoline) 20 mg TID PO 08/16/20 16:00 08/26/20 21:11 Lactobacillus Acidophilus (Bacid) 1 ea WMHS PO 08/21/20 18:00 08/27/20 18:13 Lisinopril (Prinivil) 10 mg DAILY PO 08/17/20 09:00 08/26/20 09:45 Metronidazole 500 mg/IV Miscellaneous Supplies 100 ml @ 100 mls/hr Q8H IV 08/18/20 09:00 08/18/20 09:52 DC Nystatin (Mycostatin Powder, Nystop) bilat groin and cate area BID TOP 08/21/20 21:00 08/27/20 08:46 Pantoprazole Sodium (Protonix) 40 mg DAILY PO 08/17/20 09:00 08/18/20 08:55 DC Senna (Senokot) 1 tab QHS PO 08/16/20 21:00 08/17/20 18:34 DC Thiamine HCl (Thiamine HCl) 100 mg DAILY PO 08/17/20 09:00 08/27/20 08:41 Tiotropium [place] (Spiriva Handihaler) 1 inhalation DAILY@08 INH 08/17/20 08:00 08/27/20 07:11 Trazodone HCl (Desyrel) 50 mg QHS PRN PO insomnia 08/17/20 05:45 08/18/20 03:25 Trazodone HCl (Desyrel) 50 mg QPM PO 08/16/20 21:00 08/26/20 21:12 Vancomycin HCl (First-Vancomycin 50(Firvanq)- 250mg/5ml) 125 mg QID PO 08/18/20 09:00 08/21/20 16:10 DC 08/21/20 12:22 Vancomycin HCl 750 mg/IV Miscellaneous Supplies 1 each/ Dextrose 275 ml @ 275 mls/hr Q24H IV 08/17/20 11:00 08/18/20 09:52 DC 08/17/20 12:15 Vancomycin HCl 1000 mg/IV Miscellaneous Supplies 1 each/ Dextrose 270 ml @ 270 mls/hr Q24H IV 08/17/20 10:00 08/18/20 09:52 DC 08/17/20 09:58 Vancomycin HCl 1750 mg/IV Miscellaneous Supplies 35 ml @ 35 mls/hr Q24H IV 08/16/20 14:15 08/16/20 15:22 DC MARGEI CARRERA MD Aug 27, 2020 19:38
[2020-08-27 20:00] VITALS: BP 135/80
[2020-08-27] MEDS: traZODone 50 MG TAB PO SCH (20:27)
[2020-08-27] MEDS: ATORVASTATIN 20 MG TAB PO SCH (20:27)
[2020-08-28 06:00] VITALS: BP 126/60
[2020-08-28 06:24] LABS: BASO # 0.1 10^3/uL (0.0-0.2); BASO % 1.1 % (0.0-1.0); EOS # 0.3 10^3/uL (0.0-0.5); EOS % 2.8 % (0.0-3.0); HEMATOCRIT 43.3 % (36.0-47.0); HEMOGLOBIN 13.7 g/dl (12.0-15.5); LYMPH # 1.4 10^3/uL (1.5-5.0); LYMPH % 15.9 % (24.0-44.0); MEAN CORPUSCULAR HEMOGLOBIN 29.8 pg (27.0-33.0); MEAN CORPUSCULAR HGB CONC 31.6 g/dl (32.0-36.5); MEAN CORPUSCULAR VOLUME 94.1 fl (80.0-96.0); MONO # 0.9 10^3/uL (0.0-0.8); MONO % 10.5 % (2.0-8.0); NEUTROPHILS # 6.1 10^3/uL (1.5-8.5); NEUTROPHILS % 69.2 % (36.0-66.0); PLATELET COUNT, AUTOMATED 204 10^3/uL (150-450); WHITE BLOOD COUNT 8.9 10^3/uL (4.0-10.0)
[2020-08-28 06:55] LABS: BLOOD UREA NITROGEN 17 MG/DL (7-18); CALCIUM LEVEL 8.8 MG/DL (8.8-10.2); CARBON DIOXIDE LEVEL 32 MEQ/L (21-32); CHLORIDE LEVEL 106 MEQ/L (98-107); CREATININE FOR GFR 0.94 MG/DL (0.55-1.30); GLOMERULAR FILTRATION RATE > 60.0 (>32); GLUCOSE, FASTING 106 MG/DL (70-100); POTASSIUM SERUM 4.5 MEQ/L (3.5-5.1); SODIUM LEVEL 141 MEQ/L (136-145)
[2020-08-28] MEDS: SYMBICORT 80/4.5MCG INHALER 6GM INH SCH ×2 (07:14→19:43)
[2020-08-28] MEDS: TIOTROPIUM INHALER/CAPSULE (SPIRIVA) INH SCH (07:14)
[2020-08-28] MEDS: **hydrALAZINE** 10 MG TAB PO SCH ×3 (09:00→21:39)
--- NOTE | 2020-08-28 09:36 | IPNPDOC ---
PM&R Progress Note DATE OF SERVICE: Aug 28, 2020 [employer] Progress Note Subjective: PAtient seen sitting by the window in her chair, reporting she is enjoying therapy and has no abdominal pain. REVIEW OF SYSTEMS: The following is a completed review of systems and has been reviewed. Review of systems otherwise unremarkable. PAIN: Patient self reports no pain EYES: No recent vision changes EARS, NOSE, & THROAT: + dysphagia CARDIOVASCULAR: Denies chest pain or palpitations PULMONARY: denies shortness of breath GASTROINTESTINAL:: denies diarrhea/constipation GENITOURINARY: denies dysuria MUSCULOSKELETAL:generalized weakness NEUROLOGICAL:+ aphasia HEMATOLOGICAL: denies easy bruising SKIN: denies rash PSYCHIATRIC: +confused All other review of systems found to be negative. PHYSICAL EXAMINATION: VITAL SIGNS: Please see below. GENERAL: Pleasant and cooperative. No acute distress. HEENT: PERRL. Extraocular movements intact. Clear conjunctiva CARDIOVASCULAR: Regular rate and rhythm. No murmurs, rubs, or gallops LUNGS: CTA ABDOMEN: Soft, non-tender, nondistended. Positive bowel sounds. NEUROLOGICAL: Alert and oriented times to person, place, not time, Cranial nerves II through XII grossly intact. Sensation grossly intact (-) clonus bilat EXTREMITIES: 5-\5 strength bilateral upper extremities. 5-\5 strength right lower extremity. 5-/5 strength in left lower extremity. LABORATORY DATA: Please see below. ASSESSMENT:84-year-old F with past medical history of HTN and COPD who presents status post left basal ganglia stroke PLAN: 1. 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 Neuro- s/p left basal ganglia infarct, c/u ASA and statin for secondary stroke prevention -low dose Prozac for motor recovery -hx of ETOH abuse, thiamine for cognitive assistance 3. CArdiac- hx of HTN-c/u lisinopril, Amlodipine, and hydralazine with holding parameters -grade 1 diastolic CHF, fluid restrict, daily weights -hld- c/u statin -medicine consulted to assist in overall management 4. Resp- hx of COPD c/u supplemental 02 goal 88-92% s/p course of CEfepime and Vanco for PNA,, c/u Duonebs, symbicort, and spiriva, -possible TERESE, nocturnal 02 5. DVT ppx- heparin, teds 6. GI ppx- holding all bowel meds in setting of C diff 7. ID- patient diagnosed with C diff, ID consulted, recs greatly appreciated, switched from oral Vancomycin to Dificid, c/u to monitor-no further loose stools 7. Pain- Tylenol prn 8. Psych- insomnia- trazodone 9. Dispo- TBD Allergies Coded Allergies: Sulfa (Sulfonamide Antibiotics) (Verified Adverse Reaction, Mild, STOMACH UPSET, 05/07/20) Vital Signs Vital Signs Date Time Temp Pulse Resp B/P (MAP) Pulse Ox O2 Delivery O2 Flow Rate FiO2 08/28/20 06:00 96.4 60 18 126/60 (82) 97 Room Air 08/27/20 20:00 2.0 Laboratory Data CBC/BMP Laboratory Tests 08/28/20 06:10 Labs 24H Laboratory Tests 2 08/28/20 06:10: Immature Granulocyte % (Auto) 0.5, Neutrophils (%) (Auto) 69.2H, Lymphocytes (%) (Auto) 15.9L, Monocytes (%) (Auto) 10.5H, Eosinophils (%) (Auto) 2.8, Basophils (%) (Auto) 1.1H, Neutrophils # (Auto) 6.1, Lymphocytes # (Auto) 1.4L, Monocytes # (Auto) 0.9H, Eosinophils # (Auto) 0.3, Basophils # (Auto) 0.1, Nucleated Red Blood Cells % (auto) 0.0, Anion Gap 3L, Glomerular Filtration Rate > 60.0, Calcium Level 8.8 Current Medications Current Medications Current Medications Medications (Trade) Dose Ordered Sig/Parviz Route PRN Reason Start Time Stop Time Status Last Admin Dose Admin Acetaminophen (Tylenol Tab) 650 mg Q4HP PRN PO fever/MILD PAIN (PS 1-4) 08/16/20 14:15 08/27/20 08:42 Albuterol/ Ipratropium (Duoneb (Ipr 0.5mg/Alb 2.5mg)) 3 ml Q2HP PRN NEB SOB/WHEEZING 08/17/20 05:45 Amlodipine Besylate (Norvasc) 10 mg DAILY PO 08/17/20 09:00 08/26/20 09:45 Atorvastatin Calcium (Lipitor) 40 mg QHS PO 08/16/20 21:00 08/27/20 20:27 Budesonide/ Formoterol Fumarate (Symbicort 80/ 4.5mcg) 2 puff RBID INH 08/16/20 20:00 08/28/20 07:14 Cefazolin Sodium 2 gm/Dextrose 50 ml @ 100 mls/hr Q12H IV 08/16/20 14:15 08/16/20 15:21 DC Cefepime HCl 2 gm/ Dextrose 50 ml @ 100 mls/hr Q12H IV 08/17/20 00:00 08/18/20 09:52 DC 08/17/20 23:55 Docusate Sodium (Colace) 100 mg BID PO 08/16/20 21:00 08/17/20 18:34 DC Fidaxomicin (Dificid) 200 mg BID PO 08/21/20 21:00 08/27/20 20:28 Fluoxetine HCl (PROzac) 10 mg DAILY PO 08/17/20 09:00 08/27/20 08:41 Heparin Sodium (Porcine) (Heparin) 5,000 units Q12H SC 08/16/20 21:00 08/27/20 20:28 Hydralazine HCl (Apresoline) 20 mg TID PO 08/16/20 16:00 08/27/20 20:28 Lactobacillus Acidophilus (Bacid) 1 ea WMHS PO 08/21/20 18:00 08/27/20 20:27 Lisinopril (Prinivil) 10 mg DAILY PO 08/17/20 09:00 08/26/20 09:45 Metronidazole 500 mg/IV Miscellaneous Supplies 100 ml @ 100 mls/hr Q8H IV 08/18/20 09:00 08/18/20 09:52 DC Nystatin (Mycostatin Powder, Nystop) bilat groin and cate area BID TOP 08/21/20 21:00 08/27/20 20:29 Pantoprazole Sodium (Protonix) 40 mg DAILY PO 08/17/20 09:00 08/18/20 08:55 DC Senna (Senokot) 1 tab QHS PO 08/16/20 21:00 08/17/20 18:34 DC Thiamine HCl (Thiamine HCl) 100 mg DAILY PO 08/17/20 09:00 08/27/20 08:41 Tiotropium [place] (Spiriva Handihaler) 1 inhalation DAILY@08 INH 08/17/20 08:00 08/28/20 07:14 Trazodone HCl (Desyrel) 50 mg QHS PRN PO insomnia 08/17/20 05:45 08/18/20 03:25 Trazodone HCl (Desyrel) 50 mg QPM PO 08/16/20 21:00 08/27/20 20:27 Vancomycin HCl (First-Vancomycin 50(Firvanq)- 250mg/5ml) 125 mg QID PO 08/18/20 09:00 08/21/20 16:10 DC 08/21/20 12:22 Vancomycin HCl 750 mg/IV Miscellaneous Supplies 1 each/ Dextrose 275 ml @ 275 mls/hr Q24H IV 08/17/20 11:00 08/18/20 09:52 DC 08/17/20 12:15 Vancomycin HCl 1000 mg/IV Miscellaneous Supplies 1 each/ Dextrose 270 ml @ 270 mls/hr Q24H IV 08/17/20 10:00 08/18/20 09:52 DC 08/17/20 09:58 Vancomycin HCl 1750 mg/IV Miscellaneous Supplies 35 ml @ 35 mls/hr Q24H IV 08/16/20 14:15 08/16/20 15:22 MARGIE BESS MD Aug 28, 2020 09:36
[2020-08-28] MEDS: NYSTATIN 100,000 UNITS/GM TOPICAL PWD 15 GM TOP SCH ×2 (10:25→21:40)
[2020-08-28] MEDS: REMEDY PHYTOPLEX Z-GUARD PASTE 113GM TUBE (FROM STOREROOM PRODUCT) TOP SCH ×3 (10:25→21:40)
[2020-08-28] MEDS: FIDAXOMICIN 200 MG TAB (DIFICID) PO SCH ×2 (10:26→21:38)
[2020-08-28] MEDS: LACTOBACILLUS ACIDOPHILUS CAP (BACID) PO SCH ×4 (10:26→21:38)
[2020-08-28] MEDS: FLUoxetine 10 MG CAP PO SCH (10:26)
[2020-08-28] MEDS: HEPARIN SOD (PORCINE) 5000UNITS/ML 1ML VIAL/SYRINGE SC SCH ×2 (10:26→21:39)
[2020-08-28] MEDS: THIAMINE 100 MG TAB PO SCH (10:27)
[2020-08-28 14:00] VITALS: BP 132/79
--- NOTE | 2020-08-28 14:43 | IPNPDOC ---
Text Note Date of Service The patient was seen on 08/28/20. NOTE Patient was seen and examined. No acute events. Participating in Rehab PHYSICAL EXAM VITAL SIGNS: Please see below GENERAL: Lying in bed, in NAD, AAOx3 at times- baseline HEENT: AT/NC, moist mucus membranes. PERRLA, EOM intact NECK: symmetrical, no JVD LUNGS: CTAB, no w/r/r HEART: S1S2 + no M/R/g ABDOMEN: Soft, nontender, obese, no masses. EXTREMITIES: No peripheral edema. WWP. NEURO: No focal deficits, CN 2-12 intact LABORATORY: reviewed Assessment and Plan: C. difficile infection likely 2/2 to multiple courses of antibiotics -Continue fidaxomicin, for 10 day course -ID rec consult to PFS to set up for IV Bezlotoxumab infusion upon discharge to prevent of recurrent C-difficile in this elderly female who is at very high risk of 25% or more of recurrence. -C.diff precautions Chronic hypoxemic respiratory failure: -stably on 2L NC Physical deconditioning -PT: Pt remains below her PLOF, however is making slow steady progress towards established goals. -C/w rehab per ARU direction HLD -C/w statin Recent CVA -C/w statin, Not on ASA or plavix -PT/OT DM type II -Not currently on ISS, FS AC/HS. -If BS increase would recommend starting HTN -Stable -C/w current medications DVT px -Heparin VS,Fishbone, I+O VS, Fishbone, I+O Laboratory Tests 08/28/20 06:10 Vital Signs Date Time Temp Pulse Resp B/P (MAP) Pulse Ox O2 Delivery O2 Flow Rate FiO2 08/28/20 09:00 64 108/80 08/28/20 06:00 96.4 18 97 Room Air 08/27/20 20:00 2.0 I&O- Last 24 Hours up to 6 AM 08/28/20 06:00 Intake Total 1080 ml Balance 1080 ml MEKA BLACK MD Aug 28, 2020 14:43
[2020-08-28 20:00] VITALS: BP 118/63
[2020-08-28] MEDS: ATORVASTATIN 20 MG TAB PO SCH (21:38)
[2020-08-28] MEDS: traZODone 50 MG TAB PO SCH (21:38)
[2020-08-29 06:00] VITALS: BP 139/65
[2020-08-29] MEDS: SYMBICORT 80/4.5MCG INHALER 6GM INH SCH ×2 (07:38→20:00)
[2020-08-29] MEDS: TIOTROPIUM INHALER/CAPSULE (SPIRIVA) INH SCH (07:38)
[2020-08-29] MEDS: **hydrALAZINE** 10 MG TAB PO SCH ×3 (08:14→21:26)
[2020-08-29] MEDS: THIAMINE 100 MG TAB PO SCH (08:15)
[2020-08-29] MEDS: LACTOBACILLUS ACIDOPHILUS CAP (BACID) PO SCH ×4 (08:15→21:25)
[2020-08-29] MEDS: FIDAXOMICIN 200 MG TAB (DIFICID) PO SCH ×2 (08:15→21:25)
[2020-08-29] MEDS: HEPARIN SOD (PORCINE) 5000UNITS/ML 1ML VIAL/SYRINGE SC SCH ×2 (08:15→21:26)
[2020-08-29] MEDS: FLUoxetine 10 MG CAP PO SCH (08:15)
[2020-08-29] MEDS: REMEDY PHYTOPLEX Z-GUARD PASTE 113GM TUBE (FROM STOREROOM PRODUCT) TOP SCH ×4 (08:16→23:49)
[2020-08-29] MEDS: NYSTATIN 100,000 UNITS/GM TOPICAL PWD 15 GM TOP SCH ×2 (08:16→21:28)
--- NOTE | 2020-08-29 10:45 | IPNPDOC ---
PM&R Progress Note DATE OF SERVICE: Aug 29, 2020 [facility] Progress Note Subjective: Patient seen in PT and was attempting to get herself back into bed which she needed multiple cues to do and a little assistance. She denies having pain, and states she feels ok. REVIEW OF SYSTEMS: The following is a completed review of systems and has been reviewed. Review of systems otherwise unremarkable. PAIN: Patient self reports no pain EYES: No recent vision changes EARS, NOSE, & THROAT: + dysphagia CARDIOVASCULAR: Denies chest pain or palpitations PULMONARY: denies shortness of breath GASTROINTESTINAL:: denies diarrhea/constipation GENITOURINARY: denies dysuria MUSCULOSKELETAL:generalized weakness NEUROLOGICAL:+ aphasia HEMATOLOGICAL: denies easy bruising SKIN: denies rash PSYCHIATRIC: +confused All other review of systems found to be negative. PHYSICAL EXAMINATION: VITAL SIGNS: Please see below. GENERAL: Pleasant and cooperative. No acute distress. HEENT: PERRL. Extraocular movements intact. Clear conjunctiva CARDIOVASCULAR: Regular rate and rhythm. No murmurs, rubs, or gallops LUNGS: CTA ABDOMEN: Soft, non-tender, nondistended. Positive bowel sounds. NEUROLOGICAL: Alert and oriented times to person, place, not time, Cranial nerves II through XII grossly intact. Sensation grossly intact (-) clonus bilat EXTREMITIES: 5-\5 strength bilateral upper extremities. 5-\5 strength right lower extremity. 5-/5 strength in left lower extremity. LABORATORY DATA: Please see below. ASSESSMENT:84-year-old F with past medical history of HTN and COPD who presents status post left basal ganglia stroke PLAN: 1. 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 Neuro- s/p left basal ganglia infarct, c/u ASA and statin for secondary stroke prevention -low dose Prozac for motor recovery -hx of ETOH abuse, thiamine for cognitive assistance 3. CArdiac- hx of HTN-c/u lisinopril, Amlodipine, and hydralazine with holding parameters -grade 1 diastolic CHF, fluid restrict, daily weights -hld- c/u statin -medicine consulted to assist in overall management 4. Resp- hx of COPD c/u supplemental 02 goal 88-92% s/p course of CEfepime and Vanco for PNA,, c/u Duonebs, symbicort, and spiriva, -possible TERESE, nocturnal 02 5. DVT ppx- heparin, teds 6. GI ppx- holding all bowel meds in setting of C diff 7. ID- patient diagnosed with C diff, ID consulted, recs greatly appreciated, switched from oral Vancomycin to Dificid, c/u to monitor-no further loose stools 7. Pain- Tylenol prn 8. Psych- insomnia- trazodone 9. Dispo- TBD Allergies Coded Allergies: Sulfa (Sulfonamide Antibiotics) (Verified Adverse Reaction, Mild, STOMACH UPSET, 05/07/20) Vital Signs Vital Signs Date Time Temp Pulse Resp B/P (MAP) Pulse Ox O2 Delivery O2 Flow Rate FiO2 08/29/20 08:17 72 102/64 08/29/20 06:00 97.1 19 93 08/28/20 22:26 2.0 08/28/20 06:00 Room Air Current Medications Current Medications Current Medications Medications (Trade) Dose Ordered Sig/Parviz Route PRN Reason Start Time Stop Time Status Last Admin Dose Admin Acetaminophen (Tylenol Tab) 650 mg Q4HP PRN PO fever/MILD PAIN (PS 1-4) 08/16/20 14:15 08/27/20 08:42 Albuterol/ Ipratropium (Duoneb (Ipr 0.5mg/Alb 2.5mg)) 3 ml Q2HP PRN NEB SOB/WHEEZING 08/17/20 05:45 Amlodipine Besylate (Norvasc) 10 mg DAILY PO 08/17/20 09:00 08/26/20 09:45 Atorvastatin Calcium (Lipitor) 40 mg QHS PO 08/16/20 21:00 08/28/20 21:38 Budesonide/ Formoterol Fumarate (Symbicort 80/ 4.5mcg) 2 puff RBID INH 08/16/20 20:00 08/29/20 07:38 Cefazolin Sodium 2 gm/Dextrose 50 ml @ 100 mls/hr Q12H IV 08/16/20 14:15 08/16/20 15:21 DC Cefepime HCl 2 gm/ Dextrose 50 ml @ 100 mls/hr Q12H IV 08/17/20 00:00 08/18/20 09:52 DC 08/17/20 23:55 Docusate Sodium (Colace) 100 mg BID PO 08/16/20 21:00 08/17/20 18:34 DC Fidaxomicin (Dificid) 200 mg BID PO 08/21/20 21:00 08/29/20 08:15 Fluoxetine HCl (PROzac) 10 mg DAILY PO 08/17/20 09:00 08/29/20 08:15 Heparin Sodium (Porcine) (Heparin) 5,000 units Q12H SC 08/16/20 21:00 08/29/20 08:15 Hydralazine HCl (Apresoline) 20 mg TID PO 08/16/20 16:00 08/28/20 21:39 Lactobacillus Acidophilus (Bacid) 1 ea WMHS PO 08/21/20 18:00 08/29/20 08:15 Lisinopril (Prinivil) 10 mg DAILY PO 08/17/20 09:00 08/26/20 09:45 Metronidazole 500 mg/IV Miscellaneous Supplies 100 ml @ 100 mls/hr Q8H IV 08/18/20 09:00 08/18/20 09:52 DC Nystatin (Mycostatin Powder, Nystop) bilat groin and cate area BID TOP 08/21/20 21:00 08/29/20 08:16 Pantoprazole Sodium (Protonix) 40 mg DAILY PO 08/17/20 09:00 08/18/20 08:55 DC Senna (Senokot) 1 tab QHS PO 08/16/20 21:00 08/17/20 18:34 DC Thiamine HCl (Thiamine HCl) 100 mg DAILY PO 08/17/20 09:00 08/29/20 08:15 Tiotropium [place] (Spiriva Handihaler) 1 inhalation DAILY@08 INH 08/17/20 08:00 08/29/20 07:38 Trazodone HCl (Desyrel) 50 mg QHS PRN PO insomnia 08/17/20 05:45 08/18/20 03:25 Trazodone HCl (Desyrel) 50 mg QPM PO 08/16/20 21:00 08/28/20 21:38 Vancomycin HCl (First-Vancomycin 50(Firvanq)- 250mg/5ml) 125 mg QID PO 08/18/20 09:00 08/21/20 16:10 DC 08/21/20 12:22 Vancomycin HCl 750 mg/IV Miscellaneous Supplies 1 each/ Dextrose 275 ml @ 275 mls/hr Q24H IV 08/17/20 11:00 08/18/20 09:52 DC 08/17/20 12:15 Vancomycin HCl 1000 mg/IV Miscellaneous Supplies 1 each/ Dextrose 270 ml @ 270 mls/hr Q24H IV 08/17/20 10:00 08/18/20 09:52 DC 08/17/20 09:58 Vancomycin HCl 1750 mg/IV Miscellaneous Supplies 35 ml @ 35 mls/hr Q24H IV 08/16/20 14:15 08/16/20 15:22 MARGIE BESS MD Aug 29, 2020 10:45
--- NOTE | 2020-08-29 12:40 | IPNPDOC ---
Text Note Date of Service The patient was seen on 08/29/20. NOTE Patient was seen and examined. No acute events. Participating in Rehab PHYSICAL EXAM VITAL SIGNS: Please see below GENERAL: Lying in bed, in NAD, AAOx3 at times- baseline HEENT: AT/NC, moist mucus membranes. PERRLA, EOM intact NECK: symmetrical, no JVD LUNGS: CTAB, no w/r/r HEART: S1S2 + no M/R/g ABDOMEN: Soft, nontender, obese, no masses. EXTREMITIES: No peripheral edema. WWP. NEURO: No focal deficits, CN 2-12 intact LABORATORY: reviewed Assessment and Plan: 1) C. difficile infection likely 2/2 to multiple courses of antibiotics . Continue fidaxomicin, for 10 day course BID and once daily till dc as per ID. 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 2)Chronic hypoxemic respiratory failure: stable on 2L NC 3)Physical deconditioning. PT: Pt remains below her PLOF, however is making slow steady progress towards established goals. C/w rehab per ARU direction 4)HLD. C/w statin 5)Recent CVA. C/w statin, Not on ASA or plavix .PT/OT 6)DM type II : Continue monitoring. 7)HTN. Stable . C/w current medications DVT px. Heparin Disposition as per Primary VS,Fishbone, I+O VS, Fishbone, I+O Vital Signs Date Time Temp Pulse Resp B/P (MAP) Pulse Ox O2 Delivery O2 Flow Rate FiO2 08/29/20 08:17 72 102/64 08/29/20 06:00 97.1 19 93 08/28/20 22:26 2.0 08/28/20 06:00 Room Air I&O- Last 24 Hours up to 6 AM 08/29/20 06:00 Intake Total 920 ml Balance 920 ml MEKA BLACK MD Aug 29, 2020 12:40
[2020-08-29 14:00] VITALS: BP 134/76
[2020-08-29 20:00] VITALS: BP 130/65
[2020-08-29] MEDS: ATORVASTATIN 20 MG TAB PO SCH (21:25)
[2020-08-29] MEDS: traZODone 50 MG TAB PO SCH (21:25)
[2020-08-30 05:15] VITALS: BP 133/65
[2020-08-30] MEDS: REMEDY PHYTOPLEX Z-GUARD PASTE 113GM TUBE (FROM STOREROOM PRODUCT) TOP SCH ×4 (05:39→20:57)
[2020-08-30 06:29] LABS: BASO # 0.1 10^3/uL (0.0-0.2); BASO % 1.5 % (0.0-1.0); EOS # 0.3 10^3/uL (0.0-0.5); EOS % 3.6 % (0.0-3.0); HEMATOCRIT 43.6 % (36.0-47.0); HEMOGLOBIN 13.7 g/dl (12.0-15.5); LYMPH # 1.3 10^3/uL (1.5-5.0); MEAN CORPUSCULAR HEMOGLOBIN 30.2 pg (27.0-33.0); MEAN CORPUSCULAR HGB CONC 31.4 g/dl (32.0-36.5); MONO # 0.8 10^3/uL (0.0-0.8); MONO % 10.7 % (2.0-8.0); NEUTROPHILS # 4.8 10^3/uL (1.5-8.5); NEUTROPHILS % 65.9 % (36.0-66.0); PLATELET COUNT, AUTOMATED 172 10^3/uL (150-450); RED BLOOD COUNT 4.54 10^6/uL (4.00-5.40); WHITE BLOOD COUNT 7.3 10^3/uL (4.0-10.0)
[2020-08-30 06:42] LABS: BLOOD UREA NITROGEN 17 MG/DL (7-18); CALCIUM LEVEL 8.7 MG/DL (8.8-10.2); CARBON DIOXIDE LEVEL 28 MEQ/L (21-32); CHLORIDE LEVEL 107 MEQ/L (98-107); CREATININE FOR GFR 0.77 MG/DL (0.55-1.30); GLOMERULAR FILTRATION RATE > 60.0 (>32); GLUCOSE, FASTING 104 MG/DL (70-100); POTASSIUM SERUM 4.8 MEQ/L (3.5-5.1); SODIUM LEVEL 141 MEQ/L (136-145)
[2020-08-30] MEDS: SYMBICORT 80/4.5MCG INHALER 6GM INH SCH ×2 (07:16→20:57)
[2020-08-30] MEDS: TIOTROPIUM INHALER/CAPSULE (SPIRIVA) INH SCH (07:16)
[2020-08-30] MEDS: **hydrALAZINE** 10 MG TAB PO SCH ×3 (08:29→20:55)
[2020-08-30] MEDS: LACTOBACILLUS ACIDOPHILUS CAP (BACID) PO SCH ×4 (08:29→20:55)
[2020-08-30] MEDS: HEPARIN SOD (PORCINE) 5000UNITS/ML 1ML VIAL/SYRINGE SC SCH ×2 (08:30→20:56)
[2020-08-30] MEDS: FIDAXOMICIN 200 MG TAB (DIFICID) PO SCH ×2 (08:30→20:55)
[2020-08-30] MEDS: FLUoxetine 10 MG CAP PO SCH (08:30)
[2020-08-30] MEDS: NYSTATIN 100,000 UNITS/GM TOPICAL PWD 15 GM TOP SCH ×2 (08:31→20:56)
[2020-08-30] MEDS: THIAMINE 100 MG TAB PO SCH (08:31)
--- NOTE | 2020-08-30 12:31 | IPNPDOC ---
PM&R Progress Note DATE OF SERVICE: Aug 30, 2020 [facility] Progress Note Subjective: Patient seen in her room without any complaints. She understands her family will need to come in for training to see if they feel capable taking care of her at home. REVIEW OF SYSTEMS: The following is a completed review of systems and has been reviewed. Review of systems otherwise unremarkable. PAIN: Patient self reports no pain EYES: No recent vision changes EARS, NOSE, & THROAT: + dysphagia CARDIOVASCULAR: Denies chest pain or palpitations PULMONARY: denies shortness of breath GASTROINTESTINAL:: denies diarrhea/constipation GENITOURINARY: denies dysuria MUSCULOSKELETAL:generalized weakness NEUROLOGICAL:+ aphasia HEMATOLOGICAL: denies easy bruising SKIN: denies rash PSYCHIATRIC: +confused All other review of systems found to be negative. PHYSICAL EXAMINATION: VITAL SIGNS: Please see below. GENERAL: Pleasant and cooperative. No acute distress. HEENT: PERRL. Extraocular movements intact. Clear conjunctiva CARDIOVASCULAR: Regular rate and rhythm. No murmurs, rubs, or gallops LUNGS: CTA ABDOMEN: Soft, non-tender, nondistended. Positive bowel sounds. NEUROLOGICAL: Alert and oriented times to person, place, not time, Cranial nerves II through XII grossly intact. Sensation grossly intact (-) clonus bilat EXTREMITIES: 5-\5 strength bilateral upper extremities. 5-\5 strength right lower extremity. 5-/5 strength in left lower extremity. LABORATORY DATA: Please see below. ASSESSMENT:84-year-old F with past medical history of HTN and COPD who presents status post left basal ganglia stroke PLAN: 1. 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 Neuro- s/p left basal ganglia infarct, c/u ASA and statin for secondary stroke prevention -low dose Prozac for motor recovery -hx of ETOH abuse, thiamine for cognitive assistance 3. CArdiac- hx of HTN-c/u lisinopril, Amlodipine, and hydralazine with holding parameters -grade 1 diastolic CHF, fluid restrict, daily weights -hld- c/u statin -medicine consulted to assist in overall management 4. Resp- hx of COPD c/u supplemental 02 goal 88-92% s/p course of CEfepime and Vanco for PNA,, c/u Duonebs, symbicort, and spiriva -possible TERESE, nocturnal 02 5. DVT ppx- heparin, teds 6. GI ppx- holding all bowel meds in setting of C diff 7. ID- patient diagnosed with C diff, ID consulted, recs greatly appreciated, switched from oral Vancomycin to Dificid, c/u to monitor-no further loose stools 7. Pain- Tylenol prn 8. Psych- insomnia- trazodone 9. Dispo- TBD Allergies Coded Allergies: Sulfa (Sulfonamide Antibiotics) (Verified Adverse Reaction, Mild, STOMACH UPSET, 05/07/20) Vital Signs Vital Signs Date Time Temp Pulse Resp B/P (MAP) Pulse Ox O2 Delivery O2 Flow Rate FiO2 08/30/20 08:30 67 133/65 08/30/20 05:15 98.7 20 95 Room Air 08/29/20 23:23 2.0 Laboratory Data CBC/BMP Laboratory Tests 08/30/20 05:40 Labs 24H Laboratory Tests 2 08/30/20 05:40: Immature Granulocyte % (Auto) 0.3, Neutrophils (%) (Auto) 65.9, Lymphocytes (%) (Auto) 18.0L, Monocytes (%) (Auto) 10.7H, Eosinophils (%) (Auto) 3.6H, Basophils (%) (Auto) 1.5H, Neutrophils # (Auto) 4.8, Lymphocytes # (Auto) 1.3L, Monocytes # (Auto) 0.8, Eosinophils # (Auto) 0.3, Basophils # (Auto) 0.1, Nucleated Red Blood Cells % (auto) 0.0, Anion Gap 6L, Glomerular Filtration Rate > 60.0, Calcium Level 8.7L Current Medications Current Medications Current Medications Medications (Trade) Dose Ordered Sig/Parviz Route PRN Reason Start Time Stop Time Status Last Admin Dose Admin Acetaminophen (Tylenol Tab) 650 mg Q4HP PRN PO fever/MILD PAIN (PS 1-4) 08/16/20 14:15 08/27/20 08:42 Albuterol/ Ipratropium (Duoneb (Ipr 0.5mg/Alb 2.5mg)) 3 ml Q2HP PRN NEB SOB/WHEEZING 08/17/20 05:45 Amlodipine Besylate (Norvasc) 10 mg DAILY PO 08/17/20 09:00 08/30/20 08:30 Atorvastatin Calcium (Lipitor) 40 mg QHS PO 08/16/20 21:00 08/29/20 21:25 Budesonide/ Formoterol Fumarate (Symbicort 80/ 4.5mcg) 2 puff RBID INH 08/16/20 20:00 08/30/20 07:16 Cefazolin Sodium 2 gm/Dextrose 50 ml @ 100 mls/hr Q12H IV 08/16/20 14:15 08/16/20 15:21 DC Cefepime HCl 2 gm/ Dextrose 50 ml @ 100 mls/hr Q12H IV 08/17/20 00:00 08/18/20 09:52 DC 08/17/20 23:55 Docusate Sodium (Colace) 100 mg BID PO 08/16/20 21:00 08/17/20 18:34 DC Fidaxomicin (Dificid) 200 mg BID PO 08/21/20 21:00 08/30/20 08:30 Fluoxetine HCl (PROzac) 10 mg DAILY PO 08/17/20 09:00 08/30/20 08:30 Heparin Sodium (Porcine) (Heparin) 5,000 units Q12H SC 08/16/20 21:00 08/30/20 08:30 Hydralazine HCl (Apresoline) 20 mg TID PO 08/16/20 16:00 08/30/20 08:29 Lactobacillus Acidophilus (Bacid) 1 ea WMHS PO 08/21/20 18:00 08/30/20 08:29 Lisinopril (Prinivil) 10 mg DAILY PO 08/17/20 09:00 08/30/20 08:29 Metronidazole 500 mg/IV Miscellaneous Supplies 100 ml @ 100 mls/hr Q8H IV 08/18/20 09:00 08/18/20 09:52 DC Nystatin (Mycostatin Powder, Nystop) bilat groin and cate area BID TOP 08/21/20 21:00 08/30/20 08:31 Pantoprazole Sodium (Protonix) 40 mg DAILY PO 08/17/20 09:00 08/18/20 08:55 DC Senna (Senokot) 1 tab QHS PO 08/16/20 21:00 08/17/20 18:34 DC Thiamine HCl (Thiamine HCl) 100 mg DAILY PO 08/17/20 09:00 08/30/20 08:31 Tiotropium [place] (Spiriva Handihaler) 1 inhalation DAILY@08 INH 08/17/20 08:00 08/30/20 07:16 Trazodone HCl (Desyrel) 50 mg QHS PRN PO insomnia 08/17/20 05:45 08/18/20 03:25 Trazodone HCl (Desyrel) 50 mg QPM PO 08/16/20 21:00 08/29/20 21:25 Vancomycin HCl (First-Vancomycin 50(Firvanq)- 250mg/5ml) 125 mg QID PO 08/18/20 09:00 08/21/20 16:10 DC 08/21/20 12:22 Vancomycin HCl 750 mg/IV Miscellaneous Supplies 1 each/ Dextrose 275 ml @ 275 mls/hr Q24H IV 08/17/20 11:00 08/18/20 09:52 DC 08/17/20 12:15 Vancomycin HCl 1000 mg/IV Miscellaneous Supplies 1 each/ Dextrose 270 ml @ 270 mls/hr Q24H IV 08/17/20 10:00 08/18/20 09:52 DC 08/17/20 09:58 Vancomycin HCl 1750 mg/IV Miscellaneous Supplies 35 ml @ 35 mls/hr Q24H IV 08/16/20 14:15 08/16/20 15:22 MARGIE BESS MD Aug 30, 2020 12:30
[2020-08-30 14:00] VITALS: BP 116/55
[2020-08-30 15:41] VITALS: BP 129/70
--- NOTE | 2020-08-30 17:17 | IPNPDOC ---
Text Note Date of Service The patient was seen on 08/30/20. NOTE No acute events. Participating in Rehab PHYSICAL EXAM VITAL SIGNS: Please see below GENERAL: Lying in bed, in NAD, AAOx3 at times- baseline HEENT: AT/NC, moist mucus membranes. PERRLA, EOM intact NECK: symmetrical, no JVD LUNGS: CTAB, no w/r/r HEART: S1S2 + no M/R/g ABDOMEN: Soft, nontender, obese, no masses. EXTREMITIES: No peripheral edema. WWP. NEURO: No focal deficits, CN 2-12 intact LABORATORY: reviewed Assessment and Plan: 1) C. difficile infection likely 2/2 to multiple courses of antibiotics . Continue fidaxomicin, for 10 day course BID and once daily till dc as per ID. 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 2)Chronic hypoxemic respiratory failure: stable on 2L NC 3)Physical deconditioning. PT: Pt remains below her PLOF, however is making slow steady progress towards established goals. C/w rehab per ARU direction 4)HLD. C/w statin 5)Recent CVA. C/w statin, Not on ASA or plavix .PT/OT 6)DM type II : Continue monitoring. 7)HTN. Stable . C/w current medications DVT px. Heparin Disposition as per Primary VS,Fishbone, I+O VS, Fishbone, I+O Laboratory Tests 08/30/20 05:40 Vital Signs Date Time Temp Pulse Resp B/P (MAP) Pulse Ox O2 Delivery O2 Flow Rate FiO2 08/30/20 15:42 129/70 08/30/20 15:41 68 08/30/20 14:00 97.3 18 94 Room Air 08/29/20 23:23 2.0 I&O- Last 24 Hours up to 6 AM 08/30/20 06:00 Intake Total 830 ml Balance 830 ml MEKA BLACK MD Aug 30, 2020 17:17
[2020-08-30 20:00] VITALS: BP 120/65
[2020-08-30] MEDS: ATORVASTATIN 20 MG TAB PO SCH (20:54)
[2020-08-30] MEDS: traZODone 50 MG TAB PO SCH (20:55)
[2020-08-31 06:00] VITALS: BP 113/56
[2020-08-31] MEDS: REMEDY PHYTOPLEX Z-GUARD PASTE 113GM TUBE (FROM STOREROOM PRODUCT) TOP SCH ×3 (06:12→17:16)
[2020-08-31] MEDS: TIOTROPIUM INHALER/CAPSULE (SPIRIVA) INH SCH (07:38)
[2020-08-31] MEDS: SYMBICORT 80/4.5MCG INHALER 6GM INH SCH ×2 (07:38→20:38)
--- NOTE | 2020-08-31 07:58 | IPNPDOC ---
PM&R Progress Note DATE OF SERVICE: Aug 31, 2020 [facility] [employer] Progress Note Subjective: Patient seen in her room reporting no new bowel or bladder issues, she states she feels ok and is sleeping well. REVIEW OF SYSTEMS: The following is a completed review of systems and has been reviewed. Review of systems otherwise unremarkable. PAIN: Patient self reports no pain EYES: No recent vision changes EARS, NOSE, & THROAT: + dysphagia CARDIOVASCULAR: Denies chest pain or palpitations PULMONARY: denies shortness of breath GASTROINTESTINAL:: denies diarrhea/constipation GENITOURINARY: denies dysuria MUSCULOSKELETAL:generalized weakness NEUROLOGICAL:+ aphasia HEMATOLOGICAL: denies easy bruising SKIN: denies rash PSYCHIATRIC: +confused All other review of systems found to be negative. PHYSICAL EXAMINATION: VITAL SIGNS: Please see below. GENERAL: Pleasant and cooperative. No acute distress. HEENT: PERRL. Extraocular movements intact. Clear conjunctiva CARDIOVASCULAR: Regular rate and rhythm. No murmurs, rubs, or gallops LUNGS: CTA ABDOMEN: Soft, non-tender, nondistended. Positive bowel sounds. NEUROLOGICAL: Alert and oriented times to person, place, not time, Cranial nerves II through XII grossly intact. Sensation grossly intact (-) clonus bilat EXTREMITIES: 5-\5 strength bilateral upper extremities. 5-\5 strength right lower extremity. 5-/5 strength in left lower extremity. LABORATORY DATA: Please see below. ASSESSMENT:84-year-old F with past medical history of HTN and COPD who presents status post left basal ganglia stroke PLAN: 1. 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 Neuro- s/p left basal ganglia infarct, c/u ASA and statin for secondary stroke prevention -low dose Prozac for motor recovery -hx of ETOH abuse, thiamine for cognitive assistance 3. CArdiac- hx of HTN-c/u lisinopril, Amlodipine, and hydralazine with holding parameters -grade 1 diastolic CHF, fluid restrict, daily weights -hld- c/u statin -medicine consulted to assist in overall management 4. Resp- hx of COPD c/u supplemental 02 goal 88-92% s/p course of CEfepime and Vanco for PNA,, c/u Duonebs, symbicort, and spiriva -possible TERESE, nocturnal 02 5. DVT ppx- heparin, teds 6. GI ppx- holding all bowel meds in setting of C diff 7. ID- patient diagnosed with C diff, ID consulted, recs greatly appreciated, switched from oral Vancomycin to Dificid, c/u to monitor-no further loose stools 7. Pain- Tylenol prn 8. Psych- insomnia- trazodone 9. Dispo- TBD Allergies Coded Allergies: Sulfa (Sulfonamide Antibiotics) (Verified Adverse Reaction, Mild, STOMACH UPSET, 05/07/20) Vital Signs Vital Signs Date Time Temp Pulse Resp B/P (MAP) Pulse Ox O2 Delivery O2 Flow Rate FiO2 08/31/20 06:00 99.8 73 19 113/56 (75) 94 Room Air 08/30/20 21:00 2.0 Current Medications Current Medications Current Medications Medications (Trade) Dose Ordered Sig/Parviz Route PRN Reason Start Time Stop Time Status Last Admin Dose Admin Acetaminophen (Tylenol Tab) 650 mg Q4HP PRN PO fever/MILD PAIN (PS 1-4) 08/16/20 14:15 08/27/20 08:42 Albuterol/ Ipratropium (Duoneb (Ipr 0.5mg/Alb 2.5mg)) 3 ml Q2HP PRN NEB SOB/WHEEZING 08/17/20 05:45 Amlodipine Besylate (Norvasc) 10 mg DAILY PO 08/17/20 09:00 08/30/20 08:30 Atorvastatin Calcium (Lipitor) 40 mg QHS PO 08/16/20 21:00 08/30/20 20:54 Budesonide/ Formoterol Fumarate (Symbicort 80/ 4.5mcg) 2 puff RBID INH 08/16/20 20:00 08/31/20 07:38 Cefazolin Sodium 2 gm/Dextrose 50 ml @ 100 mls/hr Q12H IV 08/16/20 14:15 08/16/20 15:21 DC Cefepime HCl 2 gm/ Dextrose 50 ml @ 100 mls/hr Q12H IV 08/17/20 00:00 08/18/20 09:52 DC 08/17/20 23:55 Docusate Sodium (Colace) 100 mg BID PO 08/16/20 21:00 08/17/20 18:34 DC Fidaxomicin (Dificid) 200 mg BID PO 08/21/20 21:00 08/31/20 09:01 08/30/20 20:55 Fidaxomicin (Dificid) 200 mg Q48H PO 09/02/20 09:00 Fluoxetine HCl (PROzac) 10 mg DAILY PO 08/17/20 09:00 08/30/20 08:30 Heparin Sodium (Porcine) (Heparin) 5,000 units Q12H SC 08/16/20 21:00 08/30/20 20:56 Hydralazine HCl (Apresoline) 20 mg TID PO 08/16/20 16:00 08/30/20 20:55 Lactobacillus Acidophilus (Bacid) 1 ea WMHS PO 08/21/20 18:00 08/30/20 20:55 Lisinopril (Prinivil) 10 mg DAILY PO 08/17/20 09:00 08/30/20 08:29 Metronidazole 500 mg/IV Miscellaneous Supplies 100 ml @ 100 mls/hr Q8H IV 08/18/20 09:00 08/18/20 09:52 DC Nystatin (Mycostatin Powder, Nystop) bilat groin and cate area BID TOP 08/21/20 21:00 08/30/20 20:56 Pantoprazole Sodium (Protonix) 40 mg DAILY PO 08/17/20 09:00 08/18/20 08:55 DC Senna (Senokot) 1 tab QHS PO 08/16/20 21:00 08/17/20 18:34 DC Thiamine HCl (Thiamine HCl) 100 mg DAILY PO 08/17/20 09:00 08/30/20 08:31 Tiotropium [place] (Spiriva Handihaler) 1 inhalation DAILY@08 INH 08/17/20 08:00 08/31/20 07:38 Trazodone HCl (Desyrel) 50 mg QHS PRN PO insomnia 08/17/20 05:45 08/18/20 03:25 Trazodone HCl (Desyrel) 50 mg QPM PO 08/16/20 21:00 08/30/20 20:55 Vancomycin HCl (First-Vancomycin 50(Firvanq)- 250mg/5ml) 125 mg QID PO 08/18/20 09:00 08/21/20 16:10 DC 08/21/20 12:22 Vancomycin HCl 750 mg/IV Miscellaneous Supplies 1 each/ Dextrose 275 ml @ 275 mls/hr Q24H IV 08/17/20 11:00 08/18/20 09:52 DC 08/17/20 12:15 Vancomycin HCl 1000 mg/IV Miscellaneous Supplies 1 each/ Dextrose 270 ml @ 270 mls/hr Q24H IV 08/17/20 10:00 08/18/20 09:52 DC 08/17/20 09:58 Vancomycin HCl 1750 mg/IV Miscellaneous Supplies 35 ml @ 35 mls/hr Q24H IV 08/16/20 14:15 08/16/20 15:22 MARGIE BESS MD Aug 31, 2020 07:58
[2020-08-31] MEDS: FLUoxetine 10 MG CAP PO SCH (08:35)
[2020-08-31] MEDS: THIAMINE 100 MG TAB PO SCH (08:35)
[2020-08-31] MEDS: FIDAXOMICIN 200 MG TAB (DIFICID) PO SCH (08:35)
[2020-08-31] MEDS: HEPARIN SOD (PORCINE) 5000UNITS/ML 1ML VIAL/SYRINGE SC SCH ×2 (08:35→21:14)
[2020-08-31] MEDS: LACTOBACILLUS ACIDOPHILUS CAP (BACID) PO SCH ×4 (08:36→21:14)
[2020-08-31] MEDS: **hydrALAZINE** 10 MG TAB PO SCH ×3 (08:36→21:15)
[2020-08-31] MEDS: NYSTATIN 100,000 UNITS/GM TOPICAL PWD 15 GM TOP SCH ×2 (08:37→21:15)
--- NOTE | 2020-08-31 10:22 | IPNPDOC ---
Text Note Date of Service The patient was seen on 08/31/20. NOTE Pt was seen and examined. Participating in Rehab PHYSICAL EXAM VITAL SIGNS: Please see below GENERAL: Lying in bed, in NAD, AAOx3 at times- baseline HEENT: AT/NC, moist mucus membranes. PERRLA, EOM intact NECK: symmetrical, no JVD LUNGS: CTAB, no w/r/r HEART: S1S2 + no M/R/g ABDOMEN: Soft, nontender, obese, no masses. EXTREMITIES: No peripheral edema. WWP. NEURO: No focal deficits, CN 2-12 intact LABORATORY: reviewed Assessment and Plan: 1) C. difficile infection likely 2/2 to multiple courses of antibiotics . Continue fidaxomicin as per ID, once daily till dc as per ID. 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 2)Chronic hypoxemic respiratory failure: stable on 2L NC 3)Physical deconditioning. PT: Pt remains below her PLOF, however is making slow steady progress towards established goals. C/w rehab per ARU direction 4)HLD. C/w statin 5)Recent CVA. C/w statin, Not on ASA or plavix .PT/OT 6)DM type II : Continue monitoring. 7)HTN. Stable . C/w current medications DVT px. Heparin Disposition as per Primary VS,Fishbone, I+O VS, Fishbone, I+O Vital Signs Date Time Temp Pulse Resp B/P (MAP) Pulse Ox O2 Delivery O2 Flow Rate FiO2 08/31/20 08:36 120/60 08/31/20 06:00 99.8 73 19 94 Room Air 08/30/20 21:00 2.0 I&O- Last 24 Hours up to 6 AM 08/31/20 06:00 Intake Total 370 ml Balance 370 ml MEKA BLACK MD Aug 31, 2020 10:22
[2020-08-31 14:00] VITALS: BP 99/58
[2020-08-31 17:00] VITALS: BP 108/60
[2020-08-31 20:10] VITALS: BP 125/65
[2020-08-31] MEDS: ATORVASTATIN 20 MG TAB PO SCH (21:14)
[2020-08-31] MEDS: traZODone 50 MG TAB PO SCH (21:14)
[2020-09-01] MEDS: REMEDY PHYTOPLEX Z-GUARD PASTE 113GM TUBE (FROM STOREROOM PRODUCT) TOP SCH ×5 (00:08→23:47)
[2020-09-01 06:00] VITALS: BP 121/69
[2020-09-01 06:07] LABS: BASO # 0.1 10^3/uL (0.0-0.2); BASO % 1.1 % (0.0-1.0); EOS # 0.2 10^3/uL (0.0-0.5); EOS % 2.3 % (0.0-3.0); HEMATOCRIT 40.9 % (36.0-47.0); HEMOGLOBIN 12.8 g/dl (12.0-15.5); LYMPH # 1.5 10^3/uL (1.5-5.0); LYMPH % 18.8 % (24.0-44.0); MEAN CORPUSCULAR HEMOGLOBIN 29.9 pg (27.0-33.0); MEAN CORPUSCULAR HGB CONC 31.3 g/dl (32.0-36.5); MEAN CORPUSCULAR VOLUME 95.6 fl (80.0-96.0); MONO % 12.6 % (2.0-8.0); NEUTROPHILS # 5.3 10^3/uL (1.5-8.5); NEUTROPHILS % 64.8 % (36.0-66.0); PLATELET COUNT, AUTOMATED 200 10^3/uL (150-450); RED BLOOD COUNT 4.28 10^6/uL (4.00-5.40); WHITE BLOOD COUNT 8.1 10^3/uL (4.0-10.0)
[2020-09-01 06:27] LABS: CREATININE FOR GFR 1.15 MG/DL (0.55-1.30); GLOMERULAR FILTRATION RATE 47.9 (>32); POTASSIUM SERUM 4.7 MEQ/L (3.5-5.1)
[2020-09-01] MEDS: TIOTROPIUM INHALER/CAPSULE (SPIRIVA) INH SCH (07:20)
[2020-09-01] MEDS: SYMBICORT 80/4.5MCG INHALER 6GM INH SCH ×2 (07:20→18:42)
[2020-09-01] MEDS: LACTOBACILLUS ACIDOPHILUS CAP (BACID) PO SCH ×4 (08:00→20:49)
--- NOTE | 2020-09-01 08:09 | IPN ---
PROGRESS NOTE DATE: 08/29/2020 SUBJECTIVE: Mrs. Adair was seen in the afternoon on Friday. She was in bed. She was responding to most questions appropriately. She denied any nausea, vomiting, or diarrhea. No abdominal pain. OBJECTIVE: GENERAL APPEARANCE: On physical exam, she was laying in bed. She follows commands. She waves with her arms when asked to. She has an excellent grasp. HEART: Normal S1, S2. No murmurs appreciated. LUNGS: Clear. No wheezes, rales, or rhonchi. ABDOMEN: Obese, soft, and nontender. No hepatosplenomegaly. EXTREMITIES: No clubbing, cyanosis, or edema. ASSESSMENT: 1. Clostridium difficile colitis on p.o. fidaxomicin currently day #8 out of 10 doing much better. She only has one bowel movement a day and is not incontinent. After 10 course, the patient will be switched to every other day dosing until discharge. Consider IV bezlotoxumab 1000 mg upon discharge if authorized by her insurance. 2. Recent cerebrovascular accident (CVA) doing better with physical therapy (PT), but still confused and there is question whether she will not be able to go back home. PLAN: Switch to p.o. Dificid 200 mg every other day, which has been shown to decrease risk of relapse in the elderly. She can be continued on that dose until discharge from the hospital. Consider IV Zinplava 1000 mg daily x1 dose upon discharge. I have discussed the case with Emily who will try to get prior authorization. Continue probiotics. Avoid antibiotics. The patient is at high risk of relapse due to her age. MTDD
[2020-09-01] MEDS ORDERED: FIDAXOMICIN 200 MG TAB (DIFICID) PO SCH (09:00)
[2020-09-01] MEDS: **hydrALAZINE** 10 MG TAB PO SCH ×4 (09:40→20:49)
[2020-09-01] MEDS: THIAMINE 100 MG TAB PO SCH (09:41)
[2020-09-01] MEDS: HEPARIN SOD (PORCINE) 5000UNITS/ML 1ML VIAL/SYRINGE SC SCH ×2 (09:41→20:50)
[2020-09-01] MEDS: FLUoxetine 10 MG CAP PO SCH (09:41)
[2020-09-01] MEDS: NYSTATIN 100,000 UNITS/GM TOPICAL PWD 15 GM TOP SCH ×2 (09:42→20:50)
[2020-09-01 14:00] VITALS: BP 99/57
[2020-09-01 20:00] VITALS: BP 129/74
[2020-09-01] MEDS: ATORVASTATIN 20 MG TAB PO SCH (20:49)
[2020-09-01] MEDS: traZODone 50 MG TAB PO SCH (20:49)
[2020-09-02 05:15] VITALS: BP 134/66
[2020-09-02] MEDS: REMEDY PHYTOPLEX Z-GUARD PASTE 113GM TUBE (FROM STOREROOM PRODUCT) TOP SCH ×3 (05:47→17:09)
[2020-09-02] MEDS: SYMBICORT 80/4.5MCG INHALER 6GM INH SCH ×2 (08:01→20:17)
[2020-09-02] MEDS: TIOTROPIUM INHALER/CAPSULE (SPIRIVA) INH SCH (08:01)
[2020-09-02 09:32] VITALS: BP 128/61
[2020-09-02] MEDS: FIDAXOMICIN 200 MG TAB (DIFICID) PO SCH (09:33)
[2020-09-02] MEDS: HEPARIN SOD (PORCINE) 5000UNITS/ML 1ML VIAL/SYRINGE SC SCH ×2 (09:33→21:03)
[2020-09-02] MEDS: THIAMINE 100 MG TAB PO SCH (09:33)
[2020-09-02] MEDS: **hydrALAZINE** 10 MG TAB PO SCH ×3 (09:34→21:02)
[2020-09-02] MEDS: LACTOBACILLUS ACIDOPHILUS CAP (BACID) PO SCH ×4 (09:34→21:02)
[2020-09-02] MEDS: FLUoxetine 10 MG CAP PO SCH (09:34)
[2020-09-02] MEDS: NYSTATIN 100,000 UNITS/GM TOPICAL PWD 15 GM TOP SCH ×2 (09:40→21:03)
[2020-09-02 14:00] VITALS: BP 115/57
[2020-09-02 17:01] VITALS: BP 128/70
[2020-09-02 20:00] VITALS: BP 127/62
[2020-09-02] MEDS: traZODone 50 MG TAB PO SCH (21:02)
[2020-09-02] MEDS: ATORVASTATIN 20 MG TAB PO SCH (21:02)
[2020-09-03] MEDS: REMEDY PHYTOPLEX Z-GUARD PASTE 113GM TUBE (FROM STOREROOM PRODUCT) TOP SCH ×4 (00:10→17:17)
[2020-09-03 05:20] VITALS: BP 142/70
[2020-09-03] MEDS: SYMBICORT 80/4.5MCG INHALER 6GM INH SCH ×2 (07:26→20:17)
[2020-09-03] MEDS: TIOTROPIUM INHALER/CAPSULE (SPIRIVA) INH SCH (07:27)
[2020-09-03] MEDS: FLUoxetine 10 MG CAP PO SCH (07:45)
[2020-09-03] MEDS: HEPARIN SOD (PORCINE) 5000UNITS/ML 1ML VIAL/SYRINGE SC SCH ×2 (07:45→20:37)
[2020-09-03] MEDS: THIAMINE 100 MG TAB PO SCH (07:46)
[2020-09-03] MEDS: **hydrALAZINE** 10 MG TAB PO SCH ×3 (07:46→20:37)
[2020-09-03] MEDS: LACTOBACILLUS ACIDOPHILUS CAP (BACID) PO SCH ×4 (07:46→20:36)
[2020-09-03] MEDS: NYSTATIN 100,000 UNITS/GM TOPICAL PWD 15 GM TOP SCH ×2 (07:47→20:38)
[2020-09-03 14:00] VITALS: BP 120/67
[2020-09-03 17:12] VITALS: BP 140/82
[2020-09-03 20:00] VITALS: BP 142/77
[2020-09-03] MEDS: traZODone 50 MG TAB PO SCH (20:36)
[2020-09-03] MEDS: ATORVASTATIN 20 MG TAB PO SCH (20:36)
[2020-09-04] MEDS: REMEDY PHYTOPLEX Z-GUARD PASTE 113GM TUBE (FROM STOREROOM PRODUCT) TOP SCH ×5 (00:11→21:03)
[2020-09-04 06:00] VITALS: BP 140/66
[2020-09-04 06:39] LABS: BASO # 0.1 10^3/uL (0.0-0.2); BASO % 1.2 % (0.0-1.0); EOS # 0.2 10^3/uL (0.0-0.5); EOS % 3.3 % (0.0-3.0); HEMATOCRIT 43.3 % (36.0-47.0); HEMOGLOBIN 13.7 g/dl (12.0-15.5); LYMPH # 1.5 10^3/uL (1.5-5.0); LYMPH % 21.6 % (24.0-44.0); MEAN CORPUSCULAR HGB CONC 31.6 g/dl (32.0-36.5); MONO # 0.7 10^3/uL (0.0-0.8); MONO % 10.7 % (2.0-8.0); NEUTROPHILS # 4.2 10^3/uL (1.5-8.5); NEUTROPHILS % 62.9 % (36.0-66.0); PLATELET COUNT, AUTOMATED 188 10^3/uL (150-450); RED BLOOD COUNT 4.56 10^6/uL (4.00-5.40); WHITE BLOOD COUNT 6.7 10^3/uL (4.0-10.0)
[2020-09-04 07:06] LABS: CALCIUM LEVEL 9.1 MG/DL (8.8-10.2); CREATININE FOR GFR 0.97 MG/DL (0.55-1.30); GLOMERULAR FILTRATION RATE 58.2 (>32); POTASSIUM SERUM 4.6 MEQ/L (3.5-5.1)
[2020-09-04] MEDS: SYMBICORT 80/4.5MCG INHALER 6GM INH SCH ×2 (07:13→19:43)
[2020-09-04] MEDS: TIOTROPIUM INHALER/CAPSULE (SPIRIVA) INH SCH (07:14)
[2020-09-04] MEDS: FLUoxetine 10 MG CAP PO SCH (08:25)
[2020-09-04] MEDS: LACTOBACILLUS ACIDOPHILUS CAP (BACID) PO SCH ×4 (08:25→20:59)
[2020-09-04] MEDS: **hydrALAZINE** 10 MG TAB PO SCH ×3 (08:26→21:00)
[2020-09-04] MEDS: THIAMINE 100 MG TAB PO SCH (08:27)
[2020-09-04] MEDS: FIDAXOMICIN 200 MG TAB (DIFICID) PO SCH (08:27)
[2020-09-04] MEDS: NYSTATIN 100,000 UNITS/GM TOPICAL PWD 15 GM TOP SCH ×2 (08:28→21:03)
[2020-09-04] MEDS: HEPARIN SOD (PORCINE) 5000UNITS/ML 1ML VIAL/SYRINGE SC SCH ×2 (08:28→21:04)
[2020-09-04 20:00] VITALS: BP 118/63
[2020-09-04] MEDS: traZODone 50 MG TAB PO SCH (20:59)
[2020-09-04] MEDS: ATORVASTATIN 20 MG TAB PO SCH (20:59)
[2020-09-05 06:00] VITALS: BP 105/66
[2020-09-05] MEDS: REMEDY PHYTOPLEX Z-GUARD PASTE 113GM TUBE (FROM STOREROOM PRODUCT) TOP SCH ×4 (06:27→23:53)
[2020-09-05] MEDS: TIOTROPIUM INHALER/CAPSULE (SPIRIVA) INH SCH (07:15)
[2020-09-05] MEDS: SYMBICORT 80/4.5MCG INHALER 6GM INH SCH ×2 (07:15→19:47)
[2020-09-05] MEDS: **hydrALAZINE** 10 MG TAB PO SCH ×3 (09:26→21:00)
[2020-09-05] MEDS: THIAMINE 100 MG TAB PO SCH (09:26)
[2020-09-05] MEDS: FLUoxetine 10 MG CAP PO SCH (09:27)
[2020-09-05] MEDS: HEPARIN SOD (PORCINE) 5000UNITS/ML 1ML VIAL/SYRINGE SC SCH ×2 (09:27→21:56)
[2020-09-05] MEDS: NYSTATIN 100,000 UNITS/GM TOPICAL PWD 15 GM TOP SCH ×2 (09:28→21:00)
[2020-09-05] MEDS: LACTOBACILLUS ACIDOPHILUS CAP (BACID) PO SCH ×4 (09:31→21:55)
--- NOTE | 2020-09-05 11:30 | IPNPDOC ---
PM&R Progress Note DATE OF SERVICE: Sep 05, 2020 Fur Tanner Progress Note Subjective: Patient reporting she feels ok and does not need any changes made to her medications or management. REVIEW OF SYSTEMS: The following is a completed review of systems and has been reviewed. Review of systems otherwise unremarkable. PAIN: Patient self reports no pain EYES: No recent vision changes EARS, NOSE, & THROAT: + dysphagia CARDIOVASCULAR: Denies chest pain or palpitations PULMONARY: denies shortness of breath GASTROINTESTINAL:: denies diarrhea/constipation GENITOURINARY: denies dysuria MUSCULOSKELETAL:generalized weakness NEUROLOGICAL:+ aphasia HEMATOLOGICAL: denies easy bruising SKIN: denies rash PSYCHIATRIC: +confused All other review of systems found to be negative. PHYSICAL EXAMINATION: VITAL SIGNS: Please see below. GENERAL: Pleasant and cooperative. No acute distress. HEENT: PERRL. Extraocular movements intact. Clear conjunctiva CARDIOVASCULAR: Regular rate and rhythm. No murmurs, rubs, or gallops LUNGS: CTA ABDOMEN: Soft, non-tender, nondistended. Positive bowel sounds. NEUROLOGICAL: Alert and oriented times to person, place, not time, Cranial nerves II through XII grossly intact. Sensation grossly intact (-) clonus bilat EXTREMITIES: 5-\5 strength bilateral upper extremities. 5-\5 strength right lower extremity. 5-/5 strength in left lower extremity. LABORATORY DATA: Please see below. ASSESSMENT:84-year-old F with past medical history of HTN and COPD who presents status post left basal ganglia stroke PLAN: 1. 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 Neuro- s/p left basal ganglia infarct, c/u ASA and statin for secondary stroke prevention -low dose Prozac for motor recovery -hx of ETOH abuse, thiamine for cognitive assistance 3. CArdiac- hx of HTN-c/u lisinopril, Amlodipine, and hydralazine with holding parameters -grade 1 diastolic CHF, fluid restrict, daily weights -hld- c/u statin -medicine consulted to assist in overall management 4. Resp- hx of COPD c/u supplemental 02 goal 88-92% s/p course of CEfepime and Vanco for PNA,, c/u Duonebs, symbicort, and spiriva -possible TERESE, nocturnal 02 5. DVT ppx- heparin, teds 6. GI ppx- holding all bowel meds in setting of C diff 7. ID- patient diagnosed with C diff, ID consulted, recs greatly appreciated, switched from oral Vancomycin to Dificid with pusle dosing, c/u to monitor-no further loose stools 7. Pain- Tylenol prn 8. Psych- insomnia- trazodone 9. Dispo- patient would benefit from further rehab at SNF level, progressing functionally each day Allergies Coded Allergies: Sulfa (Sulfonamide Antibiotics) (Verified Adverse Reaction, Mild, STOMACH UPSET, 05/07/20) Vital Signs Vital Signs Date Time Temp Pulse Resp B/P (MAP) Pulse Ox O2 Delivery O2 Flow Rate FiO2 09/05/20 09:27 66 124/80 09/05/20 06:00 98.4 18 93 Room Air 09/04/20 20:00 2.0 Current Medications Current Medications Current Medications Medications (Trade) Dose Ordered Sig/Parviz Route PRN Reason Start Time Stop Time Status Last Admin Dose Admin Acetaminophen (Tylenol Tab) 650 mg Q4HP PRN PO fever/MILD PAIN (PS 1-4) 08/16/20 14:15 08/27/20 08:42 Albuterol/ Ipratropium (Duoneb (Ipr 0.5mg/Alb 2.5mg)) 3 ml Q2HP PRN NEB SOB/WHEEZING 08/17/20 05:45 Amlodipine Besylate (Norvasc) 10 mg DAILY PO 08/17/20 09:00 09/05/20 09:27 Atorvastatin Calcium (Lipitor) 40 mg QHS PO 08/16/20 21:00 09/04/20 20:59 Budesonide/ Formoterol Fumarate (Symbicort 80/ 4.5mcg) 2 puff RBID INH 08/16/20 20:00 09/05/20 07:15 Cefazolin Sodium 2 gm/Dextrose 50 ml @ 100 mls/hr Q12H IV 08/16/20 14:15 08/16/20 15:21 DC Cefepime HCl 2 gm/ Dextrose 50 ml @ 100 mls/hr Q12H IV 08/17/20 00:00 08/18/20 09:52 DC 08/17/20 23:55 Docusate Sodium (Colace) 100 mg BID PO 08/16/20 21:00 08/17/20 18:34 DC Fidaxomicin (Dificid) 200 mg BID PO 08/21/20 21:00 08/31/20 09:01 DC 08/31/20 08:35 Fidaxomicin (Dificid) 200 mg DAILY PO 09/01/20 09:00 UNV Fidaxomicin (Dificid) 200 mg Q48H PO 09/02/20 09:00 09/04/20 08:27 Fluoxetine HCl (PROzac) 10 mg DAILY PO 08/17/20 09:00 09/05/20 09:27 Heparin Sodium (Porcine) (Heparin) 5,000 units Q12H SC 08/16/20 21:00 09/05/20 09:27 Hydralazine HCl (Apresoline) 20 mg TID PO 08/16/20 16:00 09/05/20 09:26 Lactobacillus Acidophilus (Bacid) 1 ea WMHS PO 08/21/20 18:00 09/05/20 09:31 Lisinopril (Prinivil) 10 mg DAILY PO 08/17/20 09:00 09/05/20 09:27 Metronidazole 500 mg/IV Miscellaneous Supplies 100 ml @ 100 mls/hr Q8H IV 08/18/20 09:00 08/18/20 09:52 DC Nystatin (Mycostatin Powder, Nystop) bilat groin and cate area BID TOP 08/21/20 21:00 09/05/20 09:28 Pantoprazole Sodium (Protonix) 40 mg DAILY PO 08/17/20 09:00 08/18/20 08:55 DC Senna (Senokot) 1 tab QHS PO 08/16/20 21:00 08/17/20 18:34 DC Thiamine HCl (Thiamine HCl) 100 mg DAILY PO 08/17/20 09:00 09/05/20 09:26 Tiotropium [place] (Spiriva Handihaler) 1 inhalation DAILY@08 INH 08/17/20 08:00 09/05/20 07:15 Trazodone HCl (Desyrel) 50 mg QHS PRN PO insomnia 08/17/20 05:45 08/18/20 03:25 Trazodone HCl (Desyrel) 50 mg QPM PO 08/16/20 21:00 09/04/20 20:59 Vancomycin HCl (First-Vancomycin 50(Firvanq)- 250mg/5ml) 125 mg QID PO 08/18/20 09:00 08/21/20 16:10 DC 08/21/20 12:22 Vancomycin HCl 750 mg/IV Miscellaneous Supplies 1 each/ Dextrose 275 ml @ 275 mls/hr Q24H IV 08/17/20 11:00 08/18/20 09:52 DC 08/17/20 12:15 Vancomycin HCl 1000 mg/IV Miscellaneous Supplies 1 each/ Dextrose 270 ml @ 270 mls/hr Q24H IV 08/17/20 10:00 08/18/20 09:52 DC 08/17/20 09:58 Vancomycin HCl 1750 mg/IV Miscellaneous Supplies 35 ml @ 35 mls/hr Q24H IV 08/16/20 14:15 08/16/20 15:22 MARGIE BESS MD Sep 05, 2020 11:29
[2020-09-05 14:00] VITALS: BP 125/65
[2020-09-05 20:29] VITALS: BP 105/62
[2020-09-05] MEDS: ATORVASTATIN 20 MG TAB PO SCH (21:55)
[2020-09-05] MEDS: traZODone 50 MG TAB PO SCH (21:56)
[2020-09-06 06:14] VITALS: BP 105/57
[2020-09-06] MEDS: REMEDY PHYTOPLEX Z-GUARD PASTE 113GM TUBE (FROM STOREROOM PRODUCT) TOP SCH ×3 (06:24→15:27)
[2020-09-06] MEDS: TIOTROPIUM INHALER/CAPSULE (SPIRIVA) INH SCH (07:18)
[2020-09-06] MEDS: SYMBICORT 80/4.5MCG INHALER 6GM INH SCH ×2 (07:18→19:36)
[2020-09-06] MEDS: HEPARIN SOD (PORCINE) 5000UNITS/ML 1ML VIAL/SYRINGE SC SCH ×2 (08:55→20:22)
[2020-09-06] MEDS: FIDAXOMICIN 200 MG TAB (DIFICID) PO SCH (08:55)
[2020-09-06] MEDS: FLUoxetine 10 MG CAP PO SCH (08:55)
[2020-09-06] MEDS: LACTOBACILLUS ACIDOPHILUS CAP (BACID) PO SCH ×4 (08:55→20:22)
[2020-09-06] MEDS: THIAMINE 100 MG TAB PO SCH (08:55)
[2020-09-06] MEDS: NYSTATIN 100,000 UNITS/GM TOPICAL PWD 15 GM TOP SCH ×2 (08:56→20:23)
[2020-09-06 08:57] VITALS: BP 130/74
[2020-09-06] MEDS: **hydrALAZINE** 10 MG TAB PO SCH ×3 (09:00→20:23)
[2020-09-06 14:00] VITALS: BP 122/63
[2020-09-06 15:24] VITALS: BP 133/76
[2020-09-06 20:00] VITALS: BP 117/67
[2020-09-06] MEDS: ATORVASTATIN 20 MG TAB PO SCH (20:22)
[2020-09-06] MEDS: traZODone 50 MG TAB PO SCH (20:22)
[2020-09-07] MEDS: REMEDY PHYTOPLEX Z-GUARD PASTE 113GM TUBE (FROM STOREROOM PRODUCT) TOP SCH ×4 (00:13→17:11)
[2020-09-07 05:16] VITALS: BP 138/65
[2020-09-07] MEDS: SYMBICORT 80/4.5MCG INHALER 6GM INH SCH ×2 (07:36→20:26)
[2020-09-07] MEDS: TIOTROPIUM INHALER/CAPSULE (SPIRIVA) INH SCH (08:02)
[2020-09-07] MEDS: THIAMINE 100 MG TAB PO SCH (09:06)
[2020-09-07] MEDS: HEPARIN SOD (PORCINE) 5000UNITS/ML 1ML VIAL/SYRINGE SC SCH ×2 (09:07→20:46)
[2020-09-07] MEDS: **hydrALAZINE** 10 MG TAB PO SCH ×3 (09:07→20:46)
[2020-09-07] MEDS: FLUoxetine 10 MG CAP PO SCH (09:07)
[2020-09-07] MEDS: NYSTATIN 100,000 UNITS/GM TOPICAL PWD 15 GM TOP SCH ×2 (09:08→20:48)
[2020-09-07] MEDS: LACTOBACILLUS ACIDOPHILUS CAP (BACID) PO SCH ×4 (09:10→20:46)
[2020-09-07 14:00] VITALS: BP 128/78
[2020-09-07 20:00] VITALS: BP 136/79
[2020-09-07] MEDS: traZODone 50 MG TAB PO SCH (20:46)
[2020-09-07] MEDS: ATORVASTATIN 20 MG TAB PO SCH (20:46)
[2020-09-08] MEDS: REMEDY PHYTOPLEX Z-GUARD PASTE 113GM TUBE (FROM STOREROOM PRODUCT) TOP SCH ×4 (00:21→17:17)
[2020-09-08 05:26] VITALS: BP 134/89
[2020-09-08 06:44] LABS: BASO # 0.1 10^3/uL (0.0-0.2); BASO % 0.8 % (0.0-1.0); EOS # 0.3 10^3/uL (0.0-0.5); EOS % 4.3 % (0.0-3.0); HEMATOCRIT 41.7 % (36.0-47.0); HEMOGLOBIN 13.3 g/dl (12.0-15.5); LYMPH # 1.5 10^3/uL (1.5-5.0); LYMPH % 22.9 % (24.0-44.0); MEAN CORPUSCULAR HEMOGLOBIN 30.6 pg (27.0-33.0); MEAN CORPUSCULAR HGB CONC 31.9 g/dl (32.0-36.5); MEAN CORPUSCULAR VOLUME 96.1 fl (80.0-96.0); MONO # 0.7 10^3/uL (0.0-0.8); NEUTROPHILS # 3.9 10^3/uL (1.5-8.5); NEUTROPHILS % 60.5 % (36.0-66.0); PLATELET COUNT, AUTOMATED 212 10^3/uL (150-450); RED BLOOD COUNT 4.34 10^6/uL (4.00-5.40); WHITE BLOOD COUNT 6.5 10^3/uL (4.0-10.0)
[2020-09-08] MEDS: TIOTROPIUM INHALER/CAPSULE (SPIRIVA) INH SCH (07:34)
[2020-09-08] MEDS: SYMBICORT 80/4.5MCG INHALER 6GM INH SCH ×2 (07:34→20:11)
[2020-09-08 07:47] LABS: BLOOD UREA NITROGEN 24 MG/DL (7-18); CALCIUM LEVEL 9.2 MG/DL (8.8-10.2); CARBON DIOXIDE LEVEL 29 MEQ/L (21-32); CHLORIDE LEVEL 106 MEQ/L (98-107); CREATININE FOR GFR 0.89 MG/DL (0.55-1.30); GLOMERULAR FILTRATION RATE > 60.0 (>32); GLUCOSE, FASTING 104 MG/DL (70-100); POTASSIUM SERUM 4.6 MEQ/L (3.5-5.1); SODIUM LEVEL 140 MEQ/L (136-145)
[2020-09-08] MEDS: FLUoxetine 10 MG CAP PO SCH (08:40)
[2020-09-08] MEDS: THIAMINE 100 MG TAB PO SCH (08:40)
[2020-09-08] MEDS: **hydrALAZINE** 10 MG TAB PO SCH ×3 (08:40→20:17)
[2020-09-08] MEDS: HEPARIN SOD (PORCINE) 5000UNITS/ML 1ML VIAL/SYRINGE SC SCH ×2 (08:40→20:16)
[2020-09-08] MEDS: LACTOBACILLUS ACIDOPHILUS CAP (BACID) PO SCH ×4 (08:40→20:16)
[2020-09-08] MEDS: NYSTATIN 100,000 UNITS/GM TOPICAL PWD 15 GM TOP SCH ×2 (08:41→20:18)
[2020-09-08 14:00] VITALS: BP 117/79
[2020-09-08 20:00] VITALS: BP 129/66
[2020-09-08] MEDS: ATORVASTATIN 20 MG TAB PO SCH (20:16)
[2020-09-08] MEDS: traZODone 50 MG TAB PO SCH (20:17)
[2020-09-09] MEDS: REMEDY PHYTOPLEX Z-GUARD PASTE 113GM TUBE (FROM STOREROOM PRODUCT) TOP SCH ×5 (00:42→23:52)
[2020-09-09 06:06] VITALS: BP 124/72
[2020-09-09] MEDS: TIOTROPIUM INHALER/CAPSULE (SPIRIVA) INH SCH (07:12)
[2020-09-09] MEDS: SYMBICORT 80/4.5MCG INHALER 6GM INH SCH ×2 (07:12→20:10)
[2020-09-09] MEDS: **hydrALAZINE** 10 MG TAB PO SCH ×3 (09:07→21:00)
[2020-09-09] MEDS: LACTOBACILLUS ACIDOPHILUS CAP (BACID) PO SCH ×4 (09:07→21:14)
[2020-09-09] MEDS: FLUoxetine 10 MG CAP PO SCH (09:07)
[2020-09-09] MEDS: THIAMINE 100 MG TAB PO SCH (09:07)
[2020-09-09] MEDS: HEPARIN SOD (PORCINE) 5000UNITS/ML 1ML VIAL/SYRINGE SC SCH ×2 (09:08→21:15)
[2020-09-09] MEDS: NYSTATIN 100,000 UNITS/GM TOPICAL PWD 15 GM TOP SCH ×2 (09:09→21:17)
[2020-09-09 14:00] VITALS: BP 119/64
--- NOTE | 2020-09-09 16:04 | IPNPDOC ---
Date Seen The patient was seen on 09/09/20. Progress Note Pt was seen and examined at bedside. Doing well. No acute complaints. Denies chest pain, n/v/d, chills. participating in rehab. PHYSICAL EXAM VITAL SIGNS: Please see below GENERAL: Lying in bed, in NAD, AAOx3, pleasant HEENT: AT/NC, moist mucus membranes. PERRLA, EOM intact NECK: supple, no JVD, normal ROM LUNGS: CTAB, no wheezes, no rales HEART: normal S1, S2 ABDOMEN: Soft, nontender, obese, no masses. EXTREMITIES: No peripheral edema. NEURO: No focal deficits, CN 2-12 intact LABORATORY: reviewed Assessment and Plan: 1) C. difficile infection likely 2/2 to multiple courses of antibiotics . Continue fidaxomicin as per ID, once daily till dc as per ID. 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 2)Chronic hypoxemic respiratory failure: 2L NC. 3)Physical deconditioning. PT: Pt remains below her PLOF, however is making slow steady progress towards established goals. C/w rehab per ARU direction 4)HLD. C/w statin 5)Recent CVA. C/w statin, Not on ASA or plavix .PT/OT 6)DM type II : Continue monitoring. 7)HTN. Stable . C/w current medications DVT px. Heparin Disposition as per progress in ARU. VS, I&O, 24H, Fishbone Vital Signs/I&O Vital Signs Date Time Temp Pulse Resp B/P (MAP) Pulse Ox O2 Delivery O2 Flow Rate FiO2 09/09/20 14:00 97.3 81 17 119/64 (82) 95 Room Air 09/09/20 09:06 2.0 I&O- Last 24 Hours up to 6 AM 09/09/20 06:00 Intake Total 880 ml Balance 880 ml PETER DOYLE MD Sep 09, 2020 16:04
[2020-09-09 20:00] VITALS: BP 108/65
[2020-09-09] MEDS: ATORVASTATIN 20 MG TAB PO SCH (21:15)
[2020-09-09] MEDS: traZODone 50 MG TAB PO SCH (21:15)
[2020-09-10] MEDS: REMEDY PHYTOPLEX Z-GUARD PASTE 113GM TUBE (FROM STOREROOM PRODUCT) TOP SCH ×4 (05:08→22:08)
[2020-09-10 05:41] VITALS: BP 119/73
[2020-09-10] MEDS: SYMBICORT 80/4.5MCG INHALER 6GM INH SCH ×2 (07:16→20:00)
[2020-09-10] MEDS: TIOTROPIUM INHALER/CAPSULE (SPIRIVA) INH SCH (07:16)
[2020-09-10] MEDS: HEPARIN SOD (PORCINE) 5000UNITS/ML 1ML VIAL/SYRINGE SC SCH ×2 (08:32→22:04)
[2020-09-10] MEDS: LACTOBACILLUS ACIDOPHILUS CAP (BACID) PO SCH ×4 (08:33→22:04)
[2020-09-10] MEDS: ACETAMINOPHEN TAB 650MG DOSE (2X325MG) PO PRN ×2 (08:33→12:57)
[2020-09-10] MEDS: FLUoxetine 10 MG CAP PO SCH (08:33)
[2020-09-10] MEDS: THIAMINE 100 MG TAB PO SCH (08:34)
[2020-09-10] MEDS: **hydrALAZINE** 10 MG TAB PO SCH ×3 (08:34→22:07)
[2020-09-10] MEDS: NYSTATIN 100,000 UNITS/GM TOPICAL PWD 15 GM TOP SCH ×2 (08:35→22:08)
[2020-09-10 14:00] VITALS: BP 138/65
[2020-09-10 20:00] VITALS: BP 130/73
[2020-09-10] MEDS: ATORVASTATIN 20 MG TAB PO SCH (22:05)
[2020-09-10] MEDS: traZODone 50 MG TAB PO SCH (22:05)
[2020-09-11 05:13] VITALS: BP 142/80
[2020-09-11] MEDS: REMEDY PHYTOPLEX Z-GUARD PASTE 113GM TUBE (FROM STOREROOM PRODUCT) TOP SCH ×4 (05:39→21:51)
[2020-09-11] MEDS: SYMBICORT 80/4.5MCG INHALER 6GM INH SCH ×2 (07:23→20:27)
[2020-09-11] MEDS: TIOTROPIUM INHALER/CAPSULE (SPIRIVA) INH SCH (07:23)
[2020-09-11] MEDS: LACTOBACILLUS ACIDOPHILUS CAP (BACID) PO SCH ×4 (09:11→21:50)
[2020-09-11] MEDS: THIAMINE 100 MG TAB PO SCH (09:11)
[2020-09-11] MEDS: FLUoxetine 10 MG CAP PO SCH (09:12)
[2020-09-11] MEDS: **hydrALAZINE** 10 MG TAB PO SCH ×3 (09:12→21:50)
[2020-09-11] MEDS: HEPARIN SOD (PORCINE) 5000UNITS/ML 1ML VIAL/SYRINGE SC SCH ×2 (09:12→21:51)
[2020-09-11] MEDS: NYSTATIN 100,000 UNITS/GM TOPICAL PWD 15 GM TOP SCH ×2 (09:13→21:51)
[2020-09-11] MEDS ORDERED: THIA100TA PO (10:23)
[2020-09-11] MEDS ORDERED: FLUO10CA16 PO (10:23)
[2020-09-11] MEDS ORDERED: NYST10006 TOP (10:23)
[2020-09-11] MEDS ORDERED: RISATAB3 PO (10:23)
--- NOTE | 2020-09-11 10:32 | IPNPDOC ---
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 REVIEW OF SYSTEMS: The following is a completed review of systems and has been reviewed. Review of systems otherwise unremarkable. PAIN: Patient self reports no pain EYES: No recent vision changes EARS, NOSE, & THROAT: + dysphagia CARDIOVASCULAR: Denies chest pain or palpitations PULMONARY: denies shortness of breath GASTROINTESTINAL:: denies diarrhea/constipation GENITOURINARY: denies dysuria MUSCULOSKELETAL:generalized weakness NEUROLOGICAL:+ aphasia HEMATOLOGICAL: denies easy bruising SKIN: denies rash PSYCHIATRIC: +confused All other review of systems found to be negative. PHYSICAL EXAMINATION: VITAL SIGNS: Please see below. GENERAL: Pleasant and cooperative. No acute distress. HEENT: PERRL. Extraocular movements intact. Clear conjunctiva CARDIOVASCULAR: Regular rate and rhythm. No murmurs, rubs, or gallops LUNGS: CTA ABDOMEN: Soft, non-tender, nondistended. Positive bowel sounds. NEUROLOGICAL: Alert and oriented times to person, place, not time, Cranial nerves II through XII grossly intact. Sensation grossly intact (-) clonus bilat EXTREMITIES: 5-\5 strength bilateral upper extremities. 5-\5 strength right lower extremity. 5-/5 strength in left lower extremity. LABORATORY DATA: Please see below. ASSESSMENT:84-year-old F with past medical history of HTN and COPD who presents status post left basal ganglia stroke PLAN: 1. 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 Neuro- s/p left basal ganglia infarct, c/u ASA and statin for secondary stroke prevention -low dose Prozac for motor recovery -hx of ETOH abuse, thiamine for cognitive assistance 3. CArdiac- hx of HTN-c/u lisinopril, Amlodipine, and hydralazine with holding parameters -grade 1 diastolic CHF, fluid restrict, daily weights -hld- c/u statin -medicine consulted to assist in overall management 4. Resp- hx of COPD c/u supplemental 02 goal 88-92% s/p course of CEfepime and Vanco for PNA,, c/u Duonebs, symbicort, and spiriva -possible TERESE, nocturnal 02 5. DVT ppx- heparin, teds 6. GI ppx- holding all bowel meds in setting of C diff 7. ID- patient diagnosed with C diff, ID consulted, recs greatly appreciated, switched from oral Vancomycin to Dificid with pusle dosing, c/u to monitor-no further loose stools 7. Pain- Tylenol prn 8. Psych- insomnia- trazodone 9. Dispo- patient would benefit from further rehab at SNF level, progressing functionally each day Allergies Coded Allergies: Sulfa (Sulfonamide Antibiotics) (Verified Adverse Reaction, Mild, STOMACH UPSET, 05/07/20) Vital Signs Vital Signs Date Time Temp Pulse Resp B/P (MAP) Pulse Ox O2 Delivery O2 Flow Rate FiO2 09/11/20 09:12 66 142/80 09/11/20 05:13 96.7 18 99 Nasal Cannula 2.0 Laboratory Data Labs 24H Laboratory Tests 2 09/10/20 15:42: Coronavirus (COVID-19)(PCR) NEGATIVE Current Medications Current Medications Current Medications Medications (Trade) Dose Ordered Sig/Parviz Route PRN Reason Start Time Stop Time Status Last Admin Dose Admin Acetaminophen (Tylenol Tab) 650 mg Q4HP PRN PO fever/MILD PAIN (PS 1-4) 08/16/20 14:15 09/10/20 12:57 Albuterol/ Ipratropium (Duoneb (Ipr 0.5mg/Alb 2.5mg)) 3 ml Q2HP PRN NEB SOB/WHEEZING 08/17/20 05:45 Amlodipine Besylate (Norvasc) 10 mg DAILY PO 08/17/20 09:00 09/11/20 09:12 Atorvastatin Calcium (Lipitor) 40 mg QHS PO 08/16/20 21:00 09/10/20 22:05 Budesonide/ Formoterol Fumarate (Symbicort 80/ 4.5mcg) 2 puff RBID INH 08/16/20 20:00 09/11/20 07:23 Cefazolin Sodium 2 gm/Dextrose 50 ml @ 100 mls/hr Q12H IV 08/16/20 14:15 08/16/20 15:21 DC Cefepime HCl 2 gm/ Dextrose 50 ml @ 100 mls/hr Q12H IV 08/17/20 00:00 08/18/20 09:52 DC 2/25/21 23:55 Docusate Sodium (Colace) 100 mg BID PO 08/16/20 21:00 08/17/20 18:34 DC Fidaxomicin (Dificid) 200 mg BID PO 08/21/20 21:00 08/31/20 09:01 DC 08/31/20 08:35 Fidaxomicin (Dificid) 200 mg DAILY PO 09/01/20 09:00 UNV Fidaxomicin (Dificid) 200 mg Q48H PO 09/02/20 09:00 09/07/20 08:59 DC 09/06/20 08:55 Fluoxetine HCl (PROzac) 10 mg DAILY PO 08/17/20 09:00 09/11/20 09:12 Heparin Sodium (Porcine) (Heparin) 5,000 units Q12H SC 08/16/20 21:00 09/11/20 09:12 Hydralazine HCl (Apresoline) 20 mg TID PO 08/16/20 16:00 09/11/20 09:12 Lactobacillus Acidophilus (Bacid) 1 ea WMHS PO 08/21/20 18:00 09/11/20 09:11 Lisinopril (Prinivil) 10 mg DAILY PO 08/17/20 09:00 09/11/20 09:11 Metronidazole 500 mg/IV Miscellaneous Supplies 100 ml @ 100 mls/hr Q8H IV 08/18/20 09:00 08/18/20 09:52 DC Nystatin (Mycostatin Powder, Nystop) bilat groin and cate area BID TOP 08/21/20 21:00 09/11/20 09:13 Pantoprazole Sodium (Protonix) 40 mg DAILY PO 08/17/20 09:00 08/18/20 08:55 DC Senna (Senokot) 1 tab QHS PO 08/16/20 21:00 08/17/20 18:34 DC Thiamine HCl (Thiamine HCl) 100 mg DAILY PO 08/17/20 09:00 09/11/20 09:11 Tiotropium [place] (Spiriva Handihaler) 1 inhalation DAILY@08 INH 08/17/20 08:00 09/11/20 07:23 Trazodone HCl (Desyrel) 50 mg QHS PRN PO insomnia 08/17/20 05:45 08/18/20 03:25 Trazodone HCl (Desyrel) 50 mg QPM PO 08/16/20 21:00 09/10/20 22:05 Vancomycin HCl (First-Vancomycin 50(Firvanq)- 250mg/5ml) 125 mg QID PO 08/18/20 09:00 08/21/20 16:10 DC 08/21/20 12:22 Vancomycin HCl 750 mg/IV Miscellaneous Supplies 1 each/ Dextrose 275 ml @ 275 mls/hr Q24H IV 08/17/20 11:00 08/18/20 09:52 DC 08/17/20 12:15 Vancomycin HCl 1000 mg/IV Miscellaneous Supplies 1 each/ Dextrose 270 ml @ 270 mls/hr Q24H IV 08/17/20 10:00 08/18/20 09:52 DC 08/17/20 09:58 Vancomycin HCl 1750 mg/IV Miscellaneous Supplies 35 ml @ 35 mls/hr Q24H IV 08/16/20 14:15 08/16/20 15:22 MARGIE BESS MD Sep 11, 2020 10:32
--- NOTE | 2020-09-11 10:33 | IPNPDOC ---
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 REVIEW OF SYSTEMS: The following is a completed review of systems and has been reviewed. Review of systems otherwise unremarkable. PAIN: Patient self reports no pain EYES: No recent vision changes EARS, NOSE, & THROAT: + dysphagia CARDIOVASCULAR: Denies chest pain or palpitations PULMONARY: denies shortness of breath GASTROINTESTINAL: denies diarrhea/constipation GENITOURINARY: denies dysuria MUSCULOSKELETAL:generalized weakness NEUROLOGICAL:+ aphasia HEMATOLOGICAL: denies easy bruising SKIN: denies rash PSYCHIATRIC: +confused All other review of systems found to be negative. PHYSICAL EXAMINATION: VITAL SIGNS: Please see below. GENERAL: Pleasant and cooperative. No acute distress. HEENT: PERRL. Extraocular movements intact. Clear conjunctiva CARDIOVASCULAR: Regular rate and rhythm. No murmurs, rubs, or gallops LUNGS: CTA ABDOMEN: Soft, non-tender, nondistended. Positive bowel sounds. NEUROLOGICAL: Alert and oriented times to person, place, not time, Cranial nerves II through XII grossly intact. Sensation grossly intact (-) clonus bilat EXTREMITIES: 5-\5 strength bilateral upper extremities. 5-\5 strength right lower extremity. 5-/5 strength in left lower extremity. LABORATORY DATA: Please see below. ASSESSMENT:84-year-old F with past medical history of HTN and COPD who presents status post left basal ganglia stroke PLAN: 1. 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 Neuro- s/p left basal ganglia infarct, c/u ASA and statin for secondary stroke prevention -low dose Prozac for motor recovery -hx of ETOH abuse, thiamine for cognitive assistance 3. CArdiac- hx of HTN-c/u lisinopril, Amlodipine, and hydralazine with holding parameters -grade 1 diastolic CHF, fluid restrict, daily weights -hld- c/u statin -medicine consulted to assist in overall management 4. Resp- hx of COPD c/u supplemental 02 goal 88-92% s/p course of CEfepime and Vanco for PNA,, c/u Duonebs, symbicort, and spiriva -possible TERESE, nocturnal 02 5. DVT ppx- heparin, teds 6. GI ppx- holding all bowel meds in setting of C diff 7. ID- patient diagnosed with C diff, ID consulted, recs greatly appreciated, switched from oral Vancomycin to Dificid with pulse dosing, off Dificid and no further loose stools, c/u to monitor 7. Pain- Tylenol prn 8. Psych- insomnia- trazodone 9. Dispo- patient would benefit from further rehab at SNF level, progressing functionally each day, awaiting bed Allergies Coded Allergies: Sulfa (Sulfonamide Antibiotics) (Verified Adverse Reaction, Mild, STOMACH UPSET, 05/07/20) Vital Signs Vital Signs Date Time Temp Pulse Resp B/P (MAP) Pulse Ox O2 Delivery O2 Flow Rate FiO2 09/11/20 09:12 66 142/80 09/11/20 05:13 96.7 18 99 Nasal Cannula 2.0 Laboratory Data Labs 24H Laboratory Tests 2 09/10/20 15:42: Coronavirus (COVID-19)(PCR) NEGATIVE Current Medications Current Medications Current Medications Medications (Trade) Dose Ordered Sig/Parviz Route PRN Reason Start Time Stop Time Status Last Admin Dose Admin Acetaminophen (Tylenol Tab) 650 mg Q4HP PRN PO fever/MILD PAIN (PS 1-4) 08/16/20 14:15 09/10/20 12:57 Albuterol/ Ipratropium (Duoneb (Ipr 0.5mg/Alb 2.5mg)) 3 ml Q2HP PRN NEB SOB/WHEEZING 08/17/20 05:45 Amlodipine Besylate (Norvasc) 10 mg DAILY PO 08/17/20 09:00 09/11/20 09:12 Atorvastatin Calcium (Lipitor) 40 mg QHS PO 08/16/20 21:00 09/10/20 22:05 Budesonide/ Formoterol Fumarate (Symbicort 80/ 4.5mcg) 2 puff RBID INH 08/16/20 20:00 09/11/20 07:23 Cefazolin Sodium 2 gm/Dextrose 50 ml @ 100 mls/hr Q12H IV 08/16/20 14:15 08/16/20 15:21 DC Cefepime HCl 2 gm/ Dextrose 50 ml @ 100 mls/hr Q12H IV 08/17/20 00:00 08/18/20 09:52 DC 2/25/21 23:55 Docusate Sodium (Colace) 100 mg BID PO 08/16/20 21:00 08/17/20 18:34 DC Fidaxomicin (Dificid) 200 mg BID PO 08/21/20 21:00 08/31/20 09:01 DC 08/31/20 08:35 Fidaxomicin (Dificid) 200 mg DAILY PO 09/01/20 09:00 UNV Fidaxomicin (Dificid) 200 mg Q48H PO 09/02/20 09:00 09/07/20 08:59 DC 09/06/20 08:55 Fluoxetine HCl (PROzac) 10 mg DAILY PO 08/17/20 09:00 09/11/20 09:12 Heparin Sodium (Porcine) (Heparin) 5,000 units Q12H SC 08/16/20 21:00 09/11/20 09:12 Hydralazine HCl (Apresoline) 20 mg TID PO 08/16/20 16:00 09/11/20 09:12 Lactobacillus Acidophilus (Bacid) 1 ea WMHS PO 08/21/20 18:00 09/11/20 09:11 Lisinopril (Prinivil) 10 mg DAILY PO 08/17/20 09:00 09/11/20 09:11 Metronidazole 500 mg/IV Miscellaneous Supplies 100 ml @ 100 mls/hr Q8H IV 08/18/20 09:00 08/18/20 09:52 DC Nystatin (Mycostatin Powder, Nystop) bilat groin and cate area BID TOP 08/21/20 21:00 09/11/20 09:13 Pantoprazole Sodium (Protonix) 40 mg DAILY PO 08/17/20 09:00 08/18/20 08:55 DC Senna (Senokot) 1 tab QHS PO 08/16/20 21:00 08/17/20 18:34 DC Thiamine HCl (Thiamine HCl) 100 mg DAILY PO 08/17/20 09:00 09/11/20 09:11 Tiotropium [place] (Spiriva Handihaler) 1 inhalation DAILY@08 INH 08/17/20 08:00 09/11/20 07:23 Trazodone HCl (Desyrel) 50 mg QHS PRN PO insomnia 08/17/20 05:45 08/18/20 03:25 Trazodone HCl (Desyrel) 50 mg QPM PO 08/16/20 21:00 09/10/20 22:05 Vancomycin HCl (First-Vancomycin 50(Firvanq)- 250mg/5ml) 125 mg QID PO 08/18/20 09:00 08/21/20 16:10 DC 08/21/20 12:22 Vancomycin HCl 750 mg/IV Miscellaneous Supplies 1 each/ Dextrose 275 ml @ 275 mls/hr Q24H IV 08/17/20 11:00 08/18/20 09:52 DC 08/17/20 12:15 Vancomycin HCl 1000 mg/IV Miscellaneous Supplies 1 each/ Dextrose 270 ml @ 270 mls/hr Q24H IV 08/17/20 10:00 08/18/20 09:52 DC 08/17/20 09:58 Vancomycin HCl 1750 mg/IV Miscellaneous Supplies 35 ml @ 35 mls/hr Q24H IV 08/16/20 14:15 08/16/20 15:22 MARGIE BESS MD Sep 11, 2020 10:33
--- NOTE | 2020-09-11 10:33 | IPNPDOC ---
PM&R Progress Note DATE OF SERVICE: Sep 07, 2020 [facility] Progress Note Subjective: Patient stating she feels fine and understands she is going to transfer to short term rehab once a bed is available. REVIEW OF SYSTEMS: The following is a completed review of systems and has been reviewed. Review of systems otherwise unremarkable. PAIN: Patient self reports no pain EYES: No recent vision changes EARS, NOSE, & THROAT: + dysphagia CARDIOVASCULAR: Denies chest pain or palpitations PULMONARY: denies shortness of breath GASTROINTESTINAL: denies diarrhea/constipation GENITOURINARY: denies dysuria MUSCULOSKELETAL:generalized weakness NEUROLOGICAL:+ aphasia HEMATOLOGICAL: denies easy bruising SKIN: denies rash PSYCHIATRIC: +confused All other review of systems found to be negative. PHYSICAL EXAMINATION: VITAL SIGNS: Please see below. GENERAL: Pleasant and cooperative. No acute distress. HEENT: PERRL. Extraocular movements intact. Clear conjunctiva CARDIOVASCULAR: Regular rate and rhythm. No murmurs, rubs, or gallops LUNGS: CTA ABDOMEN: Soft, non-tender, nondistended. Positive bowel sounds. NEUROLOGICAL: Alert and oriented times to person, place, not time, Cranial nerves II through XII grossly intact. Sensation grossly intact (-) clonus bilat EXTREMITIES: 5-\5 strength bilateral upper extremities. 5-\5 strength right lower extremity. 5-/5 strength in left lower extremity. LABORATORY DATA: Please see below. ASSESSMENT:84-year-old F with past medical history of HTN and COPD who presents status post left basal ganglia stroke PLAN: 1. 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 Neuro- s/p left basal ganglia infarct, c/u ASA and statin for secondary stroke prevention -low dose Prozac for motor recovery -hx of ETOH abuse, thiamine for cognitive assistance 3. CArdiac- hx of HTN-c/u lisinopril, Amlodipine, and hydralazine with holding parameters -grade 1 diastolic CHF, fluid restrict, daily weights -hld- c/u statin -medicine consulted to assist in overall management 4. Resp- hx of COPD c/u supplemental 02 goal 88-92% s/p course of CEfepime and Vanco for PNA,, c/u Duonebs, symbicort, and spiriva -possible TERESE, nocturnal 02 5. DVT ppx- heparin, teds 6. GI ppx- holding all bowel meds in setting of C diff 7. ID- patient diagnosed with C diff, ID consulted, recs greatly appreciated, switched from oral Vancomycin to Dificid with pusle dosing, c/u to monitor-no further loose stools 7. Pain- Tylenol prn 8. Psych- insomnia- trazodone 9. Dispo- patient would benefit from further rehab at SNF level, progressing functionally each day Allergies Coded Allergies: Sulfa (Sulfonamide Antibiotics) (Verified Adverse Reaction, Mild, STOMACH UPSET, 05/07/20) Vital Signs Vital Signs Date Time Temp Pulse Resp B/P (MAP) Pulse Ox O2 Delivery O2 Flow Rate FiO2 09/11/20 09:12 66 142/80 09/11/20 05:13 96.7 18 99 Nasal Cannula 2.0 Laboratory Data Labs 24H Laboratory Tests 2 09/10/20 15:42: Coronavirus (COVID-19)(PCR) NEGATIVE Current Medications Current Medications Current Medications Medications (Trade) Dose Ordered Sig/Parviz Route PRN Reason Start Time Stop Time Status Last Admin Dose Admin Acetaminophen (Tylenol Tab) 650 mg Q4HP PRN PO fever/MILD PAIN (PS 1-4) 08/16/20 14:15 09/10/20 12:57 Albuterol/ Ipratropium (Duoneb (Ipr 0.5mg/Alb 2.5mg)) 3 ml Q2HP PRN NEB SOB/WHEEZING 08/17/20 05:45 Amlodipine Besylate (Norvasc) 10 mg DAILY PO 08/17/20 09:00 09/11/20 09:12 Atorvastatin Calcium (Lipitor) 40 mg QHS PO 08/16/20 21:00 09/10/20 22:05 Budesonide/ Formoterol Fumarate (Symbicort 80/ 4.5mcg) 2 puff RBID INH 08/16/20 20:00 09/11/20 07:23 Cefazolin Sodium 2 gm/Dextrose 50 ml @ 100 mls/hr Q12H IV 08/16/20 14:15 08/16/20 15:21 DC Cefepime HCl 2 gm/ Dextrose 50 ml @ 100 mls/hr Q12H IV 08/17/20 00:00 08/18/20 09:52 DC 08/17/20 23:55 Docusate Sodium (Colace) 100 mg BID PO 08/16/20 21:00 08/17/20 18:34 DC Fidaxomicin (Dificid) 200 mg BID PO 08/21/20 21:00 08/31/20 09:01 DC 08/31/20 08:35 Fidaxomicin (Dificid) 200 mg DAILY PO 09/01/20 09:00 UNV Fidaxomicin (Dificid) 200 mg Q48H PO 09/02/20 09:00 09/07/20 08:59 DC 09/06/20 08:55 Fluoxetine HCl (PROzac) 10 mg DAILY PO 08/17/20 09:00 09/11/20 09:12 Heparin Sodium (Porcine) (Heparin) 5,000 units Q12H SC 08/16/20 21:00 09/11/20 09:12 Hydralazine HCl (Apresoline) 20 mg TID PO 08/16/20 16:00 09/11/20 09:12 Lactobacillus Acidophilus (Bacid) 1 ea WMHS PO 08/21/20 18:00 09/11/20 09:11 Lisinopril (Prinivil) 10 mg DAILY PO 08/17/20 09:00 09/11/20 09:11 Metronidazole 500 mg/IV Miscellaneous Supplies 100 ml @ 100 mls/hr Q8H IV 08/18/20 09:00 08/18/20 09:52 DC Nystatin (Mycostatin Powder, Nystop) bilat groin and cate area BID TOP 08/21/20 21:00 09/11/20 09:13 Pantoprazole Sodium (Protonix) 40 mg DAILY PO 08/17/20 09:00 08/18/20 08:55 DC Senna (Senokot) 1 tab QHS PO 08/16/20 21:00 08/17/20 18:34 DC Thiamine HCl (Thiamine HCl) 100 mg DAILY PO 08/17/20 09:00 09/11/20 09:11 Tiotropium [place] (Spiriva Handihaler) 1 inhalation DAILY@08 INH 08/17/20 08:00 09/11/20 07:23 Trazodone HCl (Desyrel) 50 mg QHS PRN PO insomnia 08/17/20 05:45 08/18/20 03:25 Trazodone HCl (Desyrel) 50 mg QPM PO 08/16/20 21:00 09/10/20 22:05 Vancomycin HCl (First-Vancomycin 50(Firvanq)- 250mg/5ml) 125 mg QID PO 08/18/20 09:00 08/21/20 16:10 DC 08/21/20 12:22 Vancomycin HCl 750 mg/IV Miscellaneous Supplies 1 each/ Dextrose 275 ml @ 275 mls/hr Q24H IV 08/17/20 11:00 08/18/20 09:52 DC 08/17/20 12:15 Vancomycin HCl 1000 mg/IV Miscellaneous Supplies 1 each/ Dextrose 270 ml @ 270 mls/hr Q24H IV 08/17/20 10:00 08/18/20 09:52 DC 08/17/20 09:58 Vancomycin HCl 1750 mg/IV Miscellaneous Supplies 35 ml @ 35 mls/hr Q24H IV 08/16/20 14:15 08/16/20 15:22 MARGIE BESS MD Sep 11, 2020 10:33
[2020-09-11 14:00] VITALS: BP 106/55
[2020-09-11 20:00] VITALS: BP 124/66
[2020-09-11] MEDS: traZODone 50 MG TAB PO SCH (21:50)
[2020-09-11] MEDS: ATORVASTATIN 20 MG TAB PO SCH (21:50)
[2020-09-12] MEDS: REMEDY PHYTOPLEX Z-GUARD PASTE 113GM TUBE (FROM STOREROOM PRODUCT) TOP SCH ×2 (04:54→09:28)
[2020-09-12 05:15] VITALS: BP 152/90
[2020-09-12] MEDS: TIOTROPIUM INHALER/CAPSULE (SPIRIVA) INH SCH (07:04)
[2020-09-12] MEDS: SYMBICORT 80/4.5MCG INHALER 6GM INH SCH (07:04)
[2020-09-12 09:27] VITALS: BP 152/90
[2020-09-12] MEDS: **hydrALAZINE** 10 MG TAB PO SCH (09:27)
[2020-09-12] MEDS: HEPARIN SOD (PORCINE) 5000UNITS/ML 1ML VIAL/SYRINGE SC SCH (09:28)
[2020-09-12] MEDS: FLUoxetine 10 MG CAP PO SCH (09:28)
[2020-09-12] MEDS: NYSTATIN 100,000 UNITS/GM TOPICAL PWD 15 GM TOP SCH (09:28)
[2020-09-12] MEDS: THIAMINE 100 MG TAB PO SCH (09:28)
[2020-09-12] MEDS: LACTOBACILLUS ACIDOPHILUS CAP (BACID) PO SCH (09:28)
--- NOTE | 2020-09-26 11:40 | PMRDS ---
NAME: JOSHUA ALMARAZ [facility] WT ID#: [id number] : 1935 JOB: [id number] SABRINA: 09/12/2020 ACCT: [id number] DOCTOR: MARGIE CARRERA MD PMR DISCHARGE SUMMARY DATE OF ADMISSION: 08/16/2020 DATE OF DISCHARGE: 09/12/2020 CHIEF COMPLAINT/DISCHARGE DIAGNOSIS: Stroke. HISTORY OF PRESENT ILLNESS: This is an 84-year-old female with a past medical history of hypertension, COPD, morbid obesity, ETOH abuse, and GERD with erosive esophagitis who presented to [facility] ED on 08/01/2020 with altered mental status and was diagnosed with metabolic encephalopathy. CTH showed "old lacunar infarcts in the basal ganglia bilaterally one on each side. There is a 5 mm low density area in the anterior limb of the internal capsule on the left which was not clearly evident previously. This may be a more recent lacunar infarct. No acute cortical infarction is seen. There is no evidence of hemorrhage or mass." Follow up MRI showed "acute infarct at the left basal ganglia measuring 1.6 cm." She was maintained on aspirin and statin for secondary stroke prevention. Echo bubble study was negative for right to left shunt. However, it did show grade 1 diastolic dysfunction. There was concern for possible pneumonia for which she was treated with IV antibiotics and transitioned to p.o. antibiotics and discharged to ARU on 08/08/2020 where she was restarted on oral antibiotics for concern for persistent pneumonia and then discharged back to acute care on 08/13/2020 for altered mental status where she was worked up for a new stroke. CTH did not show infarct. Her leukocytosis worsened, and she was started on vancomycin in addition to cefepime with improvement in her leukocytosis with source thought to be lungs and urine. She was evaluated by therapy and noted to have mobility in ADLs and impairments below her prior level of function and deemed medically appropriate for discharge back to ARU on 08/16/2020. PAST MEDICAL HISTORY: As per HPI. HOSPITAL COURSE: Patient was admitted and enrolled in a comprehensive PT/OT and speech and language pathology program. She received 24 hour nursing supervision, and weekly team meetings were held to discuss her progress. Patient was diagnosed with C. difficile on ARU, ID was consulted, and she was switched from oral vancomycin to Dificid with pulse dosing. Patient's diarrhea eventually improved and resolved. Patient did not develop any further respiratory symptoms concerning for pneumonia, and she was maintained on nocturnal oxygen for her possible TERESE. She was also maintained on a fluid restriction for her diastolic CHF, and blood pressures were controlled with amlodipine, hydralazine, and lisinopril. Patient continued to make steady functional gains in therapy and was deemed medically and functionally stable for discharge to SNF level for further rehab. DISCHARGE MEDICATIONS: As per instructions. 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 Thank you for this referral.
== END 2020-09-12 12:05 | DRG 56 ==
LOC: M PM&R 15:05
PROVIDERS: ADMIT Physical Medicine & Rehabilitation; ATTEND Physical Medicine & Rehabilitation
DX: I69.391 Dysphagia following cerebral infarction (principal); J18.9 Pneumonia, unspecified organism; I50.32 Chronic diastolic (congestive) heart failure; A04.72 Enterocolitis due to Clostridium difficile, not specified as recurrent; J96.11 Chronic respiratory failure with hypoxia; I69.320 Aphasia following cerebral infarction; I69.318 Other symptoms and signs involving cognitive functions following cerebral infarction; R13.10 Dysphagia, unspecified; R53.1 Weakness; I11.0 Hypertensive heart disease with heart failure; J44.9 Chronic obstructive pulmonary disease, unspecified; E66.01 Morbid (severe) obesity due to excess calories; B37.3 Candidiasis of vulva and vagina; G47.00 Insomnia, unspecified; B35.1 Tinea unguium; F10.10 Alcohol abuse, uncomplicated; K21.00 Gastro-esophageal reflux disease with esophagitis, without bleeding; G47.33 Obstructive sleep apnea (adult) (pediatric); Z74.09 Other reduced mobility; Z74.1 Need for assistance with personal care; Z99.81 Dependence on supplemental oxygen; Z79.899 Other long term (current) drug therapy; Z88.2 Allergy status to sulfonamides; Z68.39 Body mass index [BMI] 39.0-39.9, adult

== ENCOUNTER → 2020-09-14 | Outpatient (REF) ==
[~2020-09-14] MED LIST changes: +NYST10006 TOP; +RISATAB3 PO; +THIA100TA PO
== END ==
PROVIDERS: ATTEND Internal Medicine
DX: Z11.2 Encounter for screening for other bacterial diseases (principal)

== ENCOUNTER → 2020-09-20 | Outpatient (REF) | payer MEDICAID, MEDICARE, OTHER ==
[2020-09-20 10:13] LABS: HEMATOCRIT 46.4 % (36.0-47.0); HEMOGLOBIN 14.9 g/dl (12.0-15.5); MEAN CORPUSCULAR HEMOGLOBIN 30.3 pg (27.0-33.0); MEAN CORPUSCULAR HGB CONC 32.1 g/dl (32.0-36.5); MEAN CORPUSCULAR VOLUME 94.5 fl (80.0-96.0); PLATELET COUNT, AUTOMATED 244 10^3/uL (150-450); RED BLOOD COUNT 4.91 10^6/uL (4.00-5.40); WHITE BLOOD COUNT 9.4 10^3/uL (4.0-10.0)
[2020-09-20 10:39] LABS: CALCIUM LEVEL 9.7 MG/DL (8.8-10.2); CREATININE FOR GFR 1.01 MG/DL (0.55-1.30); GLOMERULAR FILTRATION RATE 55.6 (>32); POTASSIUM SERUM 4.4 MEQ/L (3.5-5.1)
== END ==
PROVIDERS: ATTEND Internal Medicine
DX: A04.72 Enterocolitis due to Clostridium difficile, not specified as recurrent (principal); I10 Essential (primary) hypertension; J44.9 Chronic obstructive pulmonary disease, unspecified

== ENCOUNTER → 2020-09-27 | Outpatient (REF) ==
[2020-09-27 09:49] LABS: HEMOGLOBIN 13.9 g/dl (12.0-15.5); MEAN CORPUSCULAR HEMOGLOBIN 30.1 pg (27.0-33.0); MEAN CORPUSCULAR HGB CONC 32.3 g/dl (32.0-36.5); MEAN CORPUSCULAR VOLUME 93.1 fl (80.0-96.0); PLATELET COUNT, AUTOMATED 199 10^3/uL (150-450); RED BLOOD COUNT 4.62 10^6/uL (4.00-5.40); WHITE BLOOD COUNT 8.7 10^3/uL (4.0-10.0)
[2020-09-27 10:27] LABS: BLOOD UREA NITROGEN 30 MG/DL (7-18); CALCIUM LEVEL 9.2 MG/DL (8.8-10.2); CARBON DIOXIDE LEVEL 26 MEQ/L (21-32); CHLORIDE LEVEL 110 MEQ/L (98-107); CREATININE FOR GFR 0.92 MG/DL (0.55-1.30); GLOMERULAR FILTRATION RATE > 60.0 (>32); GLUCOSE, FASTING 97 MG/DL (70-100); POTASSIUM SERUM 4.3 MEQ/L (3.5-5.1); SODIUM LEVEL 140 MEQ/L (136-145)
== END ==
PROVIDERS: ATTEND Physician Assistant
DX: I10 Essential (primary) hypertension (principal)

== ENCOUNTER → 2020-09-28 | Outpatient (REF) ==
[2020-09-28 15:30] LABS: CLOSTRIDIUM DIFFICILE PCR POSITIVE (NEGATIVE)
== END ==
PROVIDERS: ATTEND Internal Medicine
DX: R19.5 Other fecal abnormalities (principal)

== ENCOUNTER → 2020-09-29 | Outpatient (REF) ==
[2020-09-29 15:05] LABS: INFLUENZA A AMPLIFICATION NEGATIVE (NEGATIVE); INFLUENZA B AMPLIFICATION NEGATIVE (NEGATIVE)
== END ==
PROVIDERS: ATTEND Internal Medicine
DX: Z11.52 Encounter for screening for COVID-19 (principal)

== ENCOUNTER → 2020-10-03 | Outpatient (REF) | payer MEDICARE, MEDICAID, OTHER | PROVIDERS: ATTEND Internal Medicine | DX: Z20.822 Contact with and (suspected) exposure to COVID-19 (principal) ==

== ENCOUNTER → 2020-10-04 | Outpatient (REF) | payer MEDICARE, MEDICAID ==
[2020-10-04 10:55] LABS: HEMOGLOBIN 13.8 g/dl (12.0-15.5); MEAN CORPUSCULAR HEMOGLOBIN 29.9 pg (27.0-33.0); MEAN CORPUSCULAR HGB CONC 32.1 g/dl (32.0-36.5); MEAN CORPUSCULAR VOLUME 93.3 fl (80.0-96.0); PLATELET COUNT, AUTOMATED 195 10^3/uL (150-450); RED BLOOD COUNT 4.61 10^6/uL (4.00-5.40)
[2020-10-04 11:15] LABS: BLOOD UREA NITROGEN 21 MG/DL (7-18); CARBON DIOXIDE LEVEL 28 MEQ/L (21-32); CHLORIDE LEVEL 107 MEQ/L (98-107); CREATININE FOR GFR 0.78 MG/DL (0.55-1.30); GLOMERULAR FILTRATION RATE > 60.0 (>32); GLUCOSE, FASTING 88 MG/DL (70-100); POTASSIUM SERUM 4.5 MEQ/L (3.5-5.1); SODIUM LEVEL 140 MEQ/L (136-145)
== END ==
PROVIDERS: ATTEND Physician Assistant
DX: A04.72 Enterocolitis due to Clostridium difficile, not specified as recurrent (principal); I10 Essential (primary) hypertension; J44.9 Chronic obstructive pulmonary disease, unspecified

== ENCOUNTER → 2020-10-10 | Outpatient (REF) | payer MEDICARE, MEDICAID, OTHER | PROVIDERS: ATTEND Internal Medicine | DX: Z20.822 Contact with and (suspected) exposure to COVID-19 (principal) ==

== ENCOUNTER → 2020-10-17 | Outpatient (REF) | payer MEDICARE, MEDICAID, OTHER | PROVIDERS: ATTEND Internal Medicine | DX: Z20.822 Contact with and (suspected) exposure to COVID-19 (principal) ==

== ENCOUNTER → 2020-10-18 | Outpatient (REF) | payer MEDICARE, MEDICAID, OTHER ==
[~2020-10-18] MED LIST changes: -CEFD1CAP8 PO; +CEFD300C41 PO; +DOK1CAP4 PO; -DOK1CAP7 PO; -FLUO10CA16 PO; +FLUO10CA18 PO
[2020-10-18 10:33] LABS: HEMATOCRIT 42.3 % (36.0-47.0); HEMOGLOBIN 13.7 g/dl (12.0-15.5); MEAN CORPUSCULAR HEMOGLOBIN 29.9 pg (27.0-33.0); MEAN CORPUSCULAR HGB CONC 32.4 g/dl (32.0-36.5); MEAN CORPUSCULAR VOLUME 92.4 fl (80.0-96.0); PLATELET COUNT, AUTOMATED 245 10^3/uL (150-450); RED BLOOD COUNT 4.58 10^6/uL (4.00-5.40); WHITE BLOOD COUNT 8.7 10^3/uL (4.0-10.0)
[2020-10-18 10:57] LABS: BLOOD UREA NITROGEN 22 MG/DL (7-18); CALCIUM LEVEL 9.1 MG/DL (8.8-10.2); CARBON DIOXIDE LEVEL 28 MEQ/L (21-32); CHLORIDE LEVEL 104 MEQ/L (98-107); CREATININE FOR GFR 0.86 MG/DL (0.55-1.30); GLOMERULAR FILTRATION RATE > 60.0 (>32); GLUCOSE, FASTING 81 MG/DL (70-100); POTASSIUM SERUM 4.4 MEQ/L (3.5-5.1); SODIUM LEVEL 138 MEQ/L (136-145)
== END ==
PROVIDERS: ATTEND Internal Medicine
DX: I10 Essential (primary) hypertension (principal); J44.9 Chronic obstructive pulmonary disease, unspecified

== ENCOUNTER → 2020-11-01 | Outpatient (REF) | payer MEDICARE, MEDICAID, OTHER ==
[~2020-11-01] MED LIST changes: +CEFD1CAP8 PO; -CEFD300C41 PO; -DOK1CAP4 PO; +DOK1CAP7 PO; +FLUO10CA16 PO; -FLUO10CA18 PO
[2020-11-01 09:54] LABS: HEMATOCRIT 43.6 % (36.0-47.0); HEMOGLOBIN 13.9 g/dl (12.0-15.5); MEAN CORPUSCULAR HEMOGLOBIN 30.3 pg (27.0-33.0); MEAN CORPUSCULAR HGB CONC 31.9 g/dl (32.0-36.5); MEAN CORPUSCULAR VOLUME 95.2 fl (80.0-96.0); PLATELET COUNT, AUTOMATED 240 10^3/uL (150-450); RED BLOOD COUNT 4.58 10^6/uL (4.00-5.40); WHITE BLOOD COUNT 7.7 10^3/uL (4.0-10.0)
[2020-11-01 10:25] LABS: CALCIUM LEVEL 9.7 MG/DL (8.8-10.2); CREATININE FOR GFR 0.96 MG/DL (0.55-1.30); GLOMERULAR FILTRATION RATE 58.8 (>32); POTASSIUM SERUM 4.8 MEQ/L (3.5-5.1)
== END ==
PROVIDERS: ATTEND Internal Medicine
DX: A04.72 Enterocolitis due to Clostridium difficile, not specified as recurrent (principal); Z79.899 Other long term (current) drug therapy

== ENCOUNTER → 2020-11-15 | Outpatient (REF) | payer MEDICARE, MEDICAID, OTHER ==
[2020-11-15 10:06] LABS: HEMATOCRIT 45.7 % (36.0-47.0); HEMOGLOBIN 14.6 g/dl (12.0-15.5); MEAN CORPUSCULAR HEMOGLOBIN 30.4 pg (27.0-33.0); MEAN CORPUSCULAR HGB CONC 31.9 g/dl (32.0-36.5); MEAN CORPUSCULAR VOLUME 95.2 fl (80.0-96.0); PLATELET COUNT, AUTOMATED 273 10^3/uL (150-450)
[2020-11-15 10:33] LABS: CALCIUM LEVEL 10.1 MG/DL (8.8-10.2); CREATININE FOR GFR 1.08 MG/DL (0.55-1.30); GLOMERULAR FILTRATION RATE 51.3 (>32); POTASSIUM SERUM 4.5 MEQ/L (3.5-5.1)
== END ==
PROVIDERS: ATTEND Internal Medicine
DX: A04.72 Enterocolitis due to Clostridium difficile, not specified as recurrent (principal); Z79.899 Other long term (current) drug therapy

== ENCOUNTER → 2020-11-29 | Outpatient (REF) | payer MEDICARE, MEDICAID ==
[2020-11-29 10:13] LABS: HEMATOCRIT 41.3 % (36.0-47.0); HEMOGLOBIN 13.2 g/dl (12.0-15.5); MEAN CORPUSCULAR HEMOGLOBIN 30.1 pg (27.0-33.0); MEAN CORPUSCULAR VOLUME 94.3 fl (80.0-96.0); PLATELET COUNT, AUTOMATED 220 10^3/uL (150-450); RED BLOOD COUNT 4.38 10^6/uL (4.00-5.40); WHITE BLOOD COUNT 7.7 10^3/uL (4.0-10.0)
[2020-11-29 10:36] LABS: CALCIUM LEVEL 9.1 MG/DL (8.8-10.2); CREATININE FOR GFR 0.98 MG/DL (0.55-1.30); GLOMERULAR FILTRATION RATE 57.4 (>32); POTASSIUM SERUM 4.5 MEQ/L (3.5-5.1)
== END ==
PROVIDERS: ATTEND Physician Assistant
DX: A04.72 Enterocolitis due to Clostridium difficile, not specified as recurrent (principal); Z79.899 Other long term (current) drug therapy

== ENCOUNTER 2020-11-30 12:11 | Outpatient (CLI) | payer MEDICARE, MEDICAID ==
[~2020-11-30] VITALS: Ht 170.2 cm; Wt 111.1 kg
[2020-11-30 12:30] VITALS: BP 138/88
[2020-11-30] MEDS ORDERED: BEZLOTOXUMAB 1,000 MG in NS 100 ML IV ONE (13:00)
[2020-11-30 14:40] VITALS: BP 142/89
== END 2020-11-30 14:50 | disposition home or self-care (01) ==
LOC: M INFU 12:11
PROVIDERS: ATTEND Internal Medicine Infectious Disease
DX: A04.71 Enterocolitis due to Clostridium difficile, recurrent (principal)
CPT/HCPCS: 96365; J0565

== ENCOUNTER → 2020-12-29 | Outpatient (REF) | payer MEDICARE, MEDICAID ==
[~2020-12-29] MED LIST changes: -CEFD1CAP8 PO; +CEFD300C41 PO; +DOK1CAP4 PO; -DOK1CAP7 PO; -FLUO10CA16 PO; +FLUO10CA18 PO
[2020-12-29 15:31] LABS: HEMATOCRIT 44.7 % (36.0-47.0); HEMOGLOBIN 14.4 g/dl (12.0-15.5); MEAN CORPUSCULAR HEMOGLOBIN 31.2 pg (27.0-33.0); MEAN CORPUSCULAR HGB CONC 32.2 g/dl (32.0-36.5); MEAN CORPUSCULAR VOLUME 96.8 fl (80.0-96.0); PLATELET COUNT, AUTOMATED 230 10^3/uL (150-450); RED BLOOD COUNT 4.62 10^6/uL (4.00-5.40); WHITE BLOOD COUNT 9.6 10^3/uL (4.0-10.0)
[2020-12-29 15:54] LABS: BLOOD UREA NITROGEN 16 MG/DL (7-18); CARBON DIOXIDE LEVEL 27 MEQ/L (21-32); CHLORIDE LEVEL 106 MEQ/L (98-107); CREATININE FOR GFR 0.91 MG/DL (0.55-1.30); GLOMERULAR FILTRATION RATE > 60.0 (>32); GLUCOSE, FASTING 82 MG/DL (70-100); POTASSIUM SERUM 4.5 MEQ/L (3.5-5.1); SODIUM LEVEL 139 MEQ/L (136-145)
== END ==
PROVIDERS: ATTEND Internal Medicine
DX: A04.72 Enterocolitis due to Clostridium difficile, not specified as recurrent (principal); Z79.899 Other long term (current) drug therapy

== ENCOUNTER → 2021-01-29 | Outpatient (REF) | payer MEDICARE, MEDICAID ==
[~2021-01-29] MED LIST changes: +CEFD1CAP8 PO; -CEFD300C41 PO; +FLUO10CA16 PO; -FLUO10CA18 PO
[2021-01-29 12:32] LABS: HEMOGLOBIN 14.7 g/dl (12.0-15.5); MEAN CORPUSCULAR HEMOGLOBIN 31.2 pg (27.0-33.0); MEAN CORPUSCULAR HGB CONC 32.7 g/dl (32.0-36.5); MEAN CORPUSCULAR VOLUME 95.5 fl (80.0-96.0); PLATELET COUNT, AUTOMATED 221 10^3/uL (150-450); RED BLOOD COUNT 4.71 10^6/uL (4.00-5.40); WHITE BLOOD COUNT 8.8 10^3/uL (4.0-10.0)
[2021-01-29 13:01] LABS: BLOOD UREA NITROGEN 13 MG/DL (7-18); CALCIUM LEVEL 8.8 MG/DL (8.8-10.2); CARBON DIOXIDE LEVEL 27 MEQ/L (21-32); CHLORIDE LEVEL 106 MEQ/L (98-107); CREATININE FOR GFR 0.73 MG/DL (0.55-1.30); GLOMERULAR FILTRATION RATE > 60.0 (>32); GLUCOSE, FASTING 81 MG/DL (70-100); POTASSIUM SERUM 4.4 MEQ/L (3.5-5.1); SODIUM LEVEL 139 MEQ/L (136-145)
== END ==
PROVIDERS: ATTEND Physician Assistant
DX: A04.72 Enterocolitis due to Clostridium difficile, not specified as recurrent (principal); I10 Essential (primary) hypertension; J44.9 Chronic obstructive pulmonary disease, unspecified

== ENCOUNTER → 2021-02-28 | Outpatient (REF) | payer MEDICARE, MEDICAID ==
[2021-02-28 12:45] LABS: HEMATOCRIT 43.8 % (36.0-47.0); HEMOGLOBIN 14.2 g/dl (12.0-15.5); MEAN CORPUSCULAR HEMOGLOBIN 31.2 pg (27.0-33.0); MEAN CORPUSCULAR HGB CONC 32.4 g/dl (32.0-36.5); MEAN CORPUSCULAR VOLUME 96.3 fl (80.0-96.0); PLATELET COUNT, AUTOMATED 235 10^3/uL (150-450); RED BLOOD COUNT 4.55 10^6/uL (4.00-5.40); WHITE BLOOD COUNT 9.7 10^3/uL (4.0-10.0)
[2021-02-28 13:04] LABS: BLOOD UREA NITROGEN 11 MG/DL (7-18); CARBON DIOXIDE LEVEL 28 MEQ/L (21-32); CHLORIDE LEVEL 110 MEQ/L (98-107); CREATININE FOR GFR 0.73 MG/DL (0.55-1.30); GLOMERULAR FILTRATION RATE > 60.0 (>32); GLUCOSE, FASTING 112 MG/DL (70-100); POTASSIUM SERUM 4.1 MEQ/L (3.5-5.1); SODIUM LEVEL 143 MEQ/L (136-145)
== END ==
PROVIDERS: ATTEND Physician Assistant
DX: J44.9 Chronic obstructive pulmonary disease, unspecified (principal)

== ENCOUNTER → 2021-04-02 | Outpatient (REF) | payer MEDICARE, MEDICAID ==
[2021-04-02 10:41] LABS: HEMATOCRIT 42.1 % (36.0-47.0); HEMOGLOBIN 13.7 g/dl (12.0-15.5); MEAN CORPUSCULAR HEMOGLOBIN 31.4 pg (27.0-33.0); MEAN CORPUSCULAR HGB CONC 32.5 g/dl (32.0-36.5); MEAN CORPUSCULAR VOLUME 96.3 fl (80.0-96.0); PLATELET COUNT, AUTOMATED 252 10^3/uL (150-450); RED BLOOD COUNT 4.37 10^6/uL (4.00-5.40); WHITE BLOOD COUNT 8.1 10^3/uL (4.0-10.0)
[2021-04-02 11:06] LABS: BLOOD UREA NITROGEN 12 MG/DL (7-18); CALCIUM LEVEL 8.8 MG/DL (8.8-10.2); CARBON DIOXIDE LEVEL 27 MEQ/L (21-32); CHLORIDE LEVEL 107 MEQ/L (98-107); CREATININE FOR GFR 0.92 MG/DL (0.55-1.30); GLOMERULAR FILTRATION RATE > 60.0 (>32); GLUCOSE, FASTING 103 MG/DL (70-100); POTASSIUM SERUM 4.2 MEQ/L (3.5-5.1); SODIUM LEVEL 140 MEQ/L (136-145)
== END ==
PROVIDERS: ATTEND Internal Medicine
DX: J44.9 Chronic obstructive pulmonary disease, unspecified (principal)

== ENCOUNTER → 2021-04-25 | Outpatient (REF) | payer MEDICARE, MEDICAID ==
[~2021-04-25] MED LIST changes: -CEFD1CAP8 PO; +CEFD300C41 PO; -FLUO10CA16 PO; +FLUO10CA18 PO
[2021-04-25 12:36] LABS: HEMATOCRIT 45.1 % (36.0-47.0); HEMOGLOBIN 14.7 g/dl (12.0-15.5); MEAN CORPUSCULAR HEMOGLOBIN 31.3 pg (27.0-33.0); MEAN CORPUSCULAR HGB CONC 32.6 g/dl (32.0-36.5); PLATELET COUNT, AUTOMATED 207 10^3/uL (150-450); WHITE BLOOD COUNT 8.5 10^3/uL (4.0-10.0)
[2021-04-25 13:01] LABS: CREATININE FOR GFR 1.14 MG/DL (0.55-1.30); GLOMERULAR FILTRATION RATE 48.2 (>32); POTASSIUM SERUM 4.4 MEQ/L (3.5-5.1)
== END ==
PROVIDERS: ATTEND Internal Medicine
DX: I10 Essential (primary) hypertension (principal); J44.9 Chronic obstructive pulmonary disease, unspecified

== ENCOUNTER → 2021-05-30 | Outpatient (REF) | payer MEDICARE, MEDICAID ==
[~2021-05-30] MED LIST changes: +CEFD1CAP8 PO; -CEFD300C41 PO; +FLUO10CA16 PO; -FLUO10CA18 PO
[2021-05-30 12:31] LABS: HEMATOCRIT 45.1 % (36.0-47.0); HEMOGLOBIN 14.8 g/dl (12.0-15.5); MEAN CORPUSCULAR HEMOGLOBIN 31.6 pg (27.0-33.0); MEAN CORPUSCULAR HGB CONC 32.8 g/dl (32.0-36.5); MEAN CORPUSCULAR VOLUME 96.2 fl (80.0-96.0); PLATELET COUNT, AUTOMATED 211 10^3/uL (150-450); RED BLOOD COUNT 4.69 10^6/uL (4.00-5.40); WHITE BLOOD COUNT 8.3 10^3/uL (4.0-10.0)
[2021-05-30 13:07] LABS: BLOOD UREA NITROGEN 11 MG/DL (7-18); CARBON DIOXIDE LEVEL 29 MEQ/L (21-32); CHLORIDE LEVEL 107 MEQ/L (98-107); CREATININE FOR GFR 0.81 MG/DL (0.55-1.30); GLOMERULAR FILTRATION RATE > 60.0 (>32); GLUCOSE, FASTING 104 MG/DL (70-100); POTASSIUM SERUM 4.2 MEQ/L (3.5-5.1); SODIUM LEVEL 141 MEQ/L (136-145)
== END ==
PROVIDERS: ATTEND Internal Medicine
DX: J44.9 Chronic obstructive pulmonary disease, unspecified (principal)

== ENCOUNTER → 2021-06-20 | Outpatient (CLI) | payer MEDICARE, MEDICAID ==
--- NOTE | 2021-06-20 13:00 | REP ---
INDICATION: L HIP PAIN. COMPARISON: None TECHNIQUE: AP pelvis two views left hip FINDINGS: There is bilateral asymmetric hip joint space narrowing left much greater than right. There is prominent left femoral head marginal osteophytosis. There is buttressing on the left. There is a ring osteophyte on the left. There is no definite acute fracture, dislocation, or subluxation. IMPRESSION: Chronic changes as described above. <Electronically signed by Jose Antonio Vasquez > 06/20/21 [id number]
== END ==
LOC: M RAD 12:38
PROVIDERS: ATTEND Internal Medicine
DX: M25.552 Pain in left hip (principal)

== ENCOUNTER → 2021-06-27 | Outpatient (REF) | payer MEDICARE, MEDICAID ==
[~2021-06-27] MED LIST changes: -CEFD1CAP8 PO; +CEFD300C41 PO; -FLUO10CA16 PO; +FLUO10CA18 PO
[2021-06-27 11:41] LABS: HEMATOCRIT 44.2 % (36.0-47.0); HEMOGLOBIN 14.1 g/dl (12.0-15.5); MEAN CORPUSCULAR HEMOGLOBIN 30.6 pg (27.0-33.0); MEAN CORPUSCULAR HGB CONC 31.9 g/dl (32.0-36.5); MEAN CORPUSCULAR VOLUME 95.9 fl (80.0-96.0); PLATELET COUNT, AUTOMATED 214 10^3/uL (150-450); RED BLOOD COUNT 4.61 10^6/uL (4.00-5.40); WHITE BLOOD COUNT 6.7 10^3/uL (4.0-10.0)
[2021-06-27 12:16] LABS: BLOOD UREA NITROGEN 14 MG/DL (7-18); CALCIUM LEVEL 8.7 MG/DL (8.8-10.2); CARBON DIOXIDE LEVEL 24 MEQ/L (21-32); CHLORIDE LEVEL 108 MEQ/L (98-107); CREATININE FOR GFR 0.82 MG/DL (0.55-1.30); GLOMERULAR FILTRATION RATE > 60.0 (>32); GLUCOSE, FASTING 71 MG/DL (70-100); POTASSIUM SERUM 3.6 MEQ/L (3.5-5.1); SODIUM LEVEL 141 MEQ/L (136-145)
== END ==
PROVIDERS: ATTEND Internal Medicine
DX: J44.9 Chronic obstructive pulmonary disease, unspecified (principal)

== ENCOUNTER → 2021-07-25 | Outpatient (REF) | payer MEDICARE, MEDICAID ==
[2021-07-25 15:49] LABS: HEMATOCRIT 40.1 % (36.0-47.0); HEMOGLOBIN 13.2 g/dl (12.0-15.5); MEAN CORPUSCULAR HEMOGLOBIN 31.5 pg (27.0-33.0); MEAN CORPUSCULAR HGB CONC 32.9 g/dl (32.0-36.5); MEAN CORPUSCULAR VOLUME 95.7 fl (80.0-96.0); PLATELET COUNT, AUTOMATED 218 10^3/uL (150-450); RED BLOOD COUNT 4.19 10^6/uL (4.00-5.40); WHITE BLOOD COUNT 7.6 10^3/uL (4.0-10.0)
[2021-07-25 16:19] LABS: BLOOD UREA NITROGEN 15 MG/DL (7-18); CALCIUM LEVEL 8.7 MG/DL (8.8-10.2); CARBON DIOXIDE LEVEL 28 MEQ/L (21-32); CHLORIDE LEVEL 106 MEQ/L (98-107); CREATININE FOR GFR 0.87 MG/DL (0.55-1.30); GLOMERULAR FILTRATION RATE > 60.0 (>32); GLUCOSE, FASTING 98 MG/DL (70-100); POTASSIUM SERUM 4.1 MEQ/L (3.5-5.1); SODIUM LEVEL 140 MEQ/L (136-145)
== END ==
PROVIDERS: ATTEND Internal Medicine
DX: J44.9 Chronic obstructive pulmonary disease, unspecified (principal)

== ENCOUNTER → 2021-08-22 | Outpatient (REF) | payer MEDICARE, MEDICAID ==
[2021-08-22 12:02] LABS: HEMATOCRIT 42.9 % (36.0-47.0); HEMOGLOBIN 13.6 g/dl (12.0-15.5); MEAN CORPUSCULAR HEMOGLOBIN 30.6 pg (27.0-33.0); MEAN CORPUSCULAR HGB CONC 31.7 g/dl (32.0-36.5); MEAN CORPUSCULAR VOLUME 96.6 fl (80.0-96.0); PLATELET COUNT, AUTOMATED 239 10^3/uL (150-450); RED BLOOD COUNT 4.44 10^6/uL (4.00-5.40); WHITE BLOOD COUNT 8.3 10^3/uL (4.0-10.0)
[2021-08-22 12:50] LABS: BLOOD UREA NITROGEN 17 MG/DL (7-18); CALCIUM LEVEL 9.3 MG/DL (8.8-10.2); CARBON DIOXIDE LEVEL 28 MEQ/L (21-32); CHLORIDE LEVEL 106 MEQ/L (98-107); GLOMERULAR FILTRATION RATE > 60.0 (>32); GLUCOSE, FASTING 84 MG/DL (70-100); POTASSIUM SERUM 4.1 MEQ/L (3.5-5.1); SODIUM LEVEL 139 MEQ/L (136-145)
== END ==
PROVIDERS: ATTEND Internal Medicine
DX: J44.9 Chronic obstructive pulmonary disease, unspecified (principal)

== ENCOUNTER → 2021-10-24 | Outpatient (REF) | payer MEDICARE, MEDICAID ==
[~2021-10-24] MED LIST changes: +BENZ1LOZ9 PO; -CEPALOZ8 PO
[2021-10-24 13:06] LABS: HEMATOCRIT 44.4 % (36.0-47.0); HEMOGLOBIN 14.4 g/dl (12.0-15.5); MEAN CORPUSCULAR HGB CONC 32.4 g/dl (32.0-36.5); MEAN CORPUSCULAR VOLUME 95.7 fl (80.0-96.0); PLATELET COUNT, AUTOMATED 238 10^3/uL (150-450); RED BLOOD COUNT 4.64 10^6/uL (4.00-5.40); WHITE BLOOD COUNT 8.7 10^3/uL (4.0-10.0)
[2021-10-24 16:05] LABS: BLOOD UREA NITROGEN 15 MG/DL (7-18); CALCIUM LEVEL 9.3 MG/DL (8.8-10.2); CARBON DIOXIDE LEVEL 28 MEQ/L (21-32); CHLORIDE LEVEL 107 MEQ/L (98-107); CREATININE FOR GFR 0.84 MG/DL (0.55-1.30); GLOMERULAR FILTRATION RATE > 60.0 (>32); GLUCOSE, FASTING 164 MG/DL (70-100); POTASSIUM SERUM 4.8 MEQ/L (3.5-5.1); SODIUM LEVEL 141 MEQ/L (136-145)
== END ==
PROVIDERS: ATTEND Internal Medicine
DX: J44.9 Chronic obstructive pulmonary disease, unspecified (principal)

== ENCOUNTER → 2021-11-21 | Outpatient (REF) | payer MEDICARE, MEDICAID ==
[2021-11-21 12:19] LABS: HEMATOCRIT 40.4 % (36.0-47.0); MEAN CORPUSCULAR HEMOGLOBIN 30.5 pg (27.0-33.0); MEAN CORPUSCULAR HGB CONC 32.2 g/dl (32.0-36.5); MEAN CORPUSCULAR VOLUME 94.8 fl (80.0-96.0); PLATELET COUNT, AUTOMATED 193 10^3/uL (150-450); RED BLOOD COUNT 4.26 10^6/uL (4.00-5.40)
[2021-11-21 12:44] LABS: CALCIUM LEVEL 8.5 MG/DL (8.8-10.2); CREATININE FOR GFR 0.95 MG/DL (0.55-1.30); GLOMERULAR FILTRATION RATE 59.4 (>32); POTASSIUM SERUM 4.3 MEQ/L (3.5-5.1)
== END ==
PROVIDERS: ATTEND Internal Medicine
DX: J44.9 Chronic obstructive pulmonary disease, unspecified (principal)

== ENCOUNTER → 2021-12-26 | Outpatient (REF) | payer MEDICARE, MEDICAID ==
[2021-12-26 13:15] LABS: HEMATOCRIT 44.8 % (36.0-47.0); HEMOGLOBIN 14.8 g/dl (12.0-15.5); MEAN CORPUSCULAR HEMOGLOBIN 31.3 pg (27.0-33.0); MEAN CORPUSCULAR VOLUME 94.7 fl (80.0-96.0); PLATELET COUNT, AUTOMATED 220 10^3/uL (150-450); RED BLOOD COUNT 4.73 10^6/uL (4.00-5.40); WHITE BLOOD COUNT 7.8 10^3/uL (4.0-10.0)
[2021-12-26 15:05] LABS: BLOOD UREA NITROGEN 16 MG/DL (7-18); CALCIUM LEVEL 9.3 MG/DL (8.8-10.2); CARBON DIOXIDE LEVEL 26 MEQ/L (21-32); CHLORIDE LEVEL 105 MEQ/L (98-107); CREATININE FOR GFR 0.85 MG/DL (0.55-1.30); GLOMERULAR FILTRATION RATE > 60.0 (>32); GLUCOSE, FASTING 114 MG/DL (70-100); POTASSIUM SERUM 4.5 MEQ/L (3.5-5.1); SODIUM LEVEL 136 MEQ/L (136-145)
== END ==
PROVIDERS: ATTEND Internal Medicine
DX: J44.9 Chronic obstructive pulmonary disease, unspecified (principal)

== ENCOUNTER → 2022-01-17 | Outpatient (REF) | LOC: M PLAIMG 12:28 | PROVIDERS: ATTEND Internal Medicine | DX: R05.9 Cough, unspecified (principal) ==

== ENCOUNTER → 2022-01-17 | Outpatient (REF) | payer MEDICARE, MEDICAID ==
[2022-01-17 13:34] LABS: HEMATOCRIT 44.6 % (36.0-47.0); HEMOGLOBIN 14.7 g/dl (12.0-15.5); MEAN CORPUSCULAR HEMOGLOBIN 31.1 pg (27.0-33.0); MEAN CORPUSCULAR VOLUME 94.3 fl (80.0-96.0); PLATELET COUNT, AUTOMATED 236 10^3/uL (150-450); RED BLOOD COUNT 4.73 10^6/uL (4.00-5.40); WHITE BLOOD COUNT 11.4 10^3/uL (4.0-10.0)
[2022-01-17 14:12] LABS: ALBUMIN 3.2 GM/DL (3.2-5.2); ALT/SGPT 21 U/L (12-78); BILIRUBIN,TOTAL 0.3 MG/DL (0.2-1.0); BLOOD UREA NITROGEN 14 MG/DL (7-18); CALCIUM LEVEL 9.3 MG/DL (8.8-10.2); CARBON DIOXIDE LEVEL 23 MEQ/L (21-32); CHLORIDE LEVEL 107 MEQ/L (98-107); GLOMERULAR FILTRATION RATE > 60.0 (>32); GLUCOSE, FASTING 113 MG/DL (70-100); POTASSIUM SERUM 4.2 MEQ/L (3.5-5.1); SODIUM LEVEL 139 MEQ/L (136-145); TOTAL PROTEIN 6.4 GM/DL (6.4-8.2)
== END ==
PROVIDERS: ATTEND Internal Medicine
DX: R05.9 Cough, unspecified (principal); Z79.899 Other long term (current) drug therapy

== ENCOUNTER → 2022-01-22 | Outpatient (REF) | payer MEDICARE, MEDICAID ==
[2022-01-22 16:01] LABS: BASO # 0.1 10^3/uL (0.0-0.2); BASO % 0.8 % (0.0-1.0); EOS # 0.1 10^3/uL (0.0-0.5); EOS % 1.5 % (0.0-3.0); HEMATOCRIT 43.6 % (36.0-47.0); HEMOGLOBIN 14.2 g/dl (12.0-15.5); LYMPH % 13.8 % (24.0-44.0); MEAN CORPUSCULAR HEMOGLOBIN 30.5 pg (27.0-33.0); MEAN CORPUSCULAR HGB CONC 32.6 g/dl (32.0-36.5); MEAN CORPUSCULAR VOLUME 93.6 fl (80.0-96.0); MONO # 0.8 10^3/uL (0.0-0.8); MONO % 10.3 % (2.0-8.0); NEUTROPHILS # 5.5 10^3/uL (1.5-8.5); NEUTROPHILS % 73.3 % (36.0-66.0); PLATELET COUNT, AUTOMATED 207 10^3/uL (150-450); RED BLOOD COUNT 4.66 10^6/uL (4.00-5.40); WHITE BLOOD COUNT 7.5 10^3/uL (4.0-10.0)
[2022-01-22 16:22] LABS: ALBUMIN 2.8 GM/DL (3.2-5.2); ALT/SGPT 19 U/L (12-78); BILIRUBIN,DIRECT 0.1 MG/DL (0.0-0.2); BILIRUBIN,TOTAL 0.2 MG/DL (0.2-1.0); BLOOD UREA NITROGEN 13 MG/DL (7-18); CALCIUM LEVEL 8.9 MG/DL (8.8-10.2); CARBON DIOXIDE LEVEL 27 MEQ/L (21-32); CHLORIDE LEVEL 107 MEQ/L (98-107); CREATININE FOR GFR 0.73 MG/DL (0.55-1.30); GLOMERULAR FILTRATION RATE > 60.0 (>32); GLUCOSE, FASTING 47 MG/DL (70-100); POTASSIUM SERUM 4.3 MEQ/L (3.5-5.1); SODIUM LEVEL 139 MEQ/L (136-145)
== END ==
PROVIDERS: ATTEND Physician Assistant
DX: R19.7 Diarrhea, unspecified (principal)

== ENCOUNTER → 2022-01-23 | Outpatient (REF) | payer MEDICARE, MEDICAID ==
[2022-01-23 12:00] LABS: HEMATOCRIT 42.8 % (36.0-47.0); MEAN CORPUSCULAR HEMOGLOBIN 30.6 pg (27.0-33.0); MEAN CORPUSCULAR HGB CONC 32.7 g/dl (32.0-36.5); MEAN CORPUSCULAR VOLUME 93.4 fl (80.0-96.0); PLATELET COUNT, AUTOMATED 207 10^3/uL (150-450); RED BLOOD COUNT 4.58 10^6/uL (4.00-5.40); WHITE BLOOD COUNT 7.6 10^3/uL (4.0-10.0)
[2022-01-23 14:03] LABS: BLOOD UREA NITROGEN 14 MG/DL (7-18); CALCIUM LEVEL 8.9 MG/DL (8.8-10.2); CARBON DIOXIDE LEVEL 28 MEQ/L (21-32); CHLORIDE LEVEL 109 MEQ/L (98-107); CREATININE FOR GFR 0.84 MG/DL (0.55-1.30); GLOMERULAR FILTRATION RATE > 60.0 (>32); GLUCOSE, FASTING 104 MG/DL (70-100); POTASSIUM SERUM 4.3 MEQ/L (3.5-5.1); SODIUM LEVEL 142 MEQ/L (136-145)
== END ==
PROVIDERS: ATTEND Internal Medicine
DX: J44.9 Chronic obstructive pulmonary disease, unspecified (principal)

== ENCOUNTER → 2022-01-28 | Outpatient (REF) | payer MEDICARE, MEDICAID ==
[2022-01-28 12:43] LABS: FREE T4 1.04 NG/DL (0.76-1.46); THYROID STIMULATING HORMONE 3.2 uIU/ML (0.358-3.740)
== END ==
PROVIDERS: ATTEND Physician Assistant
DX: R63.4 Abnormal weight loss (principal); Z79.899 Other long term (current) drug therapy

== ENCOUNTER → 2022-02-27 | Outpatient (REF) | payer MEDICARE, MEDICAID ==
[2022-02-27 11:56] LABS: HEMATOCRIT 45.5 % (36.0-47.0); HEMOGLOBIN 14.7 g/dl (12.0-15.5); MEAN CORPUSCULAR HEMOGLOBIN 30.9 pg (27.0-33.0); MEAN CORPUSCULAR HGB CONC 32.3 g/dl (32.0-36.5); MEAN CORPUSCULAR VOLUME 95.6 fl (80.0-96.0); PLATELET COUNT, AUTOMATED 262 10^3/uL (150-450); RED BLOOD COUNT 4.76 10^6/uL (4.00-5.40); WHITE BLOOD COUNT 8.1 10^3/uL (4.0-10.0)
[2022-02-27 12:54] LABS: BLOOD UREA NITROGEN 15 MG/DL (7-18); CALCIUM LEVEL 9.3 MG/DL (8.8-10.2); CARBON DIOXIDE LEVEL 26 MEQ/L (21-32); CHLORIDE LEVEL 104 MEQ/L (98-107); CREATININE FOR GFR 0.87 MG/DL (0.55-1.30); GLOMERULAR FILTRATION RATE > 60.0 (>32); GLUCOSE, FASTING 117 MG/DL (70-100); POTASSIUM SERUM 4.6 MEQ/L (3.5-5.1); SODIUM LEVEL 136 MEQ/L (136-145)
== END ==
PROVIDERS: ATTEND Internal Medicine
DX: J44.9 Chronic obstructive pulmonary disease, unspecified (principal)

== ENCOUNTER → 2022-03-27 | Outpatient (REF) | payer MEDICARE, MEDICAID ==
[2022-03-27 12:05] LABS: HEMOGLOBIN 13.9 g/dl (12.0-15.5); MEAN CORPUSCULAR HEMOGLOBIN 30.7 pg (27.0-33.0); MEAN CORPUSCULAR HGB CONC 31.6 g/dl (32.0-36.5); MEAN CORPUSCULAR VOLUME 97.1 fl (80.0-96.0); PLATELET COUNT, AUTOMATED 235 10^3/uL (150-450); RED BLOOD COUNT 4.53 10^6/uL (4.00-5.40)
[2022-03-27 12:57] LABS: CALCIUM LEVEL 8.5 MG/DL (8.8-10.2); CREATININE FOR GFR 0.99 MG/DL (0.55-1.30); GLOMERULAR FILTRATION RATE 56.6 (>32); POTASSIUM SERUM 3.9 MEQ/L (3.5-5.1)
== END ==
PROVIDERS: ATTEND Internal Medicine
DX: J44.9 Chronic obstructive pulmonary disease, unspecified (principal)

== ENCOUNTER → 2022-05-01 | Outpatient (REF) | payer MEDICARE, MEDICAID ==
[2022-05-01 10:10] LABS: HEMATOCRIT 50.6 % (36.0-47.0); HEMOGLOBIN 15.5 g/dl (12.0-15.5); MEAN CORPUSCULAR HEMOGLOBIN 29.9 pg (27.0-33.0); MEAN CORPUSCULAR HGB CONC 30.6 g/dl (32.0-36.5); MEAN CORPUSCULAR VOLUME 97.5 fl (80.0-96.0); PLATELET COUNT, AUTOMATED 282 10^3/uL (150-450); RED BLOOD COUNT 5.19 10^6/uL (4.00-5.40); WHITE BLOOD COUNT 10.9 10^3/uL (4.0-10.0)
[2022-05-01 10:46] LABS: CALCIUM LEVEL 9.2 MG/DL (8.8-10.2); CREATININE FOR GFR 1.07 MG/DL (0.55-1.30); GLOMERULAR FILTRATION RATE 51.8 (>32); POTASSIUM SERUM 4.6 MEQ/L (3.5-5.1)
== END ==
PROVIDERS: ATTEND Internal Medicine
DX: J44.9 Chronic obstructive pulmonary disease, unspecified (principal)

== ENCOUNTER → 2022-05-29 | Outpatient (REF) | payer MEDICARE, MEDICAID ==
[2022-05-29 12:20] LABS: HEMATOCRIT 45.6 % (36.0-47.0); HEMOGLOBIN 14.5 g/dl (12.0-15.5); MEAN CORPUSCULAR HEMOGLOBIN 30.5 pg (27.0-33.0); MEAN CORPUSCULAR HGB CONC 31.8 g/dl (32.0-36.5); PLATELET COUNT, AUTOMATED 212 10^3/uL (150-450); RED BLOOD COUNT 4.75 10^6/uL (4.00-5.40); WHITE BLOOD COUNT 7.4 10^3/uL (4.0-10.0)
[2022-05-29 12:48] LABS: BLOOD UREA NITROGEN 13 MG/DL (9-23); CALCIUM LEVEL 8.8 MG/DL (8.3-10.6); CARBON DIOXIDE LEVEL 25 MMOL/L (20-31); CHLORIDE LEVEL 106 MMOL/L (98-107); CREATININE FOR GFR 0.88 MG/DL (0.55-1.30); GLOMERULAR FILTRATION RATE > 60.0 (>32); GLUCOSE, FASTING 100 MG/DL (74-106); POTASSIUM SERUM 3.8 MMOL/L (3.5-5.1); SODIUM LEVEL 139 MMOL/L (136-145)
== END ==
PROVIDERS: ATTEND Internal Medicine
DX: J44.9 Chronic obstructive pulmonary disease, unspecified (principal)

== ENCOUNTER → 2022-06-18 | Outpatient (REF) | payer MEDICARE, MEDICAID ==
[2022-06-18 20:24] LABS: APPEARANCE, URINE MANUAL HAZY (CLEAR); COLOR, URINE MANUAL YELLOW (YELLOW)
[2022-06-18 20:25] LABS: BILIRUBIN, URINE MANUAL NEGATIVE (NEGATIVE); BLOOD URINE MANUAL POSITIVE (NEGATIVE); GLUCOSE, URINE (UA) MANUAL NEGATIVE (NEGATIVE); KETONE, URINE MANUAL NEGATIVE (NEGATIVE); LEUKOCYTE ESTERASE, URINE MAN POSITIVE (NEGATIVE); NITRITE, URINE MANUAL POSITIVE (NEGATIVE); PROTEIN, URINE MANUAL 1+ mg/dL (NEGATIVE); SPECIFIC GRAVITY,URINE MANUAL 1.012 (1.002-1.035); UROBILINOGEN, URINE MANUAL NORMAL (NORMAL)
[2022-06-18 20:40] LABS: BACTERIA, URINE LARGE AMOUNT; HYALINE CAST, URINE NONE SEEN /lpf (0-1); SQUAMOUS EPITHELIAL CELL URINE SMALL AMOUNT /hpf (SMALL AMT); TRIPLE PHOSPHATE CRYSTAL,URINE LARGE AMOUNT /hpf
== END ==
PROVIDERS: ATTEND Internal Medicine
DX: R29.6 Repeated falls (principal); Z79.899 Other long term (current) drug therapy

== ENCOUNTER → 2022-06-26 | Outpatient (REF) | payer MEDICARE, MEDICAID ==
[2022-06-26 11:23] LABS: HEMATOCRIT 45.2 % (36.0-47.0); HEMOGLOBIN 14.4 g/dl (12.0-15.5); MEAN CORPUSCULAR HEMOGLOBIN 30.2 pg (27.0-33.0); MEAN CORPUSCULAR HGB CONC 31.9 g/dl (32.0-36.5); MEAN CORPUSCULAR VOLUME 94.8 fl (80.0-96.0); PLATELET COUNT, AUTOMATED 233 10^3/uL (150-450); RED BLOOD COUNT 4.77 10^6/uL (4.00-5.40); WHITE BLOOD COUNT 7.6 10^3/uL (4.0-10.0)
[2022-06-26 11:57] LABS: BLOOD UREA NITROGEN 14 MG/DL (9-23); CALCIUM LEVEL 8.6 MG/DL (8.3-10.6); CARBON DIOXIDE LEVEL 23 MMOL/L (20-31); CHLORIDE LEVEL 105 MMOL/L (98-107); CREATININE FOR GFR 0.86 MG/DL (0.55-1.30); GLOMERULAR FILTRATION RATE > 60.0 (>32); GLUCOSE, FASTING 108 MG/DL (74-106); SODIUM LEVEL 141 MMOL/L (136-145)
== END ==
PROVIDERS: ATTEND Internal Medicine
DX: J44.9 Chronic obstructive pulmonary disease, unspecified (principal)

== ENCOUNTER → 2022-07-24 | Outpatient (REF) | payer MEDICARE, MEDICAID ==
[2022-07-24 11:43] LABS: HEMATOCRIT 45.7 % (36.0-47.0); HEMOGLOBIN 14.7 g/dl (12.0-15.5); MEAN CORPUSCULAR HEMOGLOBIN 30.8 pg (27.0-33.0); MEAN CORPUSCULAR HGB CONC 32.2 g/dl (32.0-36.5); MEAN CORPUSCULAR VOLUME 95.6 fl (80.0-96.0); PLATELET COUNT, AUTOMATED 239 10^3/uL (150-450); RED BLOOD COUNT 4.78 10^6/uL (4.00-5.40); WHITE BLOOD COUNT 8.2 10^3/uL (4.0-10.0)
[2022-07-24 12:03] LABS: CALCIUM LEVEL 8.7 MG/DL (8.3-10.6); CREATININE FOR GFR 0.97 MG/DL (0.55-1.30); POTASSIUM SERUM 4.3 MMOL/L (3.5-5.1)
== END ==
PROVIDERS: ATTEND Internal Medicine
DX: J44.9 Chronic obstructive pulmonary disease, unspecified (principal)

== ENCOUNTER → 2022-08-21 | Outpatient (REF) | payer MEDICARE, MEDICAID ==
[2022-08-21 12:42] LABS: HEMATOCRIT 43.2 % (36.0-47.0); HEMOGLOBIN 13.4 g/dl (12.0-15.5); MEAN CORPUSCULAR HEMOGLOBIN 30.1 pg (27.0-33.0); MEAN CORPUSCULAR VOLUME 97.1 fl (80.0-96.0); PLATELET COUNT, AUTOMATED 209 10^3/uL (150-450); RED BLOOD COUNT 4.45 10^6/uL (4.00-5.40); WHITE BLOOD COUNT 6.6 10^3/uL (4.0-10.0)
[2022-08-21 13:11] LABS: CALCIUM LEVEL 8.4 MG/DL (8.3-10.6); CREATININE FOR GFR 0.95 MG/DL (0.55-1.30); GLOMERULAR FILTRATION RATE 59.4 (>32); POTASSIUM SERUM 4.7 MMOL/L (3.5-5.1)
== END ==
PROVIDERS: ATTEND Internal Medicine
DX: J44.9 Chronic obstructive pulmonary disease, unspecified (principal)

== ENCOUNTER → 2022-09-04 | Outpatient (REF) | payer MEDICARE, MEDICAID ==
[2022-09-04 18:08] LABS: FERRITIN 109.8 NG/ML (7.3-270.7)
[2022-09-04 18:10] LABS: IRON (FE) 65 UG/DL (50-170); PERCENT SATURATION 28.8 % (13.2-45.0); TOTAL IRON BINDING CAPACITY 226 UG/DL (250-425)
[2022-09-04 18:13] LABS: HEMOGLOBIN 12.8 g/dl (12.0-15.5); MEAN CORPUSCULAR HEMOGLOBIN 30.1 pg (27.0-33.0); MEAN CORPUSCULAR HGB CONC 31.2 g/dl (32.0-36.5); MEAN CORPUSCULAR VOLUME 96.5 fl (80.0-96.0); PLATELET COUNT, AUTOMATED 226 10^3/uL (150-450); RED BLOOD COUNT 4.25 10^6/uL (4.00-5.40); WHITE BLOOD COUNT 6.6 10^3/uL (4.0-10.0)
[2022-09-04 18:38] LABS: ALBUMIN 2.5 G/DL (3.2-5.2); ALKALINE PHOSPHATASE 127 U/L (46-116); ALT/SGPT 11 U/L (7.0-40); AST/SGOT 17 U/L (<34); BILIRUBIN,TOTAL 0.3 MG/DL (0.3-1.2); BLOOD UREA NITROGEN 15 MG/DL (9-23); CALCIUM LEVEL 8.1 MG/DL (8.3-10.6); CARBON DIOXIDE LEVEL 26 MMOL/L (20-31); CHLORIDE LEVEL 106 MMOL/L (98-107); CREATININE FOR GFR 0.87 MG/DL (0.55-1.30); GLOMERULAR FILTRATION RATE > 60.0 (>32); GLUCOSE, FASTING 100 MG/DL (74-106); POTASSIUM SERUM 4.5 MMOL/L (3.5-5.1); SODIUM LEVEL 140 MMOL/L (136-145); TOTAL PROTEIN 4.7 G/DL (5.7-8.2)
== END ==
PROVIDERS: ATTEND Internal Medicine
DX: R53.83 Other fatigue (principal)

== ENCOUNTER → 2022-09-25 | Outpatient (REF) | payer MEDICARE, MEDICAID ==
[2022-09-25 11:05] LABS: HEMATOCRIT 44.7 % (36.0-47.0); MEAN CORPUSCULAR HEMOGLOBIN 30.4 pg (27.0-33.0); MEAN CORPUSCULAR HGB CONC 31.3 g/dl (32.0-36.5); PLATELET COUNT, AUTOMATED 236 10^3/uL (150-450); RED BLOOD COUNT 4.61 10^6/uL (4.00-5.40); WHITE BLOOD COUNT 7.6 10^3/uL (4.0-10.0)
[2022-09-25 11:38] LABS: BLOOD UREA NITROGEN 16 MG/DL (9-23); CALCIUM LEVEL 8.6 MG/DL (8.3-10.6); CARBON DIOXIDE LEVEL 26 MMOL/L (20-31); CHLORIDE LEVEL 108 MMOL/L (98-107); CREATININE FOR GFR 0.85 MG/DL (0.55-1.30); GLOMERULAR FILTRATION RATE > 60.0 (>32); GLUCOSE, FASTING 114 MG/DL (74-106); POTASSIUM SERUM 4.3 MMOL/L (3.5-5.1); SODIUM LEVEL 140 MMOL/L (136-145)
== END ==
PROVIDERS: ATTEND Internal Medicine
DX: J44.9 Chronic obstructive pulmonary disease, unspecified (principal)

== ENCOUNTER → 2022-10-21 | Outpatient (REF) | payer MEDICARE, MEDICAID ==
[2022-10-21 11:40] LABS: HEMATOCRIT 42.7 % (36.0-47.0); HEMOGLOBIN 13.6 g/dl (12.0-15.5); MEAN CORPUSCULAR HEMOGLOBIN 30.7 pg (27.0-33.0); MEAN CORPUSCULAR HGB CONC 31.9 g/dl (32.0-36.5); MEAN CORPUSCULAR VOLUME 96.4 fl (80.0-96.0); PLATELET COUNT, AUTOMATED 213 10^3/uL (150-450); RED BLOOD COUNT 4.43 10^6/uL (4.00-5.40); WHITE BLOOD COUNT 5.8 10^3/uL (4.0-10.0)
[2022-10-21 12:06] LABS: BLOOD UREA NITROGEN 11 MG/DL (9-23); CALCIUM LEVEL 8.8 MG/DL (8.3-10.6); CARBON DIOXIDE LEVEL 23 MMOL/L (20-31); CHLORIDE LEVEL 106 MMOL/L (98-107); CREATININE FOR GFR 0.84 MG/DL (0.55-1.30); GLOMERULAR FILTRATION RATE > 60.0 (>32); GLUCOSE, FASTING 180 MG/DL (74-106); POTASSIUM SERUM 4.2 MMOL/L (3.5-5.1); SODIUM LEVEL 139 MMOL/L (136-145)
== END ==
PROVIDERS: ATTEND Internal Medicine
DX: J44.9 Chronic obstructive pulmonary disease, unspecified (principal)

== ENCOUNTER → 2023-09-05 | Outpatient (REF) | payer MEDICARE, MEDICAID ==
[~2023-09-05] MED LIST changes: +CEFD1CAP9 PO; -CEFD300C41 PO; +HYDR-161 PO; -HYDR10TAB PO; -HYDR25TA PO; +HYDR25TA88 PO
== END ==
PROVIDERS: ATTEND Internal Medicine
DX: R19.7 Diarrhea, unspecified (principal); Z53.8 Procedure and treatment not carried out for other reasons

== ENCOUNTER → 2023-09-06 | Outpatient (REF) | payer MEDICARE, MEDICAID | PROVIDERS: ATTEND Internal Medicine | DX: R19.7 Diarrhea, unspecified (principal) ==

== ENCOUNTER → 2024-04-02 | Outpatient (REF) | payer MEDICARE, MEDICAID ==
[~2024-04-02] MED LIST changes: +FLUO-290 PO; -FLUO10CA18 PO
[2024-04-02 08:47] LABS: HEMATOCRIT 41.5 % (36.0-47.0); HEMOGLOBIN 13.2 g/dl (12.0-15.5); MEAN CORPUSCULAR HEMOGLOBIN 31.1 pg (27.0-33.0); MEAN CORPUSCULAR HGB CONC 31.8 g/dl (32.0-36.5); MEAN CORPUSCULAR VOLUME 97.9 fl (80.0-96.0); PLATELET COUNT, AUTOMATED 253 10^3/uL (150-450); RED BLOOD COUNT 4.24 10^6/uL (4.00-5.40); WHITE BLOOD COUNT 7.3 10^3/uL (4.0-10.0)
[2024-04-02 09:20] LABS: BLOOD UREA NITROGEN 21 MG/DL (9-23); CALCIUM LEVEL 8.8 MG/DL (8.3-10.6); CARBON DIOXIDE LEVEL 28 MMOL/L (20-31); CHLORIDE LEVEL 109 MMOL/L (98-107); CREATININE FOR GFR 0.91 MG/DL (0.55-1.30); GLOMERULAR FILTRATION RATE > 60.0 (>32); GLUCOSE, FASTING 131 MG/DL (74-106); POTASSIUM SERUM 4.6 MMOL/L (3.5-5.1); SODIUM LEVEL 142 MMOL/L (136-145)
== END ==
PROVIDERS: ATTEND Internal Medicine
DX: R05.9 Cough, unspecified (principal); Z79.899 Other long term (current) drug therapy

== ENCOUNTER → 2024-04-05 | Outpatient (REF) | payer MEDICARE, MEDICAID | PROVIDERS: ATTEND Nurse Practitioner Adult Health | DX: R05.9 Cough, unspecified (principal); I27.20 Pulmonary hypertension, unspecified; R91.8 Other nonspecific abnormal finding of lung field ==

== ENCOUNTER → 2024-08-31 | Outpatient (REF) | payer MEDICARE, MEDICAID ==
[2024-08-31 19:51] LABS: HEMATOCRIT 44.4 % (36.0-47.0); HEMOGLOBIN 14.2 g/dl (12.0-15.5); MEAN CORPUSCULAR HEMOGLOBIN 31.4 pg (27.0-33.0); MEAN CORPUSCULAR VOLUME 98.2 fl (80.0-96.0); PLATELET COUNT, AUTOMATED 213 10^3/uL (150-450); RED BLOOD COUNT 4.52 10^6/uL (4.00-5.40); WHITE BLOOD COUNT 7.1 10^3/uL (4.0-10.0)
[2024-08-31 20:17] LABS: ALBUMIN 2.8 G/DL (3.2-5.2); ALKALINE PHOSPHATASE 135 U/L (35-104); ALT/SGPT 17 U/L (7.0-40); AST/SGOT 18 U/L (<34); BILIRUBIN,TOTAL 0.2 MG/DL (0.3-1.2); BLOOD UREA NITROGEN 18 MG/DL (9-23); CALCIUM LEVEL 8.5 MG/DL (8.3-10.6); CARBON DIOXIDE LEVEL 26 MMOL/L (20-31); CHLORIDE LEVEL 104 MMOL/L (98-107); CREATININE FOR GFR 0.91 MG/DL (0.55-1.30); GLOMERULAR FILTRATION RATE > 60.0 (>32); GLUCOSE, FASTING 65 MG/DL (74-106); POTASSIUM SERUM 4.6 MMOL/L (3.5-5.1); SODIUM LEVEL 141 MMOL/L (136-145); TOTAL PROTEIN 6.4 G/DL (5.7-8.2)
== END ==
PROVIDERS: ATTEND Internal Medicine
DX: R05.9 Cough, unspecified (principal); Z79.899 Other long term (current) drug therapy

== ENCOUNTER → 2024-09-01 | Outpatient (REF) | payer MEDICAID, MEDICARE | PROVIDERS: ATTEND Physician Assistant | DX: R05.9 Cough, unspecified (principal); R09.02 Hypoxemia ==

== ENCOUNTER → 2024-09-03 | Outpatient (REF) | payer MEDICARE ==
[2024-09-03 08:30] LABS: HEMATOCRIT 44.7 % (36.0-47.0); HEMOGLOBIN 14.6 g/dl (12.0-15.5); MEAN CORPUSCULAR HEMOGLOBIN 31.1 pg (27.0-33.0); MEAN CORPUSCULAR HGB CONC 32.7 g/dl (32.0-36.5); MEAN CORPUSCULAR VOLUME 95.1 fl (80.0-96.0); PLATELET COUNT, AUTOMATED 212 10^3/uL (150-450); WHITE BLOOD COUNT 6.9 10^3/uL (4.0-10.0)
[2024-09-03 08:55] LABS: BLOOD UREA NITROGEN 21 MG/DL (9-23); CALCIUM LEVEL 8.9 MG/DL (8.3-10.6); CARBON DIOXIDE LEVEL 30 MMOL/L (20-31); CHLORIDE LEVEL 103 MMOL/L (98-107); CREATININE FOR GFR 0.91 MG/DL (0.55-1.30); GLOMERULAR FILTRATION RATE > 60.0 (>32); GLUCOSE, FASTING 103 MG/DL (74-106); POTASSIUM SERUM 4.3 MMOL/L (3.5-5.1); SODIUM LEVEL 141 MMOL/L (136-145)
== END ==
PROVIDERS: ATTEND Internal Medicine
DX: R05.9 Cough, unspecified (principal); Z79.899 Other long term (current) drug therapy

== ENCOUNTER → 2024-09-07 | Outpatient (REF) | payer MEDICARE ==
[2024-09-07 14:17] LABS: HEMATOCRIT 46.2 % (36.0-47.0); HEMOGLOBIN 14.5 g/dl (12.0-15.5); MEAN CORPUSCULAR HEMOGLOBIN 30.7 pg (27.0-33.0); MEAN CORPUSCULAR HGB CONC 31.4 g/dl (32.0-36.5); MEAN CORPUSCULAR VOLUME 97.7 fl (80.0-96.0); PLATELET COUNT, AUTOMATED 262 10^3/uL (150-450); RED BLOOD COUNT 4.73 10^6/uL (4.00-5.40); WHITE BLOOD COUNT 12.7 10^3/uL (4.0-10.0)
[2024-09-07 14:44] LABS: CALCIUM LEVEL 8.8 MG/DL (8.3-10.6); CREATININE FOR GFR 0.97 MG/DL (0.55-1.30); GLOMERULAR FILTRATION RATE 57.7 (>32); POTASSIUM SERUM 5.2 MMOL/L (3.5-5.1)
== END ==
PROVIDERS: ATTEND Internal Medicine
DX: R05.9 Cough, unspecified (principal); Z79.899 Other long term (current) drug therapy